=== PATIENT | female | born 1965 | race Caucasian/White ===

== ENCOUNTER → 2020-07-26 07:49 | Outpatient (BNVA) | payer BC, SELFPAY | PROVIDERS: PCP Internal Medicine; Referring Provider Internal Medicine; Visit Provider Physician Assistant | DX: K21.9 Gastro-esophageal reflux disease without esophagitis (principal); F17.200 Nicotine dependence, unspecified, uncomplicated ==

== ENCOUNTER 2020-07-28 10:50 | Outpatient (REF) | payer BC, SELFPAY ==
[2020-07-28 12:21] LABS: Anion Gap 12 (12-20); Blood Urea Nitrogen 11 mg/dL (9-16); Calcium 8.6 mg/dL (8.4-10.2); Carbon Dioxide 28 mmol/L (22-29); Chloride 106 mmol/L (96-108); Estimated Glomerular Filt Rate > 60; Glucose Random 87 mg/dL (60-115); Potassium 4.5 mmol/l (3.3-5.1); Sodium 141 mmol/L (135-145)
== END 2020-07-28 10:51 | disposition home or self-care (01) ==
LOC: HO.LAB 10:50
PROVIDERS: PCP Internal Medicine; Visit Provider Otolaryngology
DX: R22.1 Localized swelling, mass and lump, neck (principal)
CPT/HCPCS: 80048

== ENCOUNTER 2020-08-03 09:17 | Outpatient (REF) | payer BC, SELFPAY ==
--- NOTE | 2020-08-03 09:20 | CT_ITS ---
EXAMINATION: CT SOFT TISSUE NECK WITH CONTRAST CLINICAL INFORMATION: Right neck/submandibular mass. COMPARISON: None TECHNIQUE: Following the intravenous administration of 60 mL of Omnipaque 350 intravenous contrast, helical imaging was performed in the axial plane with generation of coronal and sagittal reformatted images. This CT examination was performed using dose optimization techniques as appropriate, variously including the following: *Automated exposure control *Adjustment of mA and/or kV according to patient size (this includes techniques or standardized protocols for targeted exams where dose is matched to indication/reason for exam; i.e. extremities or head) *Use of iterative reconstruction technique DLP: 306 mGy-cm FINDINGS: There are small bilateral shotty neck lymph nodes. The largest left level 2 lymph nodes appears fraser-shaped measuring 1.4 x 0.5 cm on axial image 74/2, largest right neck lymph node level 2 measures 9 mm on axial image 75/2. The parotid glands are homogeneous in attenuation. The submandibular glands are normal. The oral cavity is limited in evaluation secondary to dental amalgam related beam hardening artifacts. The oropharynx is grossly unremarkable without any visible mass or mass effect. The oropharyngeal airway is widely patent. The laryngeal structures are normal. The parapharyngeal fat is preserved. The carotid sheath vasculature opacify normally. No extra mucosal soft tissue mass or fluid collection is seen. No retropharyngeal fluid collection is seen. The thyroid gland is normal. The superior mediastinum is unremarkable. There is minimal bilateral apical parenchymal scarring. The mastoid air cells and visualized portions of the paranasal sinuses are well-aerated. The temporomandibular joints are normal. No periapical disease is identified. No osseous abnormalities are seen. The imaged portions of the brain parenchyma are unremarkable. CT/CT soft tissue neck w con IMPRESSION: No right neck mass seen. There is no abnormal neck lymphadenopathy. The airway is widely patent. The oral cavity is not well visualized due to artifact from the dental amalgam.
[2020-08-03] MEDS: iohexoL 350 MG/ML 100 ML INFUS..BTL 60 ML IV (10:08)
== END 2020-08-03 09:18 | disposition home or self-care (01) ==
LOC: HO.CT 09:17
PROVIDERS: PCP Internal Medicine; Visit Provider Otolaryngology
DX: R22.1 Localized swelling, mass and lump, neck (principal)
CPT/HCPCS: 70491; Q9967

== ENCOUNTER 2021-07-18 15:38 | Outpatient (REF) | payer OTHER, SELFPAY ==
--- NOTE | ~2021-07-18 | MM_ITS ---
EXAMINATION: MM SCREENING DIGITAL BREAST TOMOSYNTHESIS, BILATERAL CLINICAL INFORMATION: Screening. Asymptomatic. The lifetime risk of breast cancer based on the Tyrer-Cuzick Model is 6%. COMPARISON: Mammography: 04/12/2020, 03/24/2019, 12/31/2017 TECHNIQUE: Digital mammography is performed in craniocaudal and mediolateral oblique views along with computer-aided detection (CAD). Digital breast tomosynthesis is performed in implant-displaced craniocaudal and implant-displaced mediolateral oblique views along with computer-aided detection (CAD). Synthesized 2D images are generated from the tomosynthesis. FINDINGS: There are scattered areas of fibroglandular density (ACR BI-RADS breast composition Category b). There are bilateral implants. The implant contours are smooth and similar to prior studies. There is biopsy clip marker again noted retroareolar left breast. There are some scattered benign punctate round calcifications close to skin bilaterally anterior breasts. Neither breast shows interval mass or developing density or architectural abnormality. There are no significant changes. MM/MM tomosynthesis screen imp BI IMPRESSION: No mammographic evidence of malignancy. ASSESSMENT: BI-RADS 2: Benign RECOMMENDATION: Routine annual mammography screening. This patient's information was entered into a reminder system with a target due date for their next mammogram.
== END 2021-07-18 15:39 | disposition home or self-care (01) ==
LOC: HO.MAMMO 15:38
PROVIDERS: PCP Nurse Practitioner Family; Visit Provider Nurse Practitioner Family
DX: Z12.31 Encounter for screening mammogram for malignant neoplasm of breast (principal)
CPT/HCPCS: 77063; 77067

== ENCOUNTER → 2021-08-05 10:17 | Outpatient (BNVA) | payer OTHER, SELFPAY | PROVIDERS: PCP Nurse Practitioner Family; Referring Provider Nurse Practitioner Family; Visit Provider Surgery ==

== ENCOUNTER → 2021-08-08 08:15 | Outpatient (BNVA) | payer OTHER, SELFPAY | PROVIDERS: PCP Internal Medicine; Visit Provider Obstetrics & Gynecology ==

== ENCOUNTER 2021-08-29 05:58 | Day surgery (SDC) | payer OTHER, SELFPAY ==
[2021-08-19 11:44] VITALS: BMI 21.4
--- NOTE | 2021-08-23 15:35 | HO.ANESPROP2 ---
Documented by User: Jolanta Castorena NP 08/23/21 15:35 HPI - Anesthesia Eval Consult details Narrative: 56yo F for Right Excision of Right Groin Lipoma PMFSH Active Problems Active Problems: All Active Problems (Updated 08/19/21 @ 11:40 by Kanwal De Anda RN) Acid reflux (Acute) Lipoma of abdominal wall (Acute) Well woman exam (Acute) Past Medical History Medical History (Updated 08/19/21 @ 11:40 by Kanwal De Anda RN) Acid reflux Smoker Tubular adenoma Tubulovillous adenoma Family History Family History Father CAD (coronary artery disease) Mother No problems noted. Unknown No problems noted. Surgical History Surgical History (Updated 08/19/21 @ 11:40 by Kanwal De Anda RN) History of arthroscopy of left shoulder History of bilateral breast implants History of section History of D&C History of left breast biopsy Hx of colonoscopy Social History Social History Are you a primary resident care coordinator to a significant other at home: No Do you presently have visiting nurse or other home services: No Alcohol intake: current Alcohol intake frequency: a few times a month Patient Tobacco Use Status: Current everyday Tobacco user Tobacco use type: Cigarette Cigarette Packs Per Day: 0.5 Cigarettes Per Day: 10.0 Years Smoked: 35 Smoked in Last 30 Days: Yes Have you been hit, kicked, punched, or otherwise hurt by someone within the past year? If so, by whom?: No Are you DNR?: No Advance Directives: No Advance Directives Information Provided: No Advance Directives on File: No Recently lost weight without trying: No Eating poorly because of decreased appetite: No Nutrition Risks: No Nutritional Risk Patient : No Current occupation: [employer] Meds Allergies Allergy/AdvReac Type Severity Reaction Status Date / Time No Known Allergies Allergy Verified 08/19/21 11:36 [No Known Allergies*] Home Medications Medication Instructions Recorded Confirmed Last Taken Type omeprazole 20 mg tablet,delayed 20 mg PO DAILY 08/05/21 08/19/21 Unknown History release Exam Exam Date and Time: August 23, 2021 1535 Height,Weight and Vital Signs: Height 5 ft 7 in Weight 62.142 kg Assessment and Plan Assessment Anesthesia Assessment: Chart Reviewed Documented by User: Jaya Marshall 08/29/21 07:16 [facility] Past Medical History Medical History (Updated 08/19/21 @ 11:40 by Kanwal De Anda, RN) Acid reflux Smoker Tubular adenoma Tubulovillous adenoma Functional capacity: independent ambulation Family History Family History Father CAD (coronary artery disease) Mother No problems noted. Unknown No problems noted. Family history of problems with anesthesia: No Surgical History Surgical History (Updated 08/19/21 @ 11:40 by Kanwal De Anda RN) History of arthroscopy of left shoulder History of bilateral breast implants History of section History of D&C History of left breast biopsy Hx of colonoscopy Social History Social History Are you a primary resident care coordinator to a significant other at home: No Do you presently have visiting nurse or other home services: No Alcohol intake: current Alcohol intake frequency: a few times a month Patient Tobacco Use Status: Current everyday Tobacco user Tobacco use type: Cigarette Cigarette Packs Per Day: 0.5 Cigarettes Per Day: 10.0 Years Smoked: 35 Smoked in Last 30 Days: Yes Have you been hit, kicked, punched, or otherwise hurt by someone within the past year? If so, by whom?: No Are you DNR?: No Advance Directives: No Advance Directives Information Provided: No Advance Directives on File: No Recently lost weight without trying: No Eating poorly because of decreased appetite: No Nutrition Risks: No Nutritional Risk Patient : No Current occupation: [employer] Allergies Allergy/AdvReac Type Severity Reaction Status Date / Time No Known Allergies Allergy Verified 08/19/21 11:36 [No Known Allergies*] Home Medications Medication Instructions Recorded Confirmed Last Taken Type omeprazole 20 mg tablet,delayed 20 mg PO DAILY 08/05/21 08/19/21 Unknown History release Exam Airway Mallampati Class: II TM Dist: >3cm Neck ROM: Full Loose/Missing/Broken Teeth: Yes (Loose crown ) Heart: rrr Lungs: bl breath sounds Assessment and Plan Final Anesthetic Review Family History of Problems with Anesthesia: No ASA Class: II Final Preanesthetic Review: Meds/Allgs Chart Reviewed and Anes Risks/Benef Reviewed Patient Risk: Intermediate Procedure Risk: Intermediate Anesthetic Plan Anesthetic Plan: GA Disposition: Standard PACU
[2021-08-29] VITALS (7 sets, daily range): BP systolic 133–145; BP diastolic 76–88; PULSE 61–77; RESP 15–16; TEMP 36.3–36.7; O2SAT 96–100
[2021-08-29] MEDS: Lactated Ringers 1,000 ML 100 ML IVCONT (06:18)
--- NOTE | 2021-08-29 07:32 | MHC.SHP ---
Pre-Procedural Eval Section A Date of Service: 08/29/21 The patient is an INPATIENT: No Changes since office visit: Yes Patient answered all questions; No Cold of Flu in the past 2 weeks, No New Medical Problems and No Changes in Medication The History & Physical has been completed within 30 days and I have reviewed it.: Yes Section B Chief Complaint: Lipoma of Abdominal Wall Allergies: Allergies Allergy/AdvReac Type Severity Reaction Status Date / Time No Known Allergies Allergy Verified 08/19/21 11:36 [No Known Allergies*] Plan Diagnosis/Plan: Unchanged I have reviewed the history and physical and performed a pertinent physical examination on my patient. No changes have occurred unless specified.
--- NOTE | 2021-08-29 08:18 | W.PM.OPN ---
Operative Note Operative Note Date of Service: 08/29/21 Narrative: Preoperative diagnosis:Lipoma right groin Postoperative diagnosis: right femoral hernia Procedure: repair of right femoral hernia without mesh Surgeon: Sabino Brock MD [employer] Worker: Johanne Dang PA-C Anesthesia: general LMA Indications for procedure: 56-year-old female patient presenting with a soft tissue mass in the right groin. Denied any significant changes with lifting or straining and denies any pain associated with the lump. On examination the patient has a lump located in the right groin which does not change significantly with changes in position. Findings are suggestive of a lipoma or possible femoral hernia. Operative findings: Right femoral hernia containing preperitoneal fat Specimen: Right femoral hernia contents (preperitoneal fat). Estimated blood loss: 2 mL Complications: none Procedure details: The patient was brought to the OR placed in a supine position. After administering general anesthesia the patient's abdomen was prepped with ChloraPrep and draped in a sterile fashion. A surgical time-out was called the consent confirmed. Patient received preoperative antibiotics and Venodyne boots were in place. Local anesthesia consisting of 0.5% Sensorcaine was infiltrated over the right inguinal ligament. Incision was then made over the patient's previous incision ( section) carried out through subcutaneous tissue and down to the lipoma. The lipoma was then dissected free from the surrounding subcutaneous tissue. This was dissected down to a fascial defect. No bowel was noted within the hernia. The pre peritoneal fat was then resected and sent to pathology as a specimen. Edges of the fascial then identified and a small fascial defect noted this location. This was closed using a single 1. Tycron suture to approximate the Efrem's ligament to the inguinal ligament. The wounds were then irrigated with saline solution and suctioned dry. Dermis was then reapproximated using interrupted 3-0 Polysorb sutures. Skin was then closed using a running subcuticular 4-0 Polysorb suture. Steri-Strips 2 x 2 gauze and Tegaderm were then applied. The patient tolerated the procedure well. Sponge, instrument, and needle counts reported as correct. The patient was transferred to PACU in stable condition.
[2021-08-29] MEDS: HYDROcodone Bit/Acetam 5/325 TABLET 1 TAB PO (09:12)
== END 2021-08-29 10:09 | disposition home or self-care (01) ==
PROVIDERS: PCP Nurse Practitioner Family; Visit Provider Surgery
PROC: (CPT 49550; principal; 2021-08-29 07:30)
DX: K41.90 Unilateral femoral hernia, without obstruction or gangrene, not specified as recurrent (principal); Z79.899 Other long term (current) drug therapy; K21.9 Gastro-esophageal reflux disease without esophagitis; F17.210 Nicotine dependence, cigarettes, uncomplicated
CPT/HCPCS: 49550; 88302; J0690; J1100; J2250; J2370; J2405; J3010

== ENCOUNTER → 2021-09-06 11:01 | Outpatient (BNVA) | payer OTHER, SELFPAY | PROVIDERS: PCP Nurse Practitioner Family; Referring Provider Nurse Practitioner Family; Visit Provider Surgery ==

== ENCOUNTER → 2021-10-04 10:09 | Outpatient (BNVA) | payer OTHER, SELFPAY | PROVIDERS: PCP Nurse Practitioner Family; Referring Provider Nurse Practitioner Family; Visit Provider Surgery ==

== ENCOUNTER 2022-07-24 15:35 | Outpatient (REF) | payer OTHER, SELFPAY ==
--- NOTE | ~2022-07-24 | MM_ITS ---
EXAMINATION: MM SCREENING DIGITAL BREAST TOMOSYNTHESIS, BILATERAL CLINICAL INFORMATION: Screening. Asymptomatic. Bilateral saline breast implants. The lifetime risk of breast cancer based on the Tyrer-Cuzick Model is 5.2%. COMPARISON: Mammography: 07/08/2021 and studies dating back to 11/10/2013. TECHNIQUE: Digital mammography is performed in craniocaudal and mediolateral oblique views along with computer-aided detection (CAD). Digital breast tomosynthesis is performed in implant-displaced craniocaudal and implant-displaced mediolateral oblique views along with computer-aided detection (CAD). Synthesized 2D images are generated from the tomosynthesis. FINDINGS: The breasts are heterogeneously dense, which may obscure small masses (ACR BI-RADS breast composition Category c). There is a stable parenchymal pattern of the left breast with no new abnormal dominant mass or suspicious grouping of microcalcifications identified. Within the superior aspect of the right breast, approximately 4 cm from the nipple, there is an 8 x 4 mm partially circumscribed density not definitely seen previously, for which spot compression view is recommended. I do not see a correlate on craniocaudal projection. MM/MM tomosynthesis screen imp BI IMPRESSION: Question partially circumscribed density right breast for further evaluation with spot compression view and 90 degree mediolateral view. ASSESSMENT: BI-RADS 0: Incomplete - Need Additional Imaging Evaluation. RECOMMENDATION: 1. Additional views of the right breast. 2. Targeted ultrasound if warranted after review of the additional views. 3. Radiology department staff will contact the patient for additional imaging. This patient's information was entered into a reminder system with a target due date for their next mammogram.
== END 2022-07-24 15:36 | disposition home or self-care (01) ==
LOC: HO.MAMMO 15:35
PROVIDERS: Visit Provider Nurse Practitioner Family
DX: Z12.31 Encounter for screening mammogram for malignant neoplasm of breast (principal)
CPT/HCPCS: 77063; 77067

== ENCOUNTER 2022-07-27 08:28 | Outpatient (REF) | payer OTHER, SELFPAY ==
--- NOTE | ~2022-07-27 | MM_ITS ---
EXAMINATION: MM DIAGNOSTIC DIGITAL BREAST TOMOSYNTHESIS, RIGHT CLINICAL INFORMATION: Recall from screening for question of asymmetric density right breast on MLO view superior to posterior nipple line. COMPARISON: Mammography: 07/24/2022, 07/18/2021, 04/12/2020 TECHNIQUE: Digital breast tomosynthesis is performed. 2D images are generated from the tomosynthesis. The following views are obtained: Implant displaced spot MLO, implant displaced MLO. FINDINGS: There are scattered areas of fibroglandular density (ACR BI-RADS breast composition Category b). Additional views show no asymmetric density or mass or architectural abnormality. No developing density from prior studies. Results are discussed with the patient at time of visit. MM/MM tomosynthesis added views R IMPRESSION: Additional views show no asymmetric density or interval changes from prior exams. ASSESSMENT: BI-RADS 1: Negative RECOMMENDATION: Routine annual mammography screening. This patient's information was entered into a reminder system with a target due date for their next mammogram.
== END 2022-07-27 08:29 | disposition home or self-care (01) ==
LOC: HO.MAMMO 08:28
PROVIDERS: Visit Provider Obstetrics & Gynecology
DX: R92.2 Inconclusive mammogram (principal)
CPT/HCPCS: 77061; 77065

== ENCOUNTER 2022-10-16 08:29 | Outpatient (REF) | payer OTHER, SELFPAY ==
[2022-10-18 06:23] LABS: HPV mRNA E6/E7 rflx Not Detected (Not Detected)
== END 2022-10-16 08:30 | disposition home or self-care (01) ==
LOC: HO.LNP 08:29
PROVIDERS: PCP Nurse Practitioner Family; Visit Provider Obstetrics & Gynecology
DX: Z01.419 Encounter for gynecological examination (general) (routine) without abnormal findings (principal); Z11.51 Encounter for screening for human papillomavirus (HPV)
CPT/HCPCS: 87624; 88142

== ENCOUNTER 2023-06-22 12:07 | Outpatient (AMB) | payer OTHER, SELFPAY ==
--- NOTE | 2023-06-22 10:46 | MHC.OFFVIS ---
Intake Vital Signs 06/22/23 12:10 Height 5 ft 7 in Weight 140 lb BMI 21.9 Intake Visit Reasons: OV-Right shoulder pain Intake Note: Martha is a 58 year old left hand dominant female who presents today as a new patient with complaints of her right shoulder pain. Hx of injections. Patient reports that she cut herself about 3 weeks ago and was seen in an ED where she was given a tetnus shot. The shot was administered very high on the deltoid and since then she has had increased pain and inflammation of the shoulder . She tried ice applicatio which has increased her pain, she is taking tylenol which helps. Allergies No Known Allergies [No Known Allergies*] Allergy (Verified 10/16/22 08:37) HPI OV-Right shoulder pain HPI Details Martha is a 58 year old woman who presents with complaints of right shoulder pain. She complains of pain with daily activity, worse with overhead activity and with sleeping. She describes pain starting after a tetanus shot. Sub deltoid pain. FOR[facility]LY [facility] Medical History Acid reflux Smoker Tubular adenoma Tubulovillous adenoma Surgical History History of arthroscopy of left shoulder History of bilateral breast implants History of section History of D&C History of left breast biopsy Hx of colonoscopy Family History Father CAD (coronary artery disease) Mother No problems noted. Unknown No problems noted. 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) Are you a primary care associate to a significant other at home: No Do you presently have visiting nurse or other home services: No Alcohol intake: current Alcohol intake frequency: a few times a month Patient Tobacco Use Status: Current everyday Tobacco user Tobacco use type: Cigarette Cigarette Packs Per Day: 0.5 Cigarettes Per Day: 10.0 Years Smoked: 35 Current occupational status: employed Current occupation: [employer] Review of Systems Const All systems reviewed & are unremarkable except as noted in HPI and below Physical Exam Vital Signs: BMI result Body Mass Index 21.9 Const General: no acute distress, alert and awake Orientation/consciousness: patient oriented x3 HEENT Head: Yes normocephalic and Yes atraumatic Eyes EOM: EOMs intact bilaterally Resp Effort & Inspection: normal respiratory effort and able to speak in complete sentences Cardio Jugular venous distension: no JVD Skin General skin exam: turgor normal Rashes: no rashes Neuro General: patient oriented x3 Extrem Other: Right Shoulder: + goodman and Neer FUll ROM Painful but negative EC Psych Appearance: grossly normal Affect: normal affect Attitude: cooperative Office Procedures Joint Injection/Drain Joint Injection/Drain Details: Injected 1 mL of Decadron and 3 mL 1% lidocaine and 3 mL of 0.25% Marcaine. Site was prepped using aseptic technique. Patient tolerated the procedure well. Primary Site: right shoulder Approach Used: posterolateral Coding - Large joint Procedure code (CPT) selection complete Results Reviewed Results Reviewed: 06/22/23 12:42 Lidocaine HCl 2 % MPF [Xylocaine 2 % MPF] 5 ml .ROUTE .STK-MED ONE 06/22/23 12:43 BUPivacaine MPF 0.25 % [Sensorcaine-MPF 0.25% 10 ML] 10 ml .ROUTE .STK-MED ONE dexAMETHasone sod phosphate [Decadron] 4 mg .ROUTE .STK-MED ONE Assessment & Plan Assessment & Plan (1) Bursitis of right shoulder: Code(s): M75.51 - Bursitis of right shoulder Plan: This is a 58 year old woman with right shoulder after a tetanus shot. She has pain with daily activity, worse with overhead reaching. I discussed her diagnosis and treatment options. She appears to have bursitis, possibly from deltoid dysfunction after tetanus shot. Reviewed exercises. Coding Level of Care Code Est Pt Level 3 (47213) Diagnoses Bursitis of right shoulder M75.51 CPT Codes Coding - Large joint: 36387 - Large joint ([id number])
[2023-06-22 12:10] VITALS: BMI 21.9
== END 2023-06-22 13:18 | disposition home or self-care (01) ==
PROVIDERS: PCP Nurse Practitioner Family; Visit Provider Orthopaedic Surgery
DX: M75.51 Bursitis of right shoulder (principal)
CPT/HCPCS: 20610; 99213

== ENCOUNTER → 2023-06-22 12:07 | Outpatient (BNVA) | payer OTHER, SELFPAY | PROVIDERS: PCP Nurse Practitioner Family; Visit Provider Orthopaedic Surgery | DX: M75.51 Bursitis of right shoulder (principal) | CPT/HCPCS: 20610; J1100 ==

== ENCOUNTER 2023-09-07 16:09 | Outpatient (REF) | payer OTHER, SELFPAY ==
--- NOTE | ~2023-09-07 | MM_ITS ---
EXAMINATION: MM SCREENING DIGITAL BREAST TOMOSYNTHESIS, BILATERAL CLINICAL INFORMATION: Screening. Asymptomatic. COMPARISON: Mammography: This study is compared with prior exams dating back to 2019. TECHNIQUE: Digital breast tomosynthesis is performed in both the craniocaudal and mediolateral oblique views along with computer-aided detection (CAD). Synthesized 2D images are generated from the tomosynthesis. FINDINGS: There are scattered areas of fibroglandular density (ACR BI-RADS breast composition Category b). There are bilateral, mammographically intact, retropectoral saline breast implants. There are no significant masses, abnormal calcifications, or other abnormalities. There is a tissue marker present in the left subareolar region from prior benign percutaneous biopsy. MM/MM tomosynthesis screening BI IMPRESSION: No mammographic evidence of malignancy. ASSESSMENT: BI-RADS BI-RADS 2 - Benign Findings RECOMMENDATION: Routine annual mammography screening. 1 year F/U This examination should not preclude the clinical evaluation of a suspicious palpable abnormality. This patient's information was entered into a reminder system with a target due date for their next mammogram.
== END 2023-09-07 16:10 | disposition home or self-care (01) ==
LOC: HO.MAMMO 16:09
PROVIDERS: PCP Nurse Practitioner Family; Visit Provider Nurse Practitioner Family
DX: Z12.31 Encounter for screening mammogram for malignant neoplasm of breast (principal)
CPT/HCPCS: 77063; 77067

== ENCOUNTER → 2023-09-07 16:15 | Outpatient (BNV) | payer OTHER, SELFPAY | PROVIDERS: PCP Nurse Practitioner Family; Visit Provider Radiology Diagnostic Radiology | DX: Z12.31 Encounter for screening mammogram for malignant neoplasm of breast (principal) | CPT/HCPCS: 77063; 77067 ==

== ENCOUNTER 2024-01-23 10:13 | Outpatient (AMB) | payer OTHER, SELFPAY ==
[2024-01-23 10:44] VITALS: BP 118/74; BMI 23.0
--- NOTE | 2024-01-23 10:44 | MHC.OFFVIS ---
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 No complaints. Last Pap/HPV was negative in 10/23 Last Mammogram was BI-RADS 2 in 09/22 Last Colonoscopy was done in 06/20, the recommendation was to repeat in 3 years [facility] Medical History Smoker Acid reflux Tubular adenoma Tubulovillous adenoma Surgical History Hx of colonoscopy History of bilateral breast implants History of arthroscopy of left shoulder History of left breast biopsy History of D&C History of section Family History Father CAD (coronary artery disease) Mother No problems noted. Unknown No problems noted. 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) Household Members: Spouse Household Members Other:: son Are you a primary physician locums urgent care to a significant other at home: No Do you presently have visiting nurse or other home services: No Alcohol intake: current Alcohol intake frequency: a few times a month Patient Tobacco Use Status: Former Tobacco user Tobacco use type: Cigarette Cigarette Packs Per Day: 0.5 Cigarettes Per Day: 10.0 Years Smoked: 35 Current occupational status: employed Current occupation: [employer] Sexual orientation: Straight/Heterosexual Gender identity: Female Female Reproductive History Menstrual Total pregnancies: 3 Full term: 3 Number of Living Children: 3 Date of last pap smear: 10/13/22 Date of Mammogram: 09/07/23 Review of Systems Const All systems reviewed & are unremarkable except as noted in HPI and below Card Reports as per HPI Resp Reports as per HPI GI Reports as per HPI and Reports no additional complaints Reports as per HPI Physical Exam Vital Signs: BMI result Body Mass Index 23.0 Const General: cooperative, healthy appearing and comfortable Chest Chest palpation & inspection: normal inspection of the chest and normal palpation of entire chest wall Breast/axilla inspection: normal inspection of the breasts and normal inspection of the axillae Breast/axilla palpation: normal palpation of the breasts, normal palpation of the axillae and no axillary lymphadenopathy Resp Effort & Inspection: normal respiratory effort Auscultation: clear to auscultation bilaterally Percussion: percussion normal Cardio Palpation: normal PMI Rate: regular rate Rhythm: regular rhythm Heart sounds: no murmurs and no rubs Peripheral pulses: Peripheral pulses 2+ throughout GI Inspection: Yes normal to inspection Palpation (GI): Soft to palpation, nontender, no guarding, not rigid and No hepatosplenomegaly present Percussion: Yes normal to percussion Auscultation: normal bowel sounds Rectal Exam - Female: deferred General: Yes bladder normal to palpation External Female Exam: No lesion Speculum Exam - Vagina: normal appearance of the vagina, normal palpation, normal vaginal discharge and not erythematous Speculum Exam - Cervix: normal appearance of the cervix and normal palpation Bimanual exam- vagina & uterus: normal bimanual exam, normal palpation, uterine size normal, bladder normal to palpation, consistency normal and normal palpation Bimanual Exam- Adnexa, other: normal adnexae (Left adnexa within normal), no masses, no tenderness and Adnexal mass present (Right adnexal fullness) Assessment & Plan Assessment & Plan (1) Well woman exam: Code(s): Z01.419 - Encounter for gynecological examination (general) (routine) without abnormal findings Category: Medical Plan: Co testing not indicated this year. Counseled the patient about the recommended dietary allowance of 1200 mg of Calcium & 600 IU of vitamin D. Instructions given the patient to schedule next screening Mammogram in 09/23 The patient was referred to GI for screening colonoscopy . The patient was instructed to perform monthly self-breast exams and schedule annual exam in a year. All questions answered and the patient verbalized understanding. (2) Adnexal fullness: Comment: On the right side Code(s): N94.9 - Unspecified condition associated with female genital organs and menstrual cycle Category: Medical Plan: Discussed with the patient the finding on pelvic exam, right adnexal fullness. Pelvic ultrasound ordered. Instruction given to patient to schedule a 2 week ultrasound follow-up appointment. Orders: Orders US pelvic and transvaginal Today N94.9 - Unspecified condition associated with female genital organs and menstrual cycle Referrals Gastroenterology Referral Z12.11 - Encounter for screening for malignant neoplasm of colon Coding Level of Care Code Est Pt Prev Care 40-64y(58230) Diagnoses Well woman exam Z01.419 Adnexal fullness N94.9
== END 2024-01-23 11:24 | disposition home or self-care (01) ==
LOC: HO.HWS 10:13
PROVIDERS: PCP Nurse Practitioner Family; Visit Provider Obstetrics & Gynecology
DX: Z01.419 Encounter for gynecological examination (general) (routine) without abnormal findings (principal); N94.9 Unspecified condition associated with female genital organs and menstrual cycle
CPT/HCPCS: 99396

== ENCOUNTER → 2024-01-23 10:13 | Outpatient (BNVA) | payer OTHER, SELFPAY | PROVIDERS: PCP Nurse Practitioner Family; Visit Provider Obstetrics & Gynecology ==

== ENCOUNTER 2024-02-08 10:24 | Outpatient (AMB) | payer OTHER, SELFPAY ==
--- NOTE | 2024-02-08 10:26 | A.OFFVIS_ITS ---
Intake Visit Reasons: OV - B/L shoulder pain, last inj 06/22/23 Intake Note: Martha is a 58 year old left hand dominant female who presents today for a follow up of her bilateral shoulder bursitis. Patient reports that she is having a constant aching in bilateral shoulders. Increased pain and weakness with late ral movements and has increased pain when sleeping on her sides. Denies numbness and tingling. Hx of left shoulder arthroscopy with biceps tenodesis 08/29/17 Hx of Right Shoulder Injection 2018 Allergies No Known Allergies [No Known Allergies*] Allergy (Verified 02/08/24 10:34) HPI HPI OV - B/L shoulder pain, last inj 06/22/23: Details: Martha is a 58 year old left hand dominant female who presents today for a follow up of her bilateral shoulder bursitis. Patient reports that she is having a constant aching in bilateral shoulders. Increased pain and weakness with lateral movements and has increased pain when sleeping on her sides. Denies numbness and tingling. Hx of left shoulder arthroscopy with biceps tenodesis 08/29/17 Hx of Right Shoulder Injection 2018 [facility] Medical History Smoker Acid reflux Tubular adenoma Tubulovillous adenoma Surgical History Hx of colonoscopy History of bilateral breast implants History of arthroscopy of left shoulder History of left breast biopsy History of D&C History of section Family History Father CAD (coronary artery disease) Mother No problems noted. Unknown No problems noted. Social History (Updated 01/23/24 @ 10:47 by Alysa Rinaldi CMA) Household Members: Spouse Household Members Other:: son Are you a primary palliative care coordinator to a significant other at home: No Do you presently have visiting nurse or other home services: No Alcohol intake: current Alcohol intake frequency: a few times a month Patient Tobacco Use Status: Former Tobacco user Tobacco use type: Cigarette Cigarette Packs Per Day: 0.5 Cigarettes Per Day: 10.0 Years Smoked: 35 Current occupational status: employed Current occupation: [employer] Sexual orientation: Straight/Heterosexual Gender identity: Female Physical Exam Const General: cooperative, healthy appearing, no acute distress and well groomed Orientation/consciousness: oriented to person and oriented to place HEENT Head: Yes normal to inspection, Yes normocephalic and Yes atraumatic Eyes General: appearance normal, both eyes and all related structures Alignment and Position: alignment normal Conjunctivae: conjunctivae normal EOM: EOMs intact bilaterally Neck Neck: Yes normal visual inspection and Yes trachea midline Resp Other: No rerpiratory distress Effort & Inspection: normal respiratory effort and able to speak in complete sentences Cardio Other: Palpable radial pulse with no appreciable rythmic abnormalities GI Other: No abdominal distension Back/Spine/Pelvis Cervical Spine: normal cervical lordosis and cervical ROM normal Skin General skin exam: no rashes or lesions noted Neuro General: oriented to person, oriented to place and gait normal Extrem Other: Full range of motion bilateral shoulders. Negative but painful empty can bilaterally Positive Lucia and Neer bilaterally Office Procedures Joint Injection/Drain Joint Injection/Drain Details: Injected 1 mL of Decadron and 3 mL 1% lidocaine and 3 mL of 0.25% Marcaine. Site was prepped using aseptic technique. Patient tolerated the procedure well. Primary Site: right shoulder Secondary Site: left shoulder Approach Used: posterolateral Coding - Large joint - Glenohumeral/Tronchanteric Bursa/Intraarticular Procedure code (CPT) selection complete Assessment & Plan Assessment & Plan (1) Bilateral shoulder bursitis: Code(s): M75.51 - Bursitis of right shoulder; M75.52 - Bursitis of left shoulder Category: Medical Plan: 58-year-old woman with bilateral shoulder bursitis. I have reviewed this and she would prefer injections to physical therapy at this point. She feels like she has done a lot of physical therapy in recent years. I think this is reasonable. I injected bilateral shoulders and recommend scapular stabilization with home exercises. Plan I injected her bilateral shoulders today. Coding Level of Care Code Est Pt Level 3 (25072) Diagnoses Bilateral shoulder bursitis M75.51; M75.52 CPT Codes Coding - Large joint: 24539 - Large joint ([id number]) Coding - Joint 7: - Glenohumeral/Tronchanteric Bursa/Intraarticular ([id number])
== END 2024-02-08 11:19 | disposition home or self-care (01) ==
PROVIDERS: PCP Nurse Practitioner Family; Visit Provider Orthopaedic Surgery
DX: M75.51 Bursitis of right shoulder (principal); M75.52 Bursitis of left shoulder
CPT/HCPCS: 20610; 99213

== ENCOUNTER → 2024-02-08 10:24 | Outpatient (BNVA) | payer OTHER, SELFPAY | PROVIDERS: PCP Nurse Practitioner Family; Visit Provider Orthopaedic Surgery | DX: M75.51 Bursitis of right shoulder (principal); M75.52 Bursitis of left shoulder | CPT/HCPCS: 20610; J0665; J1100 ==

== ENCOUNTER 2024-02-12 10:41 | Outpatient (REF) | payer OTHER, SELFPAY ==
--- NOTE | ~2024-02-12 | US_ITS ---
EXAMINATION: US PELVIS CLINICAL INFORMATION: Right adnexal fullness. Endometrial ablation 7 years ago. COMPARISON: None available. TECHNIQUE: Ultrasound of the pelvis is performed using both transabdominal and transvaginal transducers along with Doppler. Transvaginal imaging is performed due to inadequate visualization transabdominally. FINDINGS: Uterus: The uterus is anteverted and measures 5.6 x 4.3 x 4.7 cm. Endometrium was not visualized. Large central fibroid present near the fundus measuring 3.3 x 3.6 x 4.0 cm with a smaller more proximal fibroid measuring 1.5 x 1.3 x 1.2 cm. No visible fibroid. Adnexa: Both ovaries are visualized. There is normal color flow to the adnexa. There is no ovarian torsion. There is no pelvic ascites or fluid collection. Right ovary measures 1.9 x 0.9 x 1.5 cm for a volume of 1.3 mL. Left ovary measures 1.7 x 1.4 x 1.1 cm for a volume of 1.4 mL. US/US pelvic and transvaginal IMPRESSION: 1. Uterine fibroids. 2. The endometrium was not visualized status post ablation. 3. The ovaries are unremarkable.
== END 2024-02-12 10:42 | disposition home or self-care (01) ==
LOC: HO.US 10:41
PROVIDERS: PCP Nurse Practitioner Family; Visit Provider Obstetrics & Gynecology
DX: D25.9 Leiomyoma of uterus, unspecified (principal)
CPT/HCPCS: 76830; 76856

== ENCOUNTER 2024-04-22 10:27 | Outpatient (AMB) | payer OTHER, SELFPAY ==
[2024-04-22 10:47] VITALS: BP 120/80; BMI 22.8
--- NOTE | 2024-04-22 10:47 | A.OFFVIS_ITS ---
Vital Signs 04/22/24 10:47 Height 5 ft 7 in Weight 145 lb 8.081 oz BMI 22.8 BP 120/80 Intake Visit Reasons: Ultra sound follow up Allergies No Known Allergies [No Known Allergies*] Allergy (Verified 02/08/24 10:34) HPI Comments Details: Presenting for ultrasound follow-up regarding adnexal fullness identified on pelvic exam. Pelvic ultrasound done recently showed the following: Uterus: The uterus is anteverted and measures 5.6 x 4.3 x 4.7 cm. Endometrium was not visualized. Large central fibroid present near the fundus measuring 3.3 x 3.6 x 4.0 cm with a smaller more proximal fibroid measuring 1.5 x 1.3 x 1.2 cm. No visible fibroid. Adnexa: Both ovaries are visualized. There is normal color flow to the adnexa. There is no ovarian torsion. There is no pelvic ascites or fluid collection. Right ovary measures 1.9 x 0.9 x 1.5 cm for a volume of 1.3 mL. Left ovary measures 1.7 x 1.4 x 1.1 cm for a volume of 1.4 mL. COUNT INCLUDES THE [facility] Medical History Smoker Acid reflux Tubular adenoma Tubulovillous adenoma Surgical History Hx of colonoscopy History of bilateral breast implants History of arthroscopy of left shoulder History of left breast biopsy History of D&C History of section Family History Father CAD (coronary artery disease) Mother No problems noted. Unknown No problems noted. Social History Household Members: Spouse Household Members Other:: son Are you a primary dialysis patient care technician to a significant other at home: No Do you presently have visiting nurse or other home services: No Alcohol intake: current Alcohol intake frequency: a few times a month Patient Tobacco Use Status: Former Tobacco user Tobacco use type: Cigarette Cigarette Packs Per Day: 0.5 Cigarettes Per Day: 10.0 Years Smoked: 35 Current occupational status: employed Current occupation: [employer] Sexual orientation: Straight/Heterosexual Gender identity: Female Review of Systems Const All systems reviewed & are unremarkable except as noted in HPI and below Reports as per HPI and Reports no additional complaints GI Reports no additional complaints Reports no additional complaints Assessment & Plan Assessment & Plan (1) Uterine myoma: Code(s): D25.9 - Leiomyoma of uterus, unspecified Category: Medical Plan: Discussed with the patient the findings on pelvic ultrasound & the risk of myosarcoma; discussed with the patient the options of treatment including expectant management versus hysterectomy; the pros and cons, risks benefits of each approach were discussed with the patient including the fact that in cases of myosarcoma, surgical treatment can lead to early diagnosis and positively aff ects the prognosis; after further discussion, the patient decided to proceed with expectant management. Will repeat pelvic ultrasound periodically. Instructions given to patient to call in case any of the following occurs: pressure symptoms, abnormal uterine bleeding, pelvic pain; and to schedule a 4 months pelvic ultrasound and a follow-up appointment . All questions answered, the patient verbalized understanding and agreed with the plan . Orders: Orders US pelvic and transvaginal 4 Months D25.9 - Leiomyoma of uterus, unspecified Coding Level of Care Code Est Pt Level 3 (41879) Diagnoses Uterine myoma D25.9
== END 2024-04-22 10:54 | disposition home or self-care (01) ==
PROVIDERS: PCP Nurse Practitioner Family; Visit Provider Obstetrics & Gynecology
DX: D25.9 Leiomyoma of uterus, unspecified (principal)
CPT/HCPCS: 99213

== ENCOUNTER → 2024-04-22 10:27 | Outpatient (BNVA) | payer OTHER, SELFPAY | PROVIDERS: PCP Nurse Practitioner Family; Visit Provider Obstetrics & Gynecology ==

== ENCOUNTER 2024-08-18 09:48 | Outpatient (AMB) | payer OTHER, SELFPAY ==
--- NOTE | 2024-08-18 09:54 | A.OFFVIS_ITS ---
Vital Signs 08/18/24 09:55 Height 5 ft 7 in Weight 153 lb 7.068 oz BMI 24.0 BP 136/96 H Blood Pressure Location Lt brachial Position Sitting Pulse 72 Pulse Source Pulse Oximeter Pulse Oximetry (%) 97 Oxygen Delivery Method Room Air Intake Visit Reasons: Acute GERD and [place]. Screening Intake Note: Relevant Flags or Indicators ? Requires Medical Cash Poster? Rufino Thomas presents in office today for a scheduled consultation for possible EGD/[place] pertaining to Acute GERD. CC; No recent labs, diagnostics, or med orders placed. ? Relevant GI Sx as reported per pt? Reflux - Pt taking famotidine PRN. Pt reports that the last time they took a dose was approximately 4 days ago. Pt is fasting, did have coffee with small amount of milk, no sugar. ? Hx of any recent surgeries? None ? Pertinent FMHx? None Medical Cash Poster Required: No Allergies No Known Allergies [No Known Allergies*] Allergy (Verified 08/18/24 09:56) HPI HPI Acute GERD and [place]. Screening: Details: LAST COLONOSCOPY 2019 Findings: Terminal Ileum ? Not evaluated Cecum ? Normal Ascending Colon ? Normal Transverse Colon - Normal Descending Colon ? Normal Sigmoid Colon ? A 15 mm sessile polyp removed with a hot snare and moderate diverticulosis Rectum ? Three 5-7 mm sessile polyps removed with a cold snare and only one polyp was retrieved. Ano-rectum - Hypertrophied anal papillae. Colon preparation: Good Impression and Post Procedure Diagnosis: Colonoscopy Findings: Four polyps removed (one polyp was 15 mm) and two polyps were not retrieved. Moderate diverticulosis seen in the sigmoid colon Plan: Await pathology results Repeat Colonoscopy interval based on path results ? in 3 years if polyps are adenomatous and 10 years if polyps are hyperplastic. Above findings were reviewed with the patient and colon polyps and diverticulosis handouts were given in the discharge area BIOPSIES SHOWED: A. Colon, sigmoid at 45 cm, polypectomy: Fragments of tubulovillous adenoma; no high grade dysplasia or carcinoma seen. B. Rectum, polypectomy: Fragments of tubular adenoma; no high grade dysplasia or carcinoma seen. LAST VISIT WITH LEONIDES LOPEZ 07/26/2020 [facility] [address] [place] [address] [address] [place] [address] Office Visit Report Signed Patient: Martha Palomares MR#: [id number] : 1965 Acct:[id number] Age/Sex: 55 / F ADM Date: 07/26/20 Loc: [facility] Date of Service:07/26/[address]: Rochelle Lopez PA-C cc: ~ Intake Intake Visit Reasons: acid reflux Allergies No Known Allergies [No Known Allergies*] Allergy (Unverified 07/26/20 07:44) - Last Reconciled 07/26/20 by Rochelle Lopez PA-C No Known Home Meds COUNT INCLUDES THE [facility] Medical History (Updated 07/26/20 @ 07:55 by Rochelle Lopez PA-C) Tubular adenoma Tubulovillous adenoma Family History (Updated 07/26/20 @ 07:52 by Rochelle Lopez PA-C) Father No problems noted. Mother No problems noted. Unknown No problems noted. Social History (Updated 07/26/20 @ 07:52 by Rochelle Lopez PA-C) Alcohol intake: current Smoking Status: Current every day smoker Current occupation: [employer] HPI HPI Comments History of Present Illness Details A 55-year-old female new onset of acid reflux began about 6-8 weeks ago. She is a smoker drinks alcohol socially- She has gained about 5 lbs- however she is losing it. She had a Nexium 24 hour- however 11 to 12 day- she then discontinued 3 days ago- symptoms seem to improve- she had noticed her symptoms more in the evening. She is trying to lose the 5 lb that she gained She has no other symptoms. Recently had a colonoscopy- received a letter in [facility]- noting she had polyps - and went to repeat. She has no nausea, vomiting, abdominal pain, change in bowels, fever or chills. She has no known family history of GI cancersl Review of Systems GI Reports as per HPI Assessment & Plan Assessment & Plan (1) Acid reflux: Comment: a 55-year-old female new onset of acid reflux. She is a smoker, drinks alcohol socially and has gained weight. Trial of Nexium for couple weeks with good response. she may try famotidine if need she will monitor her symptoms, avoid culprits Code(s): K21.9 - Gastro-esophageal reflux disease without esophagitis Category: Medical Patient Instructions: She is agreeable to keep a food diary, monitor symptoms. She may use famotidine if symptoms recur will follow up for progress in 2-3 months, she will call with any a a change in symptoms. TODAY'S VISIT Patient is here today to discuss going for colonoscopy. Patient reports that she has been dealing with acid reflux since 2019 on enough. Tried multiple different medications and nothing was helping her. Patient does admit that she is eating lots of sweets. Last snack at 20:00. Reports that her symptoms are was at night time. Patient reports that her symptoms are severe acid reflux that she can feel it going all the way up to her throat. Sometimes patient feels that she can swallow because the reflux is so severe. Patient denies any nausea or vomiting. Last colonoscopy showed 2 tubular adenomas and recommendation was made for repeat in 3 years. Patient denies any melena, hematochezia, unintentional weight loss or ribbon like stools. Patient reports that she had blood work done by her PCP. Patient states that she had her vitamin levels checked and they were all normal. Had H pylori test done 2 years ago and it was negative. Patient denies any abdominal pain or bloating. Report s that she is moving her bowels without any issues. No issues with anesthesia in the past. No history of sleep apnea. Not on any anticoagulation medication. Denies any infectious diseases in the past or present. No family history of CRC. COUNT INCLUDES THE [facility] Medical History Smoker Acid reflux Tubular adenoma Tubulovillous adenoma Surgical History Hx of colonoscopy History of bilateral breast implants History of arthroscopy of left shoulder History of left breast biopsy History of D&C History of section Family History Father CAD (coronary artery disease) Mother No problems noted. Unknown No problems noted. Social History Household Members: Spouse Household Members Other:: son Are you a primary day care center director to a significant other at home: No Do you presently have visiting nurse or other home services: No Alcohol intake: current Alcohol intake frequency: a few times a month Patient Tobacco Use Status: Former Tobacco user Tobacco use type: Cigarette Cigarette Packs Per Day: 0.5 Cigarettes Per Day: 10.0 Years Smoked: 35 Current occupational status: employed Current occupation: [employer] Sexual orientation: Straight/Heterosexual Gender identity: Female Review of Systems Const Denies weight gain and Denies weight loss ENT Reports no additional complaints, Denies dysphagia and Denies odynophagia Card Reports no additional complaints Resp Reports no additional complaints GI Denies abdominal pain, Denies belching, Denies melena, Denies bloating, Denies change in bowel habits, Denies dysphagia, Denies excessive flatus, Reports dyspepsia, Reports heartburn, Denies diarrhea, Denies loose stools, Denies nausea, Denies odynophagia and Denies vomiting Reports no additional complaints Musc Reports no additional complaints Neuro Reports no additional complaints Psych Reports no additional complaints Endo Reports no additional complaints Physical Exam Const General: healthy appearing, no acute distress and well developed Nutritional Appearance: well nourished Orientation/consciousness: patient oriented x3 Resp Effort & Inspection: normal respiratory effort, able to speak in complete sentences, no tracheal deviation and symmetric chest movement Auscultation: clear to auscultation bilaterally Cardio Rate: regular rate GI Inspection: Yes normal to inspection and No distended Palpation (GI): Soft to palpation, not firm, nontender and No hepatosplenomegaly present Auscultation: normal bowel sounds General: Yes no CVA tenderness Back/Spine/Pelvis Back: no CVA tenderness Skin General skin exam: elasticity normal, turgor normal and dry skin Neuro General: patient oriented x3 Psych Appearance: grossly normal Mental Status: mental status grossly normal Assessment & Plan Assessment & Plan (1) Acid reflux: Code(s): K21.9 - Gastro-esophageal reflux disease without esophagitis Category: Medical Qualifiers: Esophagitis presence: esophagitis presence not specified Qualified Code(s): K21.9 - Gastro-esophageal reflux disease without esophagitis (2) Screen for colon cancer: Code(s): Z12.11 - Encounter for screening for malignant neoplasm of colon (3) Dyspepsia: Code(s): R10.13 - Epigastric pain Plan H pylori testing today, will treat empirically if positive. Patient will start Nexium in the morning and take sucralfate at bedtime. Avoid dietary triggers and late night snacking. Staying upright for minimum 3 hours after meals discussed with patient. Patient will be sent for upper GI series as well as for upper endoscopy. What to expect before colonoscopy discussed with patient. Patient is due to go for another colonoscopy, in 2019 tubular adenoma found. Patient does not have any cardiac or respiratory symptoms. No history of sleep apnea. Not on any anticoagulation medication. I will see patient after procedure, sooner on as needed basis. She is agreeable to this plan and verbalizes understanding of instructions. She was given the opportunity to ask questions and all questions answered. Thank you for allowing me to participate in her care Orders: Orders H Pylori Breath Test Today K21.9 - Gastro-esophageal reflux disease without esophagitis Transglutaminase Ab IgG Today R10.9 - Unspecified abdominal pain Transglutaminase IgA Today R10.9 - Unspecified abdominal pain Medications: New polyethylene glycol 3350 (Miralax) As directed by gastroenterology department at [facility] 238 grams PO ONCE 238 grams 0RF Z12.11 - Encounter for screening for malignant neoplasm of colon esomeprazole magnesium (Nexium) 40 mg PO DAILY 30 caps 5RF K21.9 - Gastro- esophageal reflux disease without esophagitis bisacodyl (Dulcolax (bisacodyl)) take 4 tabs at noon the day before your colonoscopy 20 mg (4 x 5 mg) PO ONCE 1 day 4 tabs 0RF Z12.11 - Encounter for screening for malignant neoplasm of colon sucralfate 1 g PO BEDTIME 30 tabs 4RF R19.7 - Diarrhea, unspecified Coding Level of Care Code New Pt Level 4 (15831) Diagnoses Gastroesophageal reflux disease, unspecified whether esophagitis present K21.9 Esophagitis presence: esophagitis presence not specified Screen for colon cancer Z12.11 Dyspepsia R10.13 Time Spent (min) 45 Comment 30 minutes spent with patient and additional 15 minutes spent reviewing her records
[2024-08-18 09:55] VITALS: BP 136/96; PULSE 72; O2SAT 97; BMI 24.0
== END 2024-08-18 10:45 | disposition home or self-care (01) ==
PROVIDERS: PCP Nurse Practitioner Family; Visit Provider Nurse Practitioner Family
DX: K21.9 Gastro-esophageal reflux disease without esophagitis (principal); Z12.11 Encounter for screening for malignant neoplasm of colon; R10.13 Epigastric pain
CPT/HCPCS: 99204

== ENCOUNTER 2024-08-18 09:48 | Outpatient (REF) | payer OTHER, SELFPAY ==
[2024-08-19 14:48] LABS: Transglutaminase Ab IgG <1.0 U/mL; Transglutaminase IgA <1.0 U/mL
[2024-08-20 15:58] LABS: H Pylori Breath Test Negative (Negative)
== END 2024-08-18 09:49 | disposition home or self-care (01) ==
LOC: HO.LAB 09:48
PROVIDERS: PCP Nurse Practitioner Family; Visit Provider Nurse Practitioner Family
DX: R10.9 Unspecified abdominal pain (principal); K21.9 Gastro-esophageal reflux disease without esophagitis
CPT/HCPCS: 36415; 83013; 86364

== ENCOUNTER 2024-09-10 06:11 | Day surgery (SDC) | payer OTHER, SELFPAY ==
[2024-09-08 12:53] VITALS: BMI 24.0
--- NOTE | 2024-09-08 14:55 | HO.ANESPROP2 ---
Documented by User: Jolanta Castorena NP 09/08/24 14:55 HPI - Anesthesia Eval Consult details Narrative: 59yo F for Upper Endoscopy and Colonoscopy PMFSH Active Problems Active Problems: All Active Problems Uterine myoma (Acute) Bilateral shoulder bursitis (Acute) Adnexal fullness (Acute) Bursitis of right shoulder (Acute) Femoral hernia of right side (Acute) Well woman exam (Acute) Lipoma of abdominal wall (Acute) Acid reflux (Acute) Past Medical History Medical History (Updated 09/08/24 @ 12:52 by Marilynn Doe RN) Smoker Acid reflux Tubulovillous adenoma Family History Family History Father CAD (coronary artery disease) Mother No problems noted. Unknown No problems noted. Family history of problems with anesthesia: No Surgical History Surgical History (Updated 09/08/24 @ 12:51 by Marilynn Doe RN) History of femoral hernia repair Hx of colonoscopy History of bilateral breast implants History of arthroscopy of left shoulder History of left breast biopsy History of D&C History of section Social History Social History Household Members: Spouse Household Members Other:: son Are you a primary patient care nursing assistant to a significant other at home: No Do you presently have visiting nurse or other home services: No Alcohol intake: current Alcohol intake frequency: holidays/special occasions only Patient Tobacco Use Status: Former Tobacco user Tobacco use type: Cigarette Cigarette Packs Per Day: 0.5 Cigarettes Per Day: 10.0 Years Smoked: 35 Use of substances other than those prescribed or required for medical reasons: No Have you been hit, kicked, punched, or otherwise hurt by someone within the past year? If so, by whom?: No Advance Directives: No Advance Directives Information Provided: Yes Recently lost weight without trying: No Patient : No Current occupational status: employed Current occupation: [employer] Sexual orientation: Straight/Heterosexual Gender identity: Female Meds Allergies Allergy/AdvReac Type Severity Reaction Status Date / Time No Known Allergies Allergy Verified 09/10/24 07:01 [No Known Allergies*] Home Medications ?Medication ?Instructions ?Recorded ?Confirmed ?Last Taken ?Type cholecalciferol (vitamin D3) 25 25 mcg PO DAILY 10/16/22 Unknown History mcg (1,000 unit) capsule indapamide 1.25 mg tablet 1.25 mg PO DAILY 08/18/24 09/08/24 Unknown History Exam Height,Weight and Vital Signs: Height 5 ft 7 in Weight 69.4 kg Assessment and Plan Assessment Anesthesia Assessment: Chart Reviewed Final Anesthetic Review Family History of Problems with Anesthesia: No Documented by User: Agustín Cook MD 09/10/24 07:32 [facility] Past Medical History Medical History (Updated 09/08/24 @ 12:52 by Marilynn Doe RN) Smoker Acid reflux Tubulovillous adenoma Family History Family History Father CAD (coronary artery disease) Mother No problems noted. Unknown No problems noted. Surgical History Surgical History (Updated 09/08/24 @ 12:51 by Marilynn Doe RN) History of femoral hernia repair Hx of colonoscopy History of bilateral breast implants History of arthroscopy of left shoulder History of left breast biopsy History of D&C History of section History of Problems with Anesthesia: No Social History Social History Household Members: Spouse Household Members Other:: son Are you a primary patient care nursing assistant to a significant other at home: No Do you presently have visiting nurse or other home services: No Alcohol intake: current Alcohol intake frequency: holidays/special occasions only Patient Tobacco Use Status: Former Tobacco user Tobacco use type: Cigarette Cigarette Packs Per Day: 0.5 Cigarettes Per Day: 10.0 Years Smoked: 35 Use of substances other than those prescribed or required for medical reasons: No Have you been hit, kicked, punched, or otherwise hurt by someone within the past year? If so, by whom?: No Advance Directives: No Advance Directives Information Provided: Yes Recently lost weight without trying: No Patient : No Current occupational status: employed Current occupation: [employer] Sexual orientation: Straight/Heterosexual Gender identity: Female Meds Allergies Allergy/AdvReac Type Severity Reaction Status Date / Time No Known Allergies Allergy Verified 09/10/24 07:01 [No Known Allergies*] Home Medications ?Medication ?Instructions ?Recorded ?Confirmed ?Last Taken ?Type cholecalciferol (vitamin D3) 25 25 mcg PO DAILY 10/16/22 Unknown History mcg (1,000 unit) capsule indapamide 1.25 mg tablet 1.25 mg PO DAILY 08/18/24 09/08/24 Unknown History Exam Airway Mallampati Class: I TM Dist: >3cm Neck ROM: Full Loose/Missing/Broken Teeth: No Heart: ok Lungs: ok Assessment and Plan Assessment Anesthesia Assessment: Anesthesia Plan Discussed Final Anesthetic Review History of Problems with Anesthesia: No NPO: Yes ASA Class: II Final Preanesthetic Review: No Changes in Pt Med Stat, Meds/Allgs Chart Reviewed, Consent Obtained/Reviewed and Anes Risks/Benef Reviewed Patient Risk: Low Procedure Risk: Intermediate Anesthetic Plan Anesthetic Plan: Agree w/ Assess. and Plan and TIVA Disposition: Standard PACU
[2024-09-10 07:03] VITALS: BMI 23.0
[2024-09-10] MEDS: Lactated Ringers 1,000 ML 100 ML IVCONT (07:29)
--- NOTE | 2024-09-10 07:52 | MHC.SHP ---
Pre-Procedural Eval Section A - 24 Hr Update-Section A only Date of Service: 09/10/24 The patient is an INPATIENT: No The patient has been examined within 24 hours of the surgical procedure. The History & Physical has been completed within 30 days and I have reviewed it.: Yes Section B - Complete if H&P > 30 days Chief Complaint: GERD, hx of polyps Allergies: Allergies Allergy/AdvReac Type Severity Reaction Status Date / Time No Known Allergies Allergy Verified 09/10/24 07:01 [No Known Allergies*] Plan Diagnosis/Plan: Unchanged I have reviewed the history and physical and performed a pertinent physical examination on my patient. No changes have occurred unless specified. Time Spent With Patient Time: Total time managing care of this patient today ____ minutes.
--- NOTE | 2024-09-10 08:38 | P.OPN-COLO_ITS ---
Colonoscopy Operative Note Operative Note Date of Service: 09/10/24 Narrative: Procedure: Upper endoscopy and colonoscopy Indication: GERD, hx of polyps Endoscopist: Kristin Izaguirre MD Anesthesia Provider: Dr Agustín Cook Anesthesia type: MAC Instrument: [id number] and [id number] EGD Procedure:?? The procedure, indications, preparation and potential complications were reviewed with the patient, who indicated understanding and gave written informed consent to proceed. The endoscope was introduced through the mouth, and advanced to the 2nd part of the duodenum. The mucosa was carefully examined on slow withdrawal of the endoscope. The patient tolerated the procedure well. There were no immediate complications.? EGD Findings:? * Esophagus:? Normal esophageal mucosa was noted. The Z-line was at 39 cm. There was a small hiatal hernia with the diaphragmatic pinch at 41 cm. Cold forceps biopsies were taken from middle and lower esophagus to rule out eosinophilic esophagitis. * Stomach:? Normal gastric mucosa. Retroflexion was performed in the cardia that showed Hill grade 3 hiatal hernia. * Duodenum:? Normal duodenal mucosa. Cold forceps biopsies were taken from the duodenal bulb and 2nd portion of the duodenum to rule out celiac sprue. Colonoscopy Procedure:? The patient was then turned for the colonoscopy. A digital rectal exam was performed which was normal.?The colonoscope was then inserted through the anus and advanced through the colon and advanced to the cecum at 75 cm and terminal ileum.? Appendiceal orifice and ileocecal valve were identified. Mucosa was carefully examined under high definition white light as the instrument was slowly withdrawn in a retrograde panoramic fashion. Retroflexion was performed in rectum. The procedure was not difficult. The quality of the prep was BBPS: 2+3+2 = adequate Withdrawal time 7 minutes Limitations: No limitations Findings: Mucosa: Normal colon and terminal ileum mucosa. Protruding lesions: * Medium internal hemorrhoids without stigmata of recent bleeding. Impression: 1. Normal esophagus (biopsy) 2. Hiatal hernia 3. Normal stomach 4. Normal duodenum (biopsy) 5. Normal colon and terminal ileum mucosa 6. Internal hemorrhoids Recommendations:?? * Follow-up path results * Avoid NSAIDs * Repeat colonoscopy for CRC screening in 10 years.
[2024-09-10 08:40] VITALS: BP 120/94; PULSE 84; RESP 18; TEMP 37; O2SAT 96
[2024-09-10 08:45] VITALS: BP 132/81; PULSE 87; RESP 18; O2SAT 100
[2024-09-10 08:50] VITALS: BP 137/84; PULSE 78; RESP 18; O2SAT 100
[2024-09-10 08:55] VITALS: BP 141/94; PULSE 82; RESP 16; TEMP 36.1; O2SAT 100
== END 2024-09-10 09:17 | disposition home or self-care (01) ==
PROVIDERS: PCP Nurse Practitioner Family; Visit Provider Internal Medicine
PROC: (CPT 45378; principal; 2024-09-10 07:30)
DX: Z12.11 Encounter for screening for malignant neoplasm of colon (principal); Z86.0101 Personal history of adenomatous and serrated colon polyps; K64.8 Other hemorrhoids; K21.9 Gastro-esophageal reflux disease without esophagitis; K29.80 Duodenitis without bleeding; K44.9 Diaphragmatic hernia without obstruction or gangrene; Z98.82 Breast implant status; Z98.890 Other specified postprocedural states; Z87.891 Personal history of nicotine dependence
CPT/HCPCS: 45378; 43239; 88305; 88313; J2003; J2704

== ENCOUNTER → 2024-09-10 06:11 | Outpatient (BNV) | payer OTHER, SELFPAY | PROVIDERS: PCP Nurse Practitioner Family; Visit Provider Internal Medicine | DX: Z12.11 Encounter for screening for malignant neoplasm of colon (principal); Z86.0100 Personal history of colon polyps, unspecified; K64.8 Other hemorrhoids; K21.9 Gastro-esophageal reflux disease without esophagitis | CPT/HCPCS: 43239; 45378 ==

== ENCOUNTER 2024-09-26 10:24 | Outpatient (AMB) | payer OTHER, SELFPAY ==
[2024-09-26 10:33] VITALS: BP 124/84; PULSE 78; O2SAT 97; BMI 24.1
--- NOTE | 2024-09-26 10:33 | A.OFFVIS_ITS ---
Vital Signs 09/26/24 10:33 Height 5 ft 7 in Weight 153 lb 14.122 oz BMI 24.1 BP 124/84 Blood Pressure Location Rt brachial Position Sitting Pulse 78 Pulse Source Pulse Oximeter Pulse Oximetry (%) 97 Oxygen Delivery Method Room Air Intake Visit Reasons: s/P double; Dr. Izaguirre Intake Note: ESTABLISHED PATIENT Martha presents in office today for a scheduled s/p FUV Meds and Allergies reviewed? Y No recent or relevant surgeries? Duo w/ BZ Any significant concerns or new changes? No significant concerns or sx Pharmacy verified? [facility] [employer] Required: No Allergies No Known Allergies [No Known Allergies*] Allergy (Verified 09/26/24 10:33) HPI HPI s/P double; Dr. Izaguirre: Details: LAST VISIT Acid reflux Screen for colon cancer Dyspepsia Plan H pylori testing today, will treat empirically if positive. Patient will start Nexium in the morning and take sucralfate at bedtime. Avoid dietary triggers and late night snacking. Staying upright for minimum 3 hours after meals discussed with patient. Patient will be sent for upper GI series as well as for upper endoscopy. What to expect before colonoscopy discussed with patient. Patient is due to go for another colonoscopy, in 2019 tubular adenoma found. Patient does not have any cardiac or respiratory symptoms. No history of sleep apnea. Not on any anticoagulation medication. I will see patient after procedure, sooner on as needed basis. She is agreeable to this plan and verbalizes understanding of instructions. She was given the opportunity to ask questions and all questions answered. ? Thank you for allowing me to participate in her care Orders Orders H Pylori Breath Test Today K21.9 Transglutaminase Ab IgG Today R10.9 Transglutaminase IgA Today R10.9 Medications New polyethylene glycol 3350 (Miralax) As directed by gastroenterology department at [facility] 238 grams PO ONCE 238 grams 0RF Z12.11 esomeprazole magnesium (Nexium) 40 mg PO DAILY 30 caps 5RF K21.9 bisacodyl (Dulcolax (bisacodyl)) take 4 tabs at noon the day before your colonoscopy 20 mg (4 x 5 mg) PO ONCE 1 day 4 tabs 0RF Z12.11 sucralfate 1 g PO BEDTIME 30 tabs 4RF R19.7 UPPER ENDOSCOPY AND COLONOSCOPY EGD Findings:? * Esophagus:? Normal esophageal mucosa was noted. The Z-line was at 39 cm. There was a small hiatal hernia with the diaphragmatic pinch at 41 cm. Cold forceps biopsies were taken from middle and lower esophagus to rule out eosinophilic esophagitis. * Stomach:? Normal gastric mucosa. Retroflexion was performed in the cardia that showed Hill grade 3 hiatal hernia. * Duodenum:? Normal duodenal mucosa. Cold forceps biopsies were taken from the duodenal bulb and 2nd portion of the duodenum to rule out celiac sprue. Colonoscopy Procedure:? The patient was then turned for the colonoscopy. A digital rectal exam was performed which was normal.?The colonoscope was then inserted through the anus and advanced through the colon and advanced to the cecum at 75 cm and terminal ileum.? Appendiceal orifice and ileocecal valve were identified. Mucosa was carefully examined under high definition white light as the instrument was slowly withdrawn in a retrograde panoramic fashion. Retroflexion was performed in rectum. The procedure was not difficult. The quality of the prep was BBPS: 2+3+2 = adequate Withdrawal time 7 minutes Limitations: No limitations Findings: Mucosa: Normal colon and terminal ileum mucosa. Protruding lesions: * Medium internal hemorrhoids without stigmata of recent bleeding.Impression: 1. Normal esophagus (biopsy) 2. Hiatal hernia 3. Normal stomach 4. Normal duodenum (biopsy) 5. Normal colon and terminal ileum mucosa 6. Internal hemorrhoids Recommendations:?? * Follow-up path results * Avoid NSAIDs * Repeat colonoscopy for CRC screening in 10 years. PATHOLOGY RESULTS Diagnosis A. Duodenum, biopsy: Chronic, focally active, duodenitis. B. Esophagus, lower, biopsy: Squamous mucosa within normal limits; no inflammation seen. C. Esophagus, middle, biopsy: Squamous mucosa within normal limits; no inflammation seen TODAY'S VISIT Patient is here today for follow-up and to discuss upper endoscopy and colonoscopy results. Patient denies any ill effects from the prep, anesthesia or procedure itself. Patient continues to have epigastric pain postprandially depending on what she eats. Patient denies any nausea or vomiting. However she states that she continues to feel epigastric burning even though she is taking Nexium. Patient reports last night had meat balls with sauce on a subway and woke up in the middle of the night and took sucralfate that helped, however she still feels burning this morning. Patient had no polyps, however has a history of tubulovillous and tubular adenoma on her colonoscopy in 2019. Her repeat colonoscopy will be in 5 instead of 10 years which will be in August of will do that 2028. Patient reports that she is not on any particular diet. Not trying to stay away from food like chocolate or coffee. Will discuss that today. Denies melena, hematochezia, unintentional weight loss or ribbon like stools. Patient reports dyspepsia without dysphagia or odynophagia. [facility] Medical History Smoker Acid reflux Tubulovillous adenoma Surgical History History of femoral hernia repair Hx of colonoscopy History of bilateral breast implants History of arthroscopy of left shoulder History of left breast biopsy History of D&C History of section Family History Father CAD (coronary artery disease) Mother No problems noted. Unknown No problems noted. Social History Household Members: Spouse Household Members Other:: son Are you a primary health and social care teacher to a significant other at home: No Do you presently have visiting nurse or other home services: No Alcohol intake: current Alcohol intake frequency: holidays/special occasions only Patient Tobacco Use Status: Former Tobacco user Tobacco use type: Cigarette Cigarette Packs Per Day: 0.5 Cigarettes Per Day: 10.0 Years Smoked: 35 Current occupational status: employed Current occupation: [employer] Sexual orientation: Straight/Heterosexual Gender identity: Female Review of Systems Const Denies weight gain and Denies weight loss ENT Reports no additional complaints, Denies dysphagia and Denies odynophagia Card Reports no additional complaints Resp Reports no additional complaints GI Denies abdominal pain, Denies belching, Denies melena, Reports bloating, Denies change in bowel habits, Denies dysphagia, Denies excessive flatus, Reports dyspepsia, Reports heartburn, Denies diarrhea, Denies loose stools, Denies naus ea, Denies odynophagia and Denies vomiting Reports no additional complaints Musc Reports no additional complaints Neuro Reports no additional complaints Psych Reports no additional complaints Endo Reports no additional complaints Physical Exam Vital Signs: Last Vital Signs Pulse 78 09/26/24 10:33 BP 124/84 09/26/24 10:33 Pulse Ox 97 09/26/24 10:33 Oxygen Delivery Method Room Air 09/26/24 10:33 BMI result Body Mass Index 24.1 Const General: healthy appearing, no acute distress and well developed Nutritional Appearance: well nourished Orientation/consciousness: patient oriented x3 Resp Effort & Inspection: normal respiratory effort, able to speak in complete sentences, no tracheal deviation and symmetric chest movement Auscultation: clear to auscultation bilaterally Cardio Rate: regular rate GI Inspection: Yes normal to inspection and No distended Palpation (GI): Soft to palpation, not firm, nontender and No hepatosplenomegaly present Auscultation: normal bowel sounds General: Yes no CVA tenderness Back/Spine/Pelvis Back: no CVA tenderness Skin General skin exam: elasticity normal, turgor normal and dry skin Neuro General: patient oriented x3 Psych Appearance: grossly normal Mental Status: mental status grossly normal Assessment & Plan Assessment & Plan (1) Acid reflux: Code(s): K21.9 - Gastro-esophageal reflux disease without esophagitis Category: Medical Qualifiers: Esophagitis presence: esophagitis presence not specified Qualified Code(s): K21.9 - Gastro-esophageal reflux disease without esophagitis (2) Dyspepsia: Code(s): R10.13 - Epigastric pain Plan Patient will stop taking Nexium and will start taking pantoprazole. Avoid dietary triggers and late night snacking. Staying upright for minimum 3 hours after meals discussed with patient. Patient was encouraged to take pantoprazole twice a day. Discussed with patient dietary restriction for GERD. List of food recommended as well as list of food to avoid given to patient. Patient will be sent for upper GI with barium swallow to evaluate reflux and effectiveness after starting pantoprazole. Follow-up in 4 months, sooner on as needed basis. She is agreeable to this plan and verbalizes understanding of instructions. She was given the opportunity to ask questions and all questions answered. Thank you for allowing me to participate in her care Orders: Orders FL upper GI w Ba Swallow Today K21.9 - Gastro-esophageal reflux disease without esophagitis, K44.9 - Diaphragmatic hernia without obstruction or gangrene, R10.13 - Epigastric pain Medications: New pantoprazole 40 mg PO BID 60 tabs 1RF K21.9 - Gastro-esophageal reflux disease without esophagitis Discontinued esomeprazole magnesium (Nexium) Discontinued Reason: Doctor's Order 40 mg PO DAILY 30 caps 5RF K21.9 - Gastro-esophageal reflux disease without esophagitis Coding Level of Care Code Est Pt Level 4 (26487) Complex EM visit Add On G2211 Diagnoses Gastroesophageal reflux disease, unspecified whether esophagitis present K21.9 Esophagitis presence: esophagitis presence not specified Dyspepsia R10.13 Time Spent (min) 35 Comment 20 minutes spent with patient and additional 15 minutes spent reviewing her records
== END 2024-09-26 10:57 | disposition home or self-care (01) ==
PROVIDERS: PCP Nurse Practitioner Family; Visit Provider Nurse Practitioner Family
DX: K21.9 Gastro-esophageal reflux disease without esophagitis (principal); R10.13 Epigastric pain
CPT/HCPCS: 99214; G2211

== ENCOUNTER 2024-10-10 08:53 | Outpatient (REF) | payer OTHER, SELFPAY ==
--- NOTE | ~2024-10-10 | FL_ITS ---
EXAMINATION: XR FLUOROSCOPY UPPER GI WITH AIR CLINICAL INFORMATION: Reflux. COMPARISON: None TECHNIQUE: Fluoroscopic air contrast upper GI examination was performed utilizing standard techniques with thin and thick barium and effervescent granules. Numerous spot images were obtained. FINDINGS: Dual and single contrast images of the esophagus demonstrate normal caliber, contour, and mucosal pattern. No evidence of stricture, mass, or ulcerations identified. Esophageal peristalsis is moderately disorganized. No evidence of hiatus hernia identified. No significant gastroesophageal reflux was seen during the course of the examination and on reflux views. Dual contrast and single contrast images of the stomach demonstrated a normal contour. The areae gastricae have a thickened appearance, suggestive of gastritis. There are multiple tiny foci of contrast pooling in the fundus and body of the stomach that may represent small mucosal erosions. No masses are seen. Contrast freely passed into the gastric antrum and duodenal bulb without delay. Single and air-contrast images of the duodenal bulb demonstrate no abnormality. The duodenal sweep has a normal appearance, course, and mucosal fold appearance. The imaged proximal jejunum has a normal fold pattern and caliber. FLUOROSCOPY TIME: 3 minutes 20 seconds Number of Spot Images: 8 Number of Cine: 12 DOSE AREA PRODUCT: 1550 uGy-m2 (microgray-meter squared) FL/FL upper GI w Ba Swallow IMPRESSION: 1. Moderately disorganized esophageal peristalsis. 2. Thickened appearance of the areae gastricae. In addition there are multiple tiny foci of contrast pooling in the fundus and body of the stomach. These findings are suggestive of erosive gastritis. Recommend correlation with EGD. This procedure was performed by Fausto Rodriguez PA-C, and supervised by Dr. Philippe Electronically signed by: Braden Philippe MD 10/14/2024 02:38 PM [facility] [place]
== END 2024-10-10 08:54 | disposition home or self-care (01) ==
LOC: HO.XRAY 08:53
PROVIDERS: PCP Nurse Practitioner Family; Visit Provider Nurse Practitioner Family
DX: K21.9 Gastro-esophageal reflux disease without esophagitis (principal); R10.13 Epigastric pain; K44.9 Diaphragmatic hernia without obstruction or gangrene
CPT/HCPCS: 74240

== ENCOUNTER → 2024-10-10 08:55 | Outpatient (BNV) | payer OTHER, SELFPAY | PROVIDERS: PCP Nurse Practitioner Family; Visit Provider Physician Assistant Surgical | DX: K21.9 Gastro-esophageal reflux disease without esophagitis (principal) | CPT/HCPCS: 74246 ==

== ENCOUNTER 2024-11-12 10:40 | Day surgery (SDC) | payer OTHER, SELFPAY ==
[2024-11-12 10:54] VITALS: BP 153/89; PULSE 82; RESP 16; TEMP 36.7; O2SAT 98; BMI 22.8
[2024-11-12] MEDS: Lactated Ringers 1,000 ML 80 ML IVCONT (11:06)
--- NOTE | 2024-11-12 11:52 | MHC.SHP ---
Pre-Procedural Eval Section A - 24 Hr Update-Section A only Date of Service: 11/12/24 The patient is an INPATIENT: No The patient has been examined within 24 hours of the surgical procedure. The History & Physical has been completed within 30 days and I have reviewed it.: Yes Section B - Complete if H&P > 30 days Chief Complaint: gerd, Relevant Family History (Specify if Yes): No Relevant Social History: None Present Medications: None Medical History: No relevant PMH History of Previous Operations: No relevant previous surgery Allergies: Allergies Allergy/AdvReac Type Severity Reaction Status Date / Time No Known Allergies Allergy Verified 09/26/24 10:33 [No Known Allergies*] Review of Systems Sugical H&P ROS: Negative: Constitution, Cardiovascular, Respiratory, Neurological, Psychiatric, Hem-Onc, Allergic/Immunologic, Gastrointestinal, Genitourinary, Musculoskeletal, Integumentary, Endocrine and Eyes/Ears/Nose/Throat Exam Surgical H&P Exam: Normal: HEENT, Normal: Heart, Normal: Lungs, Normal: Extremities, Normal: Abdomen, Normal: Skin and Normal: Neurological Plan Diagnosis/Plan: Unchanged (EGD to assess etiology of GERD. Risks of bleeding and perforation were discussed with the patient and she is in agreement with the plan.) I have reviewed the history and physical and performed a pertinent physical examination on my patient. No changes have occurred unless specified. Time Spent With Patient Time: Total time managing care of this patient today ____ minutes.
--- NOTE | 2024-11-12 11:54 | PM.OP ---
Brief Operative Note Date of Service: 11/19/24 Pre-op diagnosis: GERD Post-op diagnosis: same Procedure: PROCEDURE DATE: 11/12/2024 PREOPERATIVE DIAGNOSIS: GERD POSTOPERATIVE DIAGNOSIS: ?Same as above. 1) small hiatal hernia, PROCEDURE: Ejdsaeog-xkcsst-kdlhinaymoew with biopsies and Cam procedure Surgeon: ?Shahbaz Dhillon M.D.. Ph.D. Digital Imaging Technician: None ? Anesthesia: IV sedation Estimated blood loss: ?Minimal FINDINGS AND PROCEDURE: ? OPERATIVE INDICATIONS: ?The patient is a 59 year old female who was referred to me for persistent GERD despite use of PPIs. The patient has severe GERD. Based on this information I recommended an upper endoscopy with the Cam procedure to evaluate the patient's symptoms and assess her GERD. Risks and complications of the surgery were discussed with the patient in advance particularly the possibility of perforation or bleeding that may require surgical intervention. The patient understood the risks and was in agreement with the plan. ? PROCEDURE: After informed consent was obtained by the patient, the patient was ?transferred to the Operating Room and was placed in the supine position.? After successful induction of IV sedation, a mouth block was inserted and the patient was placed in the left lateral decubitus position. An upper endoscopy was performed next, the oropharynx and esophagus appeared within the normal limits. There was a small hiatal hernia. The z-line was smooth. Two biopsies were obtained from the distal esophagus 2-3 cm proximal to the GE junction and two additional biopsies from the GE junction. The stomach was entered and it appeared to be of normal size. There was mild gastritis at distal antrum. There was no stricture or ulcer. A biopsy was obtained from the distal antrum. No significant bleeding was noted from any of the biopsy sites. The scope was then advanced into the duodenum which appeared to be normal as well. At that point the duodenum ?and the stomach were decompressed and the scope was withdrawn to the GE junction. We measured 6 cm proximal from the GEJ and that was about 30cm from incisors. The scope was withdrawn from the mouth and the Cam device was introduced to 30cm from incisors. The scope was re-introduced to confirm that the probe was in the esophagus and it was. The scope was withdrawn from the patient's mouth. Suction was connected to the device and was kept on for 45sec. At that point the device was deployed without difficulty and the remaining of the device was withdrawn from the patient's mouth without difficulty. The endoscope was re-introduced and I confirmed that the device was properly deployed in the esophagus at the intended location. At that point the scope was withdrawn from the patient's mouth and the procedure was ended. The patient extubated and was transferred in stable condition to the Recovery Room for further care. I was present and performed all steps of the procedure. There were no residents to assist with this case. Shahbaz Dhillon M.D., Ph.D. Surgeon: John Dhillon MD Anesthesia: MAC Was an Digital Imaging Technician used for this Procedure?: No Estimated blood loss (mL): 0 IV fluids (mL): 400 Urine output (mL): 0 (No Suarez to record output) Pathology: other (1) antrum x1, 2) fundus x1, 3) GE junction x2, 4) distal esophagus x2) Condition: stable Disposition: PACU
--- NOTE | 2024-11-12 12:04 | HO.ANESPROP2 ---
Documented by User: Jolanta Castorena NP 11/11/24 09:40 HPI - Anesthesia Eval Consult details Narrative: 59yo F for Upper Endo Cam s/p EGD and [place] 08/2024 with [facility] PMFSH Active Problems Active Problems: All Active Problems Uterine myoma (Acute) Bilateral shoulder bursitis (Acute) Adnexal fullness (Acute) Bursitis of right shoulder (Acute) Femoral hernia of right side (Acute) Well woman exam (Acute) Lipoma of abdominal wall (Acute) Acid reflux (Acute) Past Medical History Medical History Smoker Acid reflux Tubulovillous adenoma Family History Family History Father CAD (coronary artery disease) Mother No problems noted. Unknown No problems noted. Family history of problems with anesthesia: No Surgical History Surgical History History of femoral hernia repair Hx of colonoscopy History of bilateral breast implants History of arthroscopy of left shoulder History of left breast biopsy History of D&C History of section History of Problems with Anesthesia: No Social History Social History Household Members: Spouse Household Members Other:: son Are you a primary care services manager to a significant other at home: No Do you presently have visiting nurse or other home services: No Alcohol intake: current Alcohol intake frequency: holidays/special occasions only Patient Tobacco Use Status: Former Tobacco user Tobacco use type: Cigarette Cigarette Packs Per Day: 0.5 Cigarettes Per Day: 10.0 Years Smoked: 35 Use of substances other than those prescribed or required for medical reasons: No Are you DNR?: No Advance Directives: No Advance Directives Information Provided: Yes Recently lost weight without trying: No Current occupational status: employed Current occupation: [employer] Sexual orientation: Straight/Heterosexual Gender identity: Female Meds Allergies Allergy/AdvReac Type Severity Reaction Status Date / Time No Known Allergies Allergy Verified 09/26/24 10:33 [No Known Allergies*] Home Medications ?Medication ?Instructions ?Recorded ?Confirmed ?Last Taken ?Type cholecalciferol (vitamin D3) 25 25 mcg PO DAILY 10/16/22 Unknown History mcg (1,000 unit) capsule indapamide 1.25 mg tablet 1.25 mg PO DAILY 08/18/24 09/08/24 11/12/24 History sucralfate 1 gram tablet 1 g PO DAILY 09/26/24 Unknown History Assessment and Plan Assessment Anesthesia Assessment: Chart Reviewed Final Anesthetic Review Family History of Problems with Anesthesia: No History of Problems with Anesthesia: No Documented by User: Agnes Chapin DO 11/12/24 12:06 [facility] Past Medical History Medical History Smoker Acid reflux Tubulovillous adenoma Family History Family History Father CAD (coronary artery disease) Mother No problems noted. Unknown No problems noted. Family history of problems with anesthesia: No Surgical History Surgical History History of femoral hernia repair Hx of colonoscopy History of bilateral breast implants History of arthroscopy of left shoulder History of left breast biopsy History of D&C History of section History of Problems with Anesthesia: No Social History Social History Household Members: Spouse Household Members Other:: son Are you a primary care services manager to a significant other at home: No Do you presently have visiting nurse or other home services: No Alcohol intake: current Alcohol intake frequency: holidays/special occasions only Patient Tobacco Use Status: Former Tobacco user Tobacco use type: Cigarette Cigarette Packs Per Day: 0.5 Cigarettes Per Day: 10.0 Years Smoked: 35 Use of substances other than those prescribed or required for medical reasons: No Are you DNR?: No Advance Directives: No Advance Directives Information Provided: Yes Recently lost weight without trying: No Current occupational status: employed Current occupation: [employer] Sexual orientation: Straight/Heterosexual Gender identity: Female Meds Allergies Allergy/AdvReac Type Severity Reaction Status Date / Time No Known Allergies Allergy Verified 09/26/24 10:33 [No Known Allergies*] Home Medications ?Medication ?Instructions ?Recorded ?Confirmed ?Last Taken ?Type cholecalciferol (vitamin D3) 25 25 mcg PO DAILY 10/16/22 Unknown History mcg (1,000 unit) capsule indapamide 1.25 mg tablet 1.25 mg PO DAILY 08/18/24 09/08/24 11/12/24 History sucralfate 1 gram tablet 1 g PO DAILY 09/26/24 Unknown History Exam Exam Date and Time: 11/12/24 1200 Height,Weight and Vital Signs: Height 5 ft 7 in Weight 66 kg Vital Signs Temperature 98.1 F 11/12/24 10:54 Pulse Rate 82 11/12/24 10:54 Respiratory Rate 16 11/12/24 10:54 Blood Pressure 153/89 H 11/12/24 10:54 Pulse Oximetry 98 11/12/24 10:54 Oxygen Delivery Method Room Air 11/12/24 10:54 Temperature 98.1 F 11/12/24 10:54 Pulse Rate 82 11/12/24 10:54 Respiratory Rate 16 11/12/24 10:54 Blood Pressure 153/89 H 11/12/24 10:54 Pulse Oximetry 98 11/12/24 10:54 Oxygen Delivery Method Room Air 11/12/24 10:54 Airway Mallampati Class: I TM Dist: >3cm Neck ROM: Full Loose/Missing/Broken Teeth: No (patient denies any loose or broken teeth) Heart: S1S2 Lungs: CTAB Assessment and Plan Assessment Anesthesia Assessment: Anesthesia Plan Discussed and Chart Reviewed Final Anesthetic Review Family History of Problems with Anesthesia: No History of Problems with Anesthesia: No NPO: Yes ASA Class: II Final Preanesthetic Review: No Changes in Pt Med Stat, Meds/Allgs Chart Reviewed, Consent Obtained/Reviewed and Anes Risks/Benef Reviewed Patient Risk: Low Procedure Risk: Low Anesthetic Plan Anesthetic Plan: MAC: and Agree w/ Assess. and Plan Disposition: Standard PACU
--- OUTSIDE RECORDS SUMMARY | 2024-11-12 12:27 | XMS_ITS ---
Author Organization Radha Rivero MD Address [address] [place] [phone] Care Team Providers Care Catheterization Laboratory Technician Name Role Phone Norma Jeter Primary Care Provider [phone] REASON FOR VISIT RE:RE:Lung Function Test Encounters Encounter Location Date Provider Diagnosis Radha Rivero MD [address] [place] [address] [place] [address] [phone] 11/11/2024 Norma eJter Plan Of Treatment Next Appt Details Provider Name:Norma Jeter , 01/12/2025 02:30:00 PM, [address] [place] [address], [phone], Provider Name:Norma Jeter , 07/27/2025 01:00:00 PM, [address] [place] [address], [phone], Progress Notes * NAMITAEmily YuheberDOB:1964 (59 yo F)Acc No.[id number]:11/11/2024 Patient:?Martha PALOMARES :1965???Age:59 Y???Sex:Female Address:[address] [place] [id number] * true * Date:? Generated for Printi ng/Faesdrasg/eTransmitting on:?11/12/2024 12:27 PM EST
--- OUTSIDE RECORDS SUMMARY | 2024-11-12 12:27 | XMS_ITS | Clinical Summary ---
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 Name Role Phone Unavailable Primary Care Provider Unavailabl e Immunizations Name Administration Dates Next Due Pfizer Covid-19 Vaccine 12+ Bivalent 09/29/2022 Social History Tobacco Use Types Packs/Day Years Used Date Smoking Tobacco: Never Assessed Comments Unknown Sex and Gender Information Value Date Recorded Sex Assigned at Female 09/29/2022 11:26 AM EST Legal Sex Female 11:23 AM EST Gender Identity Female 09/29/2022 11:26 AM EST Sexual Orientation Not on file Plan of Treatment Health Maintenance Due Date Last Done Comments CT Colonography 1965 Colonoscopy 1965 Colorectal Cancer Screening 1965 Depression Screening 1965 FIT DNA/Cologuard 1965 FIT 1965 FOBT 1965 HIV Screening 1965 SDOH Screening 1965 Sigmoidoscopy 1965 Alcohol/Substance Use Screening 1977 Tobacco Screening 1977 Hepatitis C Screening 1983 DTaP/Tdap/Td Vaccines (1 - Tdap) 1984 Hepatitis B Vaccines (1 of 3 - 19+ 3-dose series) 1984 Pap Smear 1986 Cervical Cancer Screening 1995 HPV/Cotest 1995 Mammogram 2005 Pneumococcal Vaccine: 50+ Ye ars (1 of 1 - PCV) 2015 Zoster Vaccines (1 of 2) 2015 COVID-19 Vaccine (2 - 2023-2 5 season) 2024 09/29/2022 Influenza Vaccine (#1) 2024 RSV Patients and Pa tients Aged 60 years or older (1 - 1-dose 75+ series) 2040 HIB Vaccines Aged Out No longer eligi ble based on patient's age to complete this topic HPV Vaccines Aged Out No longer eligi ble based on patient's age to complete this topic Hepatitis A Vaccines Aged Out No long er eligible based on patient's age to complete this topic IPV Vaccines Aged Out No longer eligi ble based on patient's age to complete this topic Meningococcal Vaccine Aged Out No olivia lea eligible based on patient's age to complete this topic RSV under 20 months Aged Out No longe r eligible based on patient's age to complete this topic Rotavirus Vaccines Aged Out No longer eligible based on patient's age to complete this topic Insurance [employer] O
--- OUTSIDE RECORDS SUMMARY | 2024-11-12 12:27 | XMS_ITS ---
Author Organization Radha Rivero MD Address [address] [place] [phone] Care Team Providers Care Manager Product Design Name Role Phone Norma Jeter Primary Care Provider REASON FOR VISIT RE:Lung Function Test Encounters Encounter Location Date Provider Diagnosis Radha Rivero MD [address] [place] [address] [place] [address] [id number] 11/11/2024 Norma Jeter Plan Of Treatment Next Appt Details Provider Name:Norma Jeter , 01/12/2025 02:30:00 PM, [address] [place] [address], [phone], Provider Name:Norma Jeter , 07/27/2025 01:00:00 PM, [address] [place] [address], [phone], Progress Notes * MICKIEmily WAYheberDOB:1964 (59 yo F)Acc No.[id number]:11/11/2024 Patient:?Martha PALOMARES :1965???Age:59 Y???Sex:Female Address:[address] [place] [id number] * true * Date:? Generated for Printi ng/Faesdrasg/eTransmitting on:?11/12/2024 12:27 PM EST
--- OUTSIDE RECORDS SUMMARY | 2024-11-12 12:27 | XMS_ITS | Patient Health Record ---
Author Organization Radha Rivero MD Address [address] [place] [id number] Care Team Providers Care Director Of National Sales Name Role Phone Norma Jeter Primary Care Provider [phone] Allergies No Known Allergies Results Component Value Reference Range Notes Wrist Comp Min 3 Views Right Reviewed date:08/12/2024 01:26:52 PM Interpretation: Performing Lab: Notes/Report: Wrist Comp Min 3 Views Right Reason: ganglion rt wrist COMPARISON: None. FINDINGS: No fracture or dislocation. Normal carpal configuration. Intact radial and ulnar styloid processes. No arthritic change. Normal soft tissues. IMPRESSION: Normal. WSN: [id number] Ordering Physician: Norma Jeter Dictated By: Tra Maier MD Wrist Comp Min 3 Vie ws Right Reason: ganglion rt wrist COMPARISON: None. FINDINGS: No fracture or dislocation. Normal carpal configuration. Intact radial and ulnar styloid processes. No arthritic change. Normal soft tissues. IMPRESSION: Normal. WSN: [id number] Ordering Physician: Norma Jeter CT Chest LDCT Lung Program Reviewed date:09/26/2024 08:08:54 AM Interpretation: Performing Lab: Notes/Report: CT Chest LDCT Lung Program Reason: Other:; LDCT LUNG CANCER SCREENING PROGRAM, FORMER SMOKER, QUIT AT AGE 58, 41 PACK YEAR HX Visit type: Annual Screening TECHNIQUE: Low-dose helical CT of the chest without IV contrast (Adult Lung Cancer Screening) protocol was performed. Coronal reformats were obtained. Weight-based protocol using automatic tube modulation was used to optimize exposure parameters. COMPARISON: Multiple priors, most recent 09/14/2023. FINDINGS: LUNG NODULES (measured on thin axial series 4): RIGHT lung: Unchanged scattered sub-4 mm nodules throughout the right lung. The largest, stable, 3 mm solid nodule at the right upper lobe (4:132). No new nodules. LEFT lung: Unchanged 3 mm nodule abutting the medial major fissure of the left lung. 2 mm left lower lobe image 227, unchanged No new nodules. OTHER FINDINGS: Therapeutic Recreation Assistant view findings, lines and tubes: None. Trachea and airways: Patent without evidence of tracheal or endobronchial lesion. Lungs and pleura: Clear lungs. No effusion or pneumothorax. Mediastinum and william: No mass or hematoma. No mediastinal or hilar lymphadenopathy. No esophageal abnormality. Heart: Heart is normal in size. No pericardial effusion. No coronary arterial calcifications. Aorta: Minimal vascular calcification but no aneurysm. Pulmonary arteries: Normal caliber. Chest wall soft tissues: No acute abnormality. Diaphragm: Intact. Upper abdomen: No significant abnormality. Bones: No acute abnormality. IMPRESSION: 1. Unchanged sub-4 mm nodules in both lungs. LungRad Category: 2 Benign Appearance or Behavior. Nodules with a very low likelihood of becoming a clinically active cancer due to size or lack of growth. Continue annual screening with LDCT in 12 months. 2. No significant additional findings requiring further evaluation. Lung-RAD Category Modifier: None. Categorization based on Lung-RADS 2022 criteria. [email or web address] I have personally reviewed the images and I agree with this report. WSN: [id number] Ordering Physician: Norma Jeter Dictated By: Nesha Funez DO CT Chest LDCT Lung Program Reason: Other:; LDCT LUNG CANCER SCREENING PROGRAM, FORMER SMOKER, QUIT AT AGE 58, 41 PACK YEAR HX Visit type: Annual Screening TECHNIQUE: Low-dose helical CT of the chest without IV contrast (Adult Lung Cancer Screening) protocol was performed. Coronal reformats were obtained. Weight-based protoco l using automatic tube modulation was used to optimize exposure parameters. COMPARISON: Multiple priors, most recent 09/14/2023. FINDINGS: LUNG NODULES (measur ed on thin axial series 4): RIGHT lung: Unchanged scattered sub-4 mm nodules throughout the right lung. The largest, stable, 3 mm solid nodule at the right upper lobe (4:132). No new nodules. LEFT lung: Unchanged 3 mm nodul e abutting the medial major fissure of the left lung. 2 mm left lower lobe image 227, unchanged No new nodules. OTHER FINDINGS: Therapeutic Recreation Assistant view findings, lines and tubes: None. Trachea and airways: Patent without evidence of tracheal or endobronchial lesion. Lungs and pleura: Cl ear lungs. No effusion or pneumothorax. Mediastinum and william : No mass or hematoma. No mediastinal or hilar lymphadenopathy. No esophageal abnormality. Heart: Heart is norm al in size. No pericardial effusion. No coronary arterial calcifications. Aorta: Minimal vascu lar calcification but no aneurysm. Pulmonary arteries: Normal caliber. Chest wall soft tissues: No acute abnormality. Diaphragm: Intact. Upper abdomen: No significant abnormality. Bones: No acute abnormality. IMPRESSION: 1. Unchanged sub-4 m m nodules in both lungs. LungRad Category: 2 Benign Appearance or Behavior. Nodules with a very low likelihood of becoming a clinically active cancer due to size or lack of growth. Continue annual screening with LDCT in 12 months. 2. No significant additional findings requiring further evaluation. Lung-RAD Category Modifier: None. Categorization based on Lung-RADS 2022 criteria. [email or web address] I have personally reviewed the images and I agree with this report. WSN: [id number] Ordering Physician: Norma Jeter CBC With Differential/Platel et-[id number] Reviewed date:08/12/2024 01:26:52 PM Interpretation: Performing Lab:[facility], [address], [place], Phone - [phone], Director - Missy Notes/Report: WBC 6.7 3.4-10.8 x10E3/uL RBC 4.88 3.77-5.28 x10E6/uL Hemoglobin 14.6 11.1-15.9 g/dL Hematocrit 44.3 34.0-46.6 % MCV 91 79-97 fL MCH 29.9 26.6-33.0 pg MCHC 33.0 31.5-35.7 g/dL RDW 12.3 11.7-15.4 % Platelets 266 150-450 x10E3/uL Neutrophils 48 Not Estab. % Lymphs 42 Not Estab. % Monocytes 7 Not Estab. % Eos 2 Not Estab. % Basos 1 Not Estab. % Neutrophils (Absolute) 3.1 1.4-7.0 x10E3/uL Lymphs (Absolute) 2.8 0.7-3.1 x10E3/uL Monocytes(Absolute) 0.5 0.1-0.9 x10E3/uL Eos (Absolute) 0.2 0.0-0.4 x10E3/uL Baso (Absolute) 0.1 0.0-0.2 x10E3/uL Immature Granulocytes 0 Not Estab. % Immature Grans (Abs) 0.0 0.0-0.1 x10E3/uL Vitamin D, 59-[id number] Reviewed date:08/12/2024 01:26:52 PM Interpretation: Performing Lab:[facility] [place], [address] [facility], Phone - [phone], Director - Missy Notes/Report: Vitamin D, 25-Hydroxy 40.5 30.0-100.0 ng/mL Vitamin D deficiency has been defined by the [place] of [employer] and an Endocrine Society practice guideline as a level of serum 25-OH vitamin D less than 20 ng/mL (1,2). The Endocrine Society went on to further define vitamin D insufficiency as a level between 21 and 29 ng/mL (2). 1. IOM ([place] of [employer]). 2010. Dietary reference intakes for calcium and D. [place]: The National Academies Press. 2. [place] MF, Clement[place], Floridalma LABOY, et al. Evaluation, treatment, and prevention of vitamin D deficiency: an Endocrine Society clinical practice guideline. JCEM. 2010; 96(7):1911-30. Albumin/Creatinine Ratio,Uri ne-[id number] Reviewed date:08/12/2024 01:26:53 PM Interpretation: Performing Lab:[facility] [place], [address] [facility], [place], Phone - [phone], Director - Missy Notes/Report: Creatinine, Urine 128.9 Not Estab. mg/dL Albumin, Urine 5.6 Not Estab. ug/mL Alb/Creat Ratio 4 0-29 mg/g creat Normal: 0 - 29 Moderately increased: 30 - 300 Severely increased: >300 HCV Antibody RFX to Quant PC [id number] Reviewed date:08/12/2024 01:26:53 PM Interpretation: Performing Lab:[facility] [place], [facility], Phone - [phone], Director - Missy Notes/Report: HCV Ab Non Reactive Non Reactive Interpretation: Not infected with HCV unless early or acute infection is suspected (which may be delayed in an immunocompromised individual), or other evidence exists to indicate HCV infection. Comp. Metabolic Panel ([id number] Reviewed date:08/12/2024 01:26:53 PM Interpretation: Performing Lab:[facility] [place], [facility], Phone - [phone], Director - iMssy Notes/Report: Glucose 67 70-99 mg/dL BUN 11 6-24 mg/dL Creatinine 0.70 0.57-1.00 mg/dL eGFR 100 >59 mL/min/1.73 BUN/Creatinine Ratio 16 9-23 Sodium 139 134-144 mmol/L Potassium 4.2 3.5-5.2 mmol/L Chloride 98 96-106 mmol/L Carbon Dioxide, Total 24 20-29 mmol/L Calcium 9.0 8.7-10.2 mg/dL Protein, Total 7.1 6.0-8.5 g/dL Albumin 4.6 3.8-4.9 g/dL Globulin, Total 2.5 1.5-4.5 g/dL Bilirubin, Total 0.4 0.0-1.2 mg/dL Alkaline Phosphatase 85 44-121 IU/L AST (SGOT) 20 0-40 IU/L ALT (SGPT) 11 0-32 IU/L LP+Non-HDL Cholesterol-68230 5 Reviewed date:08/12/2024 01:26:53 PM Interpretation: Performing Lab:[facility] [place], [facility], Phone - [phone], Director - Missy Notes/Report: Cholesterol, Total 211 100-199 mg/dL Triglycerides 164 0-149 mg/dL HDL Cholesterol 63 >39 mg/dL VLDL Cholesterol Pro 29 5-40 mg/dL LDL Chol Calc (NIH) 119 0-99 mg/dL Non-HDL Cholesterol 148 0-129 mg/dL UA/M w/rflx Culture, Routine -[id number] Reviewed date:08/12/2024 01:26:53 PM Interpretation: Performing Lab:[facility] [place], [address], [place], Phone - [phone], Director - Missy Notes/Report: Specific Marshall 1.024 1.005-1.030 pH 7.5 5.0-7.5 Urine-Color Yellow Yellow Appearance Clear Clear WBC Esterase Negative Negative Protein 1+ Negative/Trace Glucose Negative Negative Ketones Negative Negative Occult Blood Negative Negative Bilirubin Negative Negative Urobilinogen,Semi-Qn 0.2 0.2-1.0 mg/dL Nitrite, Urine Negative Negative Microscopic Examination See below: Microscopic was indicated and was performed. Urinalysis Reflex This speci men will not reflex to a Urine Culture. WBC None seen 0 - 5 /hpf RBC None seen 0 - 2 /hpf Epithelial Cells (non renal) 0-10 0 - 10 /hpf Casts None seen None seen /lpf Bacteria None seen None seen/Few CR Wrist RT Min 3 Views Reviewed date:09/26/2024 09:59:23 AM Interpretation: Performing Lab: Notes/Report: CT Low Dose Lung Screening Reviewed date:09/26/2024 09:58:21 AM Interpretation: Performing Lab: Notes/Report: Reason For Referral Reason right hip pain and f indings of a cam impingement on recent XRay - needs further evaluation faxed Diagnosis 1 Pain in right hip (M 25.551) Referral Organization Rad[facility] KIM Referring Provider First Name Norma Referring Provider Last Name Corona Referring Provider Speciality Nurse Trinidad gerard Referred Provider Chari MARIA Referred Provider Specialty Orthopedic S urgery General Notes Kita DOWNING 06/2024 11:20:13 AM >faxed, Miriam DOWNING 02/08/2024 01:14:56 PM > FRANCHESCA Concepcion 03/24/2024 t 2:45 pm 3 [address] floor Referral Priority Routine Referral Appointment Date 03/24/2024 Reason sleep disturbances, daytime fatigue faxed Diagnosis 1 Other sleep disorder s not due to a substance or known physiological condition (F51.8) Referral Organization Radha KIM Referring Provider First Name Norma Referring Provider Last Name Corona Referring Provider Speciality Nurse Prac moustapha Referred Provider Kuldip Ortega Referred Provider Specialty Sleep Medici ne General Notes Kita DOWNING 11/2023 10:11:07 AM >faxed Referral Priority Routine Medications Medication SIG (Take, Route, Frequency, Duration) Notes Start Date End Date Status Livier Ellipta 200-62.5-25 MCG/ACT 1 puff Inhalation Once a day for 30 days 11/10/2024 04/10/2025 Active Indapamide 2.5 MG 1 tablet in the morn ing Orally Once a day for 90 days Active Indapamide 1.25 MG TAKE 1 TABLET BY SRAVAN TH EVERY MORNING. for 90 Active Albuterol Sulfate HFA 108 (90 Base) MCG/ACT 1 puff as needed Inhalation every 4 hrs for 30 days Active Immunizations Vaccine Route Administration Date Status Comme nts [id number]-[id number] Vaccine Unknown 12/21/2020 Administered NRVGB-32-Xbwvys Vaccine Unknown 01/12/2021 Administered ETEMB-65-Cdkafr Vaccine Unknown 09/16/2021 Administered COVID-19 Pfizer BiValent Booster Unknown 09/29/2022 Adm inistered *Tdap Unknown 06/01/2023 Administered Social History Tobacco Use: Social History Observation Description Date Details (start date - stop date) Former Smoker NA - 11/29/2022 Tobacco Use/Smoking Question Answer Notes Are you a former smoker when did you stop smoking 11/29/2022 Alcohol Screen (Audit-C) Question Answer Notes Did you have a drink contain ing alcohol in the past year? Yes How often did you have a dri nk containing alcohol in the past year? Never (0 point) How many drinks did you have on a typical day when you were drinking in the past year? 1 or 2 drinks (0 point) How often did you have 6 or more drinks on one occasion in the past year? 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 confirmed Problem Chronic kidney disease due to hypertension (356072071695667) Hypertensive chronic kidney disease with stage 1 through stage 4 chronic kidney disease, or unspecified chronic kidney disease (I12.9) Active confirmed Problem Mild intermittent asthma (983172759) Mild intermittent asthma, uncomplicated (J45.20) Active confirmed Problem Chronic kidney disease stage 1 (847768606) Chronic kidney disease, stage 1 (N18.1) Active confirmed Problem Menopause (513034399) Menopausal and female climacteric states (N95.1) Active confirmed Problem Nicotine dependence (70857128) Personal history of nicotine dependence (Z87.891) Active confirmed Problem Gastroesophageal reflux disease with esophagitis (disorder) (904790776) Gastro-esophagea l reflux disease with esophagitis, without bleeding (K21.00) Active confirmed Vital Signs Heart Rate 81 /min 07/21/2024 Temperature 97.0 degrees Fahrenheit 07/21/2024 Blood pressure diastolic 78 mm Hg 07/21/2024 Oximetry 98 % 07/21/2024 Height 67 in 07/21/2024 Blood pressure systolic 122 mm Hg 07/21/2024 Weight 149 lbs 07/21/2024 BMI 23.33 kg/m2 07/21/2024 Encounters Encounter Location Date Provider Diagnosis Radha Rivero MD [address] [id number] 02/04/2024 Norma Jeter Pain in right hip M25.551 and Other sleep disorders not due to a substance or known physiological condition F51.8 Radha Rivero MD [address] [id number] 05/05/2024 Norma Jeter Hypertensive chronic kidney disease with stage 1 through stage 4 chronic kidney disease, or unspecified chronic kidney disease I12.9 ; Chronic kidney disease, stage 1 N18.1 and Abnormal weight gain R63.5 Radha Rivero MD [address] [id number] 05/29/2024 Norma Jeter Acute cough R05.1 an d Gastro-esophageal reflux disease with esophagitis, without bleeding K21.00 Radha Rivero MD [address] [id number] 07/21/2024 Norma Jeter Encounter for genera l adult medical examination without abnormal findings Z00.00 ; Hypertensive chronic kidney disease with stage 1 through stage 4 chronic kidney disease, or unspecified chronic kidney disease I12.9 ; Chronic kidney disease, stage 1 N18.1 ; Menopausal and female climacteric states N95.1 ; Ganglion, right wrist M67.431 ; Personal history of nicotine dependence Z87.891 ; Vitamin D deficiency, unspecified E55.9 ; Encounter for screening for malignant neoplasm of colon Z12.11 ; Encounter for screening mammogram for malignant neoplasm of breast Z12.31 ; Encounter for screening for cardiovascular disorders Z13.6 ; Encounter for immunization Z23 ; Encounter for antibody response examination Z01.84 ; Encounter for screening for other viral diseases Z11.59 and Encounter for screening examination for other mental health and behavioral disorders Z13.39 Radha Rivero MD [address] [id number] 11/18/2023 Norma Jeter Acute upper respirat ory infection, unspecified J06.9 Radha Rivero MD [address] [id number] 02/06/2024 Norma Jeter Pain in right hip M25.551 Radha Rivero MD [address] [id number] 05/06/2024 Norma Corona Rivero MD [address] [id number] 07/08/2024 Norma Jeter Radha Rivero MD [address] [id number] 08/12/2024 Norma Jeter Radha Rivero MD [address] [id number] 09/26/2024 Norma Jeter Radha Rivero MD [address] [id number] 01/31/2024 Norma Jeter Pain in right hip M25.551 Radha Rivero MD [address] [id number] 04/14/2024 Norma Corona Rivero MD [address] [id number] 04/28/2024 Norma Jeter Radha Rivero MD [address] [id number] 05/28/2024 Norma Rivero MD [address] [id number] 05/28/2024 Norma Rivero MD [address] [id number] 06/30/2024 Norma Jeter Other sleep disorder s not due to a substance or known physiological condition F51.8 Radha Rivero MD [address] [id number] 08/02/2024 Norma Jeter Radha Rivero MD [address] [id number] 08/26/2024 Norma Jeter Radha Rivero MD [address] [id number] 08/26/2024 Norma Jeter Radha Rivero MD [address] [id number] 09/19/2024 Norma Jeter Acute upper respirat ory infection, unspecified J06.9 and Chronic cough R05.3 Radha Rivero MD [address] [id number] 11/10/2024 Norma Jeter Mild intermittent asthma, uncomplicated J45.20 Radha Rivero MD [address] [id number] 11/10/2024 Norma Jeter Mild intermittent asthma, uncomplicated J45.20 Radha Rivero MD [address] [id number] 11/11/2024 Norma Sanchesgeorgiana Rivero MD [address] [id number] 11/11/2024 Norma Jeter Assessments Encounter Date Diagnosis (ICD Code) Assessment Notes Treatment Notes Treatment Clinical Notes Section Notes 11/18/2023 Acute upper respiratory infection, unspecified (ICD-10 - J06.9) 01/31/2024 Pain in right hip (ICD-10 - M25.551) 02/04/2024 Other sleep disorders not due to a substance or known physiological condition (ICD-10 - F51.8) Discussed pt's sleep concerns and inability to stay asleep. Will prescribe hydroxyzine to be used as needed each night for sleep. Patient to continue working on proper sleep hygiene practices as well to help improve her overall sleep. Patient aware that if she has negative side effects or does not have positive affects with sleep with hydroxyzine use to contact the office to discuss additional medication options 02/04/2024 Pain in right hip (ICD-10 - M25.551) Patient states she was not able to obtain her hip and pelvis x-ray as previously ordered last week. She states she plans to get the x-ray completed today. Discussed with patient that her symptoms may be underlying bursitis and if there are no findings on her x-ray, patient would benefit from being seen by [facility] to determine if she is a candidate for a cortisone injection 02/06/2024 Pain in right hip (ICD-10 - M25.551) 05/05/2024 Hypertensive chronic kidney disease with stage 1 through stage 4 chronic kidney disease, or unspecified chronic kidney disease (ICD-10 - I12.9) Blood pressures stable during today's visit and patient to remain on 1.25 mg of Indapamide daily. Encouraged patient to purchase LMNT packets to help with hydration, especially if she will be working outside in the heat. Patient blood pressure has greatly improved, and she would like to stay on this medication and work on proper hydration rather than switch to a different medication. Patient does have an annual scheduled in July and will reassess her blood pressure at next visit 05/05/2024 Chronic kidney disease, stage 1 (ICD-10 - N18.1) Previous GFR noted to be over 90. Plan will be to reassess labs at her upcoming annual 05/29/2024 Gastro-esophageal reflux disease with esophagitis, without bleeding (ICD-10 - K21.00) Discussed with patient that her dry, nonproductive cough seems consistent with that of uncontrolled reflux. Would like patient to stop intermittent use of famotidine and begin the Voquenza. Patient aware that if this new medication does not help resolve her symptoms then she should follow-up with office for further evaluation and management. 05/29/2024 Acute cough (ICD-10 - R05.1) Suspect patient's dry, nonproductive cough is related to uncontrolled reflux as her cough does worsen when she lays flat. Would like patient to stop intermittent use of famotidine and begin Voquenaa daily to see if this can better manage her symptoms. Also discussed with patient that completing a viral respiratory swab would not be useful at this time as she has had the symptoms for greater than 1 month and I do not suspect her cough is related to a viral illness. If patient develops any new or concerning symptoms or cough persists despite this treatment could consider testing for Whooping cough 06/30/2024 Other sleep disorders not due to a substance or known physiological condition (ICD-10 - F51.8) 07/21/2024 Hypertensive chronic kidney disease with stage 1 through stage 4 chronic kidney disease, or unspecified chronic kidney disease (ICD-10 - I12.9) Blood pressure stable during today's visit. Patient to remain on current indapamide dose as patient's blood pressure has responded well to this medication. 07/21/2024 Encounter for general adult medical examination without abnormal findings (ICD-10 - Z00.00) General healthcare up-to-date. Will obtain updated routine labs.Plan we for annual in 1 year 09/19/2024 Acute upper respiratory infection, unspecified (ICD-10 - J06.9) 11/10/2024 Mild intermittent asthma, uncomplicated (ICD-10 - J45.20) 11/10/2024 Mild intermittent asthma, uncomplicated (ICD-10 - J45.20) 09/19/2024 Chronic cough (ICD-10 - R05.3) 07/21/2024 Chronic kidney disease, stage 1 (ICD-10 - N18.1) Previous GFR noted to be in the 90s. Will obtain an updated comprehensive panel to reassess GFR at this time 05/05/2024 Abnormal weight gain (ICD-10 - R63.5) Patient shared concerns that she has gained weight despite increasing her exercise routine, and adjusting her diet. Patient is interested in an injectable for weight loss and advised patient that given her BMI of 23 she may not be approved for this medication. Did discuss an oral option to assist with weight loss and patient would like to try phentermine. Blood pressure is stable today and will begin phentermine to see if this can assist in weight loss for patient. Patient aware to follow-up should she have any negative side effects from any medications that she does receive for weight outside of this office 07/21/2024 Menopausal and female climacteric states (ICD-10 - N95.1) Stable and patient has not had any increased symptoms of hot flashes and feels as though her previous symptoms have resolved without treatment. Patient to follow-up should her symptoms return as we could then discuss additional treatment options 07/21/2024 Ganglion, right wrist (ICD-10 - M67.431) Patient is interested in further evaluation for ganglion cyst located to the dorsal aspect of her right wrist. Discussed with patient that there is a high suspicion that this is a ganglion cyst but to confirm, we will complete an x-ray. Discussed with patient that if she is having symptoms of concern then a referral to Dr. Verma's office would be warranted to determine if surgery is an option remove the cyst 07/21/2024 Personal history of nicotine dependence (ICD-10 - Z87.891) Patient has been cigarette free for greater than 6 months. Encouraged patient to continue working on strategies to remain cigarette free. Will obtain an updated low-dose CT scan given her previous cigarette use 07/21/2024 Vitamin D deficiency, unspecified (ICD-10 - E55.9) Will check level to verify that there is no deficiency 07/21/2024 Encounter for screening for malignant neoplasm of colon (ICD-10 - Z12.11) Patient completed a colonoscopy in 2019 and she states there were findings of multiple polyps. Patient is pending an updated colonoscopy and states she has her consult in the coming weeks and will have an updated screening colonoscopy this year 07/21/2024 Encounter for screening mammogram for malignant neoplasm of breast (ICD-10 - Z12.31) Up-to-date on breast cancer screening as patient states she completed her mammogram through [facility] this year. Will try and obtain results for of records 07/21/2024 Encounter for screening for cardiovascular disorders (ICD-10 - Z13.6) Blood pressure stable. Will check for comorbidity of hyperlipidemia and hyperglycemia to further assess risk 07/21/2024 Encounter for immunization (ICD-10 - Z23) Reviewed with patient her vaccine history and she is aware that she would qualify for the shingles series. Patient unsure if she to move forward with this vaccine series at this time.She also declined receiving her flu vaccine in office today 07/21/2024 Encounter for antibody response examination (ICD-10 - Z01.84) Titers have been checked in the past and there is immunity to rubeola 07/21/2024 Encounter for screening for other viral diseases (ICD-10 - Z11.59) Will screen for hepatitis C as per general recommendation 07/21/2024 Encounter for screening examination for other mental health and behavioral disorders (ICD-10 - Z13.39) PHQ score reviewed and no further interventions warranted 07/21/2024 Other Plan Of Treatment Pending Test Test Name Order Date 25OH VITAMIN D 12/04/2022 COMPLETE CBC WITH DIFF 12/04/2022 COMPLETE URINALYSIS 12/04/2022 COMPREHENSIVE METABOLIC PANEL 12/04/2022 LIPID PANEL 12/04/2022 Next Appt Details Provider Name:Norma Jeter , 01/12/2025 02:30:00 PM, [address] [place] [address], [address], [phone], Provider Name:Norma Jeter , 07/27/2025 01:00:00 PM, [address] [place] [address], [place] [address], [place], [place], [phone], Insurance Providers Payer Name Payer Address Payer Phone Subscriber Number Group Number Insured Name Patient Relationship to Insured Coverage Start Date Coverage End Date [facility] [address] [place] [address] [id number] Martha Palomares Self - patient is the insured Medical (General) History Medical History History ICD Code hypertension Surgical History Surgery Date(Month/Year) uterine ablation (age 51) Hospitalization History Reason Date(Month/Year)
--- OUTSIDE RECORDS SUMMARY | 2024-11-12 12:27 | XMS_ITS | Clinical Summary ---
Author Organization [facility] Address [address] [place] [address] Phone Care Team Providers Care Mail Distribution Scheme Examiner Name Role Phone Norma Jeter NP Primary Care Provider [phone] Encounters Date Type Department Care Team Description 10/31/2024 10:42 AM EST - 10/31/2024 11:59 PM EST Hospital Encounter [facility] [address] [place] [address] Chronic cough Discharge Disposition: Home or Self Care from Last 3 Months Family History Medical History Relation Name Comments CABG Father at gae 42 Relation Name Status Comments Father Social History Tobacco Use Types Packs/Day Years Used Date Smoking Tobacco: Every Day Cigarettes Alcohol Use Standard Drinks/Week Comments No 0 (1 standard drink = 0.6 oz pur e alcohol) Comments Unknown Sex and Gender Information Value Date Recorded Sex Assigned at Female 10/09/2024 4:21 PM EST Legal Sex Female 2:19 PM EST Gender Identity Female 10/09/2024 4:21 PM EST Sexual Orientation Straight 10/09/2024 4: 21 PM EST Obstetrics History Plan of Treatment Health Maintenance Due Date Last Done Comments Breast Cancer Screening 1965 Hepatitis B Vaccines (1 of 3 - 19+ 3-dose series) 1984 Pneumococcal Vaccine: 50+ Years (1 of 2 - PCV) 1984 Pneumococcal Vaccine: Pediatrics (0 to 5 Years) and At-Risk Patients (6 to 64 Years) (1 of 2 - PCV) 1984 Cervical Cancer Screening: Pap Smear 1986 Zoster Vaccines (1 of 2) 2015 COVID-19 Vaccine ( season) 2024 09/29/2022, 09/16/2021, 01/12/2021, Additional history exists Influenza Vaccine (#1) 2024 Cholesterol Screening (Lipid Panel) 10/03/2024 Colorectal Cancer Screening: Colonoscopy 10/03/2024 Depression Screening 10/03/2024 HIV Screening 10/03/2024 Hepatitis C Screening 10/03/2024 Social Influencers of Health Screening 10/03/2024 DTaP,Tdap,and Td Vaccines (2 - Td or Tdap) 06/01/2033 06/01/2023 RSV Immunization Patients 60+ Years Old (1 - 1-dose 75+ series) 2040 HIB [...] on patient's age to complete this topic MMR Vaccines Aged Out No longer eligi ble based on patient's age to complete this topic Meningococcal ACWY Vaccine Aged Out N o longer eligible based on patient's age to complete this topic Meningococcal B Vacine Aged Out No lo nger eligible based on patient's age to complete this topic RSV Immunization Patients Under 20 months Aged Out No longer eligible based on patient's age to complete this topic Varicella Vaccines Aged Out No longer eligible based on patient's age to complete this topic Procedures Procedure Name Priority Date/Time Associated Diagnosis Comments HC SPIROMETRY BRONCHODILATION RESPONSIVENESS PRE/POST BRONCHODILATOR ADMINISTRATION Routine 10/31/2024 11:50 AM EST Chronic cough from Last 3 Months Results * Pulmonary function testing: Carbon Monoxide Diffusing Capacity, Nitrogen Wash Out, Spirometry with Bronchodilator (10/31/2024 11:50 AM EST) FVC 3.43 liters FEV1 2.62 liters FEV1/FVC 76 % FEF 25-75 2.28 L/s FEF 50 4.02 l/s PEF 5.65 L/s [id number] 9.06 s TLC 5.54 liters VC 3.43 L IC 2.25 L ERV 0.42 L RV 2.11 L RV/TLC 38 % DLCO 24.1 ml/mmHg sec DLCO/VA 4.73 ml/min mmHg DLCOc/VA 4.73 ml/min mmHg Narrative Nanette Tipton MD - 11/02/2024 1:25 PM EST FEV1/FVC 76%. FEV1 2.62 at 93%. FVC 93%. Good bronchodilator response. TLC 99%. RV 107%. DLCO 109%. Mild obstruction. ??No restriction. ??And no decrease in diffusion. Finding consistent with very mild obstructive lung disease. Procedure Note Nanette Tipton MD - 11/02/2024 FEV1/FVC 76%. FEV1 2.62 at 93%. FVC 93%. Good bronchodilator response. TLC 99%. RV 107%. DLCO 109%. Mild obstruction. No restriction. And no decrease in diffusion. Finding consistent with very mild obstructive lung disease. Norma Jeter NP PFT ORDERABLES Final Result from Last 3 Months Insurance [employer] Care Teams Mail Distribution Scheme Examiner Relationship Specialty Start Date End Date Norma Jeter, [address] [place] [address] PCP - General Family Medicine 10/10/24
--- OUTSIDE RECORDS SUMMARY | 2024-11-12 12:27 | XMS_ITS | Patient Health Record ---
Author Organization [facility] [employer], [facility] Address [address] [place] [phone] Care Team Providers Care Building Maintenance Custodian Name Role Phone Rica Lee DNP Primary Care Provider Unava ilable RICA LEE Unavailable [phone] REASON FOR REFERRAL No Information MEDICATIONS Medication SIG (Take, Route, Frequency, Duration) Notes Start Date End Date Status Tretinoin 0.05 % apply topically at bedtime External tretinoin 0.05 % topical cream 08/11/2022 Active PLAN OF TREATMENT No Information Insurance Providers Payer Name Payer Address Payer Phone Subscriber Number Group Number Insured Name Patient Relationship to Insured Coverage Start Date Coverage End Date [employer] [address] [place] [phone] [id number] Martha Palomares Self - patient is the insured
--- OUTSIDE RECORDS SUMMARY | 2024-11-12 12:27 | XMS_ITS ---
Author Organization Radha Rivero MD Address [address] [place] [phone] Care Team Providers Care Vehicle Maintenance Supervisor Name Role Phone Norma Jeter Primary Care Provider Allergies No Known Allergies REASON FOR VISIT RE:Lung Function Test Medications Medication SIG (Take, Route, Frequency, Duration) Notes Start Date End Date Status Trelegy Ellipta 200-62.5-25 MCG/ACT 1 puff Inhalation Once a day for 30 days 11/10/2024 04/10/2025 Active Encounters Encounter Location Date Provider Diagnosis Radha Rivero MD [address] [phone] 11/10/2024 Norma Jeter Mild intermittent asthma, uncomplicated J45.20 Assessments Encounter Date Diagnosis (ICD Code) Assessment Notes Treatment Notes Treatment Clinical Notes Section Notes 11/10/2024 Mild intermittent asthma, uncomplicated (ICD-10 - J45.20) Plan Of Treatment Medication Medication Name Sig Start Date Stop Date Notes Trelegy Ellipta 200-62.5-25 MCG/ACT 1 puff Inhalation Once a day for 30 days 11/10/2024 04/10/2025 Next Appt Details Provider Name:Norma Jeter , 01/12/2025 02:30:00 PM, [address] [place] [address], [phone], Provider Name:Norma Jeter , 07/27/2025 01:00:00 PM, [address] [place] [address], [phone], Progress Notes * Martha PALOMARESDOB:1964 (59 yo F)Acc No.[id number]:11/10/2024 Patient:?Martha PALOMARES :1965???Age:59 Y???Sex:Female Address:[address] [place] [id number] * Refills? Refill Trelegy Ellipta Aerosol Powder Breath Activated, 200-62.5-25 MCG/ACT, Inhalation, 1, 1 puff, Once a day, 30 days, Refills=4 Subjective: * Chief Complaints: * ???RE:Lung Function Test * Medical History:? * Surgical History:? * Hospitalization/Major Diagno stic Procedure:? * Medications:? * Allergies:?N.K.D.A.no[Allerg ies Verified] Objective: * Vitals:? Past Vitals:* 07/21/2024 Temp:97.0F, HR:81/min, BP:12 2/78mm Hg, Wt:149lbs, BMI:23.33Index, Ht:67in, Oxygen sat %:98% * 05/29/2024 Temp:96.7F, HR:80/min, Wt:14 8lbs, BMI:23.18Index, Ht:67in, Oxygen sat %:98% * 05/05/2024 Temp:96.8F, HR:77/min, BP:12 2/74mm Hg, Wt:148.2lbs, BMI:23.21Index, Ht:67in, Oxygen sat %:98% * Physical Examination:? Assessment: * Assessment: 1.?Mild intermittent asthma, uncomplicated - J45.20??? Plan: * Treatment: * Procedure Codes:? * true * Date:? Generated for Rubén padilla/Fredi/Philipsmmain on:?11/12/2024 12:27 PM EST
--- OUTSIDE RECORDS SUMMARY | 2024-11-12 12:27 | XMS_ITS | Encounter Summary ---
Author Organization [facility] [place] [address] Care Team Providers Care Sweeper Cleaner Industrial Name Role Phone Norma Jeter NP Primary Care Provider [phone] Reason for Referral * Therapy (Routine) - Closed Specialty Diagnoses / Procedures Referred By Dashawn gilbert Referred To Contact Pulmonology Diagnoses Chronic cough Procedures Pulmonary function testing: Carbon Monoxide Diffusing Capacity, Nitrogen Wash Out, Spirometry with Bronchodilator Norma Jeter NP [address] [place] [address] Phone: tel: fax: [facility] [address] [place] [phone] Phone: tel: Referral ID Status Reason Start Date Expiration Date Visits Re quested Visits Authorized [id number] Closed 10/03/2024 10/03/2025 1 1 Reason for Visit * Therapy (Routine) - Closed Specialty Diagnoses / Procedures Referred By Dashawn gilbert Referred To Contact Pulmonology Diagnoses Chronic cough Procedures Pulmonary function testing: Carbon Monoxide Diffusing Capacity, Nitrogen Wash Out, Spirometry with Bronchodilator Norma Jeter NP [address] [address] Phone: tel:[phone] fax: [facility] [address] [place] [address] Phone: tel: Referral ID Status Reason Start Date Expiration Date Visits Re quested Visits Authorized [id number] Closed 10/03/2024 10/03/2025 1 1 Encounter Details Date Type Department Care Team (Latest Contact Info) Description 10/31/2024 10:42 AM EST - 10/31/2024 11:59 PM EST Hospital Encounter [facility] [address] [place] [address] Chronic cough Discharge Disposition: Home or Self Care Social History Tobacco Use Types Packs/Day Years [...] Orientation Straight 10/09/2024 4: 21 PM EST documented as of this encounter Discharge Disposition Disposition Code Departure Means Destination Home or Self Care documented in this encounter Plan of Treatment Not on file documented as of this encounter Procedures Procedure Name Priority Date/Time Associated Diagnosis Comments HC SPIROMETRY BRONCHODILATION RESPONSIVENESS PRE/POST BRONCHODILATOR ADMINISTRATION Routine 10/31/2024 11:50 AM EST Chronic cough documented in this encounter Results * Pulmonary function testing: Carbon Monoxide Diffusing Capacity, Nitrogen Wash Out, Spirometry with Bronchodilator (10/31/2024 11:50 AM EST) FVC 3.43 liters FEV1 2.62 liters FEV1/FVC 76 % FEF 25-75 2.28 L/s FEF 50 4.02 l/s PEF 5.65 L/s [id number] 9.06 s TLC 5.54 liters VC 3.43 [...] Norma Jeter NP PFT ORDERABLES Final Result documented in this encounter Visit Diagnoses Diagnosis Chronic cough Cough documented in this encounter Administered Medications Inactive Administered Medications - up to 3 most recent administrations Medication Order MAR Action Action Date Dose Rate Site albuterol 2.5 mg /3 mL (0.083 %) nebulizer solution 2.5 mg 2.5 mg, nebulization, Once, On Sun10/31/24 at 1130, For 1 dose, With PFT Given 10/31/2024 11:30 AM EST 2.5 mg documented in this encounter Orders Medications Ordered That Gordy ht Not Have Been Administered Count Last Ordered Date First Ordered Date albuterol 2.5 mg /3 mL (0.08 3 %) nebulizer solution 2.5 mg 1 10/31/2024 documented in this encounter Care Teams Sweeper Cleaner Industrial Relationship Specialty Start Date End Date Norma Jeter, U[facility] [address] [place] [id number] PCP - General Family Medicine 10/10/24 documented as of this encounter
[2024-11-12 12:53] VITALS: BP 131/75; PULSE 83; RESP 18; TEMP 36.1; O2SAT 100
[2024-11-12 13:09] VITALS: BP 149/95; PULSE 79; RESP 20; TEMP 36.1; O2SAT 99
== END 2024-11-12 13:28 | disposition home or self-care (01) ==
PROVIDERS: PCP Nurse Practitioner Family; Visit Provider Surgery
PROC: 0DJ08ZZ Inspection of Upper Intestinal Tract, Via Natural or Artificial Opening Endoscopic (ICD-10-PCS; CPT 43235; principal; 2024-11-12 13:30)
DX: K21.9 Gastro-esophageal reflux disease without esophagitis (principal); K44.9 Diaphragmatic hernia without obstruction or gangrene; K29.60 Other gastritis without bleeding; Z79.899 Other long term (current) drug therapy; Z87.891 Personal history of nicotine dependence
CPT/HCPCS: 43239; 88305; 88313; 88342; J2003; J2704

== ENCOUNTER → 2024-11-12 10:40 | Outpatient (BNV) | payer OTHER, SELFPAY | PROVIDERS: PCP Nurse Practitioner Family; Visit Provider Surgery | DX: K44.9 Diaphragmatic hernia without obstruction or gangrene (principal) | CPT/HCPCS: 43239 ==

== ENCOUNTER 2024-11-21 09:42 | Outpatient (AMB) | payer OTHER, SELFPAY ==
--- NOTE | 2024-11-21 09:47 | A.OFFVIS_ITS ---
VS Expanded 11/21/24 09:52 BP 132/71 Blood Pressure Location Rt brachial Blood Pressure Position Sitting Pulse 79 Pulse Source Pulse Oximeter Temp 98.4 F Temperature Source Temporal Artery Scan Pulse Oximetry 98 Oxygen Delivery Method Room Air Height 5 ft 7 in Weight 146 lb 3.2 oz BMI 22.9 Body Fat % 34.1 Body Fat Mass 49.8 Fat Free Mass 96.4 Visceral Fat Rating 7.0 Body Water % 46.6 Body Water Mass 68.2 Muscle Mass/Score 91.4 Basal Metabolic Rate/Score 1,307 Intake Visit Reasons: (OV) s/p EGD Cam 11/12/24 Allergies No Known Allergies [No Known Allergies*] Allergy (Verified 11/21/24 10:37) Medication List - Last Reconciled 11/21/24 by John Dhillon MD cholecalciferol (vitamin D3) 25 mcg PO DAILY famotidine (Pepcid) 20 mg PO BEDTIME indapamide 1.25 mg PO DAILY HPI Comments Details: Patient is here to discuss the findings of the recent Cam procedure. The test did not show an abnormal DeMeester score but there was a 75% correlation with her symptoms. She also made made the point that because of the biopsies we made and the fact she was on a liquid diet the first day and only soft foods the second day of the test, she did not experience significant GERD symptoms. Since then however, she has had severe symptoms that wake her up in the middle of the night. In addition, she is unable to take any PPIs since she has tried several (Omeprazole, Esomperazole and Pantoprazole) and all cause a jittery effect. She can only use Famotidine. Her primary symptom is however heartburn. Previous results: UGI (10/2024): small HH in my review but not reported by the Radiologist. No GERD seen PFSH Medical History Smoker Acid reflux Tubulovillous adenoma Surgical History (Updated 11/21/24 @ 09:56 by Anastasiya David CMA) Hx of bladder endoscopy History of femoral hernia repair Hx of colonoscopy History of bilateral breast implants History of arthroscopy of left shoulder History of left breast biopsy History of D&C History of section Family History Father CAD (coronary artery disease) Mother No problems noted. Unknown No problems noted. Social History Household Members: Spouse Household Members Other:: son Are you a primary child care team lead to a significant other at home: No Do you presently have visiting nurse or other home services: No Alcohol intake: current Alcohol intake frequency: holidays/special occasions only Patient Tobacco Use Status: Former Tobacco user Tobacco use type: Cigarette Cigarette Packs Per Day: 0.5 Cigarettes Per Day: 10.0 Years Smoked: 35 Current occupational status: employed Current occupation: [employer] Sexual orientation: Straight/Heterosexual Gender identity: Female Physical Exam Vital Signs: Last Vital Signs Temp 98.4 F 11/21/24 09:52 Pulse 79 11/21/24 09:52 BP 132/71 11/21/24 09:52 Pulse Ox 98 11/21/24 09:52 Oxygen Delivery Method Room Air 11/21/24 09:52 BMI result Body Mass Index 22.9 GI Inspection: Yes normal to inspection Palpation (GI): Soft to palpation Extrem Right lower extremity: normal to inspection Left lower extremity: normal to inspection Assessment & Plan Assessment & Plan (1) Acid reflux: Code(s): K21.9 - Gastro-esophageal reflux disease without esophagitis Category: Medical Qualifiers: Esophagitis presence: esophagitis presence not specified Qualified Code(s): K21.9 - Gastro-esophageal reflux disease without esophagitis Plan: We discussed the potential etiology of the hernia. We discussed the details of the diaphragmatic hernia repair and the potential technical challenges such as being able to achieve enough mobilization of the esophagus back in the abdomen and being able to close the diaphragmatic muscle (crura) primarily with sutures. We also discussed the possibility of using a biologic mesh to close the hernia defect if the crura cannot be adequately re-approximated primarily with sutures. We also discussed the option of doing a gastropexy or a fundoplication to prevent postoperative reflux and prevent hernia recurrence. As we discussed, I favor the gastropexy as the fundoplication can cause several distrurbing symptoms such as gas-bloating, flatulence, inability to burp which can be bothersome to patients. Also we discussed the complexity of a potential hernia recurrence in association with a hernia recurrence. She was in agreement not to have a fundoplication. We also discussed that after surgery, she will need to be on a liquid diet with protein shakes the first week. The second week will add protein bars and soft foods and after the third week we will introduce small amounts of regular food. The transition to normal eating habits will take about 6 weeks which is the time required for the repair to heal completely. Despite the fact that the actual findings are subtle and as I told her I cannot guarantee that the surgery will improve her symtpms, she wants to proceed with the surgery. We will schedule it accordingly.
[2024-11-21 09:52] VITALS: BP 132/71; PULSE 79; TEMP 36.9; O2SAT 98; BMI 22.9
--- OUTSIDE RECORDS SUMMARY | 2024-11-21 10:17 | XMS_ITS | Patient Health Record ---
Author Organization Radha Rivero MD Address [address] [place] [phone] Care Team Providers Care Bread Supervisor Name Role Phone Norma Jeter Primary Care Provider Allergies No Known Allergies Results Component Value Reference Range Notes Wrist Comp Min 3 Views Right Reviewed date:08/12/2024 01:26:52 PM Interpretation: Performing Lab: Notes/Report: Wrist Comp Min 3 Views Right Reason: ganglion rt wrist COMPARISON: None. FINDINGS: No fracture or dislocation. Normal carpal configuration. Intact radial and ulnar styloid processes. No arthritic change. Normal soft tissues. IMPRESSION: Normal. WSN: [id number] Ordering Physician: Norma Jeter Dictated By: Tra Maier MD Wrist Comp Min 3 Vie ws Right Reason: ganglion rt wrist COMPARISON: None. FINDINGS: No fracture or dislocation. Normal carpal configuration. Intact radial and ulnar styloid processes. No arthritic change. Normal soft tissues. IMPRESSION: Normal. WSN: [id number] Ordering Physician: Norma Jeter CT Chest LDCT [...] 227, unchanged No new nodules. OTHER FINDINGS: Mission Coordinator view findings, lines and tubes: None. Trachea [...] None. Categorization based on Lung-RADS 2022 criteria. [email or web address].acr.org/-/[email or web address] I have personally reviewed the images and I agree with this report. WSN: [id number] Ordering Physician: Norma Jeter Dictated By: Nesha [...] 227, unchanged No new nodules. OTHER FINDINGS: Mission Coordinator view findings, lines and tubes: None. Trachea [...] on Lung-RADS 2022 criteria. [email or web address]://www.acr.org/ -/m edia/[email or web address]/RADS/Pierce g-[email or web address].p df I have personally reviewed the images and I agree with this report. WSN: [id number] Ordering Physician: Norma Jeter CBC With Differential/Platel et-[id number] Reviewed date:08/12/2024 01:26:52 PM Interpretation: Performing Lab:[facility], [address], [place], Phone - [phone], Director - Missy Notes/Report: WBC 6.7 3.4-10.8 [...] Grans (Abs) 0.0 0.0-0.1 x10E3/uL Vitamin D, 69-Siakuzw-[id number] Reviewed date:08/12/2024 01:26:52 PM Interpretation: Performing Lab:[facility] [place], [address] [facility], Phone - [phone], Director - Missy Notes/Report: Vitamin D, 25-Hydroxy 40.5 30.0-100.0 ng/mL Vitamin D deficiency has been defined by the [place] of Medicine and an Endocrine Society practice guideline as a level of serum 25-OH vitamin D less than 20 ng/mL (1,2). The Endocrine Society went on to further define vitamin D insufficiency as a level between 21 and 29 ng/mL (2). 1. IOM ([place] of Medicine). 2010. Dietary reference intakes for calcium and D. [place]: The National Academies Press. 2. [place] MF, Clementina [place], Floridalma LABOY, et al. Evaluation, treatment, and prevention of vitamin D deficiency: an Endocrine Society clinical practice guideline. JCEM. 2010; 96(7):1911-30. Albumin/Creatinine Ratio,Uri ne-[id number] Reviewed date:08/12/2024 01:26:53 PM Interpretation: Performing Lab:[facility] [place], [address] [facility], [place], Phone - [phone], Director - Missy Notes/Report: Creatinine, Urine 128.9 Not Estab. mg/dL Albumin, Urine 5.6 Not Estab. ug/mL Alb/Creat Ratio 4 0-29 mg/g creat Normal: 0 - 29 Moderately increased: 30 - 300 Severely increased: >300 HCV Antibody RFX to Quant PC [id number] Reviewed date:08/12/2024 01:26:53 PM Interpretation: Performing Lab:[facility] [place], [facility], Phone - [phone], Director - Missy Notes/Report: HCV Ab Non Reactive Non Reactive Interpretation: Not infected with HCV unless early or acute infection is suspected (which may be delayed in an immunocompromised individual), or other evidence exists to indicate HCV infection. Comp. Metabolic Panel (14)-3 81018 Reviewed date:08/12/2024 01:26:53 PM Interpretation: Performing Lab:[facility] [place], [facility], Phone - [phone], Director - Missy Notes/Report: Glucose 67 70-99 mg/dL BUN 11 [...] IU/L ALT (SGPT) 11 0-32 IU/L LP+Non-HDL Cholesterol-94399 5 Reviewed date:08/12/2024 01:26:53 PM Interpretation: Performing Lab:[facility] [place], [facility], Phone - [phone], Director - Missy Notes/Report: Cholesterol, Total 211 100-199 mg/dL Triglycerides 164 0-149 mg/dL HDL Cholesterol 63 >39 mg/dL VLDL Cholesterol Pro 29 5-40 mg/dL LDL Chol Calc (NIH) 119 0-99 mg/dL Non-HDL Cholesterol 148 0-129 mg/dL UA/M w/rflx Culture, Routine -[id number] Reviewed date:08/12/2024 01:26:53 PM Interpretation: Performing Lab:[facility] [place], [address], [place], Phone - [phone], Director - Missy Notes/Report: Specific [place] 1.024 1.005-1.030 pH 7.5 5.0-7.5 Urine-Color Yellow [...] Duration) Notes Start Date End Date Status Albuterol Sulfate HFA 108 (90 Base) MCG/ACT 1 puff as needed Inhalation every 4 hrs for 30 days Active Trelegy Ellipta 200-62.5-25 MCG/ACT 1 puff Inhalation Once a day for 30 days 11/10/2024 04/10/2025 Active Indapamide 2.5 MG 1 tablet in the morn ing Orally Once a day for 90 days Active Indapamide 1.25 MG TAKE 1 TABLET BY SRAVAN TH EVERY MORNING. 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 confirmed Problem Chronic kidney disease due to hypertension (053111140228898) Hypertensive chronic kidney disease with stage 1 through stage 4 chronic kidney disease, or unspecified chronic kidney disease (I12.9) Active confirmed Problem Mild intermittent asthma (236227233) Mild intermittent asthma, uncomplicated (J45.20) Active confirmed Problem Chronic kidney disease stage 1 (289417718) Chronic kidney disease, stage 1 (N18.1) Active confirmed Problem Menopause (521953425) Menopausal and female climacteric states (N95.1) Active confirmed Problem Nicotine dependence (99667558) Personal history of nicotine dependence (Z87.891) Active confirmed Problem Gastroesophageal reflux disease with esophagitis (disorder) (294825582) Gastro-esophagea l reflux disease with esophagitis, without bleeding (K21.00) Active confirmed Vital Signs Heart Rate 81 /min 07/21/2024 Temperature 97.0 degrees Fahrenheit 07/21/2024 Blood pressure diastolic 78 mm Hg 07/21/2024 Oximetry 98 % 07/21/2024 Height 67 in 07/21/2024 Blood pressure systolic 122 mm Hg 07/21/2024 Weight 149 lbs 07/21/2024 BMI 23.33 kg/m2 07/21/2024 Encounters Encounter Location Date Provider Diagnosis Radha Rivero MD [address] [id number] 02/04/2024 Norma Jeter Pain in right hip M25.551 and Other sleep disorders not due to a substance or known physiological condition F51.8 Radha Rivero MD [address] [id number] 05/05/2024 Norma Jeter Hypertensive chronic kidney disease with stage 1 through stage 4 chronic kidney disease, or unspecified chronic kidney disease I12.9 ; Chronic kidney disease, stage 1 N18.1 and Abnormal weight gain R63.5 Radha Rivero MD [address] [id number] 05/29/2024 Norma Jeter Acute cough R05.1 an d Gastro-esophageal reflux disease with esophagitis, without bleeding K21.00 Radha Rivero MD [address] [id number] 07/21/2024 Norma Jeter Encounter for genera l [...] and behavioral disorders Z13.39 Radha Rivero MD [address] [id number] 02/06/2024 Norma Jeter Pain in right hip M25.551 Radha Rivero MD [address] [id number] 05/06/2024 Norma Rivero MD [address] [id number] 07/08/2024 Norma Rivero MD [address] [id number] 08/12/2024 Norma Rivero MD [address] [id number] 09/26/2024 Norma Rivero MD [address] [id number] 01/31/2024 Norma Jeter Pain in right hip M25.551 Radha Rivero MD [address] [id number] 04/14/2024 Norma Rivero MD [address] [id number] 04/28/2024 Norma Rivero MD [address] [id number] 05/28/2024 Norma Rivero MD [address] [id number] 05/28/2024 Norma Rivero MD [address] [id number] 06/30/2024 Normadoc Jeter Other sleep disorder s not due to a substance or known physiological condition F51.8 Radha Rivero MD [address] [id number] 08/02/2024 Norma Rivero MD [address] [id number] 08/26/2024 Norma Rivero MD [address] [id number] 08/26/2024 Normadoc Sanchese Radha Rivero MD [address] [id number] 09/19/2024 Norma Jeter Acute upper respirat ory infection, unspecified J06.9 and Chronic cough R05.3 Radha Rivero MD [address] [id number] 11/10/2024 Norma Jeter Mild intermittent asthma, uncomplicated J45.20 Radha Rivero MD [address] [id number] 11/10/2024 Norma Jeter Mild intermittent asthma, uncomplicated J45.20 Radha Rivero MD [address] [id number] 11/11/2024 Norma Corona Rivero MD [address] [id number] 11/11/2024 Norma Jeter Assessments Encounter Date Diagnosis (ICD Code) Assessment Notes Treatment Notes Treatment Clinical Notes Section Notes 06/30/2024 Other sleep disorders not due to a substance or known physiological condition (ICD-10 - F51.8) 02/06/2024 Pain in right hip (ICD-10 - [...] patient would benefit from being seen by [facility] to determine if she is a candidate for a cortisone injection 01/31/2024 Pain in right hip (ICD-10 - M25.551) 11/10/2024 Mild intermittent asthma, uncomplicated (ICD-10 - J45.20) 11/10/2024 Mild intermittent asthma, uncomplicated (ICD-10 - J45.20) 09/19/2024 Acute upper respiratory infection, unspecified (ICD-10 - J06.9) 05/29/2024 Gastro-esophageal reflux disease with esophagitis, without [...] treatment could consider testing for Whooping cough 07/21/2024 Hypertensive chronic kidney disease with stage [...] labs.Plan we for annual in 1 year 05/05/2024 Hypertensive chronic kidney disease with stage [...] to reassess labs at her upcoming annual 05/05/2024 Abnormal weight gain (ICD-10 - R63.5) [...] for weight outside of this office 07/21/2024 Chronic kidney disease, stage 1 (ICD-10 - N18.1) Previous GFR noted to be in the 90s. Will obtain an updated comprehensive panel to reassess GFR at this time 09/19/2024 Chronic cough (ICD-10 - R05.3) 07/21/2024 Menopausal and female climacteric states (ICD-10 [...] patient states she completed her mammogram through [facility] this year. Will try and obtain results [...] Provider Name:Norma Jeter , 01/12/2025 02:30:00 PM, [address] [place] [address], [address], [place], [place], [phone], Provider Name:Norma Jeter , 07/27/2025 01:00:00 PM, [address] [place] [address], [place] [address], [place], [place], [phone], Insurance Providers Payer Name Payer Address Payer Phone Subscriber Number Group Number Insured Name Patient Relationship to Insured Coverage Start Date Coverage End Date [facility] [address] [place] [address] [id number] Martha Palomares Self - patient is the insured Medical (General) History Medical History History ICD Code hypertension Surgical History Surgery Date(Month/Year) uterine ablation (age 51) Hospitalization History Reason Date(Month/Year)
--- OUTSIDE RECORDS SUMMARY | 2024-11-21 10:17 | XMS_ITS | Clinical Summary ---
Author Organization [facility] Address [address] [place] [address] Phone Care Team Providers Care Childhood Development Teacher Name Role Phone Norma Jeter NP Primary Care Provider Encounters Date Type Department Care Team Description 10/31/2024 10:42 AM EST - 10/31/2024 11:59 PM EST Hospital Encounter [facility] Pulmonary [address] [place] [address] Chronic cough Discharge Disposition: Home [...] FEF 50 4.02 l/s PEF 5.65 L/s MAR409 9.06 s TLC 5.54 liters VC 3.43 [...] Last 3 Months Insurance [employer] Care Teams Childhood Development Teacher Relationship Specialty Start Date End Date Norma Jeter, U[facility] [address] [place] [address] PCP - General Family Medicine 10/10/24
--- OUTSIDE RECORDS SUMMARY | 2024-11-21 10:17 | XMS_ITS ---
Author Organization Radha Rivero MD Address [address] [place] [phone] Care Team Providers Care Basket Filler Name Role Phone Norma Jeter Primary Care Provider REASON FOR VISIT RE:RE:Lung Function Test Encounters Encounter Location Date Provider Diagnosis Radha Rivero MD [address] [place] [address] [place] [id number] 11/11/2024 Norma Jeter Plan Of Treatment Next Appt Details Provider Name:Norma Jeter , 01/12/2025 02:30:00 PM, [address] [place] [address], [phone], Provider Name:Norma Jeter , 07/27/2025 01:00:00 PM, [address] [place] [address], [phone], Progress Notes * NAMITAEmily YuheberDOB:1964 (59 yo F)Acc No.[id number]:11/11/2024 Patient:?Martha PALOMARES :1965???Age:59 Y???Sex:Female Address:[address] [place] [address] * true * Date:? Generated for Printi valerie/Famalena/eTransmitting on:?11/21/2024 10:16 AM EST
--- OUTSIDE RECORDS SUMMARY | 2024-11-21 10:17 | XMS_ITS | Patient Health Record ---
Author Organization [facility], [facility] Address [address] [place] [phone] Care Team Providers Care Crucible Furnace Tender Name Role Phone Rica Lee DNP Primary Care Provider Unava ilable RICA LEE Unavailable [phone] REASON FOR REFERRAL No Information MEDICATIONS Medication [...] Date Coverage End Date [employer] [address] [place] [address] [id number] Martha Palomares Self - patient is the insured
--- OUTSIDE RECORDS SUMMARY | 2024-11-21 10:17 | XMS_ITS ---
Author Organization Radha Rivero MD Address [address] [place] [phone] Care Team Providers Care Band Salvager Name Role Phone Norma Jeter Primary Care Provider [phone] REASON FOR VISIT RE:Lung Function Test Encounters Encounter Location Date Provider Diagnosis Radha Rivero MD [address] [place] [address] [place] [id number] 11/11/2024 Norma Jeter Plan Of Treatment Next Appt Details Provider Name:Norma Jeter , 01/12/2025 02:30:00 PM, [address] [place] [address], [phone], Provider Name:Norma Jeter , 07/27/2025 01:00:00 PM, [address] [place] [address], [phone], Progress Notes * MICKIEmily WAYheberDOB:1964 (59 yo F)Acc No.[id number]:11/11/2024 Patient:?Martha PALOMARES :1965???Age:59 Y???Sex:Female Address:[address] [place] [address] * true * Date:? Generated for Printi ng/Faesdrasg/eTransmitting on:?11/21/2024 10:17 AM EST
--- OUTSIDE RECORDS SUMMARY | 2024-11-21 10:18 | XMS_ITS | Clinical Summary ---
Author Organization [employer] Address [address] [facility] [address] [place] [address] Care Team Providers Care Ase Certified Technician Name Role Phone Unavailable Primary Care Provider [...]
--- OUTSIDE RECORDS SUMMARY | 2024-11-21 10:18 | XMS_ITS ---
Author Organization Radha Rivero MD Address [address] [place] [phone] Care Team Providers Care Wall Man Name Role Phone Norma Jeter Primary Care Provider [phone] Allergies No Known Allergies REASON FOR VISIT RE:Lung Function Test Medications Medication SIG (Take, Route, Frequency, Duration) Notes Start Date End Date Status Trelegy Ellipta 200-62.5-25 MCG/ACT 1 puff Inhalation Once a day for 30 days 11/10/2024 04/10/2025 Active Encounters Encounter Location Date Provider Diagnosis Radha Rivero MD [address] [id number] 11/10/2024 Norma Jeter Mild intermittent asthma, uncomplicated [...] Provider Name:Norma Jeter , 01/12/2025 02:30:00 PM, [address] [place] [address], [phone], Provider Name:Norma Jeter , 07/27/2025 01:00:00 PM, [address] [place] [address], [phone], Progress Notes * Martha PALOMARESDOB:1964 (59 yo F)Acc No.[id number]:11/10/2024 Patient:?Martha PALOMARES :1965???Age:59 Y???Sex:Female Address:[address] [place] [address] * Refills? Refill Trelegy Ellipta Aerosol Powder [...] * true * Date:? Generated for Rubén padilla/Fredi/eTtiansmitting on:?11/21/2024 10:17 AM EST
--- OUTSIDE RECORDS SUMMARY | 2024-11-21 10:18 | XMS_ITS | Encounter Summary ---
Author Organization [facility] [place] [address] Care Team Providers Care Justowriter Operator Name Role Phone Norma Jeter NP Primary Care Provider [phone] Reason for Referral * Therapy (Routine) - Closed Specialty Diagnoses / Procedures Referred By Dashawn gilbert Referred To Contact Pulmonology Diagnoses Chronic cough Procedures Pulmonary function testing: Carbon Monoxide Diffusing Capacity, Nitrogen Wash Out, Spirometry with Bronchodilator Norma Jeter NP [address] [place] [address] Phone: tel: fax: [facility] [address] [place] [phone] Phone: tel: Referral ID Status Reason Start Date Expiration Date Visits Re quested Visits Authorized [id number] Closed 10/03/2024 10/03/2025 1 1 Reason for Visit * Therapy (Routine) - Closed Specialty Diagnoses / Procedures Referred By Dashawn gilbert Referred To Contact Pulmonology Diagnoses Chronic cough Procedures Pulmonary function testing: Carbon Monoxide Diffusing Capacity, Nitrogen Wash Out, Spirometry with Bronchodilator Norma Jeter NP [address] [address] Phone: tel:[phone] fax: [facility] [address] [place] [address] Phone: tel: Referral ID Status Reason Start Date Expiration Date Visits Re quested Visits Authorized [id number] Closed 10/03/2024 10/03/2025 1 1 Encounter Details Date Type Department Care Team (Latest Contact Info) Description 10/31/2024 10:42 AM EST - 10/31/2024 11:59 PM EST Hospital Encounter [facility] [address] [place] [address] Chronic cough Discharge Disposition: Home [...] FEF 50 4.02 l/s PEF 5.65 L/s PRA381 9.06 s TLC 5.54 liters VC 3.43 [...] 10/31/2024 documented in this encounter Care Teams Justowriter Operator Relationship Specialty Start Date End Date Norma Jeter, UGO [address] [place] [address] PCP - General Family Medicine 10/10/24 documented as of this encounter
== END 2024-11-21 10:39 | disposition home or self-care (01) ==
PROVIDERS: PCP Nurse Practitioner Family; Visit Provider Surgery
DX: K21.9 Gastro-esophageal reflux disease without esophagitis (principal)
CPT/HCPCS: 99213

== ENCOUNTER → 2024-11-21 09:42 | Outpatient (BNVA) | payer OTHER, SELFPAY | PROVIDERS: PCP Nurse Practitioner Family; Visit Provider Surgery ==

== ENCOUNTER 2025-01-16 08:10 | Outpatient (AMB) | payer OTHER, SELFPAY ==
[2025-01-16 08:10] VITALS: BMI 22.7
--- NOTE | 2025-01-16 08:10 | MHC.OFFVISWM ---
VS Expanded 01/16/25 08:10 Height 5 ft 7 in Weight 145 lb BMI 22.7 Intake Visit Reasons: TV Pre Op Diaphragmatic Hernia 01/29/25 Allergies No Known Allergies [No Known Allergies*] Allergy (Verified 01/16/25 08:11) Medication List - Last Reconciled 01/16/25 by John Dhillon MD cholecalciferol (vitamin D3) 25 mcg PO DAILY famotidine (Pepcid) 20 mg PO BEDTIME indapamide 1.25 mg PO DAILY ondansetron 4 mg PO Q12H pantoprazole 40 mg PO DAILY polyethylene glycol 3350 17 grams PO DAILY sucralfate 10 mL PO BID HPI HPI TV Pre Op Diaphragmatic Hernia 01/29/25: Details: Start time: 8.04am, End time: 8.24am ?I spent 15 minutes speaking with the patient on the phone plus an additional 5 minutes reviewing and updating records for a total of 20 minutes HPI Comments Details: Here for preop appointment for laparoscopic diaphragmatic hernia repair PFSH Medical History (Updated 11/21/24 @ 11:41 by Anastasiya David CMA) Acid reflux Tubulovillous adenoma Surgical History (Updated 11/21/24 @ 09:56 by Anastasiya David CMA) Hx of bladder endoscopy History of femoral hernia repair Hx of colonoscopy History of bilateral breast implants History of arthroscopy of left shoulder History of left breast biopsy History of D&C History of section Family History Father CAD (coronary artery disease) Mother No problems noted. Unknown No problems noted. Social History Household Members: Spouse Household Members Other:: son Are you a primary personal care aide to a significant other at home: No Do you presently have visiting nurse or other home services: No Alcohol intake: current Alcohol intake frequency: holidays/special occasions only Patient Tobacco Use Status: Former Tobacco user Tobacco use type: Cigarette Cigarette Packs Per Day: 0.5 Cigarettes Per Day: 10.0 Years Smoked: 35 Current occupational status: employed Current occupation: [employer] Sexual orientation: Straight/Heterosexual Gender identity: Female Telehealth Telehealth Telehealth Platform: Telephone Location of provider rendering services: practice address Location of patient: address on file Patient Identification confirmed using: Name, : Yes Telehealth method: voice only Patient verbally consented to treatment: Yes Patient verbally consented to billing insurance company: Yes Patient informed of any privacy concerns related to visit: Yes Minutes spent on Phone/Video with Pt.: 20 Assessment & Plan Assessment & Plan (1) Acid reflux: Code(s): K21.9 - Gastro-esophageal reflux disease without esophagitis Category: Medical Qualifiers: Esophagitis presence: esophagitis presence not specified Qualified Code(s): K21.9 - Gastro-esophageal reflux disease without esophagitis Plan: 1. We discussed the potential etiology of the hernia. We discussed the details of the diaphragmatic hernia repair and the potential technical challenges such as being able to achieve enough mobilization of the esophagus back in the abdomen and being able to close the diaphragmatic muscle (crura) primarily with sutures. We also discussed the possibility of using a biologic mesh to close the hernia defect if the crura cannot be adequately re-approximated primarily with sutures. We also discussed the option of doing a gastropexy or a fundoplication to prevent postoperative reflux and prevent hernia recurrence. As we discussed, I favor the gastropexy as the fundoplication can cause several distrurbing symptoms such as gas-bloating, flatulence, inability to burp which can be bothersome to patients. Also we discussed the complexity of a potential hernia recurrence in association with a hernia recurrence. She was in agreement not to have a fundoplication. We also discussed that after surgery, he will need to be on a liquid diet with protein shakes the first week. The second week will add protein bars and soft foods and after the third week we will introduce small amounts of regular food. The transition to normal eating habits will take about 6 weeks which is the time required for the repair to heal completely. 2. Preop prescriptions were provided and explained the purpose of each one. Need to be purchased preop. Start Pantoprazole now as you get it from the pharmacy, 1 pill per day. Sucralfate and Zofran are for after surgery as needed. 3. Bowel prep: please do 7 packets ?of Miralax mixing each one with a an 8oz glass of water, crystal light, gatorade zero, or propel ?on 01/27/25 and the same amount on 01/28/25. The Miralax you begin with one packet at a time in 8oz water or crystal light, gatorade zero, or propel ?as early in the day as you can and you do them back to back until you finish them. Continue the protein shakes during ?the bowel prep. 4. Needs to purchase 1oz medicine cups . 5. Needs to purchase Children's liquid Tylenol for postop pain control. 6.Avoid aspirin, motrin, Advil, Aleve, Meloxicam, Excedrin, Ibuprofen, Naproxyn. Tylenol is OK. 7. She needs to purchase the Celebrate REBUILD protein shakes from the hospital's gift shop, chewable or pills whatever you prefer. 8. Will do basic preop blood work-up any day between Sunday09/04/22 and Sunday09/08/22 fasting for 12 hours and is scheduled to see the Anesthesiologist prior to the day of surgery. 9. Importance of adherence to postop folllow-up and recommendations was underscored and she understands that. 10. Stop food and bars as of 01/22/25 and continue with 4 Celebrate Rebuild protein shakes (ONE scoop in 8oz almond milk) at 7am-9am, 10am-12pm, 1pm-3pm, 4pm-6pm and one more Celebrate Rebuild protein shake with TWO scoops in 8oz of almond milk at 7pm-9pm 11. No soups, broths or V8 12. The patient's?medical?history has been reviewed and they are considered low risk for post op DVT and therefore DVT prophylaxis is not considered necessary. Travel after surgery was reviewed. The patient has not disclosed any travel plans during the first 30 days after surgery and they have been advised that within the first 30 days after surgery any bus, plane, train or car travel over 2 hours in duration is contraindicated due to the possibility of developing blood clots from immobility. Any travel, needs to include periods of ambulation of 10 minutes in duration every 2 hours.? Patient was instructed to discuss any plans for travel during this period with their bariatric surgeon.? 13. Please take at the day of surgery the following medications: NONE 14. Stop any control pills and don't use them for one month after surgery 15. Absolutely no smoking or vaping, or marijuana until the surgery and for at least the first 4 weeks. Only nicotine patches are allowed. 16. Send me your weight the day of surgery before you go to the hospital. 17. Avoid any steroids by mouth for any reason. Let me know if someone prescribes them to you Orders: Orders Prothrombin Time INR Today Z01.818 - Encounter for other preprocedural examination Type and Screen Today Z818 - Encounter for other preprocedural examination Partial Thromboplastin Time Today Z818 - Encounter for other preprocedural examination Complete Blood Count Auto Diff Today Z818 - Encounter for other preprocedural examination Insulin Today Z818 - Encounter for other preprocedural examination Comprehensive Met. Panel Today Z818 - Encounter for other preprocedural examination TSH reflex Free T4 Today Z818 - Encounter for other preprocedural examination Lipid Panel Today Z.818 - Encounter for other preprocedural examination Hemoglobin A1c Today Z.818 - Encounter for other preprocedural examination C Reactive Protein Today Z.818 - Encounter for other preprocedural examination Medications: New polyethylene glycol 3350 Mix each measuring cup with 8oz of water, Crystal light, or Gatorade zero, or Propel and do 7 measuring cups on 01/27/25 and another 7 measuring cups on 01/28/25 17 grams PO DAILY 238 grams 0RF Z01.818 - Encounter for other preprocedural examination pantoprazole 40 mg PO DAILY 90 tabs 0RF K21.9 - Gastro-esophageal reflux disease without esophagitis sucralfate 10 mL PO BID 600 mL 2RF K21.9 - Gastro-esophageal reflux disease without esophagitis ondansetron Only take one every 12 hours as needed if you have nausea 4 mg PO Q12H 20 tabs 0RF nausea and vomiting R11.0 - Nausea
--- OUTSIDE RECORDS SUMMARY | 2025-01-16 08:27 | XMS_ITS | Patient Health Record ---
Author Organization Radha Rivero MD Address [address] [place] [phone] Care Team Providers Care Labor Law Professor Name Role Phone Norma Jeter Primary Care Provider Allergies No Known Allergies Results Component Value Reference Range Notes CBC With Differential/Platel [id number] Reviewed date:08/12/2024 01:26:52 PM Interpretation: Performing Lab:[facility] [place], [address] [place] [address], [place], Phone - [phone], Director - Missy Notes/Report: WBC 6.7 3.4-10.8 [...] % Immature Grans (Abs) 0.0 0.0-0.1 x10E3/uL UA/M w/rflx Culture, Routine -[id number] Reviewed date:08/12/2024 01:26:53 PM Interpretation: Performing Lab:[facility] [place], [address] [facility], Phone - [phone], Director - Missy Notes/Report: Specific Jackson 1.024 1.005-1.030 pH 7.5 5.0-7.5 Urine-Color Yellow [...] date:09/26/2024 09:59:23 AM Interpretation: Performing Lab: Notes/Report: Wrist Comp Min 3 Views Right Reviewed date:08/12/2024 01:26:52 PM Interpretation: Performing Lab: Notes/Report: Wrist Comp Min 3 Views Right Reason: ganglion rt wrist COMPARISON: None. FINDINGS: No fracture or dislocation. Normal carpal configuration. Intact radial and ulnar styloid processes. No arthritic change. Normal soft tissues. IMPRESSION: Normal. WSN: [id number] Ordering Physician: Norma Jeter Dictated By: Tra Maier MD Wrist Comp Min 3 Vie ws Right Reason: ganglion rt wrist COMPARISON: None. FINDINGS: No fracture or dislocation. Normal carpal configuration. Intact radial and ulnar styloid processes. No arthritic change. Normal soft tissues. IMPRESSION: Normal. WSN: [id number] Ordering Physician: Norma Jeter Vitamin D, [id number] Reviewed date:08/12/2024 01:26:52 PM Interpretation: Performing Lab:[facility] [place], [address] [facility], [place], Phone - [phone], Director - Missy Notes/Report: Vitamin D, 25-Hydroxy 40.5 30.0-100.0 ng/mL Vitamin D deficiency has been defined by the [place] of [employer] and an Endocrine Society practice guideline as a level of serum 25-OH vitamin D less than 20 ng/mL (1,2). The Endocrine Society went on to further define vitamin D insufficiency as a level between 21 and 29 ng/mL (2). 1. IOM ([place] of [employer]). 2010. Dietary reference intakes for calcium and D. [place]: The National Academies Press. 2. Florence MF, Clementina COREAS, Floridalma LABOY, et al. Evaluation, treatment, and prevention of vitamin D deficiency: an Endocrine Society clinical practice guideline. JCEM. 2010; 96(7):1911-30. Albumin/Creatinine Ratio,Uri [id number] Reviewed date:08/12/2024 01:26:53 PM Interpretation: Performing Lab:[facility] [place], [address] [place] [address], Phone - [phone], Director - Missy Notes/Report: Creatinine, Urine 128.9 Not Estab. mg/dL Albumin, Urine 5.6 Not Estab. ug/mL Alb/Creat Ratio 4 0-29 mg/g creat Normal: 0 - 29 Moderately increased: 30 - 300 Severely increased: >300 HCV Antibody RFX to Quant PC [id number] Reviewed date:08/12/2024 01:26:53 PM Interpretation: Performing Lab:[facility] [place], [address] [place] [address], Phone - [phone], Director - Missy Notes/Report: HCV Ab Non Reactive Non Reactive Interpretation: Not infected with HCV unless early or acute infection is suspected (which may be delayed in an immunocompromised individual), or other evidence exists to indicate HCV infection. Comp. Metabolic Panel (14)-[id number] [id number] Reviewed date:08/12/2024 01:26:53 PM Interpretation: Performing Lab:[facility] [place], [address] [place] [address], Phone - [phone], Director - Missy Notes/Report: Glucose 67 70-99 [...] IU/L ALT (SGPT) 11 0-32 IU/L LP+Non-HDL Cholesterol-28183 5 Reviewed date:08/12/2024 01:26:53 PM Interpretation: Performing Lab:[facility], [address] [place] [address], [place], Phone - [phone], Director - Missy Notes/Report: Cholesterol, Total 211 100-199 mg/dL Triglycerides 164 0-149 mg/dL HDL Cholesterol 63 >39 mg/dL VLDL Cholesterol Pro 29 5-40 mg/dL LDL Chol Calc (NIH) 119 0-99 mg/dL Non-HDL Cholesterol 148 0-129 mg/dL CT Low Dose Lung Screening Reviewed date:09/26/2024 [...] 227, unchanged No new nodules. OTHER FINDINGS: Hospitality Manager view findings, lines and tubes: None. Trachea [...] None. Categorization based on Lung-RADS 2022 criteria. [email or web address] I have personally reviewed the images and I agree with this report. WSN: [id number] Ordering Physician: Norma Jeter Dictated By: Nesha [...] 227, unchanged No new nodules. OTHER FINDINGS: Hospitality Manager view findings, lines and tubes: None. Trachea [...] on Lung-RADS 2022 criteria. [email or web address] I have personally reviewed the images and I agree with this report. WSN: [id number] Ordering Physician: Norma Jeter Reason For Referral [...] every 4 hrs for 30 days Active Sucralfate 1 GM 1 g tablet three wilma es a day, one hour before meals and one 1 g tablet at bedtime or two 1 g tablets twice daily taken before breakfast and at bedtime (for up to 8 weeks) Orally four times a day for 30 days 12/08/2024 02/06/2025 Active Indapamide 2.5 MG 1 tablet in the morn ing Orally Once a day for 90 days Active Famotidine 40 MG 1 tablet Orally Once a day Active Zolpidem Tartrate 5 MG 1/2 tablet at bed time as needed Orally Once a day for 15 days 01/13/2025 02/11/2025 Active Immunizations Vaccine Route Administration Date Status Comme nts [id number] Vaccine Unknown 12/21/2020 Administered EQAXH-74-Mhtqin Vaccine Unknown 01/12/2021 Administered MXTHE-37-Rfczhp Vaccine Unknown 09/16/2021 Administered COVID-19 Pfizer BiValent Booster Unknown 09/29/2022 Adm inistered *Tdap Unknown 06/01/2023 Administered Social History Tobacco Use: Social History Observation Description Date Details (start date - stop date) Former Smoker NA - 11/29/2022 Tobacco Use/Smoking Question Answer Notes Are you a former smoker when did you stop smoking 11/29/2022 Problems Problem Type SNOMED Code ICD Code Onset Dates Problem Status W/U Status Risk Notes Problem Vitamin D deficiency (89899699) Vitamin D deficiency, unspecified (E55.9) Active confirmed Problem Mixed hyperlipidemia (739573202) Mixed hyperlipidemia (E78.2) Active confirmed Problem Environmental sleep disorder (457790383) 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 confirmed Problem Irregular sleep-wake pattern (563282884) Circadian rhythm sleep disorder, 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 Problem Chronic kidney disease due to hypertension (896381657291018) Hypertensive chronic kidney disease with stage 1 through stage 4 chronic kidney disease, or unspecified chronic kidney disease (I12.9) Active confirmed Problem Mild intermittent asthma (965158450) Mild intermittent asthma, uncomplicated (J45.20) Active confirmed Problem Chronic kidney disease stage 1 (064314381) Chronic kidney disease, stage 1 (N18.1) Active confirmed Problem Menopause (774684804) Menopausal and female climacteric states (N95.1) Active confirmed Problem Nicotine dependence (31686779) Personal history of nicotine dependence (Z87.891) Active confirmed Problem Gastroesophageal reflux disease with esophagitis (disorder) (778422990) Gastro-esophageal reflux disease with esophagitis, without bleeding (K21.00) Active confirmed Vital Signs Heart Rate 87 /min 01/12/2025 Temperature 96.3 degrees Fahrenheit 01/12/2025 Blood pressure diastolic 74 mm Hg 01/12/2025 Oximetry 98 % 01/12/2025 Height 67 in 01/12/2025 Blood pressure systolic 122 mm Hg 01/12/2025 Weight 150 lbs 01/12/2025 BMI 23.49 kg/m2 01/12/2025 Encounters Encounter Location Date Provider Diagnosis Radha KIM [address] [place] [address] [id number] 02/04/2024 Norma Jeter Pain in right hip M25.551 and Other sleep disorders not due to a substance or known physiological condition F51.8 Radha Rivero MD [address] [id number] 05/05/2024 Norma Jeter Hypertensive chronic kidney disease with stage 1 through stage 4 chronic kidney disease, or unspecified chronic kidney disease I12.9 ; Chronic kidney disease, stage 1 N18.1 and Abnormal weight gain R63.5 Radha Rivero MD [address] [id number] 05/29/2024 Norma Jeter Acute cough R05.1 an d Gastro-esophageal reflux disease with esophagitis, without bleeding K21.00 Radha Rivero MD [address] [id number] 07/21/2024 Norma Jeter Encounter for genera l [...] and behavioral disorders Z13.39 Radha Rivero MD [address] [id number] 12/04/2024 Norma Jeter Hypertensive chronic kidney disease with stage 1 through stage 4 chronic kidney disease, or unspecified chronic kidney disease I12.9 ; Chronic kidney disease, stage 1 N18.1 and Gastro-esophageal reflux disease with esophagitis, without bleeding K21.00 Radha Rivero MD [address] [id number] 01/12/2025 Norma Jeter Hypertensive chronic kidney disease with stage 1 through stage 4 chronic kidney disease, or unspecified chronic kidney disease I12.9 ; Chronic kidney disease, stage 1 N18.1 ; Gastro-esophageal reflux disease with esophagitis, without bleeding K21.00 ; Diaphragmatic hernia without obstruction or gangrene K44.9 ; Acute cough R05.1 ; Circadian rhythm sleep disorder, irregular sleep wake type G47.23 and Mixed hyperlipidemia E78.2 Radha Rivero MD [address] [id number] 02/06/2024 Norma Jeter Pain in right hip M25.551 Radha Rivero MD [address] [id number] 05/06/2024 Norma Rivero MD [address] [id number] 07/08/2024 Norma Rivero MD [address] [id number] 08/12/2024 Norma Rivero MD [address] [id number] 09/26/2024 Norma Rivero MD [address] [id number] 12/02/2024 Norma Rivero MD [address] [id number] 12/04/2024 Norma Jeter Gastro-esophageal reflux disease with esophagitis, without bleeding K21.00 Radha Rivero MD [address] [id number] 12/04/2024 Norma Jeter Radha Rivero MD [address] [id number] 01/31/2024 Norma Jeter Pain in right hip M25.551 Radha Rivero MD [address] [id number] 04/14/2024 Norma Jeter Radha Rivero MD [address] [id number] 04/28/2024 Norma Jeter Radha Rivero MD [address] [id number] 05/28/2024 Norma Jeter Radha Rivero MD [address] [id number] 05/28/2024 Norma Jeter Radha Rivero MD [address] [id number] 06/30/2024 Norma Jeter Other sleep disorder s not due to a substance or known physiological condition F51.8 Radha Rivero MD [address] [id number] 08/02/2024 Norma Corona Rivero MD [address] [id number] 08/26/2024 Norma Jeter Radha Rivero MD [address] [id number] 08/26/2024 Norma Jeter Radha Rivero MD [address] [id number] 09/19/2024 Norma Jeter Acute upper respirat ory infection, unspecified J06.9 and Chronic cough R05.3 Radha Rivero MD [address] [id number] 11/10/2024 Norma Jeter Mild intermittent asthma, uncomplicated J45.20 Radha Rivero MD [address] [id number] 11/10/2024 Norma Jeter Mild intermittent asthma, uncomplicated J45.20 Radha Rivero MD [address] [id number] 11/11/2024 Norma Jeter Radha Rivero MD [address] [id number] 11/11/2024 Norma Rivero MD [address] [id number] 01/13/2025 Norma Jeter Assessments Encounter Date Diagnosis (ICD [...] patient would benefit from being seen by [facility] to determine if she is a [...] Mild intermittent asthma, uncomplicated (ICD-10 - J45.20) 12/04/2024 Hypertensive chronic kidney disease with stage 1 through stage 4 chronic kidney disease, or unspecified chronic kidney disease (ICD-10 - I12.9) Patient admits to discontinuing use of all of her previously prescribed medications as her reflux symptoms were extremely bad. Patient has recently restarted her indapamide about 4 days ago. When patient is taking this medication her blood pressure responds well. Patient does have a follow-up in December and would like to reassess her blood pressure then before determining if she requires any additional hypertensive medications. Patient to continue consistent use of indapamide with follow-up January 12 12/04/2024 Chronic kidney disease, stage 1 (ICD-10 - N18.1) Previous GFR noted to be in the 90s. Will obtain an updated comprehensive panel to reassess GFR at this time 12/04/2024 Gastro-esophageal reflux disease with esophagitis, without bleeding (ICD-10 - K21.00) 01/12/2025 Hypertensive chronic kidney disease with stage 1 through stage 4 chronic kidney disease, or unspecified chronic kidney disease (ICD-10 - I12.9) Blood pressure continues to show improvement on indapamide. Patient to continue on this medication and would like patient to follow-up in 4 months to ensure continued improvement in her blood pressure given her extensive family history of hypertension and cardiac disease 01/12/2025 Chronic kidney disease, stage 1 (ICD-10 - N18.1) Previous GFR noted to be in the 90s. 01/12/2025 Gastro-esophageal reflux disease with esophagitis, without bleeding (ICD-10 - K21.00) Patient continues to use her famotidine daily with overall management of her reflux symptoms. She is scheduled for hiatal hernia repair in January to help further improve her reflux symptoms 12/04/2024 Gastro-esophageal reflux disease with esophagitis, without bleeding (ICD-10 - K21.00) Patient continues to have a dry, nonproductive cough that does seem consistent with uncontrolled reflux. Patient to continue famotidine and encouraged patient to also begin Carafate 4 times a day for further assistance in managing her reflux symptoms. If reflux is not well-managed patient could consider taking famotidine twice daily for further improvement. She is scheduled for hiatal hernia repair in January to see if this further improves her reflux symptoms and results of cough 09/19/2024 Chronic cough (ICD-10 - R05.3) 07/21/2024 [...] we could then discuss additional treatment options 01/12/2025 Diaphragmatic hernia without obstruction or gangrene (ICD-10 - K44.9) See plan above.Patient is scheduled for repair of hiatal hernia in January to further assist in managing her reflux symptoms 01/12/2025 Acute cough (ICD-10 - R05.1) Spent much time discussing patient's dry, nonproductive cough that has been present for greater than a year. Patient was recently traveling in the [place] and she states that her cough completely resolved when she was away. Spent much time discussing with the patient that her cough may be related more to allergens than underlying reflux secondary to a hiatal hernia. Would like patient to begin daily Anisa to see if this can further manage her cough symptoms. 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 She was previously prescribed Ambien and states she takes half a tablet occasionally to help with sleep. Will prescribe a short course of Ambien and discussed with patient that should her sleep cycles worsen or she feels as though she requires medication to help with sleep more often she should undergo a sleep study for further evaluation 01/12/2025 Mixed hyperlipidemia (ICD-10 - E78.2) Patient updated that one of her brothers just had a stent placed to 2 coronary artery blockages. Due to this would like to obtain a calcium scoring test to assess patient's current cardiovascular risk and coronary artery atherosclerosis. Discussed with patient that her Khanna score is low but given her family history she may benefit from beginning statin therapy to decrease her overall CAD risk given his family history 07/21/2024 Vitamin D deficiency, unspecified (ICD-10 - [...] patient states she completed her mammogram through [facility] this year. Will try and obtain [...] and no further interventions warranted 07/21/2024 Other 12/04/2024 Other Plan Of Treatment Pending Test Test Name Order Date EBCT Coronary calcium score 01/12/2025 25OH VITAMIN D 12/04/2022 COMPLETE CBC WITH DIFF 12/04/2022 COMPLETE URINALYSIS 12/04/2022 COMPREHENSIVE METABOLIC PANEL 12/04/2022 LIPID PANEL 12/04/2022 Next Appt Details Provider Name:Norma Jeter , 07/27/2025 01:00:00 PM, [address] [place] [address], [place] [address], [place], [place], [phone], Insurance Providers Payer Name Payer Address Payer Phone Subscriber Number Group Number Insured Name Patient Relationship to Insured Coverage Start Date Coverage End Date [employer] [address] [place] [address] [id number] Martha Palomares Self - patient is the insured Medical (General) History Medical History History ICD Code hypertension hiatal hernia Surgical History Surgery Date(Month/Year) uterine ablation (age 51) Hospitalization History Reason Date(Month/Year)
--- OUTSIDE RECORDS SUMMARY | 2025-01-16 08:27 | XMS_ITS ---
Author Organization Radha Rivero MD Address [address] [place] [phone] Care Team Providers Care Dental Ceramist Assistant Name Role Phone Norma Jeter Primary Care Provider Allergies No Known Allergies REASON FOR VISIT 6m f/u HTN Medications Medication SIG (Take, Route, Frequency, Duration) Notes Start Date End Date Status Albuterol Sulfate HFA 108 (90 Base) MCG/ACT 1 puff as needed Inhalation every 4 hrs for 30 days Active Indapamide 2.5 MG 1 tablet in the morn ing Orally Once a day for 90 days Active Famotidine 40 MG 1 tablet Orally Once a day Active Zolpidem Tartrate 5 MG 1/2 tablet at bed time as needed Orally Once a day for 15 days 01/13/2025 02/11/2025 Active Sucralfate 1 GM 1 g tablet three wilma es a day, one hour before meals and one 1 g tablet at bedtime or two 1 g tablets twice daily taken before breakfast and at bedtime (for up to 8 weeks) Orally four times a day for 30 days 12/08/2024 02/06/2025 Active Social History Tobacco Use: Social History Observation Description Date Details (start date - stop date) Former Smoker NA - 11/29/2022 Tobacco Use/Smoking Question Answer Notes Are you a former smoker when did you stop smoking 11/29/2022 Problems Problem Type SNOMED Code ICD Code Onset Dates Problem Status W/U Status Risk Notes Problem Irregular sleep-wake pattern (282754604) Circadian rhythm sleep disorder, 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 Problem Mixed hyperlipidemia (732793563) Mixed hyperlipidemia (E78.2) Active confirmed Vital Signs Temperature 96.3 degrees Fahrenheit 01/13/20 25 Blood pressure systolic 122 mm Hg 01/13/20 25 Blood pressure diastolic 74 mm Hg 025 Heart Rate 87 /min 01/12/2025 Height 67 in 01/12/2025 Weight 150 lbs 01/12/2025 BMI 23.49 kg/m2 01/12/2025 Oximetry 98 % 01/12/2025 Encounters Encounter Location Date Provider Diagnosis Radha Rivero MD [address] [phone] 01/12/2025 Norma Jeter Hypertensive chronic kidney disease [...] wake type G47.23 and Mixed hyperlipidemia E78.2 Assessments Encounter Date Diagnosis (ICD Code) Assessment Notes Treatment Notes Treatment Clinical Notes Section Notes 01/12/2025 Hypertensive chronic kidney disease with stage [...] to help further improve her reflux symptoms 01/12/2025 Diaphragmatic hernia without obstruction or gangrene (ICD-10 - K44.9) See plan above.Patient is scheduled for repair of hiatal hernia in January to further assist in managing her reflux symptoms 01/12/2025 Acute cough (ICD-10 - R05.1) Spent much time discussing patient's dry, nonproductive cough that has been present for greater than a year. Patient was recently traveling in the [place] and she states that her cough [...] her reflux and stop her cough symptoms 01/12/2025 Circadian rhythm sleep disorder, irregular sleep [...] overall CAD risk given his family history Plan Of Treatment Medication Medication Name Sig Start Date Stop Date Notes Indapamide 2.5 MG 1 tablet in the morn ing Orally Once a day for 90 days Zolpidem Tartrate 5 MG 1/2 tablet at bed time as needed Orally Once a day for 15 days 01/13/2025 02/11/2025 Pending Test Test Name Order Date EBCT Coronary calcium score 01/12/2025 Next Appt Details Follow Up: 4 month HTN f/u, Reason: Provider Name:Norma Jeter , 07/27/2025 01:00:00 PM, [address] [place] [address], [address], [place], [place], [phone], Progress Notes * Martha PALOMARESDOB:1964 (59 yo F)Acc No.[id number]:01/12/2025 Patient:?Martha PALOMARES Appointment Provider:?ALESIA Calixto :1965???Age:59 Y???Sex:Female S upervising Provider:Norma Jeter DNP Date:01/12/2025 Address:[address] [place] [address] [id number] Subjective: * Chief Complaints: * ???1. 6m f/u HTN. * HPI: ???Hypertension:? Patient presents today for follow-up of hypertension. She continues to take her indapamide daily and offers no negative side effects or symptoms of concern. ???Constitutional:?Patient recently traveled to the [place]. She states that when she was away her persistent cough resolved. She states that soon as she returned back from vacation she began to have a persistent, dry cough. Patient shares much frustration as this cough has been present for greater than a year and has not resolved despite many different treatment modalities. * ROS:?General/Constitutional:?Denies?Change in appetite.?Denies?Chills.?Denies?Fever.?Denies?Sleep disturbance.?Denies?Weight gain.?Denies?Weight loss.?Respiratory:?Admits?Cough.?Denies?Shortness of breath.?Denies?Shortness of breath with exertion.?Denies?Sputum production.?Denies?Wheezing.?Cardiovascular:?Denies?Chest pain.?Denies?Chest pain with exertion.?Denies?Claudication.?Denies?Dizziness.?Denies?Dyspnea on exertion.?Denies?Irregular heartbeat.?Denies?Palpitations.?Denies?Shortness of breath.?Denies?Weight gain.?Gastrointestinal:?Denies?Dark Stools.?Denies?Abdominal pain.?Denies?Blood in stool.?Denies?Constipation.?Denies?Decreased appetite.?Denies?Heartburn.?Denies?Nausea.?Denies?Rectal bleeding.?Denies?Weight loss.?Hematology:?Denies?Bleeding problems.?Denies?Easy bruising.?Denies?Prolonged bleeding.?Denies?Swollen glands.?Genitourinary:?Denies?Nocturia.?Denies?Blood in urine.?Denies?Difficulty urinating.?Denies?Frequent urination.? * Medical History:?Hypertensio n, Hiatal hernia. * Surgical History:?uterine ab lation (age 51) . * Hospitalization/Major Diagno stic Procedure:?Denies Past Hospitalization. * Family History:?Father: dece ased, Heart disease.?Mother: alive.?Siblings: alive, Brother - HTN.?3 brother(s) - healthy. 2 son(s) , 1 daughter(s) - healthy. .? * Social History:?Tobacco Use:?Tobacco Use/Smoking?Are you a?former smoker ?when did you stop smoking?11/29/2022 ???Drugs/Alcohol:?Drugs?Have you used drugs other than those for medical reasons in the past 12 months? No.?Alcohol Screen (Audit-C)?Did you have a drink containing alcohol in the past year?: Yes, How often did you have a drink containing alcohol in the past year?: Never (0 point), How many drinks did you have on a typical day when you were drinking in the past year?: 1 or 2 drinks (0 point), How often did you have 6 or more drinks on one occasion in the past year?: Less than monthly (1 point), Points: 1, Interpretation: Negative.?Caffeine?Intake: 1-2 cups per day ..?Do you smoke marijuana?: Denies. ?Do you drink alcohol?: Yes, Socially. * Medications:?Taking Famotidi ne 40 MG Tablet 1 tablet Orally Once a day , Taking Indapamide 2.5 MG Tablet 1 tablet in the morning Orally Once a day , Taking Sucralfate 1 GM Tablet 1 g tablet three times a day, one hour before meals and one 1 g tablet at bedtime or two 1 g tablets twice daily taken before breakfast and at bedtime (for up to 8 weeks) Orally four times a day , stop date 02/06/2025, Taking Albuterol Sulfate HFA 108 (90 Base) MCG/ACT Aerosol Solution 1 puff as needed Inhalation every 4 hrs , Discontinued Indapamide 2.5 MG Tablet 1 tablet in the morning Orally Once a day , Medication List reviewed and reconciled with the patient * Allergies:?N.K.D.A. Objective: * Vitals:?Temp:96.3F, HR:87/mi n, BP:122/74mm Hg, Wt:150lbs, BMI:23.49Index, Ht:67in, Oxygen sat %:98%. Past Vitals:* 12/04/2024 Temp:96.5F, HR:70/min, BP:12 8/82mm Hg, Ht:67in, Oxygen sat %:98% * 07/21/2024 Temp:97.0F, HR:81/min, BP:12 2/78mm Hg, Wt:149lbs, BMI:23.33Index, Ht:67in, Oxygen sat %:98% * 05/29/2024 Temp:96.7F, HR:80/min, Wt:14 8lbs, BMI:23.18Index, Ht:67in, Oxygen sat %:98% * Examination: ???General Examination: ?GENERAL APPEARANCE:?Age appropriate, in no acute distress.?HEAD:?normocephalic, atraumatic.?EYES:?extraocular movement intact (EOMI), sclera non-icteric.?SKIN:?no suspicious lesions, warm and dry.?HEART:?regular rate and rhythm, S1, S2 normal.?LUNGS:?clear to auscultation bilaterally.?EXTREMITIES:?no clubbing, no cyanosis, or edema.?NEUROLOGIC:?nonfocal, alert and oriented, motor strength normal upper and lower extremities, no tremor.? 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 Plan: * Treatment: 2.?Chronic kidney disease, s tage 1? Clinical Notes: Previous GFR noted to be in the 90s. ?? 3.?Gastro-esophageal reflux disease with esophagitis, without bleeding? Clinical Notes: Patient continues to use her famotidine daily with overall management of her reflux symptoms. She is scheduled for hiatal hernia repair in January to help further improve her reflux symptoms?? 4.?Diaphragmatic hernia with out obstruction or gangrene? Clinical Notes: See plan above.Patient is scheduled for repair of hiatal hernia in January to further assist in managing her reflux symptoms?? 5.?Acute cough? Clinical Notes: Spent much time discussing patient's dry, nonproductive cough that has been present for greater than a year. Patient was recently traveling in the [place] and she states that her cough [...] managing her reflux and stop her cough symptoms?? 6.?Circadian rhythm sleep di sorder, irregular sleep wake type? Start Zolpidem Tartrate Tablet, 5 MG, 1/2 tablet at bedtime as needed, Orally, Once a day, 15 days, 15, Refills 1.?? Clinical Notes: Patient continues to have disrupted sleep patterns. She was previously prescribed Ambien and states she takes half a tablet occasionally to help with sleep. Will prescribe a short course of Ambien and discussed with patient that should her sleep cycles worsen or she feels as though she requires medication to help with sleep more often she should undergo a sleep study for further evaluation?? 7.?Mixed hyperlipidemia?Imaging: EBCT Coronary calcium score Clinical Notes: Patient updated that one of her brothers [...] her overall CAD risk given his family history?? * Follow Up:?4 month HTN f/u * Images: Billing Information: * Visit Code:? 14535 Office Visit, Est Pt., Level 4. G2211 Complex E/M Visit. Modifiers: 25 * Procedure Codes:? Review Notes: Radha Rivero 01/15/2025 06:57:00 PM EDT > I was present and available for consultation duringthis visit. I have reviewed the encounter documentation and agree with the documentation provided by Norma Jeter DNP including assessment, treatment plan and discussion.* Sign off status: Completed true * Appointment Provider:?ALESIA Calixto Date:?01/12/2025 Generated for Rubén padilla/Fredi/Brendenitting on:?01/16/2025 08:27 AM EDT History and Physical Notes * HPI (History of Present Illness) Category Sub-Category Detail Notes Category Not es Constitutional Patient isaais corona traveled to the [facility]. She states that when she was away her persistent cough resolved. She states that soon as she returned back from vacation she began to have a persistent, dry cough. Patient shares much frustration as this cough has been present for greater than a year and has not resolved despite many different treatment modalities. Hypertension Patient present s today for follow-up of hypertension. She continues to take her indapamide daily and offers no negative side effects or symptoms of concern Examination Category Sub-Category Detail Notes Category Not es General Examination GENERAL APPEARANCE: Age appr opriate, in no acute distress HEAD: normocephalic, atrau matic EYES: extraocular movement intact (EOMI), sclera non-icteric HEART: regular rate and rhy thm, S1, S2 normal LUNGS: clear to auscultatio n bilaterally NEUROLOGIC: nonfocal, alert and oriented, motor strength normal upper and lower extremities, no tremor SKIN: no suspicious lesion s, warm and dry EXTREMITIES: no clubbing, no cyan osis, or edema
--- OUTSIDE RECORDS SUMMARY | 2025-01-16 08:27 | XMS_ITS | Clinical Summary ---
Author Organization [employer] Address [address] [facility] [address] [place] [address] Care Team Providers Care Bilingual Speech Therapist Name Role Phone Unavailable Primary Care Provider [...]
--- OUTSIDE RECORDS SUMMARY | 2025-01-16 08:27 | XMS_ITS ---
Author Organization Radha Rivero MD Address [address] [place] [phone] Care Team Providers Care Manufacturing Operations Manager Name Role Phone Norma Jeter Primary Care Provider REASON FOR VISIT Zolpidem Encounters Encounter Location Date Provider Diagnosis Radha Rivero MD [address] [place] [phone] 01/13/2025 Norma Jeter Plan Of Treatment Next Appt Details Provider Name:Norma Jeter , 07/27/2025 01:00:00 PM, [address] [place] [address], [place] [address], [place], [place], [phone], Progress Notes * Martha PALOMARESDOB:1964 (59 yo F)Acc No.[id number]:01/13/2025 Patient:?Martha PALOMARES :1965???Age:59 Y???Sex:Female Address:[address] [place] [address] * true * Date:? Generated for Printi ng/Faesdrasg/eTransmitting on:?01/16/2025 08:26 AM EDT
--- OUTSIDE RECORDS SUMMARY | 2025-01-16 08:27 | XMS_ITS | Patient Health Record ---
Author Organization [facility] Address [address] [place] [phone] Care Team Providers Care Fabrication Supervisor Name Role Phone Rica Lee DNP Primary Care Provider Unava ilable RICA LEE Unavailable [phone] REASON FOR REFERRAL No Information MEDICATIONS Medication [...] Date Coverage End Date [employer] [address] [place] [address] [id number] Martha Palomares Self - patient is the insured
--- OUTSIDE RECORDS SUMMARY | 2025-01-16 08:27 | XMS_ITS | Clinical Summary ---
Author Organization [facility] Address [address] [place] [address] Phone Care Team Providers Care Car Rental Sales Assistant Name Role Phone Norma Jeter NP Primary Care Provider Encounters Date Type Department Care Team Description 10/31/2024 10:42 AM EST - 10/31/2024 11:59 PM EST Hospital Encounter [facility] [address] [place] [address] Chronic cough Discharge Disposition: Home [...] 2024 09/29/2022, 09/16/2021, 01/12/2021, Additional history exists Cholesterol Screening (Lipid Panel) 10/03/2024 Colorectal Cancer Screening: Colonoscopy 10/03/2024 Depression Screening 10/03/2024 HIV Screening 10/03/2024 Hepatitis C Screening 10/03/2024 Social Influencers of Health Screening 10/03/2024 Influenza Vaccine (Season Ended) 2025 DTaP,Tdap,and Td Vaccines (2 - Td or Tdap) 06/01/2033 06/01/2023 RSV Immunization Adult Patients (1 - 1-dose 75+ series) 2040 HIB [...] age to complete this topic Meningococcal B Vaccine Aged Out No l onger eligible based on patient's age to complete [...] Spirometry with Bronchodilator (10/31/2024 11:50 AM EST) [facility] Signature FVC 3.43 liters FEV1 2.62 liters FEV1/FVC 76 % FEF 25-75 2.28 L/s FEF 50 4.02 l/s PEF 5.65 L/s [id number] 9.06 s TLC 5.54 liters VC 3.43 [...] Last 3 Months Insurance [employer] Care Teams Car Rental Sales Assistant Relationship Specialty Start Date End Date Norma Jeter NP [address] [place] [address] PCP - General Family Medicine 10/10/24
--- OUTSIDE RECORDS SUMMARY | 2025-01-16 08:28 | XMS_ITS ---
Author Organization Radha Rivero MD Address [address] [place] [phone] Care Team Providers Care First Aid Officer Name Role Phone Norma Jeter Primary Care Provider Allergies No Known Allergies REASON FOR VISIT travel medication Medications Medication SIG (Take, Route, Fr equency, Duration) Notes Start Date End Date Status Azithromycin 250 MG take 2 tablets on da y 1 Take one tablet for the next 4 days Orally daily for 5 days 12/04/2024 12/09/2024 Active Encounters Encounter Location Date Provider Diagnosis Radha Rivero MD [address] [place] [address] [place] [phone] 12/04/2024 Norma Jeter Plan Of Treatment Medication Medication Name Sig Start Date Stop Date Notes Azithromycin 250 MG take 2 tablets on da y 1 Take one tablet for the next 4 days Orally daily for 5 days 12/04/2024 12/09/2024 Next Appt Details Provider Name:Norma Jeter , 07/27/2025 01:00:00 PM, [address] [place] [address], [phone], Progress Notes * GABOTALAT MarthaDOB:1964 (59 yo F)Acc No.[id number]:12/04/2024 Patient:?Martha PALOMARES :1965???Age:59 Y???Sex:Female Address:[address] [place] [id number] * Refills? Start Azithromycin Tablet, 250 MG, Orally, 6, take 2 tablets on day 1 Take one tablet for the next 4 days, daily, 5 days, Refills=0 Subjective: * Chief Complaints: * ???Travel medication * Medical History:? * Surgical History:? * Hospitalization/Major Diagno stic Procedure:? * Medications:? * Allergies:?N.K.D.A.no[Allerg ies Verified] Objective: * Vitals:? Past Vitals:* 12/04/2024 Temp:96.5F, HR:70/min, BP:12 8/82mm Hg, Ht:67in, Oxygen sat %:98% * 07/21/2024 Temp:97.0F, HR:81/min, BP:12 2/78mm Hg, Wt:149lbs, BMI:23.33Index, Ht:67in, Oxygen sat %:98% * 05/29/2024 Temp:96.7F, HR:80/min, Wt:14 8lbs, BMI:23.18Index, Ht:67in, Oxygen sat %:98% * Physical Examination:? Assessment: Plan: * Treatment: * Procedure Codes:? * true * Date:? Generated for Rubén padilla/Fredi/eTtiansmitting on:?01/16/2025 08:27 AM EDT
== END 2025-01-16 08:25 | disposition home or self-care (01) ==
LOC: HO.HBS 08:10
PROVIDERS: PCP Nurse Practitioner Family; Visit Provider Surgery
DX: K21.9 Gastro-esophageal reflux disease without esophagitis (principal)
CPT/HCPCS: 99499

== ENCOUNTER → 2025-01-16 08:10 | Outpatient (BNVA) | payer OTHER, SELFPAY | PROVIDERS: PCP Nurse Practitioner Family; Visit Provider Surgery | DX: Z01.818 Encounter for other preprocedural examination (principal) ==

== ENCOUNTER 2025-05-29 08:46 | Outpatient (AMB) | payer OTHER, SELFPAY ==
--- OUTSIDE RECORDS SUMMARY | 2025-05-25 06:00 | XMS_ITS ---
Author Organization Radha Rivero MD Address [address] [place] [phone] Care Team Providers Care Cashier General Name Role Phone Norma Jeter Primary Care Provider Allergies No Known Allergies REASON FOR VISIT cough, blood pressure issues Medications Medication SIG (Take, Route, Frequency, Duration) Notes Start Date End Date Status Xyzal Allergy 24HR 5 MG 1 tablet in the evening Orally Once a day; Duration: 30 days 01/28/2025 05/28/2025 Active Famotidine 40 MG 1 tablet Orally Once a day; Duration: 30 days Active Albuterol Sulfate HFA 108 (90 Base) MCG/ACT 1 puff as needed Inhalation every 4 hrs; Duration: 30 days Active Indapamide 2.5 MG 1 tablet in the morn ing Orally Once a day; Duration: 90 days Active Problems Problem Type SNOMED Code ICD Code Onset Dates Problem Status W/U Status Risk Notes Problem Disorder of blood vessel (03528067) Other disorders of arteries, 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 (I79.8) Active confirmed Vital Signs Temperature 95.2 degrees Fahrenheit 05/25/20 Blood pressure systolic 122 mm Hg 05/25/20 Blood pressure diastolic 72 mm Hg 025 Heart Rate 71 /min 05/25/2025 Height 67 in 05/25/2025 Weight 149 lbs 05/25/2025 BMI 23.33 kg/m2 05/25/2025 Oximetry 98 % 05/25/2025 Encounters Encounter Location Date Provider Diagnosis Radha Rivero MD [address] [phone] 05/25/2025 Norma Jeter Acute cough R05.1 ; Hypertensive chronic kidney disease with stage 1 through stage 4 chronic kidney disease, or unspecified chronic kidney disease I12.9 ; Chronic kidney disease, stage 1 N18.1 ; Gastro-esophageal reflux disease with esophagitis, without bleeding K21.00 ; Diaphragmatic hernia without obstruction or gangrene K44.9 and Other disorders of arteries, 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 Patient states her cough began when she was on vacation last March in [facility]. She states this cough was associated with a fever, body aches, and chills. Patient has been evaluated by pulmonology as well as allergy and immunology and all specialist agree that her cough may be related to uncontrolled reflux. Would also like to obtain Chikungunya antibody IgG levels to see if patient was exposed during her trip to [facility] last year and have caused her previous and continued symptoms 05/25/2025 Hypertensive chronic kidney disease with stage 1 through stage 4 chronic kidney disease, or unspecified chronic kidney disease (ICD-10 - I12.9) Blood pressure stable during today's visit. Discussed with patient the importance of keeping her blood pressure well-controlled and not stopping her hypertensive medications without consulting the office. 05/25/2025 Chronic kidney disease, stage 1 (ICD-10 - N18.1) Previous GFR noted to be in the 90s. 05/25/2025 Gastro-esophageal reflux disease with esophagitis, without bleeding (ICD-10 - K21.00) Patient continues to use her famotidine daily with overall management of her reflux symptoms. 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 Discussed with patient this could be related to damage to the capillaries and may be Achenbach syndrome. This is self-limiting and there are no further interventions or workup warranted but patient aware to follow-up should she have any pain, limitations in range of motion of her fingers, or any new symptoms of concern so we can further evaluate symptoms while present Plan Of Treatment Medication Medication Name Sig Start Date Stop Date Notes Indapamide 2.5 MG 1 tablet in the morn ing Orally Once a day; Duration: 90 days Pending Test Test Name Order Date Yukoungunjulian Leiws, IgG by [id number] 05/02 Next Appt Details Follow Up: as scheduled in O ctober, Reason: Provider Name:Norma Jeter , 07/27/2025 01:00:00 PM, [address] [place] [address], [address], [phone], Progress Notes * Martha PALOMARESDOB:1964 (60 yo F)Acc No.[id number]:05/25/2025 Progress Notes Patient: Mely ZHAO Martha Appointment Provider: Daniel Jeter DNP :1965 A ge:60 Y S ex:Female Supervising Provider:Radha Rivero MD Date:05/25/2025 Address:[address] [place], [place] [phone] Subjective: * Chief Complaints: * 1 . Cough, blood pressure issues. * HPI: C onstitutional: Patient presents today with concerns of continued dry, nonproductive cough. She states she stopped her hypertension medications because she believed that the cough was related to her indapamide. Patient was monitoring her blood pressure at home and she did notice that her blood pressure did rise and her cough did not resolve. Due to this, patient restarted her indapamide last week. Patient states she is now pending surgery to repair her hiatal hernia and is scheduled June 09. Patient is hoping that repairing this will decrease her reflux and help manage her cough. * ROS: G eneral/Constitutional: Denies C hange in appetite. D envicky C hills. D envicky F ever. D enies S leep disturbance. D enies W eight gain. D enies W eight loss. R espiratory: Admits C ough. D enies S hortness of breath. D enies S hortness of breath with exertion. D enies S putum production. D enies W heezing. C ardiovascular: Denies C hest pain. D enies C hest pain with exertion. D enies C laudication. D enies D izziness. D enies D yspnea on exertion.?Denies I rregular heartbeat. D enies P alpitations. D enies S hortness of breath. D enies W eight gain. G astrointestinal: Denies D ark Stools. D enies A bdominal pain. D enies B lood in stool. D enies C onstipation. D enies D ecreased appetite. D enies H eartburn. D enies N ausea. D enies R ectal bleeding. D enies W eight loss. H ematology: Denies B leeding problems. D enies E asy bruising.?Denies P rolonged bleeding. D enies S wollen glands. G enitourinary: Denies N octuria. D enies B lood in urine. D enies D ifficulty urinating. D enies F requent urination. * Medical History: H ypertension, Hiatal hernia. * Social History: D rugs/Alcohol: D rugs H ave you used drugs other than those for medical reasons in the past 12 months? No. Alcohol Screen (Audit-C) D id you have a drink containing alcohol in [...] than monthly (1 point), Points: 1, Interpretation: Negative. Caffeine I ntake: 1-2 cups per day .. Do you smoke marijuana?: Denies. Do you drink alcohol?: Yes, Socially. * Medications: T aking Indapamide 2.5 MG Tablet 1 tablet in the morning Orally Once a day , Taking Xyzal Allergy 24HR 5 MG Tablet 1 tablet in the evening Orally Once a day , stop date 05/28/2025, Taking Albuterol Sulfate HFA 108 (90 Base) MCG/ACT Aerosol Solution 1 puff as needed Inhalation every 4 hrs , Taking Famotidine 40 MG Tablet 1 tablet Orally Once a day * Allergies: N .K.D.A. Objective: * Vitals: T emp:95.2F, HR:71/min, BP:122/72mm Hg, Wt:149lbs, BMI:23.33Index, Ht:67in, Oxygen sat %:98%. Past Vitals:* 01/28/2025 Temp:97.5F, HR:79/min, BP:11 8/68mm Hg, Wt:149lbs, BMI:23.33Index, Ht:67in, Oxygen sat %:98% * 01/12/2025 Temp:96.3F, HR:87/min, BP:12 2/74mm Hg, Wt:150lbs, BMI:23.49Index, Ht:67in, Oxygen sat %:98% * 12/04/2024 Temp:96.5F, HR:70/min, BP:12 8/82mm Hg, Ht:67in, Oxygen sat %:98% * Examination: G eneral Examination: GENERAL APPEARANCE: A ge appropriate, in no acute distress.? HEAD: n ormocephalic, atraumatic. EYES: e xtraocular movement intact (EOMI), sclera non-icteric. SKIN: n o suspicious lesions, warm and dry. HEART: r egular rate and rhythm, S1, S2 normal. LUNGS: c lear to auscultation bilaterally. EXTREMITIES: n o clubbing, no cyanosis, or edema. NEUROLOGIC: n onfocal, alert and oriented, motor strength normal upper and lower extremities, no tremor. Assessment: * Assessment: 1. H ypertensive chronic kidney disease with stage 1 through stage 4 chronic kidney disease, or unspecified chronic kidney disease - I12.9 2 . A cute cough - R05.1 (Primary)? 3. C hronic kidney disease, stage 1 - N18.1 4 . G jovani-esophageal reflux disease with esophagitis, without bleeding - K21.00 5 . D iaphragmatic hernia without obstruction or gangrene - K44.9 6 . O ther disorders of arteries, 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 - I79.8 Plan: * Treatment: 2. H ypertensive chronic kidney disease with stage 1 through stage 4 chronic kidney disease, or unspecified chronic kidney disease Continue Indapamide Tablet, 2.5 MG, 1 tablet in the morning, Orally, Once a day, 90 days, 90 Tablet, Refills 1. Clinical Notes: Blood pressure stable during today's visit. Discussed with patient the importance of keeping her blood pressure well-controlled and not stopping her hypertensive medications without consulting the office. 3. C hronic kidney disease, stage 1 Clinical Notes: Previous GFR noted to be in the 90s. 4. G jovani-esophageal reflux disease with esophagitis, without bleeding Clinical Notes: Patient continues to use her famotidine daily with overall management of her reflux symptoms. She is scheduled for hiatal hernia repair in June to help further improve her reflux symptoms 5. D iaphragmatic hernia without obstruction or gangrene Clinical Notes: See plan above.Patient is scheduled for repair of hiatal hernia in June to further assist in managing her reflux symptoms and cough 6. O ther disorders of arteries, 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 Clinical Notes: Patient shared concerns of having spontaneous bruising to the palmar side of her index and middle fingers on occasion. Discussed with patient this could be related to damage to the capillaries and may be Achenbach syndrome. This is self-limiting and there are no further interventions or workup warranted but patient aware to follow-up should she have any pain, limitations in range of motion of her fingers, or any new symptoms of concern so we can further evaluate symptoms while present * Follow Up: a s scheduled in July * Images: Billing Information: * Visit Code: 87974 Office Visit, Est Pt., Level 4. * Procedure Codes: * Electronic signature of Vanessa Rivero MD on 05/29/2025 at 09:38 AM EDT Sign off status: Pending * Appointment Provider: Daniel Jeter DNP Date: 05/25/2025 Generated for Rubén padilla/Fredi/Sriram on: 05/29/2025 09:38 AM EDT History and Physical Notes * Examination Category Sub-Category Detail Notes Category Not [...]
--- NOTE | 2025-05-29 09:12 | A.OFFVIS_ITS ---
Intake Visit Reasons: TV Pre Op Diaphragmatic Hernia 06/09/25 Allergies No Known Allergies (No Known Allergies*) Allergy (Verified 05/29/25 09:24) Medication List - Last Reconciled 05/29/25 by John Dhillon MD cholecalciferol (vitamin D3) 25 mcg PO DAILY famotidine (Pepcid) 20 mg PO BEDTIME indapamide 1.25 mg PO DAILY ondansetron 4 mg PO Q12H pantoprazole 40 mg PO DAILY polyethylene glycol 3350 17 grams PO DAILY sucralfate 10 mL PO BID HPI HPI TV Pre Op Diaphragmatic Hernia 06/09/25: Details: Start time: 9.04am, End time: 9.24am ?I spent 15 minutes speaking with the patient on the phone plus an additional 5 minutes reviewing and updating records for a total of 20 minutes HPI Comments Details: This is the preoperative appointment for diaphragmatic hernia repair [facility] Medical History (Updated 11/21/24 @ 11:41 by Anastasiya David CMA) Acid reflux Tubulovillous adenoma Surgical History (Updated 11/21/24 @ 09:56 by Anastasiya David CMA) Hx of bladder endoscopy History of femoral hernia repair Hx of colonoscopy History of bilateral breast implants History of arthroscopy of left shoulder History of left breast biopsy History of D&C History of section Family History Father CAD (coronary artery disease) Mother No problems noted. Unknown No problems noted. Social History Household Members: Spouse Household Members Other:: son Are you a primary career based intervention coordinator to a significant other at home: No Do you presently have visiting nurse or other home services: No Alcohol intake: current Alcohol intake frequency: holidays/special occasions on ly Patient Tobacco Use Status: Former Tobacco user Tobacco use type: Cigarette Cigarette Packs Per Day: 0.5 Cigarettes Per Day: 10.0 Years Smoked: 35 Current occupational status: employed Current occupation: [employer] Sexual orientation: Straight/Heterosexual Gender identity: Female Telehealth Telehealth Telehealth Platform: Telephone Location of provider rendering services: practice address Location of patient: address on file Patient Identification confirmed using: Name, : Yes Telehealth method: voice only Patient verbally consented to treatment: Yes Patient verbally consented to billing insurance company: Yes Patient informed of any privacy concerns related to visit: Yes Minutes spent on Phone/Video with Pt.: 20 Assessment & Plan Assessment & Plan (1) Acid reflux: Code(s): K21.9 - Gastro-esophageal reflux disease without esophagitis Category: Medical Qualifiers: Esophagitis presence: esophagitis presence not specified Qualified Code(s): K21.9 - Gastro-esophageal reflux disease without esophagitis Plan: 1. We discussed the potential etiology of the hernia. We discussed the details of the diaphragmatic hernia repair and the potential technical challenges such as being able to achieve enough mobilization of the esophagus back in the abdomen and being able to close the diaphragmatic muscle (crura) primarily with sutures. We also discussed the possibility of using a biologic mesh to close the hernia defect if the crura cannot be adequately re-approximated primarily with sutures. We also discussed the option of doing a gastropexy or a fundoplication to prevent postoperative reflux and prevent hernia recurrence. As we discussed, I favor the gastropexy as the fundoplication can cause several distrurbing symptoms such as gas-bloating, flatulence, inability to burp which can be bothersome to patients. Also we discussed the complexity of a potential hernia recurrence in association with a hernia recurrence. She was in agreement not to have a fundoplication. We also discussed that after surgery, he will need to be on a liquid diet with protein shakes the first week. The second week will add protein bars and soft foods and after the third week we will introduce small amounts of regular food. The transition to normal eating habits will take about 6 weeks which is the time required for the repair to heal completely. 2. Preop prescriptions were provided and explained the purpose of each one. Need to be purchased preop. Start Pantoprazole now as you get it from the pharmacy, 1 pill per day. Sucralfate and Zofran are for after surgery as needed. 3. Bowel prep: please do 7 packets ?of Miralax mixing each one with a an 8oz glass of water, crystal light, gatorade zero, or propel ?on 06/07/25 and the same amount on 06/08/25. The Miralax you begin with one packet at a time in 8oz water or crystal light, gatorade zero, or propel ?as early in the day as you can and you do them back to back until you finish them. Continue the protein shakes during ?the bowel prep. 4. Needs to purchase 1oz medicine cups . 5. Needs to purchase Children's liquid Tylenol for postop pain control. 6.Avoid aspirin, motrin, Advil, Aleve, Meloxicam, Excedrin, Ibuprofen, Naproxyn. Tylenol is OK. 7. She needs to purchase the protein shakes from the hospital's gift shop, chewable or pills whatever you prefer. 8. Will do basic preop blood work-up any day between Sunday06/01/25 and Sunday06/05/25 fasting for 12 hours and is scheduled to see the Anesthesiologist prior to the day of surgery. 9. Importance of adherence to postop follow-up and recommendations was underscored and she understands that. 10. Stop food and bars as of Sunday06/03/25 and continue with 4 Fairlife protein shakes (4oz of Fairlife mixed with 4oz almond milk) at 7am-9am, 10am- 12pm, 1pm-3pm, 4pm-6pm and one more Fairlife protein shake (8oz of Fairlife, and NOT the whole bottle) at 7pm-9pm 11. No soups, broths or V8 12. The patient's?medical?history has been reviewed and they are considered low risk for post op DVT and therefore DVT prophylaxis is not considered necessary. Travel after surgery was reviewed. The patient has not disclosed any travel plans during the first 30 days after surgery and they have been advised that within the first 30 days after surgery any bus, plane, train or car travel over 2 hours in duration is contraindicated due to the possibility of developing blood clots from immobility. Any travel, needs to include periods of ambulation of 10 minutes in duration every 2 hours.? Patient was instructed to discuss any plans for travel during this period with their bariatric surgeon.? 13. Please take at the day of surgery the following medications: NONE 14. Stop any control pills and don't use them for one month after surgery 15. Absolutely no smoking or vaping, or marijuana until the surgery and for at least the first 4 weeks. Only nicotine patches are allowed. 16. Send me your weight the day of surgery before you go to the hospital. 17. Avoid any steroids by mouth for any reason. Let me know if someone prescribes them to you
--- OUTSIDE RECORDS SUMMARY | 2025-05-29 09:39 | XMS_ITS | Clinical Summary ---
Author Organization [facility] Address [address] [place] [address] Phone Care Team Providers Care Flight Superintendent Name Role Phone Norma Jeter NP Primary Care Provider [phone] Allergies No known active allergies Medications albuterol HFA (PROAIR HFA ; PROVENTIL HFA ; VENTOLIN HFA) 90 mcg/actuation inhaler Inhale 2 puffs by mouth every 4 (four) hours if needed. 01/05/2025 Active Breztri Aerosphere 160-9-4.8 mcg/actuation HFA aerosol inhaler inhaler Inhale 2 puffs by mouth 1 (one) time each day. 01/28/2025 Active famotidine (PEPCID) 40 mg tablet Take 1 tablet (40 mg total) by mouth 1 (one) time each day. 08/03/2024 Active Family History Medical History Relation Name Comments [...] 10/09/2024 4: 21 PM EST Obstetrics History Last Filed Vital Signs Vital Sign Reading Time Taken Comments Blood Pressure 114/70 02/06/2025 9:06 AM EDT Pulse 75 02/06/2025 9:06 AM EDT Temperature 35.8 C (96.5 F) 02/06/2025 9:06 AM EDT Respiratory Rate 12 02/06/2025 9:06 AM EDT Oxygen Saturation 99% 02/06/2025 9:06 AM EDT Inhaled Oxygen Concentration - - Weight 67.9 kg (149 lb 12.8 oz) 02/06/2025 9:06 AM EDT Height 170.2 cm (5' 7 ) 02/06/2025 9:06 AM EDT Body Mass Index 23.46 02/06/2025 9:06 AM EDT Plan of Treatment Upcoming Encounters Date Type Department Care Team (Late st Contact Info) Description 06/09/2025 9:00 AM EDT Office Visit Pulmonolgy - [place] [address] [facility] [address] [place] [address] Bassem Rojo MD [address] [place] [phone] Health Maintenance Due Date Last Done Comments Breast Cancer Screening 1965 Pneumococcal Vaccine: 50+ Years (1 of 2 - PCV) 1984 Cervical Cancer Screening: Pap Smear 1986 Zoster Vaccines (1 of 2) 2015 COVID-19 Vaccine ( season) 2024 09/29/2022, 09/16/2021, 01/12/2021, Additional history exists Depression Screening 10/01/2024 Cholesterol Screening (Lipid Panel) 10/03/2024 Colorectal Cancer Screening: Colonoscopy 10/03/2024 HIV Screening 10/03/2024 Hepatitis C Screening 10/03/2024 Social Influencers of Health Screening 10/03/2024 Influenza Vaccine (#1) 2025 DTaP,Tdap,and Td Vaccines (2 - Td [...] patient's age to complete this topic Hepatitis B Vaccines Aged Out No long er eligible [...] age to complete this topic Insurance [employer] Care Teams Flight Superintendent Relationship Specialty Start Date End Date Norma Jeter NP [address] [place] [id number] PCP - General Family Medicine 10/10/24
--- OUTSIDE RECORDS SUMMARY | 2025-05-29 09:39 | XMS_ITS | Patient Health Record ---
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 Name Role Phone Valerie ACKERMAN, Ines Primary Care Provider Unavail able Black, Yoli Unavailable [phone] Reason For Referral No Information Medications Medication SIG (Take, Route, Fr equency, Duration) Notes Start Date End Date Status Multivitamins - Orally Acti ve Immunizations Vaccine Route Administration Date Status Comme nts Influenza Unknown 11/14/2018 Administered Social History Tobacco Use: Social History Observation Description Date Details (start date - stop date) Current Smoker NA - NA Tobacco Use/Smoking Question Answer Notes Are you a: current smoker When did you start smoking? 1988 Additional Findings: Tobacco User Moderate cigar ette smoker (10-19 cigs/day) Alcohol Screen Question Answer Notes Did you have a drink containing alcohol in the p ast year? Yes Points 0 Interpretation Negative Tobacco use other than smoking: Question Answer Notes Are you an other tobacco user? No Problems Problem Type SNOMED Code ICD Code Onset Dates Problem Status W/U Status Risk Notes Problem Acquired hallux valgus (30474967) Hallux valgus (acquired), left foot (M20.12) Active confirmed Problem Acquired hallux valgus (89075195) Hallux valgus (acquired), right foot (M20.11) Active confirmed Problem Non-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) Active confirmed Problem Acquired hammer toe of right foot (9457821679941 105) Other hammer toe(s) (acquired), right foot (M20.41) Active confirmed Problem Acquired hammer toe of left foot (1663450524573 103) Other hammer toe(s) (acquired), left foot (M20.42) Active confirmed Plan Of Treatment Pending Test Test Name Order Date [id number] Plate 12/16/2018 Insurance Providers Payer Name Payer Address Payer Phone Subscriber Number Group Number Insured Name Patient Relationship to Insured Coverage Start Date Coverage End Date [facility] [address] [place] [address] [phone] [id number] Samir Palomares Spouse - patient is the spouse of the insured Medical (General) History Medical History History ICD Code Chicken pox Joint implants/screws Surgical History Surgery Date(Month/Year) x 1 d&c 2014 left breast needle guided biopsy 08/2016 left shoulder arthroscopy 08/2017 shoulder surgery 08/2018
--- OUTSIDE RECORDS SUMMARY | 2025-05-29 09:39 | XMS_ITS | Clinical Summary ---
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 Name Role Phone Unavailable Primary Care Provider Unavailabl e Immunizations Immunization Administration Dates Next Due Pfizer Covid-19 Vaccine [...] Screening 1965 SDOH Screening 1965 Sigmoidoscopy 1965 Disability Screening 1965 Alcohol/Substance Use Screening 1977 Tobacco Screening 1977 Hepatitis C Screening 1983 DTaP/Tdap/Td Vaccines (1 - Tdap) 1984 Pap Smear 1986 Cervical Cancer Screening 1995 HPV/Cotest 1995 Mammogram 2005 Pneumococcal Vaccine: 50+ Ye ars (1 of 1 - PCV) 2015 Zoster Vaccines (1 of 2) 2015 COVID-19 Vaccine (2 - 2023-2 5 season) 2024 09/29/2022 Influenza Vaccine (#1) 2025 RSV Patients and Pa tients Aged 60 [...]
--- OUTSIDE RECORDS SUMMARY | 2025-05-29 09:39 | XMS_ITS | Patient Health Record ---
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 [employer] Name Role Phone Norma Jetre Primary Care Provider Allergies No Known Allergies Results Component Value Reference Range Notes CBC With Differential/Platel [id number] Reviewed date:08/12/2024 01:26:52 PM Interpretation: Performing Lab:[facility] [place], [address] [place] [address], [place], Phone - [phone], Director - Missy Notes/Report: WBC 6.7 3.4-10.8 [...] Grans (Abs) 0.0 0.0-0.1 x10E3/uL Vitamin D, [id number] Reviewed date:08/12/2024 01:26:52 PM Interpretation: Performing Lab:[facility] [address] [place] [address], Phone - [phone], Director - Missy Notes/Report: Vitamin D, 25-Hydroxy 40.5 30.0-100.0 ng/mL Vitamin D deficiency has been defined by the [place] [employer] and an Endocrine Society practice guideline as a level of serum 25-OH vitamin D less than 20 ng/mL (1,2). The Endocrine Society went on to further define vitamin D insufficiency as a level between 21 and 29 ng/mL (2). 1. IOM ([place] [employer]). 2010. Dietary reference intakes for calcium and D. [place]: The National Academies Press. 2. Florence MF, Clementina COREAS, Floridalma LABOY, et al. Evaluation, treatment, and prevention of vitamin D deficiency: an Endocrine Society clinical practice guideline. JCEM. 2010; 96(7):1911-30. Albumin/Creatinine Ratio,Uri [id number] Reviewed date:08/12/2024 01:26:53 PM Interpretation: Performing Lab:[facility], [address] [place] [address], Phone - [phone], Director - Missy Notes/Report: Creatinine, Urine 128.9 Not Estab. mg/dL Albumin, Urine 5.6 Not Estab. ug/mL Alb/Creat Ratio 4 0-29 mg/g creat Normal: 0 - 29 Moderately increased: 30 - 300 Severely increased: >300 HCV Antibody RFX to Quant PC [id number] Reviewed date:08/12/2024 01:26:53 PM Interpretation: Performing Lab:[facility] [address] [place] [address], Phone - [phone], Director - Missy Notes/Report: HCV Ab Non Reactive Non Reactive Interpretation: Not infected with HCV unless early or acute infection is suspected (which may be delayed in an immunocompromised individual), or other evidence exists to indicate HCV infection. Comp. Metabolic Panel ([id number] Reviewed date:08/12/2024 01:26:53 PM Interpretation: Performing Lab:[facility] [address] [place] [address], Phone - [phone], Director - MIAndreay Notes/Report: Glucose 67 70-99 mg/dL BUN 11 [...] IU/L ALT (SGPT) 11 0-32 IU/L LP+Non-HDL Cholesterol-59310 5 Reviewed date:08/12/2024 01:26:53 PM Interpretation: Performing Lab:[facility] [place], [address] [facility], Phone - [phone], Director - MDAndreay Notes/Report: Cholesterol, Total 211 100-199 mg/dL Triglycerides 164 0-149 mg/dL HDL Cholesterol 63 >39 mg/dL VLDL Cholesterol Pro 29 5-40 mg/dL LDL Chol Calc (NIH) 119 0-99 mg/dL Non-HDL Cholesterol 148 0-129 mg/dL UA/M w/rflx Culture, Routine -[id number] Reviewed date:08/12/2024 01:26:53 PM Interpretation: Performing Lab:[facility] [place], [address] [facility], Phone - [phone], Director - MIAndreay Notes/Report: Specific [place] 1.024 1.005-1.030 pH 7.5 5.0-7.5 Urine-Color Yellow Yellow Appearance Clear Clear WBC Esterase Negative Negative Protein 1+ Negative/Trace Glucose Negative Negative Ketones Negative Negative Occult Blood Negative Negative Bilirubin Negative Negative Urobilinogen,Semi-Qn 0.2 0.2-1.0 mg/dL Nitrite, Urine Negative Negative Microscopic Examination See below: Micr oscopic was indicated and was performed. Urinalysis Reflex [...] 227, unchanged No new nodules. 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 Trachea [...] None. Categorization based on Lung-RADS 2022 criteria. [email or web address] I have personally reviewed the images and I agree with this report. WSN: [id number] Ordering Physician: Norma Jeter Dictated By: Nesha Funez DO Chest 2 Views Frontal and La t Reviewed date:01/26/2025 06:51:50 PM Interpretation: Performing Lab: Notes/Report: Chest 2 Views Frontal and Lat Reason: cough COMPARISON: None. FINDINGS: LINES AND TUBES: None. LUNGS AND PLEURA: Clear lungs. Normal pulmonary vascularity. No pleural effusion. No pneumothorax. HEART, MEDIASTINUM AND WILLIAM: Heart is normal in size. Normal mediastinal and hilar contour. BONES AND SOFT TISSUES: No acute abnormality. IMPRESSION: No acute abnormality. WSN: [id number] Ordering Physician: Norma Jeter Dictated By: Micheal Roy MD Albumin/Creatinine Ratio,Uri [id number] Reviewed date:02/19/2025 12:18:11 PM Interpretation: Performing Lab:[facility], [address] [facility], [place], Phone - [phone], Director - [facility] Notes/Report: Creatinine, Urine 77.0 Not Estab. mg/dL Albumin, Urine <3.0 Not Estab. ug/mL Alb/Creat Ratio <4 0-29 mg/g creat Normal: 0 - 29 Moderately increased: 30 - 300 Severely increased: >300 UA/M w/rflx Culture, Routine -[id number] Reviewed date:02/19/2025 12:18:12 PM Interpretation: Performing Lab:[facility], [address] [facility], [place], Phone - [phone], Director - [facility] Notes/Report: Specific [place] 1.015 1.005-1.030 pH 8.0 5.0-7.5 Urine-Color Yellow Yellow Appearance Clear Clear WBC Esterase Negative Negative Protein Trace Negative/Trace Glucose Negative Negative Ketones Negative Negative Occult Blood Negative Negative Bilirubin Negative Negative Urobilinogen,Semi-Qn 0.2 0.2-1.0 mg/dL Nitrite, Urine Negative Negative Microscopic Examination Micr oscopic follows if indicated. Microscopic Examination See below: Micr oscopic was indicated and was performed. Urinalysis Reflex This speci men will not reflex to a Urine Culture. WBC None seen 0 - 5 /hpf RBC None seen 0 - 2 /hpf Epithelial Cells (non renal) None seen 0 - 10 /hpf Casts None seen None seen /lpf Bacteria None seen None seen/Few Wrist Comp Min 3 Views Right Reviewed date:08/12/2024 01:26:52 PM Interpretation: Performing Lab: Notes/Report: Wrist Comp Min 3 Views Right Reason: ganglion rt wrist COMPARISON: None. FINDINGS: No fracture or dislocation. Normal carpal configuration. Intact radial and ulnar styloid processes. No arthritic change. Normal soft tissues. IMPRESSION: Normal. WSN: [id number] Ordering Physician: Norma Jeter Dictated By: Tra Maier MD EBMIKO Coronary calcium score Reviewed date:02/13/2025 02:44:12 PM Interpretation: Performing Lab: Notes/Report: Reason For Referral Reason sleep disturbances, daytime fatigue faxed Diagnosis 1 Other sleep disorder s not due to a substance or known physiological condition (F51.8) Referral Organization [facility] Referring Provider First Name Norma Referring Provider Last Name Corona Referring Provider Speciality Nurse [place] gerard Referred Provider Kuldip Ortega Referred Provider Specialty Sleep Medici ne General Notes Kita DOWNING 11/2023 10:11:07 AM >faxed Referral Priority Routine Reason Can we refer to [facility]ology for chronic cougn faxed Diagnosis 1 Acute cough (R05.1) Referral Organization [facility] Referring Provider First Name Norma Referring Provider Last Name Corona Referring Provider Speciality Nurse [place] gerard Referred Provider Bassem Rojo Referred Provider Specialty Pulmonology General Notes Kita DOWNING 01/01 11:22:54 AM >faxed Referral Priority Routine Referral Appointment Date 02/06/2025 Reason Would benefit from a llergy testing due to chronic cough and seasonal allergies faxed Diagnosis 1 Other seasonal aller gic rhinitis (J30.2) Referral Organization [facility] Referring Provider First Name Norma Referring Provider Last Name Corona Referring Provider Speciality Nurse [place] gerard Referred Provider [place], Allergy Referred Provider Specialty Allergy/Immu nology General Notes Kita DOWNING 01/01 11:23:18 AM >faxed Referral Priority Routine Referral Appointment Date 02/17/2025 Medications Medication SIG (Take, Route, Frequency, Duration) Notes Start Date End Date Status Famotidine 40 MG 1 tablet Orally Once a day; Duration: 30 days Active Albuterol Sulfate HFA 108 (90 Base) MCG/ACT 1 puff as needed Inhalation every 4 hrs; Duration: 30 days Active Indapamide 2.5 MG 1 tablet in the morn ing Orally Once a day; Duration: 90 days Active Immunizations Vaccine Route Administration Date Status Comme nts *Tdap Unknown 06/01/2023 Administered COVID-19 Pfizer BiValent Booster Unknown 09/29/2022 Adm inistered [id number]-32-Qnkowh Vaccine Unknown 12/21/2020 Administered FLNNH-07-Dkfxdy Vaccine Unknown 01/12/2021 Administered GRALS-57-Zkmykw Vaccine Unknown 09/16/2021 Administered Problems Problem Type SNOMED Code ICD Code Onset Dates Problem Status W/U Status Risk Notes Problem Vitamin D deficiency (27709860) Vitamin D deficiency, unspecified (E55.9) Active confirmed Problem Mixed hyperlipidemia (125479159) Mixed hyperlipidemia (E78.2) Active confirmed Problem Environmental sleep disorder (429203047) 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 confirmed Problem Irregular sleep-wake pattern (019339398) Circadian rhythm sleep disorder, 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 Problem Chronic kidney disease due to hypertension (102130983385346) Hypertensive chronic kidney disease with stage 1 through stage 4 chronic kidney disease, or unspecified chronic kidney disease (I12.9) Active confirmed Problem Disorder of blood vessel (05317583) Other disorders of arteries, 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 (I79.8) Active confirmed Problem Seasonal allergic rhinitis (997327817) Other seasonal allergic rhinitis (J30.2) Active confirmed Problem Mild intermitten t asthma, uncomplicated (J45.20) Active confirmed Problem Chronic kidney disease stage 1 (375204006) Chronic kidney disease, stage 1 (N18.1) Active confirmed Problem Menopause (087446744) Menopausal and female climacteric states (N95.1) Active confirmed Problem Nicotine dependence (41562164) Personal history of nicotine dependence (Z87.891) Active confirmed Problem Gastroesophageal reflux disease with esophagitis (disorder) (457141855) Gastro-esophageal reflux disease with esophagitis, without bleeding (K21.00) Active confirmed Problem Chronic obstructive pulmonary disease (disorder) (60223916) Other specified chronic obstructive pulmonary disease (J44.89) Active confirmed Vital Signs Heart Rate 71 /min 05/25/2025 Temperature 95.2 degrees Fahrenheit 05/25/2025 Blood pressure diastolic 72 mm Hg 05/25/2025 Oximetry 98 % 05/25/2025 Height 67 in 05/25/2025 Blood pressure systolic 122 mm Hg 05/25/2025 Weight 149 lbs 05/25/2025 BMI 23.33 kg/m2 05/25/2025 Encounters Encounter Location Date Provider Diagnosis Radha Rivero MD [address] [id number] 05/25/2025 Norma Jeter Acute cough R05.1 ; Hypertensive chronic kidney disease with stage 1 through stage 4 chronic kidney disease, or unspecified chronic kidney disease I12.9 ; Chronic kidney disease, stage 1 N18.1 ; Gastro-esophageal reflux disease with esophagitis, without bleeding K21.00 ; Diaphragmatic hernia without obstruction or gangrene K44.9 and Other disorders of arteries, 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 I79.8 Radha Rivero MD [address] [id number] 05/29/2024 Norma Jeter Acute cough R05.1 an d Gastro-esophageal reflux disease with esophagitis, without bleeding K21.00 Radha Rivero MD [address] [id number] 07/21/2024 Norma Jeter Encounter for genera l [...] and behavioral disorders Z13.39 Radha Rivero MD [address] [id number] 12/04/2024 Norma Jeter Hypertensive chronic kidney disease with stage 1 through stage 4 chronic kidney disease, or unspecified chronic kidney disease I12.9 ; Chronic kidney disease, stage 1 N18.1 and Gastro-esophageal reflux disease with esophagitis, without bleeding K21.00 Radha Rivero MD [address] [id number] 01/12/2025 Norma Jeter Hypertensive chronic kidney disease [...] and Mixed hyperlipidemia E78.2 Radha Rivero MD [address] [id number] 01/28/2025 Norma Jeter Hypertensive chronic kidney disease with stage 1 through stage 4 chronic kidney disease, or unspecified chronic kidney disease I12.9 ; Chronic kidney disease, stage 1 N18.1 ; Gastro-esophageal reflux disease with esophagitis, without bleeding K21.00 ; Diaphragmatic hernia without obstruction or gangrene K44.9 ; Acute cough R05.1 ; Other seasonal allergic rhinitis J30.2 and Other specified chronic obstructive pulmonary disease J44.89 Radha Rivero MD [address] [id number] 07/08/2024 Norma Rivero MD [address] [id number] 08/12/2024 Norma Rivero MD [address] [id number] 09/26/2024 Norma Rivero MD [address] [id number] 12/02/2024 Norma Rivero MD [address] [id number] 12/04/2024 Norma Jeter Gastro-esophageal reflux disease with esophagitis, without bleeding K21.00 Radha Rivero MD [address] [id number] 12/04/2024 Norma Jeter Radha Rivero MD [address] [id number] 01/26/2025 Norma Jeter Radha Rivero MD [address] [id number] 01/31/2025 Norma Jeter Radha Rivero MD [address] [id number] 02/05/2025 Norma Jeter Isolated proteinuria R80.0 Radha Rivero MD [address] [id number] 02/13/2025 Norma Jeter Radha Rivero MD [address] [id number] 05/20/2025 Norma Jeter Radha Rivero MD [address] [id number] 06/30/2024 Norma Jeter Other sleep disorder s not due to a substance or known physiological condition F51.8 Radha Rivero MD [address] [id number] 08/02/2024 Norma Jeter Radha Rivero MD [address] [id number] 08/26/2024 Norma Jeter Radha Rivero MD [address] [id number] 08/26/2024 Norma Jeter Radha Rivero MD [address] [id number] 09/19/2024 Norma Jeter Acute upper respirat ory infection, unspecified J06.9 and Chronic cough R05.3 Radha Rivero MD [address] [id number] 11/10/2024 Norma Jeter Mild intermittent asthma, uncomplicated J45.20 Radha Rivero MD [address] [id number] 11/10/2024 Norma Jeter Mild intermittent asthma, uncomplicated J45.20 Radha Rivero MD [address] [id number] 11/11/2024 Norma Corona Rivero MD [address] [id number] 11/11/2024 Norma Rivero MD [address] [id number] 01/13/2025 Norma Corona Rivero MD [address] [id number] 01/23/2025 Norma Jeter Chronic cough R05.3 Radha Rivero MD [address] [id number] 01/26/2025 Norma Rivero MD [address] [id number] 02/02/2025 Norma Jeter Urinary tract infection, site not specified N39.0 Radha Rivero MD [address] [id number] 02/04/2025 Norma Rivero MD [address] [id number] 03/20/2025 Norma Jeter Assessments Encounter Date Diagnosis (ICD Code) Assessment Notes Treatment Notes Treatment Clinical Notes Section Notes 05/29/2024 Gastro-esophageal reflux disease with esophagitis, without [...] or known physiological condition (ICD-10 - F51.8) 09/19/2024 Acute upper respiratory infection, unspecified (ICD-10 [...] GFR noted to be in the 90s. 01/28/2025 Hypertensive chronic kidney disease with stage 1 through stage 4 chronic kidney disease, or unspecified chronic kidney disease (ICD-10 - I12.9) Blood pressure greatly improved during today's visit. Patient to remain on current medication regimen with follow-up as scheduled 01/28/2025 Chronic kidney disease, stage 1 (ICD-10 - N18.1) Previous GFR noted to be in the 90s. 02/02/2025 Urinary tract infection, site not specified (ICD-10 - N39.0) 02/05/2025 Isolated proteinuria (ICD-10 - R80.0) 05/25/2025 Hypertensive chronic kidney disease with stage 1 through stage 4 chronic kidney disease, or unspecified chronic kidney disease (ICD-10 - I12.9) Blood pressure stable during today's visit. Discussed with patient the importance of keeping her blood pressure well-controlled and not stopping her hypertensive medications without consulting the office. 05/25/2025 Acute cough (ICD-10 - R05.1) Spent much time discussing patient's frustration with this dry, nonproductive cough that began 1 year ago. Patient states her cough began when she was on vacation last March in [facility]. She states this cough was associated with a fever, body aches, and chills. Patient has been evaluated by pulmonology as well as allergy and immunology and all specialist agree that her cough may be related to uncontrolled reflux. Would also like to obtain Chikungunya antibody IgG levels to see if patient was exposed during her trip to [facility] last year and have caused her previous and continued symptoms 01/23/2025 Chronic cough (ICD-10 - R05.3) 07/21/2024 Hypertensive chronic kidney disease with stage [...] labs.Plan we for annual in 1 year 07/21/2024 Chronic kidney disease, stage 1 (ICD-10 - N18.1) Previous GFR noted to be in the 90s. Will obtain an updated comprehensive panel to reassess GFR at this time 05/25/2025 Chronic kidney disease, stage 1 (ICD-10 - N18.1) Previous GFR noted to be in the 90s. 01/28/2025 Gastro-esophageal reflux disease with esophagitis, without bleeding (ICD-10 - K21.00) Patient continues to use famotidine daily as well as Carafate as needed for management of underlying reflux symptoms. Did spend time discussing with patient that her dry, nonproductive cough may be more prominent with worsening reflux symptoms. Patient is scheduled for hiatal hernia repair schedule in June as she has postponed this as she is not sure that that surgery will improve or resolve the cough that she is experiencing. 01/12/2025 Gastro-esophageal reflux disease with esophagitis, without [...] cough 09/19/2024 Chronic cough (ICD-10 - R05.3) 01/12/2025 Diaphragmatic hernia without obstruction or gangrene (ICD-10 - K44.9) See plan above.Patient is scheduled for repair of hiatal hernia in January to further assist in managing her reflux symptoms 05/25/2025 Gastro-esophageal reflux disease with esophagitis, without bleeding (ICD-10 - K21.00) Patient continues to use her famotidine daily with overall management of her reflux symptoms. She is scheduled for hiatal hernia repair in June to help further improve her reflux symptoms 01/28/2025 Diaphragmatic hernia without obstruction or gangrene (ICD-10 - K44.9) See plan above.Patient is now scheduled for repair of hiatal hernia in 07/21/2024 Menopausal and female climacteric states (ICD-10 - N95.1) Stable and patient has not had any increased symptoms of hot flashes and feels as though her previous symptoms have resolved without treatment. Patient to follow-up should her symptoms return as we could then discuss additional treatment options 05/25/2025 Diaphragmatic hernia without obstruction or gangrene (ICD-10 - K44.9) See plan above.Patient is scheduled for repair of hiatal hernia in June to further assist in managing her reflux symptoms and cough 07/21/2024 Ganglion, right wrist (ICD-10 - M67.431) [...] surgery is an option remove the cyst 01/12/2025 Acute cough (ICD-10 - R05.1) Spent much time discussing patient's dry, nonproductive cough that has been present for greater than a year. Patient was recently traveling in the [place] and she states that her cough [...] her reflux and stop her cough symptoms 01/28/2025 Acute cough (ICD-10 - R05.1) Patient shares much frustration and concern regarding her consistent dry nonproductive cough. She has had this cough for over 1 year. Discussed with patient that I do suspect that postnasal drip and seasonal allergies are an irritant to her underlying cough. Will adjust medications to further improve her allergy symptoms and postnasal drip. Would also like patient to be evaluated by pulmonology for further evaluation. Reviewed with patient her previous imaging including a CT scan of the chest, chest x-ray, and pulmonary function test. Patient does have a lengthy history of smoking and although she did quit smoking 2 years ago, there was mild findings of obstructive airway disease on her pulmonary function test. Discussed with patient that this could be the start of very early COPD which could be the underlying cause for her chronic cough. Will refer patient to [facility] for further evaluation 01/28/2025 Other seasonal allergic rhinitis (ICD-10 - J30.2) Would like patient to begin Xyzal to see if this can further manage her seasonal allergy symptoms and postnasal drip. Would also like patient to have allergy testing for further evaluation and to rule out underlying causes that may be an irritant to her persistent cough 01/12/2025 Circadian rhythm sleep disorder, irregular sleep [...] undergo a sleep study for further evaluation 05/25/2025 Other disorders of arteries, arterioles and [...] we can further evaluate symptoms while present 07/21/2024 Personal history of nicotine dependence (ICD-10 - Z87.891) Patient has been cigarette free for greater than 6 months. Encouraged patient to continue working on strategies to remain cigarette free. Will obtain an updated low-dose CT scan given her previous cigarette use 07/21/2024 Vitamin D deficiency, unspecified (ICD-10 - E55.9) Will check level to verify that there is no deficiency 01/28/2025 Other specified chronic obstructive pulmonary disease (ICD-10 - J44.89) See plan above.Will refer patient to [facility] for further evaluation and to determine underlying causes for her persistent chronic cough. Suspect that patient may have mild COPD and will begin patient on Breztri to see if this can further assist in symptom management while she waits for pulmonology consult 01/12/2025 Mixed hyperlipidemia (ICD-10 - E78.2) Patient [...] CAD risk given his family history 07/21/2024 Encounter for screening for malignant neoplasm [...] patient states she completed her mammogram through [facility] this year. Will try and obtain [...] COMPREHENSIVE METABOLIC PANEL 12/04/2022 LIPID PANEL 12/04/2022 Chikungunya Ab, IgG by [id number] 05/02 Next Appt Details Provider Name:Norma Jeter , 07/27/2025 01:00:00 PM, [address] [place] [address], [address], [place], [place], [phone], Insurance Providers Payer Name Payer Address Payer Phone Subscriber Number Group Number Insured Name Patient Relationship to Insured Coverage Start Date Coverage End Date [employer] [address] [place] [address] [id number] Martha Palomares Self - patient is the insured Medical (General) History Medical History History ICD Code hypertension hiatal hernia Surgical History Surgery Date(Month/Year) uterine ablation (age 51) Hospitalization History Reason Date(Month/Year)
== END 2025-05-29 09:26 | disposition home or self-care (01) ==
LOC: HO.HBS 08:46
PROVIDERS: PCP Nurse Practitioner Family; Visit Provider Surgery
DX: K21.9 Gastro-esophageal reflux disease without esophagitis (principal)
CPT/HCPCS: 98013

== ENCOUNTER 2025-06-02 09:53 | Outpatient (REF) | payer OTHER, SELFPAY ==
--- OUTSIDE RECORDS SUMMARY | 2025-05-25 06:00 | XMS_ITS ---
Author Organization Radha Rivero MD Address [address] [place] [phone] Care Team Providers Care Diagrammer And Seamer Name Role Phone Norma Jeter Primary Care Provider [phone] Allergies No Known Allergies REASON FOR [...] Risk Notes Problem Disorder of blood vessel (12912367) Other disorders of arteries, arterioles and capillaries [...] Location Date Provider Diagnosis Radha Rivero MD [address] [phone] 05/25/2025 Norma Jeter Acute cough R05.1 ; [...] was on vacation last March in [facility]. She states this cough was associated with a fever, body aches, and chills. Patient has been evaluated by pulmonology as well as allergy and immunology and all specialist agree that her cough may be related to uncontrolled reflux. Would also like to obtain Chikungunya antibody IgG levels to see if patient was exposed during her trip to [facility] last year and have caused her [...] Pending Test Test Name Order Date Yukoungunjulian Lewis, IgG by [id number] 05/02 Next Appt Details Follow Up: as scheduled in O ctober, Reason: Provider Name:Norma Jeter , 07/27/2025 01:00:00 PM, [address] [place] [address], [address], [phone], Progress Notes * Martha PALOMARESDOB:1964 (60 yo F)Acc No.[id number]:05/25/2025 Progress Notes Patient: Mely ZHAO Martha Appointment Provider: Daniel Jeter DNP :1965 A ge:60 Y S ex:Female Supervising Provider:Radha Rivero MD Date:05/25/2025 Address:[address] [place], [place] [phone] Subjective: * Chief Complaints: * 1 . [...] * Images: Billing Information: * Visit Code: 97305 Office Visit, Est Pt., Level 4. * Procedure Codes: * Electronic signature of Vanessa Rivero MD on 06/02/2025 at 11:10 AM EDT Sign off status: Pending * Appointment Provider: Daniel Jeter DNP Date: 05/25/2025 Generated for Rubén padilla/Fredi/Sriram on: 0 06/02/2025 11:10 AM EDT History and Physical Notes * [...]
[2025-06-02 10:35] LABS: MANUAL DIFF FLAG NO
[2025-06-02 11:05] LABS: Hematocrit 42.1 % (37.0-47.0); Hemoglobin 14.3 g/dl (12.0-16.0); Imm Gran Abs Auto 0.01 X10*3/uL (0.00-0.03); Imm Gran Pct Auto 0.2 % (0.0-0.4); Lymphocytes Absolute Auto 2.2 X10*3/uL (1.2-4.9); Mean Corpuscular HGB Conc 34.0 g/dl (31.0-35.0); Mean Corpuscular Hemoglobin 29.2 pg (27.0-33.0); Mean Corpuscular Volume 86.1 fL (80.0-98.0); NRBC Abs Auto 0.000 X10*3/uL (0.0-0.012); NRBC Pct Auto 0.0 /100WBC (0.0-0.2); Platelet Count 237 X10*3/uL (160-400); Red Blood Count 4.89 X10*6/uL (4.20-5.50); White Blood Count 5.7 X10*3/uL (4.8-10.8)
[2025-06-02 11:09] LABS: INTERNATIONAL NORM RATIO 0.9 (0.9-1.1); Prothrombin Time 10.6 SEC (10.9-12.4)
--- OUTSIDE RECORDS SUMMARY | 2025-06-02 11:10 | XMS_ITS | Clinical Summary ---
Author Organization [employer] Address [address] [facility] [address] [place] [address] Care Team Providers Care Shared Services Representative Name Role Phone Unavailable Primary Care Provider [...]
--- OUTSIDE RECORDS SUMMARY | 2025-06-02 11:10 | XMS_ITS | Patient Health Record ---
Author Organization Radha Rivero MD Address [address] [id number] Care Team Providers Care Paperback Machine Operator Name Role Phone Norma Jeter Primary Care Provider Allergies No Known Allergies Results Component Value Reference Range Notes Chest 2 Views Frontal and La t [...] acute abnormality. IMPRESSION: No acute abnormality. WSN: [id number] Ordering Physician: Norma Jeter Dictated By: Kirill ACKERMAN, Micheal Simms EBCT Coronary calcium score Reviewed date:02/13/2025 02:44:12 PM Interpretation: Performing Lab: Notes/Report: Albumin/Creatinine Ratio,Uri [id number] Reviewed date:02/19/2025 12:18:11 PM Interpretation: Performing Lab:[facility], [address] [place] [address], [place], Phone - [phone], Director - Missy Notes/Report: Creatinine, Urine 77.0 Not Estab. mg/dL Albumin, Urine <3.0 Not Estab. ug/mL Alb/Creat Ratio <4 0-29 mg/g creat Normal: 0 - 29 Moderately increased: 30 - 300 Severely increased: >300 UA/M w/rflx Culture, Routine -[id number] Reviewed date:02/19/2025 12:18:12 PM Interpretation: Performing Lab:[facility], [address], [place], Phone - [phone], Director - Missy Notes/Report: Specific [place] 1.015 1.005-1.030 pH 8.0 5.0-7.5 Urine-Color Yellow [...] change. Normal soft tissues. IMPRESSION: Normal. WSN: [id number] Ordering Physician: Norma Jeter Dictated By: Tra Maier MD CT Chest LDCT Lung Program Reviewed date:09/26/2024 [...] 227, unchanged No new nodules. OTHER FINDINGS: Charging Machine Operator view findings, lines and tubes: None. Trachea [...] None. Categorization based on Lung-RADS 2022 criteria. [email or web address] I have personally reviewed the images and I agree with this report. WSN: [id number] Ordering Physician: Norma Jeter Dictated By: Nesha Funez DO Chikungunya Antibody, IgG/M Reviewed date:05/29/2025 11:41:04 AM Interpretation: Performing Lab:[facility], [address] [place] [address], Phone - [phone], Director - [facility] Notes/Report: Result IgG: Negative Result IgM: Negative IgG 0.401 IgM 0.249 Reference Range Notes Negative: <0.9, Equivocal: 0.9-1.09, Positive: >/=1.1 Clinical Significance Notes No serologic evidence of exposure to Chikungunya virus. Repeat testing on a new specimen collected in 5 to 10 days is recommended if clinical suspicion persists. Methodology Chemiluminescen ce Disclaimer Notes This test was developed and its performance characteristics determined by [facility]. It has not been cleared or approved by the US Food and Drug Administration. This test was performed in a CLIA certified laboratory and is intended for clinical purposes. Electronically Signed By: Jt Valladares CBC With Differential/Platel et-[id number] Reviewed date:08/12/2024 01:26:52 PM Interpretation: Performing Lab:[facility], [address] [facility], [place], Phone - [phone], Director - Missy Notes/Report: WBC 6.7 3.4-10.8 [...] Grans (Abs) 0.0 0.0-0.1 x10E3/uL Vitamin D, 17-Gwoawzy-[id number] Reviewed date:08/12/2024 01:26:52 PM Interpretation: Performing Lab:[facility], [address] [facility], [place], Phone - [phone], Director - Missy Notes/Report: Vitamin D, 25-Hydroxy 40.5 30.0-100.0 ng/mL Vitamin D deficiency has been defined by the [place] of [employer] and an Endocrine Society practice guideline as a level of serum 25-OH vitamin D less than 20 ng/mL (1,2). The Endocrine Society went on to further define vitamin D insufficiency as a level between 21 and 29 ng/mL (2). 1. IOM ([place] of [employer]). 2010. Dietary reference intakes for calcium and D. [place]: The National Academies Press. 2. [place] MF, [place], Floridalma LABOY, et al. Evaluation, treatment, and prevention of vitamin D deficiency: an Endocrine Society clinical practice guideline. JCEM. 2010; 96(7):1911-30. Albumin/Creatinine Ratio,Uri [id number] Reviewed date:08/12/2024 01:26:53 PM Interpretation: Performing Lab:[facility] [place], [address] [place] [address], Phone - [phone], Director - Missy Notes/Report: Creatinine, Urine 128.9 Not Estab. mg/dL Albumin, Urine 5.6 Not Estab. ug/mL Alb/Creat Ratio 4 0-29 mg/g creat Normal: 0 - 29 Moderately increased: 30 - 300 Severely increased: >300 HCV Antibody RFX to Quant PC [id number] Reviewed date:08/12/2024 01:26:53 PM Interpretation: Performing Lab:[facility], [address] [place] [address], [place], Phone - [phone], Director - Missy Notes/Report: HCV Ab Non Reactive Non Reactive Interpretation: Not infected with HCV unless early or acute infection is suspected (which may be delayed in an immunocompromised individual), or other evidence exists to indicate HCV infection. Comp. Metabolic Panel (14)-[id number] Reviewed date:08/12/2024 01:26:53 PM Interpretation: Performing Lab:[facility], [address] [facility], Phone - [phone], Director - Missy Notes/Report: Glucose 67 70-99 [...] IU/L ALT (SGPT) 11 0-32 IU/L LP+Non-HDL Cholesterol-19480 5 Reviewed date:08/12/2024 01:26:53 PM Interpretation: Performing Lab:[facility] [place], [address] [facility], [place], Phone - [phone], Director - Missy Notes/Report: Cholesterol, Total 211 100-199 mg/dL Triglycerides 164 0-149 mg/dL HDL Cholesterol 63 >39 mg/dL VLDL Cholesterol Pro 29 5-40 mg/dL LDL Chol Calc (NIH) 119 0-99 mg/dL Non-HDL Cholesterol 148 0-129 mg/dL UA/M w/rflx Culture, Routine -[id number] Reviewed date:08/12/2024 01:26:53 PM Interpretation: Performing Lab:[facility] [place], [address] [facility], [place], Phone - [phone], Director - Missy Notes/Report: Specific [place] 1.024 1.005-1.030 pH 7.5 5.0-7.5 Urine-Color Yellow [...] Name Corona Referring Provider Speciality Nurse Prac titioner Referred Provider Kuldip Ortega Referred Provider Specialty Sleep Medici ne General Notes [facility] 10:11:07 AM >faxed Referral Priority Routine Reason Can we refer to [facility] Pulmonology for chronic cougn faxed Diagnosis 1 Acute cough (R05.1) Referral Organization Radha KIM Referring Provider First Name Norma Referring Provider Last Name Jeter Referring Provider Speciality Nurse Trin[place] gerard Referred Provider Bassem Rojo Referred Provider Specialty Pulmonology General Notes [facility] 01/01 11:22:54 AM >faxed Referral Priority Routine Referral Appointment Date 02/06/2025 Reason Would benefit from a llergy testing due to chronic cough and seasonal allergies faxed Diagnosis 1 Other seasonal aller gic rhinitis (J30.2) Referral Organization Radha KIM Referring Provider First Name Norma Referring Provider Last Name Corona Referring Provider Speciality Nurse Trin[place] gerard Referred Provider Raf Allergy Referred Provider Specialty Allergy/Immu nology General Notes [facility] [place]OM[place] 01/01 11:23:18 AM >faxed Referral Priority Routine [...] Pfizer BiValent Booster Unknown 09/29/2022 Adm inistered EBLUZ-52-Hrtvdz Vaccine Unknown 12/21/2020 Administered HJUJH-43-Qakaaw Vaccine Unknown 01/12/2021 Administered JSPUV-53-Jrvifv Vaccine Unknown 09/16/2021 Administered Problems Problem Type SNOMED Code ICD Code Onset Dates Problem Status W/U Status Risk Notes Problem Vitamin D deficiency (79806251) Vitamin D deficiency, unspecified (E55.9) Active confirmed Problem Mixed hyperlipidemia (011790725) Mixed hyperlipidemia (E78.2) Active confirmed Problem Environmental sleep disorder (886947293) 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 confirmed Problem Irregular sleep-wake pattern (193655401) Circadian rhythm sleep disorder, 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 Problem Chronic kidney disease due to hypertension (375580215726352) Hypertensive chronic kidney disease with stage 1 through stage 4 chronic kidney disease, or unspecified chronic kidney disease (I12.9) Active confirmed Problem Disorder of blood vessel (76303331) Other disorders of arteries, 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 (I79.8) Active confirmed Problem Seasonal allergic rhinitis (796354198) Other seasonal allergic rhinitis (J30.2) Active confirmed Problem Mild intermittent asthma (792954211) Mild intermittent asthma, uncomplicated (J45.20) Active confirmed Problem Chronic kidney disease stage 1 (248334986) Chronic kidney disease, stage 1 (N18.1) Active confirmed Problem Menopause (361181151) Menopausal and female climacteric states (N95.1) Active confirmed Problem Nicotine dependence (46009645) Personal history of nicotine dependence (Z87.891) Active confirmed Problem Gastroesophageal reflux disease with esophagitis (disorder) (445072541) Gastro-esophageal reflux disease with esophagitis, without bleeding (K21.00) Active confirmed Problem Chronic obstructive pulmonary disease (disorder) (37405288) Other specified chronic obstructive pulmonary disease (J44.89) Active confirmed Vital Signs Heart Rate 71 /min 05/25/2025 Temperature 95.2 degrees Fahrenheit 05/25/2025 Blood pressure diastolic 72 mm Hg 05/25/2025 Oximetry 98 % 05/25/2025 Height 67 in 05/25/2025 Blood pressure systolic 122 mm Hg 05/25/2025 Weight 149 lbs 05/25/2025 BMI 23.33 kg/m2 05/25/2025 Encounters Encounter Location Date Provider Diagnosis Radha Rivero MD [address] [id number] 05/25/2025 Norma Jeter Acute cough R05.1 ; [...] diseases classified elsewhere I79.8 Radha Rivero MD [address] [id number] 07/21/2024 Norma Jeter Encounter for genera l [...] and behavioral disorders Z13.39 Radha Rivero MD [address] [id number] 12/04/2024 Norma Jeter Hypertensive chronic kidney disease with stage 1 through stage 4 chronic kidney disease, or unspecified chronic kidney disease I12.9 ; Chronic kidney disease, stage 1 N18.1 and Gastro-esophageal reflux disease with esophagitis, without bleeding K21.00 Radha Rivero MD [address] [id number] 01/12/2025 Norma Jeter Hypertensive chronic kidney disease [...] and Mixed hyperlipidemia E78.2 Radha Rivero MD [address] [id number] 01/28/2025 Norma Jeter Hypertensive chronic kidney disease [...] obstructive pulmonary disease J44.89 Radha Rivero MD [address] [id number] 07/08/2024 Norma Rivero MD [address] [id number] 08/12/2024 Norma Sanchese Radha Rivero MD [address] [id number] 09/26/2024 Norma Jeter Radha Rivero MD [address] [id number] 12/02/2024 Norma Jeter Radha Rivero MD [address] [id number] 12/04/2024 Norma Jeter Gastro-esophageal reflux disease with esophagitis, without bleeding K21.00 Radha Rivero MD [address] [id number] 12/04/2024 Norma Rivero MD [address] [id number] 01/26/2025 Norma Jeter Radha Rivero MD [address] [id number] 01/31/2025 Norma Jeter Radha Rivero MD [address] [id number] 02/05/2025 Norma Jeter Isolated proteinuria R80.0 Radha Rivero MD [address] [id number] 02/13/2025 Norma Jeter Radha Rivero MD [address] [id number] 05/20/2025 Norma Jeter Radha Rivero MD [address] [id number] 06/30/2024 Norma Jeter Other sleep disorder s not due to a substance or known physiological condition F51.8 Radha Rivero MD [address] [id number] 08/02/2024 Norma Rivero MD [address] [id number] 08/26/2024 Norma Rivero MD [address] [id number] 08/26/2024 Norma Jeter Radha Rivero MD [address] [id number] 09/19/2024 Norma Jeter Acute upper respirat ory infection, unspecified J06.9 and Chronic cough R05.3 Radha Rivero MD [address] [id number] 11/10/2024 Norma Jeter Mild intermittent asthma, uncomplicated J45.20 Radha Rivero MD [address] [id number] 11/10/2024 Norma Jeter Mild intermittent asthma, uncomplicated J45.20 Radha Rivero MD [address] [id number] 11/11/2024 Norma Jeter Radha Rivero MD [address] [id number] 11/11/2024 Norma Jeter Radha Rivero MD [address] [id number] 01/13/2025 Norma Jeter Radha Rivero MD [address] [id number] 01/23/2025 Norma Jeter Chronic cough R05.3 Radha Rivero MD [address] [id number] 01/26/2025 Norma Jeter Radha Rivero MD [address] [id number] 02/02/2025 Norma Jeter Urinary tract infection, site not specified N39.0 Radha Rivero MD [address] [id number] 02/04/2025 Norma Corona Rivero MD [address] [id number] 03/20/2025 Norma Jeter Assessments Encounter Date Diagnosis (ICD Code) Assessment Notes Treatment Notes Treatment Clinical Notes Section Notes 09/19/2024 Acute upper respiratory infection, unspecified (ICD-10 [...] GFR noted to be in the 90s. 01/23/2025 Chronic cough (ICD-10 - R05.3) 01/28/2025 Hypertensive chronic kidney disease with stage [...] she was on vacation last March in [facility]. She states this cough was associated with a fever, body aches, and chills. Patient has been evaluated by pulmonology as well as allergy and immunology and all specialist agree that her cough may be related to uncontrolled reflux. Would also like to obtain Chikungunya antibody IgG levels to see if patient was exposed during her trip to [facility] last year and have caused her previous and continued symptoms 07/21/2024 Hypertensive chronic kidney disease with stage [...] labs.Plan we for annual in 1 year 06/30/2024 Other sleep disorders not due to a substance or known physiological condition (ICD-10 - F51.8) 07/21/2024 Chronic kidney disease, stage 1 (ICD-10 [...] her chronic cough. Will refer patient to [place] pulmonology for further evaluation 01/28/2025 Other seasonal [...] J44.89) See plan above.Will refer patient to [place] pulmonology for further evaluation and to determine [...] patient states she completed her mammogram through [facility] this year. Will try and obtain [...] LIPID PANEL 12/04/2022 Chikungunya Ab, IgG by GHISLAINE-[id number] 05/02 Next Appt Details Provider Name:Norma Marr Jeter , 07/27/2025 01:00:00 PM, [address] [place] [address], [address], [place], [place], [phone], Insurance Providers Payer Name Payer Address Payer Phone Subscriber Number Group Number Insured Name Patient Relationship to Insured Coverage Start Date Coverage End Date [employer] [address] [place] [address] [id number] Martha Palomares Self - patient is the insured Medical (General) History Medical History History ICD Code hypertension hiatal hernia Surgical History Surgery Date(Month/Year) uterine ablation (age 51) Hospitalization History Reason Date(Month/Year)
--- OUTSIDE RECORDS SUMMARY | 2025-06-02 11:10 | XMS_ITS | Clinical Summary ---
Author Organization [facility] Address [address] [place] [address] Phone Care Team Providers Care Phlebotomist Supervisor/Instructor Name Role Phone Norma Jeter NP Primary Care Provider [phone] Allergies No known active allergies Medications albuterol [...] 9:00 AM EDT Office Visit Pulmonolgy - [place] [address] [facility] [address] [place] [address] Bassem Rojo MD [address] [place] [phone] Health Maintenance Due Date Last Done Comments [...] complete this topic Insurance [employer] Care Teams Phlebotomist Supervisor/Instructor Relationship Specialty Start Date End Date Norma Jeter NP [address] [place] [id number] PCP - General Family Medicine 10/10/24
--- OUTSIDE RECORDS SUMMARY | 2025-06-02 11:10 | XMS_ITS | Patient Health Record ---
Author Organization [facility] Address [address] [place] [address] Care Team Providers Care Customer Expert Name Role Phone Valerie ACKERMAN, Ines Primary Care Provider Unavail able Black, Yoli Unavailable [phone] Reason For Referral No Information Medications Medication [...] Status Risk Notes Problem Acquired hallux valgus (34718899) Hallux valgus (acquired), left foot (M20.12) Active confirmed Problem Acquired hallux valgus (22026230) Hallux valgus (acquired), right foot (M20.11) Active confirmed Problem Non-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) Active confirmed Problem Acquired hammer toe of right foot (1262569105862 105) Other hammer toe(s) (acquired), right foot (M20.41) Active confirmed Problem Acquired hammer toe of left foot (4948571503909 103) Other hammer toe(s) (acquired), left foot (M20.42) Active confirmed Plan Of Treatment Pending Test Test Name Order Date 04998-Irdoflqb Plate 12/16/2018 Insurance Providers Payer Name Payer Address Payer Phone Subscriber Number Group Number Insured Name Patient Relationship to Insured Coverage Start Date Coverage End Date [facility] [address] [place] [address] [id number] Samir Palomares Spouse - patient is the spouse of the insured Medical (General) History Medical History History ICD Code Chicken pox Joint implants/screws Surgical History Surgery Date(Month/Year) x 1 d&c 2014 left breast needle guided biopsy 08/2016 left shoulder arthroscopy 08/2017 shoulder surgery 08/2018
[2025-06-02 11:11] LABS: Partial Thromboplastin Time 31.1 SEC (26.7-34.1)
[2025-06-02 11:17] LABS: Hemoglobin A1C 118.4597 umol/L; Total Hemoglobin (HGBA1C) 3629.8791 umol/L
[2025-06-02 12:07] LABS: Alanine Aminotransferase 15 U/L (0-31); Albumin Level 4.5 g/dL (3.5-5.0); Alkaline Phosphatase 81 U/L (39-117); Anion Gap 13 (12-20); Aspartate Amino Transferase 26 U/L (5-31); Blood Urea Nitrogen 10 mg/dL (9-16); Calcium 9.1 mg/dL (8.4-10.2); Carbon Dioxide 27 mmol/L (22-29); Chloride 107 mmol/L (96-108); Cholesterol 208 mg/dL (<200); Estimated Glomerular Filt Rate > 60; HDL Cholesterol 60 mg/dL (>40); Potassium 4.5 mmol/L (3.3-5.1); Sodium 142 mmol/L (135-145); Total Protein 6.9 g/dL (6.5-8.0); Triglycerides 91 mg/dL (<150)
== END 2025-06-02 09:54 | disposition home or self-care (01) ==
LOC: HO.HMGCLDS 09:53
PROVIDERS: PCP Nurse Practitioner Family; Visit Provider Surgery
DX: Z01.818 Encounter for other preprocedural examination (principal); Z51.81 Encounter for therapeutic drug level monitoring; Z13.29 Encounter for screening for other suspected endocrine disorder; Z13.6 Encounter for screening for cardiovascular disorders; Z13.1 Encounter for screening for diabetes mellitus
CPT/HCPCS: 36415; 80053; 80061; 83036; 83525; 84443; 85025; 85610; 85730; 86140

== ENCOUNTER → 2025-06-05 09:21 | Outpatient (REF) | payer OTHER, SELFPAY ==
--- NOTE | 2025-06-05 09:27 | ECG_ITS ---
Test Reason : pre op Blood Pressure : */* mmHG Vent. Rate : 67 BPM Atrial Rate : 67 BPM P-R Int : 188 ms QRS Dur : 84 ms QT Int : 412 ms P-R-T Axes : 71 20 76 degrees QTcB Int : 435 ms Normal sinus rhythm Normal ECG No previous ECGs available Referred By: John Dhillon Electronically Signed By: Chad Redman
--- OUTSIDE RECORDS SUMMARY | 2025-06-05 10:05 | XMS_ITS | Patient Health Record ---
Author [facility] Address [address] [place] [address] Care Team Providers Care Steel Pickler Name Role Phone Valerie ACKERMAN, Ines Primary Care Provider Unavail able Black, Yoli Unavailable [phone] Reason For Referral No Information Medications Medication [...] Status Risk Notes Problem Acquired hallux valgus (21737210) Hallux valgus (acquired), left foot (M20.12) Active confirmed Problem Acquired hallux valgus (05367984) Hallux valgus (acquired), right foot (M20.11) Active confirmed Problem Non-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) Active confirmed Problem Acquired hammer toe of right foot (8991856023394 105) Other hammer toe(s) (acquired), right foot (M20.41) Active confirmed Problem Acquired hammer toe of left foot (1908893320917 103) Other hammer toe(s) (acquired), left foot (M20.42) Active confirmed Plan Of Treatment Pending Test Test Name Order Date 81591-Axobdirm Plate 12/16/2018 Insurance Providers Payer Name Payer Address Payer Phone Subscriber Number Group Number Insured Name Patient Relationship to Insured Coverage Start Date Coverage End Date [facility] [address] [place] [address] [id number] Samir Palomares Spouse - patient is the spouse of the insured Medical (General) History Medical History History ICD Code Chicken pox Joint implants/screws Surgical History Surgery Date(Month/Year) x 1 d&c 2014 left breast needle guided biopsy 08/2016 left shoulder arthroscopy 08/2017 shoulder surgery 08/2018
--- OUTSIDE RECORDS SUMMARY | 2025-06-05 10:06 | XMS_ITS | Clinical Summary ---
Author Organization [facility] Address [address] [place] [address] Phone Care Team Providers Care Long Goods Drier Name Role Phone Norma Jeter NP Primary Care Provider [phone] Allergies No known active allergies Medications albuterol [...] Upcoming Encounters Date Type Department Care Team ([facility] st Contact Info) Description 07/06/2025 9:15 AM EDT Office Visit Pulmonolgy - [place] [address] [phone] Nanette Tipton MD [address] [address] Health Maintenance Due Date Last Done Comments Breast Cancer Screening 1965 Pneumococcal Vaccine: 50+ Years (1 of 2 - PCV) 1984 Cervical Cancer Screening: Pap Smear 1986 Zoster Vaccines (1 of 2) 2015 Depression Screening 10/01/2024 Cholesterol Screening (Lipid Panel) 10/03/2024 Colorectal Cancer Screening: Colonoscopy 10/03/2024 HIV Screening 10/03/2024 Hepatitis C Screening 10/03/2024 Social Influencers of Health Screening 10/03/2024 COVID-19 Vaccine ( - season) 2025 09/29/2022, 09/16/2021, 01/12/2021, Additional history exists Influenza Vaccine (#1) 2025 DTaP,Tdap,and Td Vaccines [...] complete this topic Insurance [employer] Care Teams Long Goods Drier Relationship Specialty Start Date End Date Norma Jeter NP [address] [place] [id number] PCP - General Family Medicine 10/10/24
--- OUTSIDE RECORDS SUMMARY | 2025-06-05 10:06 | XMS_ITS | Clinical Summary ---
Author Organization [employer] Address [address] [facility] [address] [place] [address] Care Team Providers Care Social Services Manager Name Role Phone Unavailable Primary Care Provider [...] of 2) 2015 COVID-19 Vaccine (2 - 2024-2 6 season) 2025 09/29/2022 Influenza Vaccine (#1) 2025 RSV Patients [...]
--- OUTSIDE RECORDS SUMMARY | 2025-06-05 10:06 | XMS_ITS | Patient Health Record ---
Author Organization Radha Rivero MD Address [address] [id number] Care Team Providers Care Die Maintenance Name Role Phone JeterNorma stoner Primary Care Provider [phone] Allergies No Known Allergies Results Component Value Reference Range Notes Chikungunya Antibody, IgG/M Reviewed date:05/29/2025 11:41:04 AM Interpretation: Performing Lab:[facility], [address], Phone - [phone], Director - [facility] Notes/Report: Result IgG: Negative Result IgM: Negative [...] developed and its performance characteristics determined by [facility]. It has not been cleared or approved by the US Food and Drug Administration. This test was performed in a CLIA certified laboratory and is intended for clinical purposes. Electronically Signed By: Jt Valladares CT Chest LDCT Lung Program Reviewed date:09/26/2024 [...] 227, unchanged No new nodules. OTHER FINDINGS: Chief Radiation Therapist view findings, lines and tubes: None. Trachea [...] None. Categorization based on Lung-RADS 2022 criteria. [email or web address] I have personally reviewed the images and I agree with this report. WSN: [id number] Ordering Physician: Norma Jeter Dictated By: Nesha Funez DO CBC With Differential/Platel et-[id number] Reviewed date:08/12/2024 01:26:52 PM Interpretation: Performing Lab:[facility], [address], [place], Phone - [phone], Director - Missy Notes/Report: WBC 6.7 3.4-10.8 [...] Grans (Abs) 0.0 0.0-0.1 x10E3/uL Vitamin D, [id number] Reviewed date:08/12/2024 01:26:52 PM Interpretation: Performing Lab:[facility], [address] [facility], Phone - [phone], Director - Missy Notes/Report: Vitamin D, 25-Hydroxy 40.5 30.0-100.0 ng/mL Vitamin D deficiency has been defined by the [place] of Medicine and an Endocrine Society practice guideline as a level of serum 25-OH vitamin D less than 20 ng/mL (1,2). The Endocrine Society went on to further define vitamin D insufficiency as a level between 21 and 29 ng/mL (2). 1. IOM ([place] of Medicine). 2010. Dietary reference intakes for calcium and D. [place]: The National Academies Press. 2. Florence MF, Clementina NC, Josee-Crescencio LABOY, et al. Evaluation, treatment, and prevention of vitamin D deficiency: an Endocrine Society clinical practice guideline. JCEM. 2010; 96(7):1911-30. Albumin/Creatinine Ratio,Uri [id number] Reviewed date:08/12/2024 01:26:53 PM Interpretation: Performing Lab:[facility] [place], [address] [facility], [place], Phone - [phone], Director - Missy Notes/Report: Creatinine, Urine 128.9 Not Estab. mg/dL Albumin, Urine 5.6 Not Estab. ug/mL Alb/Creat Ratio 4 0-29 mg/g creat Normal: 0 - 29 Moderately increased: 30 - 300 Severely increased: >300 HCV Antibody RFX to Quant [id number] Reviewed date:08/12/2024 01:26:53 PM Interpretation: Performing Lab:[facility] [place], [address] [place] [address], Phone - [phone], Director - Missy Notes/Report: HCV Ab Non Reactive Non Reactive Interpretation: Not infected with HCV unless early or acute infection is suspected (which may be delayed in an immunocompromised individual), or other evidence exists to indicate HCV infection. Comp. Metabolic Panel (14)-3 20006 Reviewed date:08/12/2024 01:26:53 PM Interpretation: Performing Lab:[facility] [place], [address] [place] [address], [place], Phone - [phone], Director - Missy Notes/Report: Glucose 67 70-99 [...] IU/L ALT (SGPT) 11 0-32 IU/L LP+Non-HDL Cholesterol-[id number] 5 Reviewed date:08/12/2024 01:26:53 PM Interpretation: Performing Lab:[facility] [place], [address] [place] [address], [place], Phone - [phone], Director - Missy Notes/Report: Cholesterol, Total 211 100-199 mg/dL Triglycerides 164 0-149 mg/dL HDL Cholesterol 63 >39 mg/dL VLDL Cholesterol Pro 29 5-40 mg/dL LDL Chol Calc (NIH) 119 0-99 mg/dL Non-HDL Cholesterol 148 0-129 mg/dL UA/M w/rflx Culture, Routine -[id number] Reviewed date:08/12/2024 01:26:53 PM Interpretation: Performing Lab:[facility] [place], [address] [facility], Phone - [phone], Director - Missy Notes/Report: Specific Hermosa 1.024 1.005-1.030 pH 7.5 5.0-7.5 Urine-Color Yellow [...] date:09/26/2024 09:58:21 AM Interpretation: Performing Lab: Notes/Report: Wrist Comp Min 3 Views Right Reviewed date:08/12/2024 01:26:52 PM Interpretation: Performing Lab: Notes/Report: Wrist Comp Min 3 Views Right Reason: ganglion rt wrist COMPARISON: None. FINDINGS: No fracture or dislocation. Normal carpal configuration. Intact radial and ulnar styloid processes. No arthritic change. Normal soft tissues. IMPRESSION: Normal. WSN: [id number] Ordering Physician: Norma Jeter Dictated By: Tra Maier MD Albumin/Creatinine Ratio,Uri [id number] Reviewed date:02/19/2025 12:18:11 PM Interpretation: Performing Lab:[facility] [place], [address], [place], Phone - [phone], Director - Missy Notes/Report: Creatinine, Urine 77.0 Not Estab. mg/dL Albumin, Urine <3.0 Not Estab. ug/mL Alb/Creat Ratio <4 0-29 mg/g creat Normal: 0 - 29 Moderately increased: 30 - 300 Severely increased: >300 UA/M w/rflx Culture, Routine -[id number] Reviewed date:02/19/2025 12:18:12 PM Interpretation: Performing Lab:[facility] [place], [address], [place], Phone - [phone], Director - Missy Notes/Report: Specific Herm[place] 1.015 1.005-1.030 pH 8.0 5.0-7.5 Urine-Color Yellow [...] seen /lpf Bacteria None seen None seen/Few EBCT Coronary calcium score Reviewed date:02/13/2025 02:44:12 PM Interpretation: Performing Lab: Notes/Report: Chest 2 Views Frontal and La t [...] acute abnormality. IMPRESSION: No acute abnormality. 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 or known physiological condition (F51.8) Referral Organization [facility] K[facility] Referring Provider First Name Norma Referring Provider Last Name Corona Referring Provider Speciality Nurse Prac titioner Referred Provider Kuldip Ortega Referred Provider Specialty Sleep Medici ne General [facility] 10:11[facility]07 AM >faxed Referral Priority Routine Reason Can we refer to [facility] for chronic cougn faxed Diagnosis 1 Acute cough (R05.1) Referral Organization [facility] Referring Provider First Name Norma Referring Provider Last Name Jeter Referring Provider Speciality Nurse [place] gerard Referred Provider Bassem Rojo Referred Provider Specialty Pulmonology General Notes [facility] 01/01 11:22:54 AM >faxed Referral Priority [...] Referred Provider Specialty Allergy/Immu nology General [facility] 01/01 11:23:18 AM >faxed Referral [...] Pfizer BiValent Booster Unknown 09/29/2022 Adm inistered DHEVA-15-Wftmtv Vaccine Unknown 12/21/2020 Administered PGERP-31-Zjizcb Vaccine Unknown 01/12/2021 Administered WXYNA-28-Yoweve Vaccine Unknown 09/16/2021 Administered Problems Problem Type SNOMED Code ICD Code Onset Dates Problem Status W/U Status Risk Notes Problem Vitamin D deficiency (44241311) Vitamin D deficiency, unspecified (E55.9) Active confirmed Problem Mixed hyperlipidemia (468958494) Mixed hyperlipidemia (E78.2) Active confirmed Problem Environmental sleep disorder (247811372) 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 confirmed Problem Irregular sleep-wake pattern (573626212) Circadian rhythm sleep disorder, 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 Problem Chronic kidney disease due to hypertension (676302488533242) Hypertensive chronic kidney disease with stage 1 through stage 4 chronic kidney disease, or unspecified chronic kidney disease (I12.9) Active confirmed Problem Disorder of blood vessel (72168307) Other disorders of arteries, 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 (I79.8) Active confirmed Problem Seasonal allergic rhinitis (916191646) Other seasonal allergic rhinitis (J30.2) Active confirmed Problem Mild intermittent asthma (660767645) Mild intermittent asthma, uncomplicated (J45.20) Active confirmed Problem Chronic kidney disease stage 1 (654769862) Chronic kidney disease, stage 1 (N18.1) Active confirmed Problem Menopause (186694936) Menopausal and female climacteric states (N95.1) Active confirmed Problem Nicotine dependence (52014901) Personal history of nicotine dependence (Z87.891) Active confirmed Problem Gastroesophageal reflux disease with esophagitis (disorder) (015665010) Gastro-esophageal reflux disease with esophagitis, without bleeding (K21.00) Active confirmed Problem Chronic obstructive pulmonary disease (disorder) (25034184) Other specified chronic obstructive pulmonary disease (J44.89) Active confirmed Vital Signs Heart Rate 71 /min 05/25/2025 Temperature 95.2 degrees Fahrenheit 05/25/2025 Oximetry 98 % 05/25/2025 Blood pressure diastolic 72 mm Hg 05/25/2025 Height 67 in 05/25/2025 Blood pressure systolic 122 mm Hg 05/25/2025 Weight 149 lbs 05/25/2025 BMI 23.33 kg/m2 05/25/2025 Encounters Encounter Location Date Provider Diagnosis Radha Rivero MD [address] [id number] 07/21/2024 Norma Jeter Encounter for genera l [...] and behavioral disorders Z13.39 Radha Rivero MD [address] [id number] 12/04/2024 Norma Jeter Hypertensive chronic kidney disease with stage 1 through stage 4 chronic kidney disease, or unspecified chronic kidney disease I12.9 ; Chronic kidney disease, stage 1 N18.1 and Gastro-esophageal reflux disease with esophagitis, without bleeding K21.00 Radha Rivero MD [address] [id number] 01/12/2025 Norma Sanchese Hypertensive chronic kidney disease with stage 1 [...] and Mixed hyperlipidemia E78.2 Radha Rivero MD [address] [id number] 01/28/2025 Norma Sanchese Hypertensive chronic kidney disease with stage 1 [...] obstructive pulmonary disease J44.89 Radha Rivero MD [address] [id number] 05/25/2025 Norma Jeter Acute cough R05.1 ; [...] diseases classified elsewhere I79.8 Radha Rivero MD [address] [id number] 07/08/2024 Norma Rivero MD [address] [id number] 08/12/2024 Norma Rivero MD [address] [id number] 09/26/2024 Norma Jeter Radha Rivero MD [address] [id number] 12/02/2024 Norma Rivero MD [address] [id number] 12/04/2024 Norma Jeter Gastro-esophageal reflux disease with esophagitis, without bleeding K21.00 Radha Rivero MD [address] [id number] 12/04/2024 Norma Rivero MD [address] [id number] 01/26/2025 Norma Rivero MD [address] [id number] 01/31/2025 Norma Rivero MD [address] [id number] 02/05/2025 Norma Jeter Isolated proteinuria R80.0 Radha Rivero MD [address] [id number] 02/13/2025 Norma Rivero MD [address] [id number] 05/20/2025 Norma Jeter Radha Rivero MD [address] [id number] 06/30/2024 Norma Jeter Other sleep disorder s not due to a substance or known physiological condition F51.8 Radha Rivero MD [address] [id number] 08/02/2024 Norma Rivero MD [address] [id number] 08/26/2024 Norma Rivero MD [address] [id number] 08/26/2024 Norma Jeter Radha Rivero MD [address] [id number] 09/19/2024 Norma Jeter Acute upper respirat ory infection, unspecified J06.9 and Chronic cough R05.3 Radha Rivero MD [address] [id number] 11/10/2024 Norma Jeter Mild intermittent asthma, uncomplicated J45.20 Radha Rivero MD [address] [id number] 11/10/2024 Norma Jeter Mild intermittent asthma, uncomplicated J45.20 Radha Rivero MD [address] [id number] 11/11/2024 Norma Jeter Radha Rivero MD [address] [id number] 11/11/2024 Norma Jeter Radha Rivero MD [address] [id number] 01/13/2025 Norma Jeter Radha Rivero MD [address] [id number] 01/23/2025 Norma Jeter Chronic cough R05.3 Radha Rivero MD [address] [id number] 01/26/2025 Norma Jeter Radha Rivero MD [address] [id number] 02/02/2025 Norma Jeter Urinary tract infection, site not specified N39.0 Radha Rivero MD [address] [id number] 02/04/2025 Norma Corona Rivero MD [address] [id number] 03/20/2025 Norma Jeter Assessments Encounter Date Diagnosis (ICD Code) Assessment Notes Treatment Notes Treatment Clinical Notes Section Notes 09/19/2024 Acute upper respiratory infection, unspecified (ICD-10 - J06.9) 11/10/2024 Mild intermittent asthma, uncomplicated (ICD-10 - J45.20) 12/04/2024 Gastro-esophageal reflux disease with esophagitis, without [...] noted to be in the 90s. 05/25/2025 Hypertensive chronic kidney disease with stage [...] she was on vacation last March in [facility]. She states this cough was associated with a fever, body aches, and chills. Patient has been evaluated by pulmonology as well as allergy and immunology and all specialist agree that her cough may be related to uncontrolled reflux. Would also like to obtain Chikungunya antibody IgG levels to see if patient was exposed during her trip to [facility] last year and have caused her previous [...] or known physiological condition (ICD-10 - F51.8) 02/05/2025 Isolated proteinuria (ICD-10 - R80.0) 12/04/2024 Hypertensive chronic kidney disease with stage [...] panel to reassess GFR at this time 11/10/2024 Mild intermittent asthma, uncomplicated (ICD-10 - J45.20) 02/02/2025 Urinary tract infection, site not specified (ICD-10 - N39.0) 12/04/2024 Gastro-esophageal reflux disease with esophagitis, without [...] her reflux symptoms and results of cough 07/21/2024 Chronic kidney disease, stage 1 (ICD-10 [...] to help further improve her reflux symptoms 09/19/2024 Chronic cough (ICD-10 - R05.3) 01/12/2025 Diaphragmatic hernia without obstruction or gangrene (ICD-10 - K44.9) See plan above.Patient is scheduled for repair of hiatal hernia in January to further assist in managing her reflux symptoms 01/28/2025 Diaphragmatic hernia without obstruction or gangrene (ICD-10 - K44.9) See plan above.Patient is now scheduled for repair of hiatal hernia in 05/25/2025 Gastro-esophageal reflux disease with esophagitis, without bleeding (ICD-10 - K21.00) Patient continues to use her famotidine daily with overall management of her reflux symptoms. She is scheduled for hiatal hernia repair in June to help further improve her reflux symptoms 07/21/2024 Menopausal and female climacteric states (ICD-10 [...] surgery is an option remove the cyst 05/25/2025 Diaphragmatic hernia without obstruction or gangrene (ICD-10 - K44.9) See plan above.Patient is scheduled for repair of hiatal hernia in June to further assist in managing her reflux symptoms and cough 01/28/2025 Acute cough (ICD-10 - R05.1) Patient [...] her chronic cough. Will refer patient to [facility] for further evaluation 01/12/2025 Acute cough (ICD-10 - R05.1) Spent [...] reflux and stop her cough symptoms 01/28/2025 Other seasonal allergic rhinitis (ICD-10 - [...] J44.89) See plan above.Will refer patient to [facility] for further evaluation and to determine [...] patient states she completed her mammogram through [facility] this year. Will try and obtain results [...] LIPID PANEL 12/04/2022 Chikungunya Ab, IgG by [id number] 05/02 Next Appt Details Provider Name:Norma Marr Jeter , 07/27/2025 01:00:00 PM, [address] [place] [address], [address], [place], [place], [phone], Insurance Providers Payer Name Payer Address Payer Phone Subscriber Number Group Number Insured Name Patient Relationship to Insured Coverage Start Date Coverage End Date [employer] [address] [place] [address] [id number] Martha Palomares Self - patient is the insured Medical (General) History Medical History History ICD Code hypertension hiatal hernia Surgical History Surgery Date(Month/Year) uterine ablation (age 51) Hospitalization History Reason Date(Month/Year)
== END ==
LOC: HO.CARD 09:21
PROVIDERS: PCP Internal Medicine; Visit Provider Surgery
DX: Z01.810 Encounter for preprocedural cardiovascular examination (principal)
CPT/HCPCS: 93005

== ENCOUNTER → 2025-06-05 09:27 | Outpatient (BNV) | payer OTHER, SELFPAY | PROVIDERS: PCP Internal Medicine; Visit Provider Internal Medicine Cardiovascular Disease | DX: Z01.818 Encounter for other preprocedural examination (principal) | CPT/HCPCS: 93010 ==

== ENCOUNTER 2025-06-09 05:59 | Day surgery (SDC) | payer OTHER, SELFPAY ==
--- OUTSIDE RECORDS SUMMARY | 2024-12-03 06:43 | XMS_ITS | Patient Health Record ---
Author Organization Radha Rivero MD Address [address] [place] [address] [phone] Care Team Providers Care Kiln Tender Name Role Phone Norma Jeter Primary Care [...] change. Normal soft tissues. IMPRESSION: Normal. WSN: [id number] Ordering Physician: Norma Jeter Dictated By: Tra Maier MD Wrist Comp Min 3 Vie ws Right Reason: ganglion rt wrist COMPARISON: None. FINDINGS: No fracture or dislocation. Normal carpal configuration. Intact radial and ulnar styloid processes. No arthritic change. Normal soft tissues. IMPRESSION: Normal. WSN: [id number] Ordering Physician: Norma Jeter CBC With Differential/Platel et-[id number] Reviewed date:08/12/2024 01:26:52 PM Interpretation: Performing Lab:[facility], [address] [place] [address], [place], Phone - [phone], Director - Missy Notes/Report: WBC 6.7 3.4-10.8 [...] Grans (Abs) 0.0 0.0-0.1 x10E3/uL Vitamin D, 20-Ptkjwtu-[id number] Reviewed date:08/12/2024 01:26:52 PM Interpretation: Performing Lab:[facility] [place], [address] [facility], Phone - [phone], Director - Missy Notes/Report: Vitamin D, 25-Hydroxy 40.5 30.0-100.0 ng/mL Vitamin D deficiency has been defined by the [place] of Medicine and an Endocrine Society practice guideline as a level of serum 25-OH vitamin D less than 20 ng/mL (1,2). The Endocrine Society went on to further define vitamin D insufficiency as a level between 21 and 29 ng/mL (2). 1. IOM ([place] of Medicine). 2010. Dietary reference intakes for calcium and D. [place]: The National Academies Press. 2. Florence MF, Clementina [place], Floridalma LABOY, et al. Evaluation, treatment, and prevention of vitamin D deficiency: an Endocrine Society clinical practice guideline. JCEM. 2010; 96(7):1911-30. Albumin/Creatinine Ratio,Uri [id number] Reviewed date:08/12/2024 01:26:53 PM Interpretation: Performing Lab:[facility] [place], [address] [facility], [place], Phone - [phone], Director - Missy Notes/Report: Creatinine, Urine 128.9 Not Estab. mg/dL Albumin, Urine 5.6 Not Estab. ug/mL Alb/Creat Ratio 4 0-29 mg/g creat Normal: 0 - 29 Moderately increased: 30 - 300 Severely increased: >300 HCV Antibody RFX to Quant PC [id number] Reviewed date:08/12/2024 01:26:53 PM Interpretation: Performing Lab:[facility], [address] [place] [address], Phone - [phone], Director - Sebastiány Notes/Report: HCV Ab Non Reactive Non Reactive Interpretation: Not infected with HCV unless early or acute infection is suspected (which may be delayed in an immunocompromised individual), or other evidence exists to indicate HCV infection. Comp. Metabolic Panel (14)-[id number] Reviewed date:08/12/2024 01:26:53 PM Interpretation: Performing Lab:[facility], [address] [place] [address], Phone - [phone], Director - Missy Notes/Report: Glucose 67 70-99 [...] IU/L ALT (SGPT) 11 0-32 IU/L LP+Non-HDL Cholesterol-61531 5 Reviewed date:08/12/2024 01:26:53 PM Interpretation: Performing Lab:[facility], [address] [place] [address], [place], Phone - [phone], Director - Missy Notes/Report: Cholesterol, Total 211 100-199 mg/dL Triglycerides 164 0-149 mg/dL HDL Cholesterol 63 >39 mg/dL VLDL Cholesterol Pro 29 5-40 mg/dL LDL Chol Calc ([facility]) 119 0-99 mg/dL Non-HDL Cholesterol 148 0-129 mg/dL UA/M w/rflx Culture, Routine -[id number] Reviewed date:08/12/2024 01:26:53 PM Interpretation: Performing Lab:[facility], [address], [place], Phone - [phone], Director - Missy Notes/Report: Specific Wilmont 1.024 1.005-1.030 pH 7.5 5.0-7.5 Urine-Color Yellow [...] date:09/26/2024 09:58:21 AM Interpretation: Performing Lab: Notes/Report: CT Chest LDCT Lung Program Reviewed date:09/26/2024 [...] 227, unchanged No new nodules. OTHER FINDINGS: Licensing And Registration Director view findings, lines and tubes: None. Trachea [...] None. Categorization based on Lung-RADS 2022 criteria. [email or web address] I have personally reviewed the images and I agree with this report. WSN: [id number] Ordering Physician: Norma Jeter Dictated By: Nesha [...] 227, unchanged No new nodules. OTHER FINDINGS: Licensing And Registration Director view findings, lines and tubes: None. Trachea [...] on Lung-RADS 2022 criteria. [email or web address] I have personally reviewed the images and I agree with this report. WSN: [id number] Ordering Physician: Norma Jeter Reason For Referral Reason right hip pain and f indings of a cam impingement on recent XRay - needs further evaluation faxed Diagnosis 1 Pain in right hip (M 25.551) Referral Organization [facility]ha KIM Referring Provider First Name Norma Referring Provider Last Name Corona Referring Provider Speciality Nurse Trinidad giraldor Referred Provider Chari MARIA Referred Provider Specialty [...] known physiological condition (F51.8) Referral Organization [facility] KMI Referring Provider First Name Norma Referring Provider Last Name Corona Referring Provider Speciality Nurse Prac enzor Referred Provider Kuldip Ortega Referred Provider Specialty [...] Vaccine Route Administration Date Status Comme nts ACGIT-03-Wtmsge Vaccine Unknown 12/21/2020 Administered ISEIR-99-Eafobm Vaccine Unknown 01/12/2021 Administered IEAUE-21-Cecmwb Vaccine Unknown 09/16/2021 Administered COVID-19 Pfizer BiValent [...] Status Risk Notes Problem Vitamin D deficiency (47773501) Vitamin D deficiency, unspecified (E55.9) Active confirmed Problem Environmental sleep disorder (426753733) 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 confirmed Problem Chronic kidney disease due to hypertension (459751506060426) Hypertensive chronic kidney disease with stage 1 through stage 4 chronic kidney disease, or unspecified chronic kidney disease (I12.9) Active confirmed Problem Mild intermittent asthma (440720653) Mild intermittent asthma, uncomplicated (J45.20) Active confirmed Problem Chronic kidney disease stage 1 (915515945) Chronic kidney disease, stage 1 (N18.1) Active confirmed Problem Menopause (473961288) Menopausal and female climacteric states (N95.1) Active confirmed Problem Nicotine dependence (99864351) Personal history of nicotine dependence (Z87.891) Active confirmed Problem Gastroesophageal reflux disease with esophagitis (disorder) (807899519) Gastro-esophagea l reflux disease with esophagitis, without bleeding (K21.00) Active confirmed Vital Signs Heart Rate 81 /min 07/21/2024 Temperature 97.0 degrees Fahrenheit 07/21/2024 Blood pressure diastolic 78 mm Hg 07/21/2024 Oximetry 98 % 07/21/2024 Height 67 in 07/21/2024 Blood pressure systolic 122 mm Hg 07/21/2024 Weight 149 lbs 07/21/2024 BMI 23.33 kg/m2 07/21/2024 Encounters Encounter Location Date Provider Diagnosis Radha Rivero MD [address] [id number] 02/04/2024 Norma Jeter Pain in right hip M25.551 and Other sleep disorders not due to a substance or known physiological condition F51.8 Radha Rivero MD [address] [id number] 05/05/2024 Norma Jeter Hypertensive chronic kidney disease with stage 1 through stage 4 chronic kidney disease, or unspecified chronic kidney disease I12.9 ; Chronic kidney disease, stage 1 N18.1 and Abnormal weight gain R63.5 Radha iRvero MD [address] [id number] 05/29/2024 Norma Jeter Acute cough R05.1 an d Gastro-esophageal reflux disease with esophagitis, without bleeding K21.00 Radha Rivero MD [address] [id number] 07/21/2024 Norma Jeter Encounter for genera l [...] and behavioral disorders Z13.39 Radha Rivero MD [address] [id number] 02/06/2024 Norma Jeter Pain in right hip M25.551 Radha Rivero MD [address] [id number] 05/06/2024 Norma Rivero MD [address] [id number] 07/08/2024 Norma Rivero MD [address] [id number] 08/12/2024 Norma Rivero MD [address] [id number] 09/26/2024 Norma Jeter Radha Rivero MD [address] [id number] 12/02/2024 Norma Rivero MD [address] [id number] 01/31/2024 Norma Jeter Pain in right hip M25.551 Radha Rivero MD [address] [id number] 04/14/2024 Norma Rivero MD [address] [id number] 04/28/2024 Norma Rivero MD [address] [id number] 05/28/2024 Norma Rivero MD [address] [id number] 05/28/2024 Norma Rivero MD [address] [id number] 06/30/2024 Normadoc Sanchese Other sleep disorder s not due to a substance or known physiological condition F51.8 Radha Rivero MD [address] [id number] 08/02/2024 Norma Rivero MD [address] [id number] 08/26/2024 Norma Jeter Radha Rivero MD [address] [id number] 08/26/2024 Norma Jeter Radha Rivero MD [address] [id number] 09/19/2024 Norma Jeter Acute upper respirat ory infection, unspecified J06.9 and Chronic cough R05.3 Radha Rivero MD [address] [id number] 11/10/2024 Norma Jeter Mild intermittent asthma, uncomplicated J45.20 Radha Rivero MD [address] [id number] 11/10/2024 Norma Jeter Mild intermittent asthma, uncomplicated J45.20 Radha Rivero MD [address] [id number] 11/11/2024 Normadoc Rivero MD [address] [id number] 11/11/2024 Norma Jeter Assessments Encounter Date Diagnosis (ICD Code) Assessment Notes Treatment Notes Treatment Clinical Notes Section Notes 01/31/2024 Pain in right hip (ICD-10 - [...] patient would benefit from being seen by [facility] to determine if she is a [...] labs.Plan we for annual in 1 year 11/10/2024 Mild intermittent asthma, uncomplicated (ICD-10 - J45.20) 11/10/2024 Mild intermittent asthma, uncomplicated (ICD-10 - J45.20) 09/19/2024 Acute upper respiratory infection, unspecified (ICD-10 - J06.9) 09/19/2024 Chronic cough (ICD-10 - R05.3) 07/21/2024 [...] patient states she completed her mammogram through [facility] this year. Will try and obtain results [...] Next Appt Details Provider Name:Norma Jeter , 12/04/2024 10:00:00 AM, [address], [phone], Provider Name:Norma Jeter , 01/12/2025 02:30:00 PM, [address] [place] [address], [phone], Provider Name:Norma Jeter , 07/27/2025 01:00:00 PM, [address] [place] [address], [id number], Insurance Providers Payer Name Payer Address Payer Phone Subscriber Number Group Number Insured Name Patient Relationship to Insured Coverage Start Date Coverage End Date [facility] [employer] [address] [place] [address] [id number] Martha Palomares Self - patient is the insured Medical (General) History Medical History History ICD Code hypertension Surgical History Surgery Date(Month/Year) uterine ablation (age 51) Hospitalization History Reason Date(Month/Year)
--- OUTSIDE RECORDS SUMMARY | 2024-12-03 06:43 | XMS_ITS ---
Author Organization Radha Rivero MD Address [address] [place] [address] [phone] Care Team Providers Care Front Office Director Name Role Phone Norma Jeter Primary Care Provider REASON FOR VISIT RE:RE:Lung Function Test Encounters Encounter Location Date Provider Diagnosis Radha Rivero MD [address] [place] [address] [id number] 11/11/2024 Norma Jeter Plan Of Treatment Next Appt Details Provider Name:Norma Jeter , 12/04/2024 10:00:00 AM, [address] [place] [address], [phone], Provider Name:Norma Jeter , 01/12/2025 02:30:00 PM, [address] [place] [address], [phone], Provider Name:Norma Jeter , 07/27/2025 01:00:00 PM, [address] [place] [address], [phone], Progress Notes * JELANI MarthaDOB:1964 (59 yo F)Acc No.[id number]:11/11/2024 Patient:?Martha PALOMARES :1965???Age:59 Y???Sex:Female Address:[address] [place] [address] * true * Date:? Generated for Printi ng/Faxing/eTransmitting on:?12/03/2024 06:43 AM EST
--- OUTSIDE RECORDS SUMMARY | 2024-12-03 06:43 | XMS_ITS ---
Author Organization Radha Rivero MD Address [address] [place] [address] [phone] Care Team Providers Care Director Of Primary Name Role Phone Norma Jeter Primary Care Provider [phone] REASON FOR VISIT Clinical call Encounters Encounter Location Date Provider Diagnosis Radha Rivero MD [address] [id number] 12/02/2024 Norma Jeter Plan Of Treatment Next Appt Details Provider Name:Norma Jeter , 12/04/2024 10:00:00 AM, [address] [place] [address], [phone], Provider Name:Norma Jeter , 01/12/2025 02:30:00 PM, [address] [place] [address], [phone], Provider Name:Norma Jeter , 07/27/2025 01:00:00 PM, [address] [place] [address], [phone], Progress Notes * NAMITAPrerna YutroyDOB:1964 (59 yo F)Acc No.[id number]:12/02/2024 Patient:?Martha PALOMARES :1965???Age:59 Y???Sex:Female Address:[address] [place] [address] * true * Date:? Generated for Printi ng/Faxing/eTransmitting on:?12/03/2024 06:42 AM EST
--- OUTSIDE RECORDS SUMMARY | 2024-12-03 06:44 | XMS_ITS | Clinical Summary ---
Author Organization [facility] Address [address] [place] [address] Phone Care Team Providers Care Top Bottom Attaching Machine Operator Name Role Phone Norma Jeter NP Primary Care Provider [phone] Encounters Date Type Department Care Team Description 10/31/2024 10:42 AM EST - 10/31/2024 11:59 PM EST Hospital Encounter [facility] Pulmonary [address] [place] [address] Chronic cough Discharge Disposition: Home [...] FEF 50 4.02 l/s PEF 5.65 L/s GQJ536 9.06 s TLC 5.54 liters VC 3.43 [...] Last 3 Months Insurance [employer] Care Teams Top Bottom Attaching Machine Operator Relationship Specialty Start Date End Date Norma Jeter, UGO [address] [place] [address] PCP - General Family Medicine 10/10/24
--- OUTSIDE RECORDS SUMMARY | 2024-12-03 06:44 | XMS_ITS ---
Author Organization Radha Rivero MD Address [address] [place] [address] [phone] Care Team Providers Care Supervisor Of Way Name Role Phone Norma Jeter Primary Care Provider [phone] REASON FOR VISIT RE:Lung Function Test Encounters Encounter Location Date Provider Diagnosis Radha Rivero MD [address] [place] [address] [id number] 11/11/2024 Norma Jeter Plan Of Treatment Next Appt Details Provider Name:Norma Jeter , 12/04/2024 10:00:00 AM, [address] [place] [address], [phone], Provider Name:Norma Jeter , 01/12/2025 02:30:00 PM, [address] [place] [address], [phone], Provider Name:Norma Jeter , 07/27/2025 01:00:00 PM, [address] [place] [address], [phone], Progress Notes * JELANI MarthaDOB:1964 (59 yo F)Acc No.[id number]:11/11/2024 Patient:?Emily PALOMARESly :1965???Age:59 Y???Sex:Female Address:[address] [place] [address] * true * Date:? Generated for Printi ng/Faxing/eTransmitting on:?12/03/2024 06:43 AM EST
--- OUTSIDE RECORDS SUMMARY | 2024-12-03 06:44 | XMS_ITS | Clinical Summary ---
Author Organization [facility] [employer] Address [address] [facility] [address] [place] [address] Care Team Providers Care Financial Management Analyst Name Role Phone Unavailable Primary Care Provider [...]
--- OUTSIDE RECORDS SUMMARY | 2024-12-03 06:44 | XMS_ITS | Patient Health Record ---
Author Organization [facility], [facility] Address [address] [place] [address] [phone] Care Team Providers Care Color Repairer Name Role Phone Rica Lee DNP Primary Care Provider Unava ilable RICA LEE Unavailable [phone] REASON FOR REFERRAL No Information MEDICATIONS Medication [...] Date Coverage End Date [employer] [address] [place] [phone] [id number] Martha Palomares Self - patient is the insured
[2025-06-09] VITALS (17 sets, daily range): BP systolic 124–143; BP diastolic 76–89; PULSE 65–93; RESP 11–18; TEMP 36–36.6; O2SAT 94–97; BMI 22.4
[2025-06-09] MEDS: Lactated Ringers 1,000 ML 999 ML IV (06:40)
[2025-06-09] MEDS: Aprepitant 32 MG/4.4 ML VIAL IVPUSH (06:41)
--- NOTE | 2025-06-09 06:45 | HO.ANESPROP2 ---
Documented by User: Jolanta Castorena NP 06/08/25 08:07 HPI - Anesthesia Eval Consult details Narrative: 60yo F for Hernia Diaphragmatic Lap PMFSH Active Problems Active Problems: All Active Problems Uterine myoma (Acute) Bilateral shoulder bursitis (Acute) Adnexal fullness (Acute) Bursitis of right shoulder (Acute) Femoral hernia of right side (Acute) Well woman exam (Acute) Lipoma of abdominal wall (Acute) Acid reflux (Acute) Past Medical History Medical History Acid reflux Tubulovillous adenoma Family History Family History Father CAD (coronary artery disease) Mother No problems noted. Unknown No problems noted. Family history of problems with anesthesia: No Surgical History Surgical History Hx of bladder endoscopy History of femoral hernia repair Hx of colonoscopy History of bilateral breast implants History of arthroscopy of left shoulder History of left breast biopsy History of D&C History of section History of Problems with Anesthesia: No Social History Social History Household Members: Spouse Household Members Other:: son Are you a primary career technology teacher to a significant other at home: No Do you presently have visiting nurse or other home services: No Alcohol intake: current Alcohol intake frequency: holidays/special occasions only Patient Tobacco Use Status: Former Tobacco user Tobacco use type: Cigarette Cigarette Packs Per Day: 0.5 Cigarettes Per Day: 10.0 Years Smoked: 35 Use of substances other than those prescribed or required for medical reasons: No Have you been hit, kicked, punched, or otherwise hurt by someone within the past year? If so, by whom?: No Are you DNR?: No Advance Directives: No Advance Directives Information Provided: Yes Patient : No Poor oral hygiene: No Current occupational status: employed Current occupation: [employer]. Sexual orientation: Straight/Heterosexual Gender identity: Female Meds Allergies Allergy/AdvReac Type Severity Reaction Status Date / Time No Known Allergies (No Known Allergy Verified 06/09/25 06:15 Allergies*) Home Medications ?Medication ?Instructions ?Recorded ?Confirmed ?Last Taken ?Type cholecalciferol (vitamin D3) 25 25 mcg PO DAILY 10/16/22 06/09/25 Unknown History mcg (1,000 unit) capsule indapamide 1.25 mg tablet 1.25 mg PO DAILY 08/18/24 06/09/25 11/12/24 History Exam Pertinent Lab Results Pertinent Lab Results: Laboratory Tests 06/02/25 10:23 Blood Type O Positive Antibody Screen NEGATIVE Laboratory Tests 06/02/25 10:33 WBC 5.7 Hgb 14.3 Hct 42.1 Plt Count 237 Sodium 142 Potassium 4.5 Chloride 107 Carbon Dioxide 27 BUN 10 Creatinine 0.73 Narrative Narrative: EKG 06/2025 Vent. Rate : 67 BPM Atrial Rate : 67 BPM P-R Int : 188 ms QRS Dur : 84 ms QT Int : 412 ms P-R-T Axes : 71 20 76 degrees QTcB Int : 435 ms Normal sinus rhythm Normal ECG No previous ECGs available Assessment and Plan Assessment Anesthesia Assessment: Chart Reviewed Final Anesthetic Review Family History of Problems with Anesthesia: No History of Problems with Anesthesia: No Documented by User: Agnes Chapin DO 06/09/25 07:08 [facility] Past Medical History Medical History Acid reflux Tubulovillous adenoma Family History Family History Father CAD (coronary artery disease) Mother No problems noted. Unknown No problems noted. Family history of problems with anesthesia: No Surgical History Surgical History Hx of bladder endoscopy History of femoral hernia repair Hx of colonoscopy History of bilateral breast implants History of arthroscopy of left shoulder History of left breast biopsy History of D&C History of section History of Problems with Anesthesia: No Social History Social History Household Members: Spouse Household Members Other:: son Are you a primary career technology teacher to a significant other at home: No Do you presently have visiting nurse or other home services: No Alcohol intake: current Alcohol intake frequency: holidays/special occasions only Patient Tobacco Use Status: Former Tobacco user Tobacco use type: Cigarette Cigarette Packs Per Day: 0.5 Cigarettes Per Day: 10.0 Years Smoked: 35 Use of substances other than those prescribed or required for medical reasons: No Have you been hit, kicked, punched, or otherwise hurt by someone within the past year? If so, by whom?: No Are you DNR?: No Advance Directives: No Advance Directives Information Provided: Yes Patient : No Poor oral hygiene: No Current occupational status: employed Current occupation: [employer]. Sexual orientation: Straight/Heterosexual Gender identity: Female Meds Allergies Allergy/AdvReac Type Severity Reaction Status Date / Time No Known Allergies (No Known Allergy Verified 06/09/25 06:15 Allergies*) Home Medications ?Medication ?Instructions ?Recorded ?Confirmed ?Last Taken ?Type cholecalciferol (vitamin D3) 25 25 mcg PO DAILY 10/16/22 06/09/25 Unknown History mcg (1,000 unit) capsule indapamide 1.25 mg tablet 1.25 mg PO DAILY 08/18/24 06/09/25 11/12/24 History Exam Exam Date and Time: 06/09/25 0645 Height,Weight and Vital Signs: Height 5 ft 7 in Weight 65 kg Vital Signs Temperature 97.6 F 06/09/25 06:25 Pulse Rate 88 06/09/25 06:25 Respiratory Rate 14 06/09/25 06:25 Blood Pressure 131/89 06/09/25 06:25 Pulse Oximetry 95 06/09/25 06:25 Oxygen Delivery Method Room Air 06/09/25 06:25 Temperature 97.6 F 06/09/25 06:25 Pulse Rate 88 06/09/25 06:25 Respiratory Rate 14 06/09/25 06:25 Blood Pressure 131/89 06/09/25 06:25 Pulse Oximetry 95 06/09/25 06:25 Oxygen Delivery Method Room Air 06/09/25 06:25 Airway Mallampati Class: I TM Dist: >3cm Neck ROM: Full Loose/Missing/Broken Teeth: No (patient denies any loose or broken teeth) Heart: S1S2 Lungs: CTAB Assessment and Plan Assessment Anesthesia Assessment: Anesthesia Plan Discussed and Chart Reviewed Final Anesthetic Review Family History of Problems with Anesthesia: No History of Problems with Anesthesia: No NPO: Yes ASA Class: II Final Preanesthetic Review: No Changes in Pt Med Stat, Meds/Allgs Chart Reviewed, Consent Obtained/Reviewed and Anes Risks/Benef Reviewed Patient Risk: Low Procedure Risk: Intermediate Anesthetic Plan Anesthetic Plan: GA and Agree w/ Assess. and Plan Disposition: Standard PACU
--- NOTE | 2025-06-09 07:29 | MHC.SHP ---
Pre-Procedural Eval Section A - 24 Hr Update-Section A only Date of Service: 06/09/25 The patient is an INPATIENT: No The patient has been examined within 24 hours of the surgical procedure. The History & Physical has been completed within 30 days and I have reviewed it.: Yes Section B - Complete if H&P > 30 days Chief Complaint: Diaphragmatic hernia without obstruction or gangre Relevant Family History (Specify if Yes): No Relevant Social History: None Present Medications: None Medical History: No relevant PMH History of Previous Operations: No relevant previous surgery Allergies: Allergies Allergy/AdvReac Type Severity Reaction Status Date / Time No Known Allergies (No Known Allergy Verified 06/09/25 06:15 Allergies*) Review of Systems Sugical H&P ROS: Negative: Constitution, Cardiovascular, Respiratory, Neurological, Psychiatric, Hem-Onc, Allergic/Immunologic, Gastrointestinal, Genitourinary, Musculoskeletal, Integumentary, Endocrine and Eyes/Ears/Nose/Throat Exam Surgical H&P Exam: Normal: HEENT, Normal: Heart, Normal: Lungs, Normal: Extremities, Normal: Abdomen, Normal: Skin and Normal: Neurological Plan Diagnosis/Plan: Unchanged I have reviewed the history and physical and performed a pertinent physical examination on my patient. No changes have occurred unless specified. Time Spent With Patient Time: Total time managing care of this patient today ____ minutes.
--- NOTE | 2025-06-09 07:29 | PM.OP ---
Brief Operative Note Date of Service: 06/09/25 Pre-op diagnosis: GERD and diaphragmatic hernia Post-op diagnosis: same (& hepatomegaly) Procedure: Date of Service: 06/09/2025 Pre-op diagnosis: Diaphragmatic hernia Post-op diagnosis: same Procedure: Procedure: COMORBIDITIES: GERD, diaphragmatic hernia, hypertension ?INDICATIONS: The patient is a 60 year old female who [facility] and GERD confirmed by EGD and UGI. The patient is scheduled today for diaphragmatic hernia repair. Risks of recurrent hernia, dysphagia, persistent GERD, VTE, leak, infection and bleeding were discussed with the patient and he is in agreement with the plan. PROCEDURE: Esophago-gastroscopy, laparoscopic lysis of adhesions, laparoscopic repair of incarcerated diaphragmatic hernia and laparoscopic gastropexy. DESCRIPTION OF PROCEDURE: After informed consent was obtained from the patient, the patient was given preoperative antibiotics, and was transferred to the operating room. After successful induction of general anesthesia, pneumatic compression devices were placed on both lower extremities. An upper endoscopy was performed next. The oropharynx and upper esophagus appeared to be within normal limits. There was a diaphragmatic hernia present. The stomach was entered and the scope was advanced all the way to the pylorus.? After all fluid and air were suctioned and the stomach was fully decompressed, the scope was withdrawn and secured in the mid esophagus. The patient was then prepped and draped in the usual sterile manner. Abdominal access was established at the right upper quadrant with the Lawrence technique. A 12 mm blunt trocar was inserted and the abdomen was insufflated with CO2 to a pressure of 15 mmHg. Following that additional ports were placed, specifically two 5 mm Versi-step ports to the left upper and one 5 mm Versi-step to the right upper quadrant. 1% lidocaine plain was used to infiltrate all port sites as well as all fascia defects. Following that, the patient was placed in a steep reverse Trendelenburg position. An additional 5 mm port was placed to the right flank for the Mediflex retractor that was used to retract the left lobe of the liver. There was significant hepatomegaly that limited exposure at the hiatal area and prolonged the operation. The retractor had t be adjusted several times throughout the procedure in order to get adequate exposure and complete the operation safely. I then opened the gastrocolic ligament between the transverse colon and the greater curvature of the stomach with the ultrasonic device to enter the lesser sac and facilitate the ligation of the short gastric vessels. I started at at the upper third along the greater curvature and using the Thunderbeat, all attachments were divided. There was an obvious diaphragmatic hernia. The stomach was incarcerated into the mediastinum with multiple thick adhesions. Mobilization of the stomach was very difficult as it was densely adherent to the spleen and required tedious and careful dissection of the proximal short gastric vessels. I continued dissecting along the hiatus toward the left justin into the mediastinum mobilizing the hernia sac from the mediastinum. The esophagus was carefully dissected off the aorta. The pleura spaces were not violated in either side. The pars flaccida was opened. It was actually herniated into the hernia defect. The vena cava was not dilated and it was carefully protected. I then continued by dissecting even further into the posterior retro-esophageal space all the way to the angle of His. I continued to mobilize the esophagus into the mediastinum circumferentially. The esophagus was densely adhrent to the aorta and the majority of these adhesions were mobilized. Both vagal nerves were seen and preserved. With extensive circumferential dissection into the mediastinum, I was able to bring the GE junction at least 3cm below the crura. I closed the hernia defect with four interrupted #0 Surgidac sutures using the Endo Stitch device, three of which were placed posterior and one of which anterior to the esophagus. The bites were carefully placed to include both the ventral and dorsal aspect of the two crura, advancing slightly more at the left justin as it was located more diagonally than the right. ? A gastropexy was then performed in order to prevent postoperative GERD and partial gastric volvulus. Several interrupted 2.0 Surgidac sutures were placed between the greater curvature of the dissected stomach and the previously divided greater omentum and gastro-colic ligament using the Endo-Stitch device. ?An upper endoscopy was performed. There was no narrowing at the GE junction or any esophageal injury. The scope was easily advanced all the way to the pylorus which was clearly visualized. There was no narrowing anywhere. I confirmed that the GE junction was 3cm intra-abdominally. At that point the gastroscope was withdrawn from the patient?s mouth while we were decompressing the bowel and the stomach from any remaining air. I looked into the lesser sac to see how the stomach was situating and it was situating well. There was no bleeding from the, spleen, or short gastric vessels. The Mediflex retractor was removed, and the undersurface of the liver was inspected and there was no bleeding. The patient was placed in supine position. Then 30cc of Ropivacaine plain with 10 mg of Dexamethasone were used to infiltrate the fascial closure as well as all skin incisions. At this point, the abdomen was deflated, all ports were removed under direct vision, and no bleeding was noted from any of the port sites. The skin incisions were irrigated with saline and were closed with 4-0 absorbable monofilament sutures. Steri-Strips and OpSites were used to cover all incisions. The patient was extubated and was transferred in stable condition to the recovery room for further care. I was present and performed all vargas parts of the procedure. Ms. Lay was the director of first impressions. There were no residents to assist with this case. Shahbaz Dhillon MD, PhD, FACS Surgeon: John Dhillon MD Anesthesia: GETA, local and other (TAP block) Was an Oxygen Therapy Teacher used for this Procedure?: No Oxygen Therapy Teacher: Norma Lay Estimated blood loss (mL): 10 IV fluids (mL): 2,000 Urine output (mL): 0 (No Suarez to record output) Pathology: none sent Condition: stable Disposition: PACU
--- NOTE | 2025-06-09 07:33 | P.PNGS_ITS ---
Subjective Subjective Date of Service: 06/10/25 Interval history: Feels well. Mild incisional pain. She is tolerating phase 1 bariatric diet Physical Exam 2 Vital Signs: Vital Signs: Last Vital Signs Temp 97.6 F 06/09/25 06:25 Pulse 88 06/09/25 06:25 Resp 14 06/09/25 06:25 BP 131/89 06/09/25 06:25 Pulse Ox 95 06/09/25 06:25 O2 Del Method Room Air 06/09/25 06:25 BMI result Body Mass Index 22.4 GI: Inspection: Yes normal to inspection and Yes incision (clean, dry and intact) Palpation (GI): Soft to palpation Extrem: Right lower extremity: normal to inspection (no calf tenderness) L eft lower extremity: normal to inspection (no calf tenderness) Objective Data Active Medications Haloperidol Lactate (Haloperidol Lactate 5 Mg/Ml Vial) 1 mg IVPUSH ONCE PRN PRN Reason: intractable nausea Stop: 06/09/25 13:08 Hydromorphone HCl (Hydromorphone Hcl 0.5 Mg/0.5 Ml Syringe) 0.5 mg IVPUSH Q5M PRN PRN Reason: Pain, Moderate to Severe (Pain Scale 4-10) Stop: 06/09/25 13:08 Lactated Ringer's (Lr) 1,000 mls @ 100 mls/hr IVCONT .Q10H TOMASZ Stop: 06/09/25 10:14 Naloxone HCl (Naloxone Hcl 0.4 Mg/Ml Vial) 0.04 mg IVPUSH Q5M PRN PRN Reason: Excessive sedation or RR < 8 Labs 06/10/25 05:19 06/10/25 05:19 Procedures Date of Service Date of Service: 06/10/25 Progress Note: A&P Assessment and plan (1) Diaphragmatic hernia: Status: Acute Assessment and Plan: s/p laparoscopic diaphragmatic hernia repair and gastropexy Doing well Will check am labs and if OK the patient will be discharged home (2) Acid reflux: Status: Acute (3) Hypertension: Status: Acute (4) Hepatomegaly: Status: Acute (5) S/P repair of paraesophageal hernia: Status: Acute Time Spent With Patient Time: Total time managing care of this patient today ____ minutes. Quality Stroke Does the patient have a stroke diagnosis?: No VTE Prior VTE?: No VTE Risk Level:: Surgical - moderate VTE Device Contraindication: N/A - Device Ordered VTE Drug Contraindication: Treatment Not Indicated
--- NOTE | 2025-06-09 10:45 | PM.DS ---
DS: Providers Provider Date of Service: 06/10/25 Date of discharge: 06/10/25 Primary care physician: Norma Jeter NP DS: Diagnosis Discharge Diagnosis (1) Diaphragmatic hernia: Status: Acute (2) Acid reflux: Status: Acute (3) Hypertension: Status: Acute (4) Hepatomegaly: Status: Acute (5) S/P repair of paraesophageal hernia: Status: Acute DS: Summary Hospital Course Hospital Course: ADMITTING DIAGNOSIS: GERD, diaphragmatic hernia, HTN, bursitis DISCHARGE DIAGNOSIS: same, s/p diaphragmatic hernia repair and gastropexy PAST SURGICAL HISTORY:? Hx of bladder endoscopy History of femoral hernia repair Hx of colonoscopy History of bilateral breast implants History of arthroscopy of left shoulder History of left breast biopsy History of D&C History of section PROCEDURE: upper endoscopy, diaphragmatic hernia repair and gastropexy DISCHARGE SUMMARY: History of Present Illness: The patient is a?60 year-old woman with a BMI of?22.4 kg/m2 and associated co-morbidities as described above. The patient had extensive work-up for GERD and was found to have a diaphragmatic hernia. She was electively scheduled for laparoscopic, possible open diaphragmatic hernia repair and gastropexy. Risks and complications of the surgery were discussed with the patient in advance, particularly the possibility of , pulmonary embolism, anastomotic leak, bleeding, bowel injury, GERD, cardiac, renal or pulmonary complications. The patient understood all the risks and was in agreement with the surgical plan. Hospital Course: The patient underwent an uneventful laparoscopic diaphragmatic hernia repair with gastropexy and repair of diaphragmatic hernia on the day of admission. Postoperatively, the patient was transferred to the surgical floor. The patient received IV acetaminophen and IV Dilaudid for pain control. Patient was started on bariatric phase 1 diet POD #0. On postoperative day one, the patient was feeling well without nausea, vomiting, fevers, or tachycardia. The patient had some mild incisional pain and the abdomen was soft.? ? On the morning of postoperative day one, the patient was continued on 1 ounce of water or ice every half hour. During the day, the patient did fairly well, having some incisional pain, but able to ambulate adequately and to tolerate liquids well. Since the patient is doing well, we decided that the patient was ready to be discharged. The patient was given instructions to follow-up in office next week and to call the office for any fever over 101, persistent abdominal pain, nausea, vomiting, GERD, symptoms of DVT such as calf tenderness, or leg swelling, or pulmonary embolism such as chest pain or shortness of breath.? The patient was also instructed to drink 40-60 ounces of liquids per day using the 1-ounce cups. The patient had been given prescriptions for Tylenol for pain, Zofran prn for nausea, and pantoprazole and carafate previously. The patient was encouraged to ambulate and use the incentive spirometer. The patient was allowed to shower, but no baths, and encouraged to stay active at home. All of these instructions were given to the patient personally. All questions were answered and the patient understood all instructions, the instructions were also given to the patient in print. Time Attestation Discharge Coordination Time (in mins): 30 Quality: Safe Use of Opioids Does Pt have an Active Cancer Diagnosis on the Problem List?: No Quality: Stroke Does the patient have a stroke diagnosis?: No Physical Exam Vital Signs: Vital Signs: Last Vital Signs Temp 98 F 06/09/25 10:20 Pulse 87 06/09/25 10:35 Resp 11 L 06/09/25 10:35 BP 140/79 H 06/09/25 10:35 Pulse Ox 95 06/09/25 10:35 O2 Del Method Nasal Cannula wit h Capnography 06/09/25 10:35 O2 Flow Rate 3 06/09/25 10:35 BMI result Body Mass Index 22.4 Discharge Plan Discharge Patient Disposition: Home, Self-Care Referrals: Norma Jeter NP [Primary Care Provider, Medical] - 1 Week Discharge Medications: Held indapamide 1.25 mg tablet 1.25 mg PO DAILY Hold Instructions: Resume on 06/10/25. Only resume according to parameters given by Dr. Dhillon Discontinued famotidine [Pepcid] 20 mg tablet 20 mg PO BEDTIME Qty: 30 3RF polyethylene glycol 3350 17 gram/dose powder 17 g PO DAILY Qty: 238 0RF Rx Instructions: Mix each measuring cup with 8oz of water, Crystal light, or Gatorade zero, or Propel and do 7 measuring cups on 01/27/25 and another 7 measuring cups on 01/28/25 No Action famotidine 40 mg tablet 40 mg PO DAILY zolpidem 5 mg tablet 2.5 mg PO BEDTIME PRN (Reason: Sleep) Discharge Orders: Discharge Order (Routine); Ordered 06/10/25 Ordered By: John Dhillon Activity on Discharge: No heavy lifting Activity Restrictions/Additional Instructions: No tub baths, sex or returning to work until discussed at first post op appointment. No alcohol, tobacco or illegal drug use. Continue to use incentive spirometer hourly while awake. Walk in home for 5- 10 minutes every 2 hours during the first week. Wear abdominal binder with activity. Follow all meal plan instructions from your surgeon. Discharge Instructions 1. Please call your doctor or come back to the emergency room should any new symptoms arise. 2. Activity: abstain from alcohol,? limited stair climbing, no bending, no driving, no exercise, no illicit substances, no lifting, no sex, no tub bath, no work. 4. Diet: follow your surgeon's recommendations for advancing diet. 5. Dressing Change/Wound Care: Your incisions are covered with waterproof dressings. You can shower with these and pat dry. Do not rub over dressings or incisions. If the area is tender, you may apply an ice pack for short intervals (no more than 20 minutes on, followed by at least 20 minutes off). Do not apply heat. Do not use creams, lotions, or topical antibiotics unless instructed to do so by your surgeon. 6. Call your doctor if: - Your temperature exceeds 101.5 F - You experience excessive pain or swelling - You have an unexpected reaction to medication - You have excessive bleeding - You experience continued vomiting/nausea - Your incision begins to separate - Your incision shows signs of infection such as increased redness, swelling, excessive pain, heat, or drainage (light blood or clear fluid is normal) General instructions: No lifting greater than 10 lbs for the next 6 weeks. No driving within 24 hours of taking narcotic pain medications. If you do not move your bowels in the next 2 days, please take milk of magnesia over the counter. Please follow the post op diet and do not advance your diet until instructed by your surgeon or until you are seen in the office in about 1 week. Please walk around your home every hour or two to prevent blood clots from forming in your legs. You do not need to wake from sleeping to walk. Please sleep in a bed or couch to prevent kinking at the hips and knees. Please take your incentive spirometer (your lung special investigation unit investigator) home with you and use it for the next few days to prevent pneumonias. You may shower; no hot tubs, baths or swimming pools. Please make sure you are consuming 40-60 ounces of total fluids per day. Avoid all carbonation. Please call the office with any questions or concerns such as increasing abdominal pain, fever, chills, shortness of breath, chest pain, leg pain or swelling, or redness or drainage from your incisions. Do not hesitate to contact the office with any questions at . The patient's medical history has been reviewed and they are considered low risk for post op DVT and therefore DVT prophylaxis is not considered necessary. Travel after surgery was reviewed. The patient has not disclosed any travel plans during the first 30 days after surgery and they have been advised that within the first 30 days after surgery any bus, plane, train or car travel over 2 hours in duration is contraindicated due to the possibility of developing blood clots from immobility. Any travel, needs to include periods of ambulation of 10 minutes in duration every 2 hours.? The patient was instructed to discuss any plans for travel during this period with their bariatric surgeon. Print Language: Citizen Of [place] Discharge Date/Time: 06/10/25 09:00
[2025-06-09] MEDS: Lactated Ringers 1,000 ML 100 ML IVCONT ×4 (12:10→21:21)
[2025-06-09 12:30] LABS: Hematocrit 42.3 % (37.0-47.0); Hemoglobin 14.3 g/dl (12.0-16.0)
[2025-06-09 12:44] LABS: Anion Gap 14 (12-20); Blood Urea Nitrogen 15 mg/dL (9-16); Calcium 8.5 mg/dL (8.4-10.2); Carbon Dioxide 27 mmol/L (22-29); Chloride 103 mmol/L (96-108); Creatinine Clr Calc Pharmacy 80.8; Estimated Glomerular Filt Rate > 60; Potassium 3.7 mmol/L (3.3-5.1); Sodium 140 mmol/L (135-145)
--- NOTE | 2025-06-09 14:48 | PHA.MEDREC ---
Addendum entered by Jb Anderson RPh 06/09/25 14:57: MED REC REVIEWED BY [facility] Original Note: Pharmacy Consult ? Medication Reconciliation Pharmacy has completed the medication reconciliation. Spoke to pt and she confirmed her medications herself (dose and how taken) without me needing to ask about them; pt states she still takes Indapamide 1.25mg tabs once daily (pt pharmacy states pt last got 12/07/2024 for 90 days).
[2025-06-09] MEDS: 0.9 % Sodium Chloride Flush 3 ML SYRINGE IVFLUSH (20:13)
[2025-06-10 00:37] VITALS: BP 123/75; PULSE 71; TEMP 36.3
[2025-06-10 00:38] VITALS: BP 123/75; PULSE 77; RESP 18; O2SAT 93
[2025-06-10 03:34] VITALS: BP 128/67; PULSE 84; RESP 18; TEMP 36.3; O2SAT 95
[2025-06-10] MEDS: Lactated Ringers 1,000 ML 100 ML IVCONT (05:24)
[2025-06-10 06:05] LABS: MANUAL DIFF FLAG NO
[2025-06-10 06:24] LABS: Hematocrit 39.0 % (37.0-47.0); Hemoglobin 13.6 g/dl (12.0-16.0); Imm Gran Abs Auto 0.03 X10*3/uL (0.00-0.03); Imm Gran Pct Auto 0.3 % (0.0-0.4); Lymphocytes Absolute Auto 1.3 X10*3/uL (1.2-4.9); Mean Corpuscular HGB Conc 34.9 g/dl (31.0-35.0); Mean Corpuscular Hemoglobin 29.4 pg (27.0-33.0); Mean Corpuscular Volume 84.4 fL (80.0-98.0); NRBC Abs Auto 0.000 X10*3/uL (0.0-0.012); NRBC Pct Auto 0.0 /100WBC (0.0-0.2); Platelet Count 233 X10*3/uL (160-400); Red Blood Count 4.62 X10*6/uL (4.20-5.50); White Blood Count 10.6 X10*3/uL (4.8-10.8)
[2025-06-10 06:33] LABS: Anion Gap 15 (12-20); Blood Urea Nitrogen 11 mg/dL (9-16); Calcium 8.4 mg/dL (8.4-10.2); Carbon Dioxide 26 mmol/L (22-29); Chloride 102 mmol/L (96-108); Creatinine Clr Calc Pharmacy 92.3; Estimated Glomerular Filt Rate > 60; Potassium 3.9 mmol/L (3.3-5.1); Sodium 139 mmol/L (135-145)
[2025-06-10 07:29] VITALS: BP 123/70; PULSE 79; RESP 18; TEMP 36.4; O2SAT 94
--- NOTE | 2025-06-10 08:45 | MHC.CM.PN ---
pt dcd home self care prior to being seen by cm
--- NOTE | 2025-06-10 09:17 | HO.POSTANES ---
Post Anesthesia Evaluation Post Anesthesia Evaluation Date of Service: 06/10/25 Vital Signs: Vital Signs Temp Pulse Resp BP Pulse Ox O2 Del Method 06/10/25 07:29 97.6 F 79 18 123/70 94 Room Air 06/10/25 03:34 97.4 F 84 18 128/67 95 Room Air 06/10/25 00:38 77 18 123/75 93 Room Air 06/10/25 00:37 97.4 F 71 123/75 Anesthesia: General Mental Status: Awake Pain Control: Satisfactory Nausea/Vomiting: None Hydration: Adequate Anesthesia-Related Issues: No Anes. Related Issues
== END 2025-06-10 09:00 | disposition home or self-care (01) ==
LOC: HO.SSS 10:41 → HO.S3 14:08
PROVIDERS: Physician Assistant Surgical; PCP Nurse Practitioner Family; Visit Provider Surgery
PROC: (CPT 43281; principal; 2025-06-09 07:30)
DX: K44.0 Diaphragmatic hernia with obstruction, without gangrene (principal); K66.0 Peritoneal adhesions (postprocedural) (postinfection); R16.0 Hepatomegaly, not elsewhere classified; K21.9 Gastro-esophageal reflux disease without esophagitis; I10 Essential (primary) hypertension; Z87.19 Personal history of other diseases of the digestive system; Z79.899 Other long term (current) drug therapy; Z98.890 Other specified postprocedural states; Z87.891 Personal history of nicotine dependence
CPT/HCPCS: 43281; 43659; 36415; 80048; 85014; 85018; 85025; 86850; 86900; 86901; A4649; C9145; J0131; J0690; J1100; J1171; J1308; J2003; J2371; J2405; J2704; J2765; J2795; J3010; J7120

== ENCOUNTER → 2025-06-09 05:59 | Outpatient (BNV) | payer OTHER, SELFPAY | PROVIDERS: PCP Nurse Practitioner Family; Visit Provider Surgery | DX: K44.9 Diaphragmatic hernia without obstruction or gangrene (principal); K21.9 Gastro-esophageal reflux disease without esophagitis; I10 Essential (primary) hypertension; R16.0 Hepatomegaly, not elsewhere classified; Z98.890 Other specified postprocedural states; Z87.19 Personal history of other diseases of the digestive system | CPT/HCPCS: 43281; 99024 ==

== ENCOUNTER 2025-06-17 09:55 | Outpatient (AMB) | payer OTHER, SELFPAY ==
[2025-06-17 10:09] VITALS: BP 138/93; PULSE 88; TEMP 36.6; O2SAT 98; BMI 21.9
--- NOTE | 2025-06-17 10:09 | MHC.OFFVISWM ---
VS Expanded 06/17/25 10:09 BP 138/93 H Blood Pressure Location Rt brachial Blood Pressure Position Sitting Pulse 88 Pulse Source Pulse Oximeter Temp 97.8 F Temperature Source Temporal Artery Scan Pulse Oximetry 98 Oxygen Delivery Method Room Air Height 5 ft 7 in Weight 139 lb 12.8 oz BMI 21.9 Body Fat % 33.8 Body Fat Mass 47.2 Fat Free Mass 92.6 Visceral Fat Rating 7.0 Body Water % 46. Body Water Mass 65.4 Muscle Mass/Score 88.0 Basal Metabolic Rate/Score 1,259 Intake Visit Reasons: (OV) s/p Diaphragmatic Hernia 06/09/25 Allergies No Known Allergies (No Known Allergies*) Allergy (Verified 06/17/25 10:10) Medication List - Last Reconciled 06/17/25 by FRANCHESCA Duvall indapamide 1.25 mg PO DAILY Held on 06/10/25. Instructions: Resume on 06/11/25. Check your blood pressure every morning as soon as you wake up and send it to Dr. Dhillon. Do no take the blood pressure medication if the blood pressure is below 120/70. Wait every day to hear back from Dr. Dhillon before you take the medication. pantoprazole 40 mg PO DAILY sucralfate (Carafate) 10 mL PO BID zolpidem 2.5 mg PO BEDTIME PRN HPI Comments Details: Pt is s/p diaphragmatic hernia repair 06/09/2025. No pain. No nausea. Tolerating 3 Celebrate shakes, 1 scoop each in 8oz liquid. Was given a meal plan including 3 tbsp cottage cheese plus 1 Celebrate bar and 2 Rebuild shakes. Hydration is adequate. Does note headaches at 3am for the past 3 days. Reports fatigue. Very minimal reflux since surgery- maybe sometimes at night. [facility] Medical History (Updated 06/10/25 @ 00:01 by Pieter Marcelo) Hypertension Acid reflux Tubulovillous adenoma Surgical History (Updated 06/17/25 @ 10:11 by Anastasiya David CMA) Hx of hernia repair Hx of bladder endoscopy History of femoral hernia repair Hx of colonoscopy History of bilateral breast implants History of arthroscopy of left shoulder History of left breast biopsy History of D&C History of section Family History Father CAD (coronary artery disease) Mother No problems noted. Unknown No problems noted. Social History Household Members: Family Household Members Other:: son Housing: House Are you a primary career orientation teacher to a significant other at home: No Do you presently have visiting nurse or other home services: No Alcohol intake: current Alcohol intake frequency: holidays/special occasions only Patient Tobacco Use Status: Former Tobacco user Tobacco use type: Cigarette Cigarette Packs Per Day: 0.5 Cigarettes Per Day: 10.0 Years Smoked: 35 Current occupational status: employed Current occupation: [employer] Sexual orientation: Straight/Heterosexual Gender identity: Female Physical Exam Const General: cooperative, comfortable and no acute distress Orientation/consciousness: patient oriented x3 GI Other: soft, nontender, nondistended, steri-strips c/d/i Neuro General: patient oriented x3 Assessment & Plan Assessment & Plan (1) S/P repair of paraesophageal hernia: Code(s): Z98.890 - Other specified postprocedural states; Z87.19 - Personal history of other diseases of the digestive system Category: Surgical Plan May shower tomorrow but no bath or submersion of abdomen in water. May start exercise but no heavy lifting.? No abdominal exercises x 6 weeks. Abdominal binder for the next 2 weeks with activity or exercise. Continue meal plan per Dr Marr until next f/u in 5 weeks. Reviewed pantoprazole and carafate dosing. Reminded of the pace of drinking 2 mL/min or 1oz per 15 min.
--- OUTSIDE RECORDS SUMMARY | 2025-06-17 11:54 | XMS_ITS | Patient Health Record ---
[facility] Address [address] [place] [address] Care Team Providers Care Rail Splitter Name Role Phone Valerie ACKERMAN, Ines Primary Care Provider Unavail able Black, Yoli Unavailable [phone] Reason For Referral No Information Medications Medication [...] Status Risk Notes Problem Acquired hallux valgus (06316803) Hallux valgus (acquired), left foot (M20.12) Active confirmed Problem Acquired hallux valgus (88042040) Hallux valgus (acquired), right foot (M20.11) Active confirmed Problem Non-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) Active confirmed Problem Acquired hammer toe of right foot (4919758511913 105) Other hammer toe(s) (acquired), right foot (M20.41) Active confirmed Problem Acquired hammer toe of left foot (2557010140103 103) Other hammer toe(s) (acquired), left foot (M20.42) Active confirmed Plan Of Treatment Pending Test Test Name Order Date [id number] Plate 12/16/2018 Insurance Providers Payer Name Payer Address Payer Phone Subscriber Number Group Number Insured Name Patient Relationship to Insured Coverage Start Date Coverage End Date [facility] [address] [place] [address] [id number] Samir Palomares Spouse - patient is the spouse of the insured Medical (General) History Medical History History ICD Code Chicken pox Joint implants/screws Surgical History Surgery Date(Month/Year) x 1 d&c 2014 left breast needle guided biopsy 08/2016 left shoulder arthroscopy 08/2017 shoulder surgery 08/2018
--- OUTSIDE RECORDS SUMMARY | 2025-06-17 11:54 | XMS_ITS | Clinical Summary ---
Author Organization [facility] Address [address] [place] [address] Phone Care Team Providers Care Credit Relationship Manager Name Role Phone Noram Jeter NP Primary Care Provider [phone] Allergies No known active allergies Medications albuterol [...] Upcoming Encounters Date Type Department Care Team ([facility] st Contact Info) Description 07/06/2025 9:15 AM EDT Office Visit Pulmonolgy - [place] [address] [phone] Nanette Tipton MD [address] [address] Health Maintenance Due Date Last Done Comments [...] complete this topic Insurance [employer] Care Teams Credit Relationship Manager Relationship Specialty Start Date End Date Norma Jeter NP [address] [place] [phone] PCP - General Family Medicine 10/10/24
--- OUTSIDE RECORDS SUMMARY | 2025-06-17 11:54 | XMS_ITS | Clinical Summary ---
Author Organization [email or web address] Address [address] [facility] [address] [place] [address] Care Team Providers Care Warehouse Selector Name Role Phone Unavailable Primary Care Provider [...]
--- OUTSIDE RECORDS SUMMARY | 2025-06-17 11:54 | XMS_ITS | Patient Health Record ---
Author Organization Radha Rivero MD Address [address] [id number] Care Team Providers Care Account Liaison Hospice Name Role Phone [email or web address] Primary Care Provider Allergies No Known Allergies Results Component Value Reference Range Notes CT Chest LDCT Lung Program Reviewed date:09/26/2024 [...] 227, unchanged No new nodules. OTHER FINDINGS: Tax Services Intern view findings, lines and tubes: None. Trachea [...] Category Modifier: None. Categorization based on Lung-RADS 2 criteria. [email or web address] I have personally reviewed the images and I agree with this report. WSN: [id number] Ordering Physician: Norma Jeter Dictated By: Nesha Funez DO Wrist Comp Min 3 Views Right Reviewed date:08/12/2024 01:26:52 PM Interpretation: Performing Lab: Notes/Report: Wrist Comp Min 3 Views Right Reason: ganglion rt wrist COMPARISON: None. FINDINGS: No fracture or dislocation. Normal carpal configuration. Intact radial and ulnar styloid processes. No arthritic change. Normal soft tissues. IMPRESSION: Normal. WSN: [id number] Ordering Physician: Norma Jeter Dictated By: Tra Maier MD EBCT Coronary calcium score Reviewed date:02/13/2025 02:44:12 PM Interpretation: Performing Lab: Notes/Report: CBC With Differential/Platel et-[id number] Reviewed date:08/12/2024 01:26:52 PM Interpretation: Performing Lab:[facility], [address] [place] [address] Avenue, [place], Phone - [phone], Director - Missy Notes/Report: WBC 6.7 3.4-10.8 [...] Grans (Abs) 0.0 0.0-0.1 x10E3/uL Vitamin D, 69-[id number] Reviewed date:08/12/2024 01:26:52 PM Interpretation: Performing Lab:[facility] [place], [address] [place] [address], [place], Phone - [phone], Director - Missy Notes/Report: Vitamin D, 25-Hydroxy 40.5 30.0-100.0 ng/mL Vitamin D deficiency has been defined by the [place] of Medicine and an Endocrine Society practice guideline as a level of serum 25-OH vitamin D less than 20 ng/mL (1,2). The Endocrine Society went on to further define vitamin D insufficiency as a level between 21 and 29 ng/mL (2). 1. IOM ([place] of Medicine). 2010. Dietary reference intakes for calcium and D. [place]: The National Academies Press. 2. Florence MF, Clementina NC, Floridalma LABOY, et al. Evaluation, treatment, and prevention of vitamin D deficiency: an Endocrine Society clinical practice guideline. JCEM. 2010; 96(7):1911-30. Albumin/Creatinine Ratio,Uri ne-[id number] Reviewed date:08/12/2024 01:26:53 PM Interpretation: Performing Lab:[facility] [place], [address] [facility], [place], Phone - [phone], Director - Missy Notes/Report: Creatinine, Urine 128.9 Not Estab. mg/dL Albumin, Urine 5.6 Not Estab. ug/mL Alb/Creat Ratio 4 0-29 mg/g creat Normal: 0 - 29 Moderately increased: 30 - 300 Severely increased: >300 HCV Antibody RFX to Quant PC [id number] Reviewed date:08/12/2024 01:26:53 PM Interpretation: Performing Lab:[facility] [place], [address] [place] [address], Phone - [phone], Director - Missy Notes/Report: HCV Ab Non Reactive Non Reactive Interpretation: Not infected with HCV unless early or acute infection is suspected (which may be delayed in an immunocompromised individual), or other evidence exists to indicate HCV infection. Comp. Metabolic Panel (14)-[id number] Reviewed date:08/12/2024 01:26:53 PM Interpretation: Performing Lab:[facility] [place], [address] [place] [address], Phone - [phone], Director - Missy Notes/Report: Glucose 67 70-99 [...] IU/L ALT (SGPT) 11 0-32 IU/L LP+Non-HDL Cholesterol-90425 5 Reviewed date:08/12/2024 01:26:53 PM Interpretation: Performing Lab:[facility] [place], [facility], Phone - [phone], Director - Missy Notes/Report: Cholesterol, Total 211 100-199 mg/dL Triglycerides 164 0-149 mg/dL HDL Cholesterol 63 >39 mg/dL VLDL Cholesterol Pro 29 5-40 mg/dL LDL Chol Calc (NIH) 119 0-99 mg/dL Non-HDL Cholesterol 148 0-129 mg/dL UA/M w/rflx Culture, Routine -[id number] Reviewed date:08/12/2024 01:26:53 PM Interpretation: Performing Lab:[facility], [address] [place] [address], Phone - [phone], Director - Missy Notes/Report: Specific [place] 1.024 1.005-1.030 pH 7.5 5.0-7.5 Urine-Color Yellow [...] date:09/26/2024 09:58:21 AM Interpretation: Performing Lab: Notes/Report: Albumin/Creatinine Ratio,Uri [id number] Reviewed date:02/19/2025 12:18:11 PM Interpretation: Performing Lab:[facility] [place], [address] [place] [address], Phone - [phone], Director - Missy Notes/Report: Creatinine, Urine 77.0 Not Estab. mg/dL Albumin, Urine <3.0 Not Estab. ug/mL Alb/Creat Ratio <4 0-29 mg/g creat Normal: 0 - 29 Moderately increased: 30 - 300 Severely increased: >300 UA/M w/rflx Culture, Routine -[id number] Reviewed date:02/19/2025 12:18:12 PM Interpretation: Performing Lab:[facility] [place], [address] [place] [address], Phone - [phone], Director - Missy Notes/Report: Specific [place] 1.015 1.005-1.030 pH 8.0 5.0-7.5 Urine-Color Yellow [...] seen /lpf Bacteria None seen None seen/Few Chest 2 Views Frontal and La t [...] acute abnormality. IMPRESSION: No acute abnormality. WSN: [id number] Ordering Physician: Norma Jeter Dictated By: Kirill ACKERMAN, Micheal Simms Chikungunya Antibody, IgG/M Reviewed date:05/29/2025 11:41:04 AM Interpretation: Performing Lab:[facility], [address] [facility] [address], [place], Phone - [phone], Director - [facility] Notes/Report: Result IgG: Negative Result IgM: [...] developed and its performance characteristics determined by [facility]. It has not been cleared or approved by the US Food and Drug Administration. This test was performed in a CLIA certified laboratory and is intended for clinical purposes. 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) Referral Organization Radha KIM Referring Provider First Name Norma Referring Provider Last Name Corona Referring Provider Speciality Nurse Prac titioner Referred Provider Kuldip Ortega Referred Provider Specialty Sleep Medici ne General Notes [facility] 10:11:07 AM >faxed Referral Priority Routine Reason Can we refer to [facility] Pulmonology for chronic cougn faxed Diagnosis 1 Acute cough (R05.1) Referral Organization Radha KIM Referring Provider First Name Norma Referring Provider Last Name Jeter Referring Provider Speciality Nurse [place] gerard Referred Provider Bassem Rojo Referred Provider Specialty Pulmonology General Notes [facility] 01/01 11:22:54 AM >faxed Referral Priority [...] Referred Provider Specialty Allergy/Immu nology General Notes [facility] 01/01 11:23:18 AM >faxed Referral [...] Vaccine Route Administration Date Status Comme nts [id number]-72-Ubdrlq Vaccine Unknown 12/21/2020 Administered PMUBG-30-Fwmnlo Vaccine Unknown 01/12/2021 Administered XQMNB-58-Tjmywf Vaccine Unknown 09/16/2021 Administered COVID-19 Pfizer BiValent Booster Unknown 09/29/2022 Adm inistered *Tdap Unknown 06/01/2023 Administered Problems Problem Type SNOMED Code ICD Code Onset Dates Problem Status W/U Status Risk Notes Problem Vitamin D deficiency (90798836) Vitamin D deficiency, unspecified (E55.9) Active confirmed Problem Mixed hyperlipidemia (215481646) Mixed hyperlipidemia (E78.2) Active confirmed Problem Environmental sleep disorder (532516417) 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 confirmed Problem Irregular sleep-wake pattern (875849355) Circadian rhythm sleep disorder, 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 Problem Chronic kidney disease due to hypertension (174256913784535) Hypertensive chronic kidney disease with stage 1 through stage 4 chronic kidney disease, or unspecified chronic kidney disease (I12.9) Active confirmed Problem Disorder of blood vessel (31040922) Other disorders of arteries, 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 (I79.8) Active confirmed Problem Seasonal allergic rhinitis (893153785) Other seasonal allergic rhinitis (J30.2) Active confirmed Problem Mild intermittent asthma (545460392) Mild intermittent asthma, uncomplicated (J45.20) Active confirmed Problem Chronic kidney disease stage 1 (600500810) Chronic kidney disease, stage 1 (N18.1) Active confirmed Problem Menopause (009239294) Menopausal and female climacteric states (N95.1) Active confirmed Problem Nicotine dependence (41671017) Personal history of nicotine dependence (Z87.891) Active confirmed Problem Gastroesophageal reflux disease with esophagitis (disorder) (681968586) Gastro-esophageal reflux disease with esophagitis, without bleeding (K21.00) Active confirmed Problem Chronic obstructive pulmonary disease (disorder) (78097081) Other specified chronic obstructive pulmonary disease (J44.89) Active confirmed Vital Signs Heart Rate 71 /min 05/25/2025 Temperature 95.2 degrees Fahrenheit 05/25/2025 Oximetry 98 % 05/25/2025 Blood pressure diastolic 72 mm Hg 05/25/2025 Height 67 in 05/25/2025 Blood pressure systolic 122 mm Hg 05/25/2025 Weight 149 lbs 05/25/2025 BMI 23.33 kg/m2 05/25/2025 Encounters Encounter Location Date Provider Diagnosis Radha Rivero MD [address] [id number] 07/21/2024 Norma Jeter Encounter for genera l [...] and behavioral disorders Z13.39 Radha Rivero MD [address] [id number] 12/04/2024 Norma Jeter Hypertensive chronic kidney disease with stage 1 through stage 4 chronic kidney disease, or unspecified chronic kidney disease I12.9 ; Chronic kidney disease, stage 1 N18.1 and Gastro-esophageal reflux disease with esophagitis, without bleeding K21.00 Radha Rivero MD [address] [id number] 01/12/2025 Norma Sanchese Hypertensive chronic kidney disease [...] and Mixed hyperlipidemia E78.2 Radha Rivero MD [address] [id number] 01/28/2025 Norma Sanchese Hypertensive chronic kidney disease [...] obstructive pulmonary disease J44.89 Radha Rivero MD [address] [id number] 05/25/2025 Norma Jeter Acute cough R05.1 ; Hypertensive chronic kidney disease with stage 1 through stage 4 chronic kidney disease, or unspecified chronic kidney disease I12.9 ; Chronic kidney disease, stage 1 N18.1 ; Gastro-esophageal reflux disease with esophagitis, without bleeding K21.00 ; Diaphragmatic hernia without obstruction or gangrene K44.9 and Other disorders of arteries, 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 I79.8 Rdaha Rivero MD [address] [id number] 07/08/2024 Norma Rivero MD [address] [id number] 08/12/2024 Norma Rivero MD [address] [id number] 09/26/2024 Norma Jeter Radha Rivero MD [address] [id number] 12/02/2024 Norma Rivero MD [address] [id number] 12/04/2024 Norma Jeter Gastro-esophageal reflux disease with esophagitis, without bleeding K21.00 Radha Rivero MD [address] [id number] 12/04/2024 Norma Rivero MD [address] [id number] 01/26/2025 Norma Rivero MD [address] [id number] 01/31/2025 Norma Rivero MD [address] [id number] 02/05/2025 Norma Jeter Isolated proteinuria R80.0 Radha Rivero MD [address] [id number] 02/13/2025 Norma Rivero MD [address] [id number] 05/20/2025 Norma Jeter Radha Rivero MD [address] [id number] 06/30/2024 Norma Jeter Other sleep disorder s not due to a substance or known physiological condition F51.8 Radha Rivero MD [address] [id number] 08/02/2024 Norma Rivero MD [address] [id number] 08/26/2024 Norma Rivero MD [address] [id number] 08/26/2024 Norma Jeter Radha Rivero MD [address] [id number] 09/19/2024 Norma Jeter Acute upper respirat ory infection, unspecified J06.9 and Chronic cough R05.3 Radha Rivero MD [address] [id number] 11/10/2024 Norma Jeter Mild intermittent asthma, uncomplicated J45.20 Radha Rivero MD [address] [id number] 11/10/2024 Norma Jeter Mild intermittent asthma, uncomplicated J45.20 Radha Rivero MD [address] [id number] 11/11/2024 Norma Jeter Radha Rivero MD [address] [id number] 11/11/2024 Norma Jeter Radha Rivero MD [address] [id number] 01/13/2025 Norma Jeter Radha Rivero MD [address] [id number] 01/23/2025 Norma Jeter Chronic cough R05.3 Radha Rivero MD [address] [id number] 01/26/2025 Norma Corona Rivero MD [address] [id number] 02/02/2025 Norma Jeter Urinary tract infection, site not specified N39.0 Radha Rivero MD [address] [id number] 02/04/2025 Norma Rivero MD [address] [id number] 03/20/2025 Norma Jeter Assessments Encounter Date Diagnosis (ICD Code) Assessment Notes Treatment Notes Treatment Clinical Notes Section Notes 07/21/2024 Hypertensive chronic kidney disease with stage [...] with esophagitis, without bleeding (ICD-10 - K21.00) 01/23/2025 Chronic cough (ICD-10 - R05.3) 01/28/2025 [...] N39.0) 02/05/2025 Isolated proteinuria (ICD-10 - R80.0) 01/12/2025 Hypertensive chronic kidney disease with stage [...] was on vacation last March in [facility]. She states this cough was associated with a fever, body aches, and chills. Patient has been evaluated by pulmonology as well as allergy and immunology and all specialist agree that her cough may be related to uncontrolled reflux. Would also like to obtain Chikungunya antibody IgG levels to see if patient was exposed during her trip to [facility] last year and have caused her previous and continued symptoms 06/30/2024 Other sleep disorders not due to a substance or known physiological condition (ICD-10 - F51.8) 05/25/2025 Chronic kidney disease, stage 1 (ICD-10 - N18.1) Previous GFR noted to be in the 90s. 01/12/2025 Gastro-esophageal reflux disease with esophagitis, without bleeding (ICD-10 - K21.00) Patient continues to use her famotidine daily with overall management of her reflux symptoms. She is scheduled for hiatal hernia repair in January to help further improve her reflux symptoms 01/28/2025 Gastro-esophageal reflux disease with esophagitis, without [...] resolve the cough that she is experiencing. 12/04/2024 Gastro-esophageal reflux disease with esophagitis, without [...] panel to reassess GFR at this time 07/21/2024 Menopausal and female climacteric states (ICD-10 - N95.1) Stable and patient has not had any increased symptoms of hot flashes and feels as though her previous symptoms have resolved without treatment. Patient to follow-up should her symptoms return as we could then discuss additional treatment options 01/28/2025 Diaphragmatic hernia without obstruction or gangrene (ICD-10 - K44.9) See plan above.Patient is now scheduled for repair of hiatal hernia in 01/12/2025 Diaphragmatic hernia without obstruction or gangrene [...] in managing her reflux symptoms and cough 01/12/2025 Acute cough (ICD-10 - R05.1) Spent [...] her chronic cough. Will refer patient to [place] [facility]ology for further evaluation 07/21/2024 Ganglion, right wrist (ICD-10 - M67.431) [...] undergo a sleep study for further evaluation 01/28/2025 Other seasonal allergic rhinitis (ICD-10 - J30.2) Would like patient to begin Xyzal to see if this can further manage her seasonal allergy symptoms and postnasal drip. Would also like patient to have allergy testing for further evaluation and to rule out underlying causes that may be an irritant to her persistent cough 05/25/2025 Other disorders of arteries, arterioles [...] we can further evaluate symptoms while present 01/12/2025 Mixed hyperlipidemia (ICD-10 - E78.2) Patient [...] overall CAD risk given his family history 01/28/2025 Other specified chronic obstructive pulmonary disease (ICD-10 - J44.89) See plan above.Will refer patient to [place] pul[facility]ology for further evaluation and to determine underlying causes for her persistent chronic cough. Suspect that patient may have mild COPD and will begin patient on Breztri to see if this can further assist in symptom management while she waits for pulmonology consult 07/21/2024 Vitamin D deficiency, unspecified (ICD-10 - [...] patient states she completed her mammogram through [facility] this year. Will try and obtain [...] LIPID PANEL 12/04/2022 Chikungunya Ab, IgG by [id number] 05/02 Next Appt Details Provider Name:Norma Marr Jeter , 07/27/2025 01:00:00 PM, [address] [place] [address], [address], [place], [place], [phone], Insurance Providers Payer Name Payer Address Payer Phone Subscriber Number Group Number Insured Name Patient Relationship to Insured Coverage Start Date Coverage End Date [employer] [address] [place] [address] [id number] Martha Palomraes Self - patient is the insured Medical (General) History Medical History History ICD Code hypertension hiatal hernia Surgical History Surgery Date(Month/Year) uterine ablation (age 51) Hospitalization History Reason Date(Month/Year)
== END 2025-06-17 10:31 | disposition home or self-care (01) ==
LOC: HO.HBS 09:56
PROVIDERS: PCP Nurse Practitioner Family; Visit Provider Physician Assistant Surgical
DX: Z71.3 Dietary counseling and surveillance (principal); Z98.890 Other specified postprocedural states; Z87.19 Personal history of other diseases of the digestive system
CPT/HCPCS: 99024

== ENCOUNTER 2025-08-07 09:34 | Outpatient (AMB) | payer OTHER, SELFPAY ==
--- NOTE | 2025-08-07 09:20 | A.OFFVIS_ITS ---
VS Expanded 08/07/25 09:27 Height 5 ft 7 in Weight 137 lb BMI 21.5 Intake Visit Reasons: TV s/p Diaphragmatic Hernia 06/09/25 Allergies No Known Allergies (No Known Allergies*) Allergy (Verified 06/17/25 10:10) Medication List - Last Reconciled 08/07/25 by FRANCHESCA Duvall indapamide 1.25 mg PO DAILY Held on 06/10/25. Instructions: Resume on 06/11/25. Check your blood pressure every morning as soon as you wake up and send it to Dr. Dhillon. Do no take the blood pressure medication if the blood pressure is below 120/70. Wait every day to hear back from Dr. Dhillon before you take the medication. pantoprazole 40 mg PO DAILY sucralfate (Carafate) 10 mL PO BID zolpidem 2.5 mg PO BEDTIME PRN HPI Comments Details: Pt is s/p diaphragmatic hernia repair 06/09/2025. Meal plan: 1 cup coffee in AM, decaf tea in afternoon- no carbonated liquids. She has resumed normal eating. She is careful with her intake- doesn't tolerate bread. She notes a lot of burping. No vomiting. Started taking a probiotic. cream of wheat with fruit for breakfast cottage cheese with fruit for lunch banana, or nuts for snack dinner- whatever my cooks - meat, starch, lots of vegetables, is careful with her portions eating more slowly now, is careful She does note that reflux has returned- maybe slightly better than previous. Mostly noted at night when she lies down. She feels like food might still back up there. Liquids are tolerated fine. She had stopped the carafate, continues on pantoprazole. Feels pressure and the need to constantly swallow. [facility] Medical History (Updated 06/18/25 @ 00:01 by Background Daemon) Hypertension Acid reflux Tubulovillous adenoma Surgical History (Updated 06/18/25 @ 00:01 by Background Daemon) Hx of hernia repair Hx of bladder endoscopy History of femoral hernia repair Hx of colonoscopy History of bilateral breast implants History of arthroscopy of left shoulder History of left breast biopsy History of D&C History of section Family History Father CAD (coronary artery disease) Mother No problems noted. Unknown No problems noted. Social History Household Members: Family Household Members Other:: son Housing: House Are you a primary pet care worker to a significant other at home: No Do you presently have visiting nurse or other home services: No Alcohol intake: current Alcohol intake frequency: holidays/special occasions only Patient Tobacco Use Status: Former Tobacco user Tobacco use type: Cigarette Cigarette Packs Per Day: 0.5 Cigarettes Per Day: 10.0 Years Smoked: 35 Current occupational status: employed Current occupation: [employer] Sexual orientation: Straight/Heterosexual Gender identity: Female Telehealth Telehealth Telehealth Platform: Telephone Location of provider rendering services: other Location of patient: address on file Patient Identification confirmed using: Name, : Yes Telehealth method: voice only Patient verbally consented to treatment: Yes Patient verbally consented to billing insurance company: Yes Patient informed of any privacy concerns related to visit: Yes Minutes spent on Phone/Video with Pt.: 12 Assessment & Plan Assessment & Plan (1) S/P repair of paraesophageal hernia: Code(s): Z98.890 - Other specified postprocedural states; Z87.19 - Personal history of other diseases of the digestive system Category: Medical (2) Acid reflux: Code(s): K21.9 - Gastro-esophageal reflux disease without esophagitis Category: Medical Qualifiers: Esophagitis presence: esophagitis presence not specified Qualified Code(s): K21.9 - Gastro-esophageal reflux disease without esophagitis Plan Pt continues to have reflux symptoms after HHR. Prior to surgery it was discussed that this may not definitively resolve her reflux and she understands that. Will discuss with Dr Marr any additional interventions. In the meantime continue PPI, portion control, appropriate pace of eating and avoiding triggers. Has appt already scheduled in Nov.
[2025-08-07 09:27] VITALS: BMI 21.5
--- OUTSIDE RECORDS SUMMARY | 2025-08-07 10:57 | XMS_ITS | Patient Health Record ---
Author Organization Radha Rivero MD Address [address] [place] [address] [phone] Care Team Providers Care Substation Operator Automatic Name Role Phone Norma Jeter Primary Care [...] acute abnormality. IMPRESSION: No acute abnormality. WSN: [id number] Ordering Physician: Norma Jeter Dictated By: Kirill ACKERMAN, Micheal Simms Albumin/Creatinine Ratio,Uri ne-[id number] Reviewed date:02/19/2025 12:18:11 PM Interpretation: Performing Lab:[facility], [address] [facility], Phone - [phone], Director - Missy Notes/Report: Creatinine, Urine 77.0 Not Estab. mg/dL Albumin, Urine <3.0 Not Estab. ug/mL Alb/Creat Ratio <4 0-29 mg/g creat Normal: 0 - 29 Moderately increased: 30 - 300 Severely increased: >300 UA/M w/rflx Culture, Routine -[id number] Reviewed date:02/19/2025 12:18:12 PM Interpretation: Performing Lab:[facility], [address] [facility], Phone - [phone], Director - MDJodry Notes/Report: Specific [place] 1.015 1.005-1.030 pH 8.0 5.0-7.5 Urine-Color Yellow [...] date:02/13/2025 02:44:12 PM Interpretation: Performing Lab: Notes/Report: CT Chest LDCT [...] 227, unchanged No new nodules. OTHER FINDINGS: Contact Center Associate view findings, lines and tubes: None. Trachea [...] None. Categorization based on Lung-RADS 2022 criteria. [email or web address] I have personally reviewed the images and I agree with this report. WSN: [id number] Ordering Physician: Norma Jeter Dictated By: Nesha Funez DO Ch[place]ungunya Antibody, IgG/M Reviewed date:05/29/2025 11:41:04 AM Interpretation: Performing Lab:[facility], [address] [place] [address], Phone - [phone], Director - [facility] Notes/Report: Result IgG: Negative Result IgM: [...] developed and its performance characteristics determined by [facility]. It has not been cleared or approved by the US Food and Drug Administration. This test was performed in a CLIA certified laboratory and is intended for clinical purposes. Electronically Signed By: Jt Valladares Wrist Comp Min 3 Views Right Reviewed date:08/12/2024 01:26:52 PM Interpretation: Performing Lab: Notes/Report: Wrist Comp Min 3 Views Right Reason: ganglion rt wrist COMPARISON: None. FINDINGS: No fracture or dislocation. Normal carpal configuration. Intact radial and ulnar styloid processes. No arthritic change. Normal soft tissues. IMPRESSION: Normal. WSN: [id number] Ordering Physician: Norma Jeter Dictated By: Tra Maier MD Reason For Referral Reason Can we refer to [facility]monology for chronic cougn faxed Diagnosis 1 Acute cough (R05.1) Referral Organization Radha KIM Referring Provider First Name Norma Referring Provider Last Name Corona Referring Provider Speciality Nurse Trinidad gerard Referred Provider Bassem Rojo Referred Provider Specialty Pulmonology General Notes [facility] Kita 01/01 11:22:54 AM >faxed Referral Priority Routine Referral Appointment Date 02/06/2025 Reason Would benefit from a llergy testing due to chronic cough and seasonal allergies faxed Diagnosis 1 Other seasonal aller gic rhinitis (J30.2) Referral Organization Radha KIM Referring Provider First Name Norma Referring Provider Last Name Corona Referring Provider Speciality Nurse Trin[place] gerard Referred Provider Wagner Carbone Referred Provider Specialty Allergy/Immu nology General Notes [facility] Kita 01/01 11:23:18 AM >faxed Referral Priority Routine Referral Appointment Date 02/17/2025 Medications Medication SIG (Take, Route, Frequency, Duration) Notes Start Date End Date Status Indapamide 2.5 MG 1 tablet in the morn ing Orally Once a day; Duration: 90 days Active Zolpidem Tartrate 5 MG TAKE 1/2 TABLET B Y MOUTH AT BEDTIME NEEDED ONCE A DAY 15 DAYS; Duration: 30 07/30/2025 Active Albuterol Sulfate HFA 108 (90 Base) MCG/ACT 1 puff as needed Inhalation every 4 hrs; Duration: 30 days Active Famotidine 40 MG 1 tablet Orally Once a day; Duration: 30 days Active Immunizations Vaccine Route Administration Date Status Comme nts HKZMD-74-Melclt Vaccine Unknown 12/21/2020 Administered GYDGT-72-Mqbisf Vaccine Unknown 01/12/2021 Administered XRKCL-27-Uuwjvh Vaccine Unknown 09/16/2021 Administered COVID-19 Pfizer BiValent Booster Unknown 09/29/2022 Adm inistered *Tdap Unknown 06/01/2023 Administered *Influenza-Flublok Unknown 07/27/2025 Refused Problems Problem Type SNOMED Code ICD Code Onset Dates Problem Status W/U Status Risk Notes Problem Vitamin D deficiency (22558185) Vitamin D deficiency, unspecified (E55.9) Active confirmed Problem Mixed hyperlipidemia (628002090) Mixed hyperlipidemia (E78.2) Active confirmed Problem Environmental sleep disorder (909466577) 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 confirmed Problem Irregular sleep-wake pattern (529996372) Circadian rhythm sleep disorder, 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 Problem Chronic kidney disease due to hypertension (949705911998040) Hypertensive chronic kidney disease with stage 1 through stage 4 chronic kidney disease, or unspecified chronic kidney disease (I12.9) Active confirmed Problem Disorder of blood vessel (48938148) Other disorders of arteries, 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 (I79.8) Active confirmed Problem Seasonal allergic rhinitis (294058970) Other seasonal allergic rhinitis (J30.2) Active confirmed Problem Mild intermittent asthma (683528632) Mild intermittent asthma, uncomplicated (J45.20) Active confirmed Problem Chronic kidney disease stage 1 (039962439) Chronic kidney disease, stage 1 (N18.1) Active confirmed Problem Menopause (346075972) Menopausal and female climacteric states (N95.1) Active confirmed Problem Nicotine dependence (29236073) Personal history of nicotine dependence (Z87.891) Active confirmed Problem Gastroesophageal reflux disease with esophagitis (disorder) (883425627) Gastro-esophageal reflux disease with esophagitis, without bleeding (K21.00) Active confirmed Problem Chronic obstructive pulmonary disease (disorder) (08297635) Other specified chronic obstructive pulmonary disease (J44.89) Active confirmed Vital Signs Heart Rate 72 /min 07/27/2025 Temperature 96.3 degrees Fahrenheit 07/27/2025 Oximetry 98 % 07/27/2025 Blood pressure diastolic 68 mm Hg 07/27/2025 Height 67 in 07/27/2025 Blood pressure systolic 118 mm Hg 07/27/2025 Weight 143 lbs 07/27/2025 BMI 22.39 kg/m2 07/27/2025 Encounters Encounter Location Date Provider Diagnosis Radha Rivero MD [address] [id number] 12/04/2024 Normadoc Sanchese Hypertensive chronic kidney disease with stage 1 through stage 4 chronic kidney disease, or unspecified chronic kidney disease I12.9 ; Chronic kidney disease, stage 1 N18.1 and Gastro-esophageal reflux disease with esophagitis, without bleeding K21.00 Radha Rivero MD [address] [id number] 01/12/2025 Norma Jeter Hypertensive chronic kidney disease [...] and Mixed hyperlipidemia E78.2 Radha Rivero MD [address] [id number] 01/28/2025 Norma Jeter Hypertensive chronic kidney disease [...] obstructive pulmonary disease J44.89 Radha Rivero MD [address] [id number] 05/25/2025 Norma Jeter Acute cough R05.1 ; [...] diseases classified elsewhere I79.8 Radha Rivero MD [address] [id number] 07/27/2025 Norma Jeter Hypertensive chronic kidney disease with stage 1 through stage 4 chronic kidney disease, or unspecified chronic kidney disease I12.9 ; Encounter for general adult medical examination without abnormal findings Z00.00 ; Chronic kidney disease, stage 1 N18.1 ; Gastro-esophageal reflux disease with esophagitis, without bleeding K21.00 ; Acute cough R05.1 ; Diaphragmatic hernia without obstruction or gangrene K44.9 ; Menopausal and female climacteric states N95.1 ; Personal history of nicotine dependence Z87.891 ; Vitamin D deficiency, unspecified E55.9 ; Encounter for screening for malignant neoplasm of colon Z12.11 ; Encounter for screening mammogram for malignant neoplasm of breast Z12.31 ; Encounter for screening for cardiovascular disorders Z13.6 ; Encounter for immunization Z23 ; Immunization not carried out because of patient refusal Z28.21 ; Encounter for antibody response examination Z01.84 ; Encounter for screening for other viral diseases Z11.59 and Encounter for screening examination for other mental health and behavioral disorders Z13.39 Radha Rivero MD [address] [id number] 08/12/2024 Norma Rivero MD [address] [id number] 09/26/2024 Norma Rivero MD [address] [id number] 12/02/2024 Norma Rivero MD [address] [id number] 12/04/2024 Norma Jeter Gastro-esophageal reflux disease with esophagitis, without bleeding K21.00 Radha Rivero MD [address] [id number] 12/04/2024 Norma Rivero MD [address] [id number] 01/26/2025 Norma Rivero MD [address] [id number] 01/31/2025 Norma Rivero MD [address] [id number] 02/05/2025 Norma Jeter Isolated proteinuria R80.0 Radha Rivero MD [address] [id number] 02/13/2025 Norma Rivero MD [address] [id number] 05/20/2025 Norma Rivero MD [address] [id number] 07/21/2025 Norma Rivero MD [address] [id number] 08/26/2024 Norma Rivero MD [address] [id number] 08/26/2024 Norma Rivero MD [address] [id number] 09/19/2024 Norma Jeter Acute upper respirat ory infection, unspecified J06.9 and Chronic cough R05.3 Radha Rivero MD [address] [id number] 11/10/2024 Norma Jeter Mild intermittent asthma, uncomplicated J45.20 Radha Rivero MD [address] [id number] 11/10/2024 Norma Jeter Mild intermittent asthma, uncomplicated J45.20 Radha Rivero MD [address] [id number] 11/11/2024 Norma Jeter Radha Rivero MD [address] [id number] 11/11/2024 Norma Jeter Radha Rivero MD [address] [id number] 01/13/2025 Norma Jeter Radha Rivero MD [address] [id number] 01/23/2025 Norma Jeter Chronic cough R05.3 Radha Rivero MD [address] [id number] 01/26/2025 Norma Jeter Radha Rivero MD [address] [id number] 02/02/2025 Normadoc Sanchese Urinary tract infection, site not specified N39.0 Radha Rivero MD [address] [id number] 02/04/2025 Norma Corona Rivero MD [address] [id number] 03/20/2025 Norma Jeter Assessments Encounter Date Diagnosis [...] to reassess GFR at this time 09/19/2024 Acute upper respiratory infection, unspecified (ICD-10 - J06.9) 01/23/2025 Chronic cough (ICD-10 - R05.3) 01/28/2025 Hypertensive chronic kidney disease with stage 1 through stage 4 chronic kidney disease, or unspecified chronic kidney disease (ICD-10 - I12.9) Blood pressure greatly improved during today's visit. Patient to remain on current medication regimen with follow-up as scheduled 01/28/2025 Chronic kidney disease, stage 1 (ICD-10 - N18.1) Previous GFR noted to be in the 90s. 02/05/2025 Isolated proteinuria (ICD-10 - R80.0) 05/25/2025 [...] she was on vacation last March in [facility]. She states this cough was associated with a fever, body aches, and chills. Patient has been evaluated by pulmonology as well as allergy and immunology and all specialist agree that her cough may be related to uncontrolled reflux. Would also like to obtain Chikungunya antibody IgG levels to see if patient was exposed during her trip to [facility] last year and have caused her previous and continued symptoms 07/27/2025 Hypertensive chronic kidney disease with stage 1 through stage 4 chronic kidney disease, or unspecified chronic kidney disease (ICD-10 - I12.9) Blood pressure stable during today's visit. Patient to remain on medication regimen and to continue to control comorbidity of HTN 07/27/2025 Encounter for general adult medical examination without abnormal findings (ICD-10 - Z00.00) General healthcare up-to-date. Will obtain updated routine labs.Plan we for annual in 1 year 02/02/2025 Urinary tract infection, site not specified (ICD-10 - N39.0) 01/12/2025 Hypertensive chronic kidney disease with stage 1 through stage 4 chronic kidney disease, or unspecified chronic kidney disease (ICD-10 - I12.9) Blood pressure continues to show improvement on indapamide. Patient to continue on this medication and would like patient to follow-up in 4 months to ensure continued improvement in her blood pressure given her extensive family history of hypertension and cardiac disease 12/04/2024 Gastro-esophageal reflux disease with esophagitis, without bleeding (ICD-10 - K21.00) 01/12/2025 Chronic kidney disease, stage 1 (ICD-10 - N18.1) Previous GFR noted to be in the 90s. 01/12/2025 Gastro-esophageal reflux disease with esophagitis, without bleeding (ICD-10 - K21.00) Patient continues to use her famotidine daily with overall management of her reflux symptoms. She is scheduled for hiatal hernia repair in January to help further improve her reflux symptoms 07/27/2025 Chronic kidney disease, stage 1 (ICD-10 - [...] resolve the cough that she is experiencing. 09/19/2024 Chronic cough (ICD-10 - R05.3) 12/04/2024 Gastro-esophageal reflux disease with esophagitis, without [...] her reflux symptoms and results of cough 01/28/2025 Diaphragmatic hernia without obstruction or gangrene (ICD-10 - K44.9) See plan above.Patient is now scheduled for repair of hiatal hernia in 05/25/2025 Gastro-esophageal reflux disease with esophagitis, without bleeding (ICD-10 - K21.00) Patient continues to use her famotidine daily with overall management of her reflux symptoms. She is scheduled for hiatal hernia repair in June to help further improve her reflux symptoms 07/27/2025 Gastro-esophageal reflux disease with esophagitis, without bleeding (ICD-10 - K21.00) Patient continues to use her famotidine daily as well as Carafate as needed for management of her cough and reflux symptoms. Patient recently completed hiatal hernia repair to further improve her reflux symptoms 01/12/2025 Diaphragmatic [...] her reflux and stop her cough symptoms 07/27/2025 Acute cough (ICD-10 - R05.1) Patient with continued dry cough, although it is improving a bit since having her hiatal hernia repaired. Patient to remain on current reflux medication with follow-up with gastroenterology as scheduled 05/25/2025 Diaphragmatic hernia without obstruction or gangrene [...] her chronic cough. Will refer patient to [place] [facility] for further evaluation 05/25/2025 Other disorders of [...] we can further evaluate symptoms while present 01/28/2025 Other seasonal allergic rhinitis (ICD-10 - J30.2) Would like patient to begin Xyzal to see if this can further manage her seasonal allergy symptoms and postnasal drip. Would also like patient to have allergy testing for further evaluation and to rule out underlying causes that may be an irritant to her persistent cough 07/27/2025 Diaphragmatic hernia without obstruction or gangrene (ICD-10 - K44.9) Patient underwent hiatal hernia repair in June to further improve her reflux symptoms with associated cough 01/12/2025 Circadian rhythm sleep disorder, irregular [...] overall CAD risk given his family history 07/27/2025 Menopausal and female climacteric states (ICD-10 - N95.1) Stable and patient has not had any increased symptoms of hot flashes and feels as though her previous symptoms have continued to be gone. Patient to follow-up should her symptoms return as we could then discuss additional treatment options 01/28/2025 Other specified chronic obstructive pulmonary disease (ICD-10 - J44.89) See plan above.Will refer patient to [place] [facility] for further evaluation and to determine underlying causes for her persistent chronic cough. Suspect that patient may have mild COPD and will begin patient on Breztri to see if this can further assist in symptom management while she waits for pulmonology consult 07/27/2025 Personal history of nicotine dependence (ICD-10 - Z87.891) Patient has been cigarette free for greater than 6 months. Encouraged patient to continue working on strategies to remain cigarette free. Will also continure to obtain low-dose CT scans annually given her previous cigarette use 07/27/2025 Vitamin D deficiency, unspecified (ICD-10 - E55.9) Will check level to verify that there is no deficiency 07/27/2025 Encounter for screening for malignant neoplasm of colon (ICD-10 - Z12.11) Patient completed a colonoscopy with endoscopy in 2024. Patient aware that we do not have these results but will try and obtain them through [facility]. Depending on results of colonoscopy, I that we will guide follow-up recommendations to ensure patient remains up-to-date with colon cancer screenings 07/27/2025 Encounter for screening mammogram for malignant neoplasm of breast (ICD-10 - Z12.31) Patient states she is up-to-date with breast cancer screenings as she completes her mammograms through [facility]. Will obtain these results for records to ensure patient is up-to-date with breast cancer screenings 07/27/2025 Encounter for screening for cardiovascular disorders (ICD-10 - Z13.6) Blood pressure stable. Will check for comorbidity of hyperlipidemia and hyperglycemia to further assess risk 07/27/2025 Encounter for immunization (ICD-10 - Z23) Reviewed with patient her vaccine history and she is aware that she would qualify for the shingles series. Patient unsure if she to move forward with this vaccine series at this time.Patient also declined receiving her flu vaccine in office today 07/27/2025 Immunization not carried out because of patient refusal (ICD-10 - Z28.21) See plan above 07/27/2025 Encounter for antibody response examination (ICD-10 - Z01.84) Titers have been checked in the past and there is immunity to rubeola 07/27/2025 Encounter for screening for other viral diseases (ICD-10 - Z11.59) Will screen for hepatitis C as per general recommendation 07/27/2025 Encounter for screening examination for other mental health and behavioral disorders (ICD-10 - Z13.39) PHQ score reviewed and no further interventions warranted 12/04/2024 Other Plan Of Treatment Pending Test Test Name Order Date 25OH VITAMIN D 12/04/2022 COMPLETE CBC WITH DIFF 12/04/2022 COMPLETE URINALYSIS 12/04/2022 COMPREHENSIVE METABOLIC PANEL 12/04/2022 LIPID PANEL 12/04/2022 CT Low Dose Lung Screening 07/27/2025 Iron and TIBC-281287 07/27/2025 Vitamin S73-100999 07/27/2025 Urinalysis, Complete-066070 07/27/2025 Ferritin-815669 07/27/2025 CBC With Differential/Platelet-061907 Vitamin D, 90-Fwajzrr-603883 07/27/2025 Albumin/Creatinine Ratio,Urine-903838 HCV Antibody RFX to Quant PCR-[id number] Comp. Metabolic Panel ([id number] 2024 LP+Non-HDL Cholesterol-433686 07/27/2025 Chikungunya Ab, IgG by GHISLAINE-675673 05/02 Next Appt Details Provider Name:Norma Jeter , 01/25/2026 02:30:00 PM, [address] [place] [address], [phone], Provider Name:Norma Jeter , 08/02/2026 01:00:00 PM, [address] [place] [address], [phone], Insurance Providers Payer Name Payer Address Payer Phone Subscriber Number Group Number Insured Name Patient Relationship to Insured Coverage Start Date Coverage End Date [facility] [employer] Plans [address] [place] [address] [id number] Martha Palomares Self - patient is the insured Medical (General) History Medical History History ICD Code hypertension hiatal hernia Surgical History Surgery Date(Month/Year) uterine ablation (age 51) heiadal hernia 06/2025 Hospitalization History Reason Date(Month/Year)
--- OUTSIDE RECORDS SUMMARY | 2025-08-07 10:57 | XMS_ITS | Clinical Summary ---
Author Organization [employer] Address [address] [facility] [address] [place] [address] Care Team Providers Care Tube Sizer Operator Name Role Phone Unavailable Primary Care Provider [...]
--- OUTSIDE RECORDS SUMMARY | 2025-08-07 10:57 | XMS_ITS | Patient Health Record ---
[facility] Address [address] [place] [address] Care Team Providers Care Sponge Packer Name Role Phone Valerie ACKERMAN, Ines Primary Care Provider Unavail able Black, Yoli Unavailable [phone] Reason For Referral No Information Medications Medication [...] Status Risk Notes Problem Acquired hallux valgus (73163523) Hallux valgus (acquired), left foot (M20.12) Active confirmed Problem Acquired hallux valgus (57207254) Hallux valgus (acquired), right foot (M20.11) Active confirmed Problem Non-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) Active confirmed Problem Acquired hammer toe of right foot (9279227521150 105) Other hammer toe(s) (acquired), right foot (M20.41) Active confirmed Problem Acquired hammer toe of left foot (6164251500137 103) Other hammer toe(s) (acquired), left foot (M20.42) Active confirmed Plan Of Treatment Pending Test Test Name Order Date 96146-Fvtvwuev Plate 12/16/2018 Insurance Providers Payer Name Payer Address Payer Phone Subscriber Number Group Number Insured Name Patient Relationship to Insured Coverage Start Date Coverage End Date [facility] [address] [place] [address] [id number] Samir Palomares Spouse - patient is the spouse of the insured Medical (General) History Medical History History ICD Code Chicken pox Joint implants/screws Surgical History Surgery Date(Month/Year) x 1 d&c 2014 left breast needle guided biopsy 08/2016 left shoulder arthroscopy 08/2017 shoulder surgery 08/2018
--- OUTSIDE RECORDS SUMMARY | 2025-08-07 10:57 | XMS_ITS | Clinical Summary ---
Author Organization [facility] Address [address] [place] [address] Phone Care Team Providers Care Rent And Housing Investigator Name Role Phone Norma Jeter NP Primary Care Provider [phone] Allergies No known active allergies Medications albuterol [...] 02/06/2025 9:06 AM EDT Plan of Treatment Health Maintenance Due Date Last Done Comments Breast Cancer Screening 1965 Colorectal Cancer Screening: Colonoscopy 1965 Pneumococcal Vaccine: 50+ Years (1 of 2 - PCV) 1984 Cervical Cancer Screening: Pap Smear 1986 Zoster Vaccines (1 of 2) 2015 Depression Screening 10/01/2024 Cholesterol Screening (Lipid Panel) 10/03/2024 HIV Screening 10/03/2024 Hepatitis C Screening 10/03/2024 Social Influencers of Health Screening 10/03/2024 COVID-19 Vaccine ( season) 2025 09/29/2022, 09/16/2021, 01/12/2021, Additional history [...] complete this topic Insurance [employer] Care Teams Rent And Housing Investigator Relationship Specialty Start Date End Date Norma Jeter NP [address] [place] [id number] PCP - General Family Medicine 10/10/24
== END 2025-08-07 09:42 | disposition home or self-care (01) ==
LOC: HO.HBS 09:34
PROVIDERS: PCP Nurse Practitioner Family; Visit Provider Physician Assistant Surgical
DX: K21.9 Gastro-esophageal reflux disease without esophagitis (principal); Z98.890 Other specified postprocedural states; Z87.19 Personal history of other diseases of the digestive system
CPT/HCPCS: 99024

== ENCOUNTER 2025-09-30 09:07 | Outpatient (REF) | payer OTHER, SELFPAY ==
--- NOTE | ~2025-09-30 | MM_ITS ---
EXAMINATION: MM SCREENING DIGITAL BREAST TOMOSYNTHESIS, BILATERAL CLINICAL INFORMATION: Screening. Asymptomatic. COMPARISON: Mammography: Comparison is made with relevant avialable priors. TECHNIQUE: Digital mammography is performed in craniocaudal and mediolateral oblique views along with computer-aided detection (CAD). Digital breast tomosynthesis is performed in implant-displaced craniocaudal and implant-displaced mediolateral oblique views along with computer-aided detection (CAD). FINDINGS: There are scattered areas of fibroglandular density. Bilateral retropectoral saline implants are stable appearing. There are no significant masses, abnormal calcifications, or other abnormalities. MM/MM tomosynthesis screen imp BI IMPRESSION: There are no significant changes from prior study. ASSESSMENT: BI-RADS Category 2: Benign RECOMMENDATION: Routine annual mammography screening. 1 year F/U This patient's information was entered into a reminder system with a target due date for their next mammogram. Electronically signed by: Nuria Pa DO 10/02/2025 04:51 PM [facility]
--- OUTSIDE RECORDS SUMMARY | 2025-09-30 09:17 | XMS_ITS | Patient Health Record ---
[facility] Organization [facility] Address [address] [place] [address] Care Team Providers Care Ton Cylinder Inspector Name Role Phone Valerie ACKERMAN, Ines Primary Care Provider Unavail able Black, Yoli Unavailable [phone] Reason For Referral No Information Medications Medication [...] Status Risk Notes Problem Acquired hallux valgus (44513823) Hallux valgus (acquired), left foot (M20.12) Active confirmed Problem Acquired hallux valgus (43965976) Hallux valgus (acquired), right foot (M20.11) Active confirmed Problem Non-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) Active confirmed Problem Acquired hammer toe of right foot (8454902651743 105) Other hammer toe(s) (acquired), right foot (M20.41) Active confirmed Problem Acquired hammer toe of left foot (8411007247016 103) Other hammer toe(s) (acquired), left foot (M20.42) Active confirmed Plan Of Treatment Pending Test Test Name Order Date [id number]-Hrmjoyek Plate 12/16/2018 Insurance Providers Payer Name Payer Address Payer Phone Subscriber Number Group Number Insured Name Patient Relationship to Insured Coverage Start Date Coverage End Date [facility] [address] [place] [address] [phone] [id number] Samir Paolmares Spouse - patient is the spouse of the insured Medical (General) History Medical History History ICD Code Chicken pox Joint implants/screws Surgical History Surgery Date(Month/Year) x 1 d&c 2014 left breast needle guided biopsy 08/2016 left shoulder arthroscopy 08/2017 shoulder surgery 08/2018
--- OUTSIDE RECORDS SUMMARY | 2025-09-30 09:18 | XMS_ITS | Clinical Summary ---
Author Organization [facility] Address [address] [place] [address] Phone Care Team Providers Care Charging Plug Placer Name Role Phone Norma Jeter NP Primary Care Provider [phone] Allergies No known active allergies Medications albuterol [...] Orientation Straight 10/09/2024 4: 21 PM EST Last Filed Vital Signs Vital Sign Reading [...] complete this topic Insurance [employer] Care Teams Charging Plug Placer Relationship Specialty Start Date End Date Norma Jeter NP [address] [place] [id number] PCP - General Family Medicine 10/10/24
--- OUTSIDE RECORDS SUMMARY | 2025-09-30 09:18 | XMS_ITS | Patient Health Record ---
Author Organization Radha Rivero MD Address [address] [place] [phone] Care Team Providers Care Video Software Engineer Name Role Phone Jeter Norma Primary Care Provider Allergies No Known Allergies Results Component Value Reference Range Notes EBCT Coronary calcium score Reviewed date:02/13/2025 02:44:12 PM Interpretation: Performing Lab: Notes/Report: Urinalysis, Complete-[id number] Reviewed date:09/28/2025 10:39:04 AM Interpretation: Performing Lab:[facility], [address] [facility], Phone - [phone], Director - Missy Notes/Report: Specific Sherrill 1.022 1.005-1.030 pH 7.0 5.0-7.5 Urine-Color Yellow Yellow Appearance Clear Clear WBC Esterase Negative Negative Protein Trace Negative/Trace Glucose Negative Negative Ketones Negative Negative Occult Blood Negative Negative Bilirubin Negative Negative Urobilinogen,Semi-Qn 0.2 0.2-1.0 mg/dL Nitrite, Urine Negative Negative Microscopic Examination Micr oscopic follows if indicated. Microscopic Examination See below: Micr oscopic was indicated and was performed. WBC None seen 0 - 5 /hpf RBC None seen 0 - 2 /hpf Epithelial Cells (non renal) 0-10 0 - 10 /hpf Casts None seen None seen /lpf Bacteria None seen None seen/Few Ferritin-[id number] Reviewed date:09/28/2025 10:39:04 AM Interpretation: Performing Lab:[facility] [place], [address] [facility], [place], Phone - [phone], Director - Missy Notes/Report: Ferritin 152 15-150 ng/mL CBC With Differential/Platel et-[id number] Reviewed date:09/28/2025 10:39:04 AM Interpretation: Performing Lab:[facility], [address] [facility], Phone - [phone], Director - Missy Notes/Report: WBC 6.0 3.4-10.8 x10E3/uL RBC 4.79 3.77-5.28 x10E6/uL Hemoglobin 14.3 11.1-15.9 g/dL Hematocrit 43.0 34.0-46.6 % MCV 90 79-97 fL MCH 29.9 26.6-33.0 pg MCHC 33.3 31.5-35.7 g/dL RDW 13.0 11.7-15.4 % Platelets 270 150-450 x10E3/uL Neutrophils 51 Not Estab. % Lymphs 40 Not Estab. % Monocytes 6 Not Estab. % Eos 2 Not Estab. % Basos 1 Not Estab. % Neutrophils (Absolute) 3.1 1.4-7.0 x10E3/uL Lymphs (Absolute) 2.4 0.7-3.1 x10E3/uL Monocytes(Absolute) 0.4 0.1-0.9 x10E3/uL Eos (Absolute) 0.1 0.0-0.4 x10E3/uL Baso (Absolute) 0.0 0.0-0.2 x10E3/uL Immature Granulocytes 0 Not Estab. % Immature Grans (Abs) 0.0 0.0-0.1 x10E3/uL Vitamin D, 32-Gminspg-[id number] Reviewed date:09/28/2025 10:39:05 AM Interpretation: Performing Lab:[facility], [address] [facility], Phone - [phone], Director - Missy Notes/Report: Vitamin D, 25-Hydroxy 35.2 30.0-100.0 ng/mL Vitamin D deficiency has been defined by the [place] of Medicine and an Endocrine Society practice guideline as a level of serum 25-OH vitamin D less than 20 ng/mL (1,2). The Endocrine Society went on to further define vitamin D insufficiency as a level between 21 and 29 ng/mL (2). 1. IOM ([place] of Medicine). 2010. Dietary reference intakes for calcium and D. [place]: The National Academies Press. 2. Florence MF, Clementina COREAS, Floridalma LABOY, et al. Evaluation, treatment, and prevention of vitamin D deficiency: an Endocrine Society clinical practice guideline. JCEM. 2010; 96(7):1911-30. Albumin/Creatinine Ratio,Kevin ne-[id number] Reviewed date:09/28/2025 10:39:05 AM Interpretation: Performing Lab:[facility] [place], [address] [place] [address], Phone - [phone], Director - MDJodry Notes/Report: Creatinine, Urine 113.7 Not Estab. mg/dL Albumin, Urine <3.0 Not Estab. ug/mL Alb/Creat Ratio <3 0-29 mg/g creat Normal: 0 - 29 Moderately increased: 30 - 300 Severely increased: >300 HCV Antibody RFX to Quant PC [id number] Reviewed date:09/28/2025 10:39:05 AM Interpretation: Performing Lab:[facility] [place], [address] [place] [address], Phone - [phone], Director - MDJodry Notes/Report: HCV Ab Non Reactive Non Reactive Interpretation: Not infected with HCV unless early or acute infection is suspected (which may be delayed in an immunocompromised individual), or other evidence exists to indicate HCV infection. Comp. Metabolic Panel ([id number] Reviewed date:09/28/2025 10:39:05 AM Interpretation: Performing Lab:[facility] [place], [address] [place] [address], Phone - [phone], Director - MDJodry Notes/Report: Glucose 82 70-99 mg/dL BUN 12 8-27 mg/dL Creatinine 0.80 0.57-1.00 mg/dL eGFR 84 >59 mL/min/1.73 BUN/Creatinine Ratio 15 12-28 Sodium 141 134-144 mmol/L Potassium 4.2 3.5-5.2 mmol/L Chloride 104 96-106 mmol/L Carbon Dioxide, Total 29 20-29 mmol/L Calcium 9.0 8.7-10.3 mg/dL Protein, Total 6.6 6.0-8.5 g/dL Albumin 4.5 3.8-4.9 g/dL Globulin, Total 2.1 1.5-4.5 g/dL Bilirubin, Total 0.4 0.0-1.2 mg/dL Alkaline Phosphatase 83 49-135 IU/L AST (SGOT) 23 0-40 IU/L ALT (SGPT) 18 0-32 IU/L LP+Non-HDL Cholesterol-19388 5 Reviewed date:09/28/2025 10:39:05 AM Interpretation: Performing Lab:[facility] [place], [address] [place] [address], Phone - [phone], Director - [facility] Notes/Report: Cholesterol, Total 184 100-199 mg/dL Triglycerides 105 0-149 mg/dL HDL Cholesterol 68 >39 mg/dL VLDL Cholesterol Pro 19 5-40 mg/dL LDL Chol Calc (NIH) 97 0-99 mg/dL Non-HDL Cholesterol 116 0-129 mg/dL Vitamin [id number] Reviewed date:09/28/2025 10:39:04 AM Interpretation: Performing Lab:[facility] [place], [address] [facility], [place], Phone - [phone], Director - Sebastián Notes/Report: Vitamin B12 045 846-1400 pg/mL Iron and TIBC-[id number] Reviewed date:09/28/2025 10:39:04 AM Interpretation: Performing Lab:[facility] [place], [address] [place] [address], Phone - [phone], Director - Sebastiány Notes/Report: Iron Bind.Cap.(TIBC) 271 250-450 ug/dL UIBC 202 131-425 ug/dL Iron 69 27-159 ug/dL Iron Saturation 25 15-55 % CT Lung Screening Reviewed date:09/28/2025 10:39:05 AM Interpretation: Performing Lab: Notes/Report: Original Report PROCEDURE: CT LUNG CANCER SCREENING INDICATION: CT lung cancer screening. Smoking history of one pack per day for 30 years, quit smoking 3 years ago. TECHNIQUE: Low-dose screening CT of the chest was performed without contrast. Automated mA/kV exposure control was utilized and patient examination was performed in strict accordance with principles of ALARA. RADIATION AMOUNT: DLP: 45.1 mGy-cm. CTDI: 1.2 mGy. COMPARISON: None. FINDINGS: Heart size normal. No pericardial effusion. No coronary artery calcifications are identified. No mediastinal or hilar adenopathy. Small focus of lingular subsegmental atelectasis and bronchiectasis. No pleural effusion. No findings of pneumothorax. 3 mm solid nodule anterior RIGHT upper lobe slice 28 series #3. Partially visualized upper abdomen without acute process. No acute bony abnormality. IMPRESSION: 3 mm solid nodule anterior RIGHT upper lobe. Small focus of lingular subsegmental atelectasis and bronchiectasis. Lung-RADS Category (V 2021): Category 2 recommend continued annual low-dose CT screening follow-up Lung-RADS Modifier: None. Stephen Tomlinson MD Signed by Stephen Tomlinson MD Read by: STEPHEN TOMLINSON MD Reviewed and Electronically Signed by: STEPHEN TOMLINSON MD Chest 2 Views Frontal and La t Reviewed date:01/26/2025 06:51:50 PM Interpretation: Performing Lab: Notes/Report: Chest 2 Views Frontal and Lat Reason: cough COMPARISON: None. FINDINGS: LINES AND TUBES: None. LUNGS AND PLEURA: Clear lungs. Normal pulmonary vascularity. No pleural effusion. No pneumothorax. HEART, MEDIASTINUM AND SOFYA: Heart is normal in size. Normal mediastinal and hilar contour. BONES AND SOFT TISSUES: No acute abnormality. IMPRESSION: No acute abnormality. WSN: [id number] Ordering Physician: Norma Jeter Dictated By: Kirill ACKERMAN, Micheal WILLIAMSON/Shay w/rflx Culture, Routine -[id number] Reviewed date:02/19/2025 12:18:12 PM Interpretation: Performing Lab:[facility] [place], [address] [place] [address], [place], Phone - [phone], Director - Missy Notes/Report: Specific Sherrill 1.015 1.005-1.030 pH 8.0 5.0-7.5 Urine-Color Yellow [...] seen /lpf Bacteria None seen None seen/Few Albumin/Creatinine Ratio,Uri ne-[id number] Reviewed date:02/19/2025 12:18:11 PM Interpretation: Performing Lab:[facility] [place], [address] [facility] [address], [place], Phone - [phone], Director - Missy Notes/Report: Creatinine, Urine 77.0 Not Estab. mg/dL Albumin, Urine <3.0 Not Estab. ug/mL Alb/Creat Ratio <4 0-29 mg/g creat Normal: 0 - 29 Moderately increased: 30 - 300 Severely increased: >300 Chikungunya Antibody, IgG/M Reviewed date:05/29/2025 11:41:04 AM Interpretation: Performing Lab:[facility], [address] [facility] [address], Phone - [phone], Director - [facility] Notes/Report: Result IgG: Negative Result IgM: [...] developed and its performance characteristics determined by [facility]. It has not been cleared or approved by the US Food and Drug Administration. This test was performed in a CLIA certified laboratory and is intended for clinical purposes. Electronically Signed By: Jt Valladares Reason For Referral Reason Can we refer to [facility] Pulmonology for chronic cougn faxed Diagnosis 1 Acute cough (R05.1) Referral Organization [facility] K[facility] Referring Provider First Name Norma Referring Provider Last Name Corona Referring Provider Speciality Nurse Prac moustapha Referred Provider Bassem Rojo Referred Provider Specialty Pulmonology General Notes Kita DOWNING 01/01 11:22:54 AM >faxed Referral Priority Routine Referral Appointment Date 02/06/2025 Reason Would benefit from a llergy testing due to chronic cough and seasonal allergies faxed Diagnosis 1 Other seasonal aller gic rhinitis (J30.2) Referral Organization [facility] Referring Provider First Name Norma Referring Provider Last Name Corona Referring Provider Speciality Nurse Trinidad bnesonionejennifer Referred Provider Raf Allergy Referred Provider Specialty Allergy/Immu nology General Notes Kita DOWNING 01/01 11:23:18 AM >faxed Referral Priority Routine Referral Appointment Date 02/17/2025 Medications Medication SIG (Take, Route, Frequency, Duration) Notes Start Date End Date Status Albuterol Sulfate HFA 108 (90 Base) MCG/ACT 1 puff as needed Inhalation every 4 hrs; Duration: 30 days Active Indapamide 1.25 MG 1 tablet in the morn ing Orally Once a day; Duration: 90 days Active Famotidine 40 MG TAKE 1 TABLET BY SRAVAN EVERY DAY FOR 30 DAYS; Duration: 90 Active Tretinoin 0.025 % 1 application in the evening to face Externally twice a week; Duration: 30 days 09/11/2025 Active Immunizations Vaccine Route Administration Date Status Comme nts [id number]-36-Lhkarh Vaccine Unknown 12/21/2020 Administered ETMBT-16-Mkqjrz Vaccine Unknown 01/12/2021 Administered ZEXWW-23-Hyuiie Vaccine Unknown 09/16/2021 Administered COVID-19 Pfizer BiValent Booster Unknown 09/29/2022 Adm inistered *Tdap Unknown 06/01/2023 Administered *Influenza-Flublok Unknown 07/27/2025 Refused Problems Problem Type SNOMED Code ICD Code Onset Dates Problem Status W/U Status Risk Notes Problem Vitamin D deficiency (63015619) Vitamin D deficiency, unspecified (E55.9) Active confirmed Problem Mixed hyperlipidemia (274788677) Mixed hyperlipidemia (E78.2) Active confirmed Problem Environmental sleep disorder (598943862) 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 confirmed Problem Irregular sleep-wake pattern (934514842) Circadian rhythm sleep disorder, 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 Problem Chronic kidney disease due to hypertension (467548448236721) Hypertensive chronic kidney disease with stage 1 through stage 4 chronic kidney disease, or unspecified chronic kidney disease (I12.9) Active confirmed Problem Disorder of blood vessel (35395316) Other disorders of arteries, 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 (I79.8) Active confirmed Problem Seasonal allergic rhinitis (759774897) Other seasonal allergic rhinitis (J30.2) Active confirmed Problem Mild intermittent asthma (496419646) Mild intermittent asthma, uncomplicated (J45.20) Active confirmed Problem Rosacea (607249577) Rosacea, unspecified (L71.9) Active confirmed Problem Chronic kidney disease stage 1 (026686269) Chronic kidney disease, stage 1 (N18.1) Active confirmed Problem Menopause (065709637) Menopausal and female climacteric states (N95.1) Active confirmed Problem Nicotine dependence (21920380) Personal history of nicotine dependence (Z87.891) Active confirmed Problem Gastroesophageal reflux disease with esophagitis (disorder) (234526514) Gastro-esophageal reflux disease with esophagitis, without bleeding (K21.00) Active confirmed Problem Chronic obstructive pulmonary disease (disorder) (31749060) Other specified chronic obstructive pulmonary disease (J44.89) Active confirmed Vital Signs Heart Rate 72 /min 07/27/2025 Temperature 96.3 degrees Fahrenheit 07/27/2025 Blood pressure diastolic 68 mm Hg 07/27/2025 Oximetry 98 % 07/27/2025 Height 67 in 07/27/2025 Blood pressure systolic 118 mm Hg 07/27/2025 Weight 143 lbs 07/27/2025 BMI 22.39 kg/m2 07/27/2025 Encounters Encounter Location Date Provider Diagnosis Radha Rivero MD [address] [id number] 01/28/2025 Norma Jeter Hypertensive chronic kidney disease [...] obstructive pulmonary disease J44.89 Radha Rivero MD [address] [id number] 12/04/2024 Norma Jeter Hypertensive chronic kidney disease with stage 1 through stage 4 chronic kidney disease, or unspecified chronic kidney disease I12.9 ; Chronic kidney disease, stage 1 N18.1 and Gastro-esophageal reflux disease with esophagitis, without bleeding K21.00 Radha Rivero MD [address] [id number] 05/25/2025 Norma Jeter Acute cough R05.1 ; [...] diseases classified elsewhere I79.8 Radha Rivero MD [address] [id number] 07/27/2025 Norma Jeter Hypertensive chronic kidney disease [...] and behavioral disorders Z13.39 Radha Rivero MD [address] [id number] 01/12/2025 Norma Jeter Hypertensive chronic kidney disease [...] and Mixed hyperlipidemia E78.2 Radha Rivero MD [address] [id number] 09/11/2025 Norma Jeter [facility] [address] [facility] [address] [place] [address] [id number] 09/28/2025 Norma Jeter [facility] [address] [place] [address] [place] [address] [id number] 08/18/2025 Norma Jeter [facility] [address] [facility] [address] [place] [address] [id number] 07/21/2025 Norma Jeter [facility] [address] [facility] [address] [place] [address] [id number] 05/20/2025 Norma Jeter Radha Rivero MD [address] [place] [address] [id number] 02/13/2025 Norma Jeter [facility] [address] [place] [address] [place] [address] [id number] 02/05/2025 Norma Jeter Isolated proteinuria R80.0 Radha Rivero MD [address] [place] [address] [id number] 01/31/2025 Norma Jeter Radha Rivero MD [address] [place] [address] [id number] 01/26/2025 Norma Jeter Radha Rivero MD [address] [place] [address] [id number] 12/04/2024 Norma Jeter Radha Rivero MD [address] [id number] 12/04/2024 Norma Jeter Gastro-esophageal reflux disease with esophagitis, without bleeding K21.00 Radha Rivero MD [address] [place] [address] [id number] 12/02/2024 Norma Corona Rivero MD [address] [place] [address] [id number] 09/22/2025 Norma Jeter Hypertensive chronic kidney disease with stage 1 through stage 4 chronic kidney disease, or unspecified chronic kidney disease I12.9 [facility] [address] [place] [address] [place] [address] [id number] 09/11/2025 Norma Jeter Rosacea, unspecified L71.9 [facility] [address] [place] [address] [place] [address] [id number] 08/10/2025 Norma Jeter [facility] [address] [place] [address] [place] [address] [id number] 03/20/2025 Norma Jeter Radha Rivero MD [address] [id number] 02/04/2025 Norma Jeter Radha Rivero MD [address] [id number] 02/02/2025 Norma Jeter Urinary tract infection, site not specified N39.0 Radha Rivero MD [address] [id number] 01/26/2025 Normadoc Sanchese Radha Rivero MD [address] [id number] 01/23/2025 Norma Jeter Chronic cough R05.3 Radha Rivero MD [address] [id number] 01/13/2025 Norma Sanchese Radha Rivero MD [address] [id number] 11/11/2024 Norma Sanchese Radha Rivero MD [address] [id number] 11/11/2024 Norma Sanchese Radha Rivero MD [address] [id number] 11/10/2024 Normadoc Sanchese Mild intermittent asthma, uncomplicated J45.20 Radha Rivero MD [address] [id number] 11/10/2024 Norma Jeter Mild intermittent asthma, uncomplicated [...] she was on vacation last March in [facility]. She states this cough was associated with a fever, body aches, and chills. Patient has been evaluated by pulmonology as well as allergy and immunology and all specialist agree that her cough may be related to uncontrolled reflux. Would also like to obtain Chikungunya antibody IgG levels to see if patient was exposed during her trip to [facility] last year and have caused her previous [...] labs.Plan we for annual in 1 year 09/11/2025 Rosacea, unspecified (ICD-10 - L71.9) 09/22/2025 Hypertensive chronic kidney disease with stage 1 through stage 4 chronic kidney disease, or unspecified chronic kidney disease (ICD-10 - I12.9) 07/27/2025 Chronic kidney disease, stage 1 (ICD-10 [...] her reflux symptoms and results of cough 01/12/2025 Diaphragmatic hernia without obstruction or gangrene [...] scheduled for repair of hiatal hernia in 07/27/2025 Gastro-esophageal reflux disease with esophagitis, without bleeding (ICD-10 - K21.00) Patient continues to use her famotidine daily as well as Carafate as needed for management of her cough and reflux symptoms. Patient recently completed hiatal hernia repair to further improve her reflux symptoms 07/27/2025 Acute cough (ICD-10 - R05.1) [...] her chronic cough. Will refer patient to [facility] for further evaluation 01/12/2025 Acute cough (ICD-10 - R05.1) Spent much time discussing patient's dry, nonproductive cough that has been present for greater than a year. Patient was recently traveling in the [place] and she states that her cough [...] can further evaluate symptoms while present 01/12/2025 Circadian rhythm sleep disorder, irregular sleep [...] undergo a sleep study for further evaluation 07/27/2025 Diaphragmatic hernia without obstruction or gangrene (ICD-10 - K44.9) Patient underwent hiatal hernia repair in June to further improve her reflux symptoms with associated cough 01/28/2025 Other specified chronic obstructive pulmonary disease (ICD-10 - J44.89) See plan above.Will refer patient to [facility] for further evaluation and to determine underlying causes for her persistent chronic cough. Suspect that patient may have mild COPD and will begin patient on Breztri to see if this can further assist in symptom management while she waits for pulmonology consult 07/27/2025 Menopausal and female climacteric states (ICD-10 - N95.1) Stable and patient has not had any increased symptoms of hot flashes and feels as though her previous symptoms have continued to be gone. Patient to follow-up should her symptoms return as we could then discuss additional treatment options 01/12/2025 Mixed hyperlipidemia (ICD-10 - E78.2) Patient [...] CAD risk given his family history 07/27/2025 Personal history of nicotine dependence (ICD-10 [...] but will try and obtain them through [facility]. Depending on results of colonoscopy, I that we will guide follow-up recommendations to ensure patient remains up-to-date with colon cancer screenings 07/27/2025 Encounter for screening mammogram for malignant neoplasm of breast (ICD-10 - Z12.31) Patient states she is up-to-date with breast cancer screenings as she completes her mammograms through [facility]. Will obtain these results for records [...] 12/04/2022 CT Low Dose Lung Screening 07/27/2025 Chikungunya Ab, IgG by [id number] 05/02 Next Appt Details Provider Name:Norma Jeter , 01/25/2026 02:30:00 PM, [address] [place] [address], [address], [phone], Provider Name:Norma Jeter , 08/02/2026 01:00:00 PM, [address] [place] [address], [address], [phone], Insurance Providers Payer Name Payer Address Payer Phone Subscriber Number Group Number Insured Name Patient Relationship to Insured Coverage Start Date Coverage End Date [facility] [address] [place] [address] [id number] Martha Palomares Self - patient is the insured Medical (General) History Medical History History ICD Code hypertension hiatal hernia Surgical History Surgery Date(Month/Year) uterine ablation (age 51) heiadal hernia 06/2025 Hospitalization History Reason Date(Month/Year)
--- OUTSIDE RECORDS SUMMARY | 2025-09-30 09:18 | XMS_ITS | Clinical Summary ---
Author Organization [employer] Address [address] [facility] [address] [place] [address] Care Team Providers Care Asset Recovery Specialist Name Role Phone Unavailable Primary Care Provider [...]
== END 2025-09-30 09:08 | disposition home or self-care (01) ==
LOC: HO.MAMMO 09:07
PROVIDERS: PCP Nurse Practitioner Family; Visit Provider Nurse Practitioner Family
DX: Z12.31 Encounter for screening mammogram for malignant neoplasm of breast (principal)
CPT/HCPCS: 77063; 77067

== ENCOUNTER → 2025-09-30 09:15 | Outpatient (BNV) | payer OTHER, SELFPAY | PROVIDERS: PCP Nurse Practitioner Family; Visit Provider Internal Medicine | DX: Z12.31 Encounter for screening mammogram for malignant neoplasm of breast (principal) | CPT/HCPCS: 77063; 77067 ==